=== PATIENT | male | born 1970 | race Caucasian/White ===

== ENCOUNTER 2016-09-21 18:05 | Inpatient (IN) | payer OTHER ==
[2016-09-21] MEDS ORDERED: SODIUM CHLORIDE 0.9% 1,000 ML IV STA (20:13)
--- NOTE | 2016-09-21 20:25 | ED ---
General Adult HPI <Greg Yanez - Last Filed: 09/21/16 22:27> - General Source: patient, RN notes reviewed Mode of arrival: ambulatory Limitations: no limitations <Dedra Kaye - Last Filed: 09/22/16 05:02> - General Chief complaint: Extremity Problem,Nontraumatic Stated complaint: leg infected Time Seen by Provider: 09/21/16 19:45 - History of Present Illness Initial comments: Patient is a 46-year-old male chief complaint of left leg and foot pain. Patient reports that he has had this pain for approximately 4 weeks. He was admitted to [facility] approximately month ago for an infection in his foot. Patient reports he is not a diabetic. Patient states that his pain is worse with ambulation. Patient denies any fever or chills. He states that he did have a scab initially over the area is concerned that is the infection started from there. Patient denies any peripheral paresthesias. He does state that he knows he has a fungal infection over his toes. (Dedra Kaye) - Related Data Allergies Allergy/AdvReac Type Severity Reaction Status Date / Time No Known Allergies Allergy Verified 09/21/16 18:37 Review of Systems ROS Other: All systems not noted in ROS Statement are negative. <Greg Yanez - Last Filed: 09/21/16 22:27> ROS Other: All systems not noted in ROS Statement are negative. <Dedra Kaye - Last Filed: 09/22/16 05:02> ROS Statement: Those systems with pertinent positive or pertinent negative responses have been documented in the HPI. Past Medical History Past Medical History: No Reported History History of Any Multi-Drug Resistant Organisms: None Reported Past Surgical History: No Surgical Hx Reported Past Psychological History: No Psychological Hx Reported Smoking Status: Current every day smoker Past Alcohol Use History: None Reported Past Drug Use History: None Reported <Dedra Kaye - Last Filed: 09/22/16 05:02> General Exam General appearance: alert, in no apparent distress Head exam: Present: atraumatic, normocephalic, normal inspection Eye exam: Present: normal appearance, PERRL, EOMI. Absent: scleral icterus, conjunctival injection, periorbital swelling ENT exam: Present: normal exam, mucous membranes moist Neck exam: Present: normal inspection. Absent: tenderness, meningismus, lymphadenopathy Respiratory exam: Present: normal lung sounds bilaterally. Absent: respiratory distress, wheezes, rales, rhonchi, stridor Cardiovascular Exam: Present: regular rate, normal rhythm, normal heart sounds. Absent: systolic murmur, diastolic murmur, rubs, gallop, clicks GI/Abdominal exam: Present: soft, normal bowel sounds. Absent: distended, tenderness, guarding, rebound, rigid Extremities exam: Present: normal inspection, full ROM, normal capillary refill. Absent: tenderness, pedal edema, joint swelling, calf tenderness Back exam: Present: normal inspection Neurological exam: Present: alert, oriented X3, CN II-XII intact Psychiatric exam: Present: normal affect, normal mood Skin exam: Present: warm, dry, intact, normal color. Absent: rash <Greg Yanez B - Last Filed: 09/21/16 22:27> Limitations: no limitations General appearance: alert, in no apparent distress Head exam: Present: atraumatic, normocephalic, normal inspection Eye exam: Present: normal appearance, PERRL, EOMI. Absent: scleral icterus, conjunctival injection, periorbital swelling ENT exam: Present: normal exam, mucous membranes moist Neck exam: Present: normal inspection. Absent: tenderness, meningismus, lymphadenopathy Respiratory exam: Present: normal lung sounds bilaterally. Absent: respiratory distress, wheezes, rales, rhonchi, stridor Cardiovascular Exam: Present: regular rate, normal rhythm, normal heart sounds. Absent: systolic murmur, diastolic murmur, rubs, gallop, clicks GI/Abdominal exam: Present: soft, normal bowel sounds. Absent: distended, tenderness, guarding, rebound, rigid Extremities exam: Present: normal inspection, full ROM, normal capillary refill. Absent: tenderness, pedal edema, joint swelling, calf tenderness Left Lower Leg exam: Present: full ROM, tenderness (Over the lower leg and ankle.), erythema (Erythema extending up the leg from the foot to the mid calf.). Absent : normal inspection Ankle exam: Present: tenderness, swelling (Patient has erythema and swelling over the lateral aspect of the ankle.). Absent: normal inspection, full ROM Foot/Toe exam: Present: full ROM, tenderness (Over her entire foot.), erythema ( Significant erythema over the foot. Patient has evidence of fungal infection extending over her toes 4 through 5.). Absent: normal inspection Neurovascular tendon exam: Present: no vascular compromise Gait: observed and normal Back exam: Present: normal inspection Neurological exam: Present: alert, oriented X3, CN II-XII intact Psychiatric exam: Present: normal affect, normal mood Skin exam: Present: warm, dry, intact, normal color, erythema. Absent: rash <Dedra Kaye - Last Filed: 09/22/16 05:02> - General Exam Comments Initial Comments: Pleasant 46-year-old male. No acute distress. (Dedra Kaye) Course <Greg Yanez - Last Filed: 09/21/16 22:27> <Dedra Kaye - Last Filed: 09/22/16 05:02> Vital Signs 09/21/16 09/21/16 18:35 23:26 Temperature 98.1 F Pulse Rate 78 66 Respiratory 20 16 Rate Blood Pressure 122/79 127/75 O2 Sat by Pulse 100 98 Oximetry - Reevaluation(s) Reevaluation #1: 09/21/16 22:27 Patient does per medical record have no improvement with home medication, antibiotics of cellulitis. (Greg Yanez) Medical Decision Making - Lab Data Result diagrams: 09/21/16 20:30 09/21/16 20:30 <Greg Yanez - Last Filed: 09/21/16 22:27> - Lab Data Result diagrams: 09/21/16 20:30 09/21/16 20:30 - Radiology Data Radiology results: report reviewed <Dedra Kaye - Last Filed: 09/22/16 05:02> - Medical Decision Making 46 noted ER for evaluation of leg cellulase, patient is fell outpatient treatment with cellulitis, will defer IV antibiotics. Wound care (Greg Yanez) Patient is a 46-year-old male with a erythematous left lower leg extending to the ankle and the top of the foot for approximately 3 weeks. Patient reports that it has gotten much worse over the past week. Patient states that he does not have a primary care provider does not follow up with a physician. He was admitted to [facility] roughly a month ago and was kept in the hospital for about a week for this infection. Patient states that he was getting better upon discharge however it seems to the turn. Patient states that he has no fever or chills. Patient's lab work was reviewed and a ultrasound was obtained. Ultrasound is negative for any blood clots. Lab work does not show evidence of leukocytosis. The leg is warm and somewhat swollen. Patient will be admitted with IV vancomycin and IV fluids. I do not believe that the patient would comply with outpatient treatment. Patient does have a follow-up odor and appears to be unkempt, highly possible the patient is homeless. (Dedra Kaye) - Lab Data Lab Results 09/21/16 09/21/16 Range/Units 20:30 20:30 WBC 7.6 (3.8-10.6) k/uL RBC 3.77 L (4.30-5.90) m/uL Hgb 13.0 (13.0-17.5) gm/dL Hct 38.3 L (39.0-53.0) % MCV 101.8 H (80.0-100.0) fL MCH 34.4 (25.0-35.0) pg MCHC 33.8 (31.0-37.0) g/dL RDW 14.1 (11.5-15.5) % Plt Count 219 (150-450) k/uL Neutrophils % 75 % Lymphocytes % 17 % Monocytes % 4 % Eosinophils % 1 % Basophils % 0 % Neutrophils # 5.7 (1.3-7.7) k/uL Lymphocytes # 1.3 (1.0-4.8) k/uL Monocytes # 0.3 (0-1.0) k/uL Eosinophils # 0.1 (0-0.7) k/uL Basophils # 0.0 (0-0.2) k/uL Macrocytosis Slight Sodium 139 (137-145) mmol/L Potassium 4.0 (3.5-5.1) mmol/L Chloride 105 (98-107) mmol/L Carbon Dioxide 24 (22-30) mmol/L Anion Gap 10 mmol/L BUN 17 (9-20) mg/dL Creatinine 1.00 (0.66-1.25) mg/dL Est GFR (MDRD) Af Amer >60 (>60 ml/min/1.73 sqM) Est GFR (MDRD) Non-Af >60 (>60 ml/min/1.73 sqM) Glucose 84 (74-99) mg/dL Calcium 9.2 (8.4-10.2) mg/dL Total Bilirubin 0.6 (0.2-1.3) mg/dL AST 26 (17-59) U/L ALT 17 L (21-72) U/L Alkaline Phosphatase 69 (38-126) U/L Total Protein 7.7 (6.3-8.2) g/dL Albumin 4.0 (3.5-5.0) g/dL - Radiology Data Ultrasound was reviewed and is negative for DVT. No acute abnormality of the left foot x-ray. (Dedra Kaye) Disposition <Greg Yanez - Last Filed: 09/21/16 22:27> Time of Disposition: 22:26 <Dedra Kaye - Last Filed: 09/22/16 05:02> Clinical Impression: Left leg cellulitis, Failure of outpatient treatment Disposition: ADMITTED IP TO THIS HOSP Condition: Stable
[2016-09-21 20:43] LABS: Basophils % (A) 0 %; CH 34.3; Eosinophils # (A) 0.1 k/uL (0-0.7); Eosinophils % (A) 1 %; HCT 38.3 % (39.0-53.0); HDW 2.68; Luc # (Auto) 0.22; Luc % (Auto) 3; Lymphocytes # (A) 1.3 k/uL (1.0-4.8); Lymphocytes % (A) 17 %; MCH 34.4 pg (25.0-35.0); MCHC 33.8 g/dL (31.0-37.0); MCV 101.8 fL (80.0-100.0); Macrocytosis Slight; Monocytes # (A) 0.3 k/uL (0-1.0); Monocytes % (A) 4 %; Neutrophils # (A) 5.7 k/uL (1.3-7.7); Neutrophils % (A) 75 %; RBC 3.77 m/uL (4.30-5.90); RDW 14.1 % (11.5-15.5); WBC 7.6 k/uL (3.8-10.6); WBC (Perox) 8.07
[2016-09-21 20:54] LABS: ALT 17 U/L (21-72); AST 26 U/L (17-59); Alkaline Phosphatase 69 U/L (38-126); Anion Gap 10 mmol/L; Blood Urea Nitrogen 17 mg/dL (9-20); Calcium 9.2 mg/dL (8.4-10.2); Carbon Dioxide 24 mmol/L (22-30); Chloride 105 mmol/L (98-107); Glucose 84 mg/dL (74-99); Non-African American GFR(MDRD) >60 (>60 ml/min/1.73 sqM); Sodium 139 mmol/L (137-145); Total Bilirubin 0.6 mg/dL (0.2-1.3); Total Protein 7.7 g/dL (6.3-8.2)
--- NOTE | 2016-09-21 21:07 | US ---
EXAMINATION TYPE: US venous doppler duplex LE LT DATE OF EXAM: 09/21/2016 8:55 PM COMPARISON: NONE CLINICAL HISTORY: Pain. Left lower leg pain, no hx of blood clots. Not on any blood thinners. No pineda rgeries. No injury. SIDE PERFORMED: Left VESSELS IMAGED: External Iliac Vein (EIV) Common Femoral Vein Deep Femoral Vein Greater Saphenous Vein * Femoral Vein Popliteal Vein Small Saphenous Vein * Proximal Calf Veins (* superficial vessels) TECHNOLOGIST IMPRESSION: Left Leg: Appears negative for DVT. Multiple lymph nodes seen in the groin region, largest= 3.2 x 1 .6 x 1.1 cm IMPRESSION: No evidence of deep venous thrombosis in the left leg.
--- NOTE | 2016-09-21 22:04 | XR ---
EXAMINATION TYPE: XR foot complete LT DATE OF EXAM: 09/21/2016 10:01 PM COMPARISON: NONE HISTORY: Redness and swelling TECHNIQUE: 3 views FINDINGS: There is mild hallux valgus. I see no fracture nor dislocation. There is a small Achilles c alcaneal spur. There are no erosions. IMPRESSION: No acute abnormality of the left foot.
[2016-09-21] MEDS ORDERED: IV VANCOMYCIN PER PHARMACY 1 EACH MISC MISCELLANE PRN (22:20)
[2016-09-21] MEDS ORDERED: VANCOMYCIN 1,250 MG in SODIUM CHLORIDE 0.9% 250 ML IVPB STA (22:24)
[2016-09-21] MEDS ORDERED: ACETAMINOPHEN TAB 325 MG TAB PO PRN (22:26)
[2016-09-21] MEDS ORDERED: Acetaminophen-Codeine 300-30mg TAB PO PRN (22:26)
[2016-09-21] MEDS ORDERED: NALOXONE 0.4 MG/ML 1 ML VIAL IV PRN (22:26)
[2016-09-21] MEDS ORDERED: KETOROLAC 30 MG/ML 1 ML VIAL IVP PRN (22:26)
[2016-09-22 00:19] VITALS: BMI 21.1
[2016-09-22] MEDS: SODIUM CHLORIDE 0.9% 1,000 ML IV SCH ×3 (00:51→17:50)
[2016-09-22] MEDS: ENOXAPARIN 40 MG/0.4 ML SYRINGE SQ SCH (09:43)
[2016-09-22] MEDS: VANCOMYCIN 1,250 MG in SODIUM CHLORIDE 0.9% 250 ML IVPB SCH ×2 (09:43→23:24)
[2016-09-22] MEDS: NICOTINE 14MG/24HR PATCH TRANSDERM SCH (17:48)
[2016-09-22] MEDS ORDERED: NEOMYCIN-BACITRACIN-POLY OINT 14 GM TUBE TOPICAL PRN (19:26)
--- NOTE | 2016-09-22 21:51 | HP ---
DATE OF ADMISSION: 09/21/2016 CHIEF COMPLAINT: Pain, redness, and swelling in the left foot. HISTORY OF PRESENT ILLNESS: This is a first admission for this 46-year-old white male. He is having some swelling and pain in the distal left foot where he has hammertoes. Finally came to the emergency room where he was admitted for cellulitis. He has had no fever or chills. REVIEW OF SYSTEMS: He has had no neurologic problems, chest pain, shortness of breath, palpitations, heart disease, abdominal pain, nausea, vomiting, diarrhea, melena, hematochezia, jaundice, hematuria, frequency, urgency, arthralgias, polys, diabetes, etc. Past medical history, family history and personal and social history can all be found in previous admitting and discharge summary summaries or are otherwise unremarkable. He is not any medication. He takes none. He has had no surgery and he smokes half pack of cigarettes a day. PHYSICAL EXAMINATION: Blood pressure 138/68 with a pulse of 75, respirations 20, and he is afebrile. GENERAL: He appeared to be well-developed, well-nourished, in no acute distress. SKIN: Skin color is normal. Skin is warm and dry. Lymph nodes are not enlarged. Head, ears, eyes, nose, mouth, and throat were normal. NECK: Neck veins not distended. Thyroid is not enlarged. Chest is clear. Cardiac exam is normal. The abdomen is soft, nontender. EXTREMITIES: Normal except for the left foot where he had hammer toes and cellulitis in the distal left foot and toes and pulses good. IMPRESSION: Cellulitis of the left distal foot. PLAN: 1. Bed rest. 2. IV fluids. 3. Intravenous antibiotics.
--- NOTE | 2016-09-22 21:57 | PN ---
DATE OF SERVICE: 09/22/2016 CHIEF COMPLAINT: Cellulitis of the left foot. HISTORY OF PRESENT ILLNESS: The gentleman is doing well and had no problems and the redness, pain and swelling are going down. PHYSICAL EXAMINATION: Foot is less erythematous and swollen. IMPRESSION: Cellulitis of the distal left foot and toes. PLAN: Continue with IV fluids and antibiotics for another day or two.
[2016-09-23 00:31] VITALS: RESP 16
[2016-09-23] MEDS: SODIUM CHLORIDE 0.9% 1,000 ML IV SCH (01:38)
[2016-09-23 07:42] VITALS: BP 118/88; PULSE 66; TEMP 97.4
[2016-09-23 07:47] LABS: Anion Gap 9 mmol/L; Blood Urea Nitrogen 13 mg/dL (9-20); Calcium 8.3 mg/dL (8.4-10.2); Carbon Dioxide 22 mmol/L (22-30); Chloride 109 mmol/L (98-107); Glucose 81 mg/dL (74-99); Non-African American GFR(MDRD) >60 (>60 ml/min/1.73 sqM); Potassium 4.2 mmol/L (3.5-5.1); Sodium 140 mmol/L (137-145)
[2016-09-23] MEDS: ENOXAPARIN 40 MG/0.4 ML SYRINGE SQ SCH (09:14)
[2016-09-23] MEDS: VANCOMYCIN 1,250 MG in SODIUM CHLORIDE 0.9% 250 ML IVPB SCH (09:14)
[2016-09-23] MEDS: NICOTINE 14MG/24HR PATCH TRANSDERM SCH (09:14)
--- NOTE | 2016-09-23 11:15 | P.DS ---
Providers Date of admission: 09/21/16 22:28 Expected date of discharge: 09/23/16 Attending physician: Romeo Amaya Primary care physician: Stated None Hospital Course: 46-year-old presented to the emergency room with a chief complaint of developing pain in the left foot. Patient stated he had the pain for the past month. He admits to going to [facility] a month ago and had injection in his foot. Patient states is not diabetic. Patient states the pain seems to get worse when he tries to ambulate. Patient stated he had a scab initially over the area was concerned there was an infection. Patient states he has a known history of fungal infection over his toes Dopplers to the lower extremities were negative for evidence of a DVT. Patient showed no evidence of cellulitis. Was felt to be appropriate to be discharged Impression discharge diagnosis Present on admission left foot pain redness swelling with evidence of cellulitis to the left distal foot History of fungal infection involving the toes Active tobacco abuse greater than a 10 year history of COPD not diagnosed The above dictated assessment and findings were discussed with dr amaya. Impression and the plan of care have been dictated as directed. Meme Currie nurse practitioner acting as a scribe for dr amaya Patient Condition at Discharge: Stable Plan - Discharge Summary New Discharge Prescriptions: Cephalexin [Keflex] 500 mg PO Q6H #40 capsule Discharge Medication List Acetaminophen Tab [Tylenol] 650 mg PO Q6HR PRN #0 tab 09/23/16 [Rx] Cephalexin [Keflex] 500 mg PO Q6H #40 capsule 09/23/16 [Rx] Ziqpkdav-Budvomxbfu-Nrfn Oint [Triple Antibiotic Ointment] 1 applic TOPICAL BID PRN #0 applic 09/23/16 [Rx] Nicotine 14Mg/24Hr Patch [Habitrol] 1 patch TRANSDERM DAILY patch 09/23/16 [Rx] Follow up Appointment(s)/Referral(s): None,Stated [Primary Care Provider] - 1-2 days Roemo Amaya MD [STAFF PHYSICIAN] - 09/25/16 Discharge Disposition: HOME SELF-CARE
--- NOTE | 2016-09-23 14:11 | PN ---
CHIEF COMPLAINT: Cellulitis of the left leg and foot. HISTORY OF PRESENT ILLNESS: This gentleman is doing well, his cellulitis is nearly improved. He is not febrile. PHYSICAL EXAMINATION: The redness and swelling are nearly completely gone from the left foot. He will go home today and this will be arranged by the nurse practitioner. Will see him in the office in follow-up. FINAL DIAGNOSES: Cellulitis of the left foot with hammer toes. PLAN: Probably home today.
[2016-09-24] MEDS ORDERED: VANCOMYCIN TROUGH DUE 1 EACH MISC MISCELLANE ONE (09:00)
== END 2016-09-23 13:55 | disposition home or self-care (01) | DRG 603 ==
LOC: EC 18:05 → 5ONC 22:28
PROVIDERS: ADMIT Family Medicine; ATTEND Family Medicine
DX: L03.116 Cellulitis of left lower limb (principal); B35.3 Tinea pedis; M20.42 Other hammer toe(s) (acquired), left foot; R46.0 Very low level of personal hygiene; F17.210 Nicotine dependence, cigarettes, uncomplicated; Z59.0 Homelessness; Z86.19 Personal history of other infectious and parasitic diseases
CPT/HCPCS: 36415; 80048; 80053; 85025; 87040; 96361; 96365; 99285

== ENCOUNTER 2017-03-02 01:45 | Observation (INO) | payer OTHER ==
[2017-03-02] MEDS ORDERED: SODIUM CHLORIDE 0.9% 1,000 ML IV STA (02:20)
--- NOTE | 2017-03-02 02:23 | ED ---
General Adult HPI - General Chief complaint: Extremity Injury, Lower Stated complaint: Leg pain/swelling Time Seen by Provider: 03/02/17 02:15 Source: patient, RN notes reviewed Mode of arrival: ambulatory Limitations: no limitations - History of Present Illness Initial comments: 46-year-old male presents emergency Department chief complaint of left lower extremity redness and swelling. Patient states he had this while going he was admitted to the hospital. Patient states it came back today he noticed the swelling and pain. It is worst walking. Patient states there is no falls traumas or injuries. Patient states that it just came out now or today so he was concerned. Patient states is not currently having any other symptoms with this. Patient denies any fever or chills.Patient denies any recent fever, chills, shortness of breath, chest pain, back pain, abdominal pain, nausea vomiting, numbness or tingling, dysuria or hematuria, constipation or diarrhea, headaches or visual changes, or any other current symptoms. - Related Data Previous Rx's Medication Instructions Recorded Acetaminophen Tab [Tylenol] 650 mg PO Q6HR PRN #0 tab 09/23/16 Cephalexin [Keflex] 500 mg PO Q6H #40 capsule 09/23/16 Erdxbutj-Iucnchlbhr-Fbww Oint 1 applic TOPICAL BID PRN #0 applic 09/23/16 [Triple Antibiotic Ointment] Nicotine 14Mg/24Hr Patch [Habitrol] 1 patch TRANSDERM DAILY patch 09/23/16 Allergies Allergy/AdvReac Type Severity Reaction Status Date / Time No Known Allergies Allergy Verified 03/02/17 02:00 Review of Systems ROS Statement: Those systems with pertinent positive or pertinent negative responses have been documented in the HPI. ROS Other: All systems not noted in ROS Statement are negative. Past Medical History Past Medical History: No Reported History History of Any Multi-Drug Resistant Organisms: None Reported Past Surgical History: No Surgical Hx Reported Past Psychological History: No Psychological Hx Reported Smoking Status: Current every day smoker Past Alcohol Use History: None Reported Past Drug Use History: None Reported General Exam - General Exam Comments Initial Comments: General: The patient is awake and alert, in no distress, and does not appear acutely ill. Neck: The neck is supple, there is no tenderness. Cardiovascular: There is a regular rate and rhythm. No murmur, rub or gallop is appreciated. Respiratory: Lungs are clear to auscultation, respirations are non-labored, breath sounds are equal. No wheezes, stridor, rales, or rhonchi. Musculoskeletal: Sensation intact with 2+ pulses of left lower externa. Full range of motion of left knee and left ankle. Patient does appear to have anterior tibial swelling with erythema noted. Tender to touch. No fluctuation noted. Neurological: CN II-XII intact, There are no obvious motor or sensory deficits. Coordination appears grossly intact. Speech is normal. Skin: Skin is warm and dry and no rashes or lesions are noted. Psychiatric: Normal mood and affect. Limitations: no limitations Course Vital Signs 03/02/17 03/02/17 01:57 03:01 Temperature 97.5 F L 99.1 F Pulse Rate 82 73 Respiratory 20 18 Rate Blood Pressure 116/81 115/57 O2 Sat by Pulse 96 94 L Oximetry Medical Decision Making - Medical Decision Making 46-year-old male presents for what appears to be a left lower extremity cellulitis. This time patient does appear Disheveled appearance. There is concern that he does not have good follow-up he does not have a doctor. At this time he has not been on patient last period is appear to have a cellulitis to the left stout. At this time we will admit the patient for IV antibiotics and due to him not having good follow-up and a poor prognosis if he goes home. Patient is in agreement with this plan. - Lab Data Result diagrams: 03/02/17 03:06 03/02/17 03:06 Lab Results 03/02/17 03/02/17 Range/Units 03:06 03:06 WBC 7.2 (3.8-10.6) k/uL RBC 3.84 L (4.30-5.90) m/uL Hgb 13.1 (13.0-17.5) gm/dL Hct 38.7 L (39.0-53.0) % MCV 100.8 H (80.0-100.0) fL MCH 34.2 (25.0-35.0) pg MCHC 33.9 (31.0-37.0) g/dL RDW 14.2 (11.5-15.5) % Plt Count 198 (150-450) k/uL Neutrophils % 65 % Lymphocytes % 25 % Monocytes % 5 % Eosinophils % 2 % Basophils % 0 % Neutrophils # 4.7 (1.3-7.7) k/uL Lymphocytes # 1.8 (1.0-4.8) k/uL Monocytes # 0.3 (0-1.0) k/uL Eosinophils # 0.2 (0-0.7) k/uL Basophils # 0.0 (0-0.2) k/uL Macrocytosis Slight Sodium 144 (137-145) mmol/L Potassium 3.9 (3.5-5.1) mmol/L Chloride 105 (98-107) mmol/L Carbon Dioxide 26 (22-30) mmol/L Anion Gap 13 mmol/L BUN 28 H (9-20) mg/dL Creatinine 1.00 (0.66-1.25) mg/dL Est GFR (MDRD) Af Amer >60 (>60 ml/min/1.73 sqM) Est GFR (MDRD) Non-Af >60 (>60 ml/min/1.73 sqM) Glucose 87 (74-99) mg/dL Calcium 9.4 (8.4-10.2) mg/dL Total Bilirubin 0.6 (0.2-1.3) mg/dL AST 22 (17-59) U/L ALT 29 (21-72) U/L Alkaline Phosphatase 61 (38-126) U/L Total Protein 7.1 (6.3-8.2) g/dL Albumin 4.1 (3.5-5.0) g/dL - Radiology Data Radiology results: report reviewed, image reviewed Disposition Clinical Impression: Left leg cellulitis Disposition: ADMITTED IP TO THIS [facility] Condition: Stable Referrals: None,Stated [Primary Care Provider] - 1-2 days Time of Disposition: : Decision Date: 03/02/17 Decision Time: :32
--- NOTE | 2017-03-02 02:46 | XR ---
EXAM: XR Left Tibia and Fibula, 2 Views CLINICAL HISTORY: Reason: Pain TECHNIQUE: Frontal and lateral views of the left tibia and fibula. COMPARISON: No relevant prior studies available. FINDINGS: Bones/joints: Unremarkable. No acute fracture. No dislocation. Soft tissues: Unremarkable. No radiopaque foreign body. IMPRESSION: Normal left tibia and fibula x-rays.
[2017-03-02 03:14] LABS: Basophils % (A) 0 %; CH 33.8; CHCM 33.8; Eosinophils # (A) 0.2 k/uL (0-0.7); Eosinophils % (A) 2 %; HCT 38.7 % (39.0-53.0); HDW 2.78; HGB 13.1 gm/dL (13.0-17.5); Luc # (Auto) 0.21; Luc % (Auto) 3; Lymphocytes # (A) 1.8 k/uL (1.0-4.8); Lymphocytes % (A) 25 %; MCH 34.2 pg (25.0-35.0); MCHC 33.9 g/dL (31.0-37.0); MCV 100.8 fL (80.0-100.0); Macrocytosis Slight; Mean Platelet Volume 7.6; Monocytes # (A) 0.3 k/uL (0-1.0); Monocytes % (A) 5 %; Neutrophils # (A) 4.7 k/uL (1.3-7.7); Neutrophils % (A) 65 %; RBC 3.84 m/uL (4.30-5.90); RDW 14.2 % (11.5-15.5); WBC 7.2 k/uL (3.8-10.6); WBC (Perox) 7.35
[2017-03-02 03:24] LABS: ALT 29 U/L (21-72); AST 22 U/L (17-59); Alkaline Phosphatase 61 U/L (38-126); Anion Gap 13 mmol/L; Blood Urea Nitrogen 28 mg/dL (9-20); Calcium 9.4 mg/dL (8.4-10.2); Carbon Dioxide 26 mmol/L (22-30); Chloride 105 mmol/L (98-107); Glucose 87 mg/dL (74-99); Non-African American GFR(MDRD) >60 (>60 ml/min/1.73 sqM); Potassium 3.9 mmol/L (3.5-5.1); Sodium 144 mmol/L (137-145); Total Bilirubin 0.6 mg/dL (0.2-1.3); Total Protein 7.1 g/dL (6.3-8.2)
[2017-03-02] MEDS ORDERED: NALOXONE 0.4 MG/ML 1 ML VIAL IV PRN (03:33)
[2017-03-02] MEDS ORDERED: ACETAMINOPHEN TAB 325 MG TAB PO PRN (03:33)
[2017-03-02] MEDS ORDERED: IBUPROFEN 400 MG TAB PO PRN (03:33)
[2017-03-02] MEDS ORDERED: IV VANCOMYCIN PER PHARMACY 1 EACH MISC MISCELLANE PRN (03:34)
[2017-03-02] MEDS: SODIUM CHLORIDE 0.9% 1,000 ML IV SCH ×3 (03:41→15:43)
[2017-03-02 04:25] VITALS: BMI 23.0
[2017-03-02] MEDS: VANCOMYCIN 1,500 MG in SODIUM CHLORIDE 0.9% 250 ML IVPB SCH ×2 (06:29→18:06)
--- NOTE | 2017-03-02 23:48 | P.HPIM ---
History of Present Illness H&P Date: 03/02/17 Chief Complaint: Left leg swelling and redness 46-year-old male presents emergency Department chief complaint of left lower extremity redness and swelling worsening for the past 2 days. Also complaining of pain. No history of DVT in the past. Patient states there is no falls traumas or injuries. Patient did have subjective fever or chills at home.. Patient denies any shortness of breath, chest pain, back pain, abdominal pain, nausea vomiting, numbness or tingling, dysuria or hematuria, constipation or diarrhea, headaches or visual changes, or any other current symptoms. Review of Systems CONSTITUTIONAL: No fever, no malaise, no fatigue. HEENT: No recent visual problems or hearing problems. Denied any sore throat. CARDIOVASCULAR: No chest pain, orthopnea, PND, no palpitations, no syncope. PULMONARY: , no hemoptysis. GASTROINTESTINAL: No diarrhea, no nausea, no vomiting, no abdominal pain. Normoactive bowel sounds. NEUROLOGICAL: No headaches, no weakness, no numbness. HEMATOLOGICAL: Denies any bleeding or petechiae. GENITOURINARY: Denies any burning micturition, frequency, or urgency. MUSCULOSKELETAL/RHEUMATOLOGICAL: Left leg swelling and redness. No joint swelling ENDOCRINE: Denies any polyuria or polydipsia. The rest of the 14-point review of systems is negative. Past Medical History Past Medical History: No Reported History Additional Past Medical History / Comment(s): Left leg cellulitis History of Any Multi-Drug Resistant Organisms: None Reported Past Surgical History: No Surgical Hx Reported Past Anesthesia/Blood Transfusion Reactions: No Reported Reaction Past Psychological History: No Psychological Hx Reported Smoking Status: Current every day smoker Past Alcohol Use History: None Reported Past Drug Use History: None Reported Medications and Allergies Home Medications Medication Instructions Recorded Confirmed Type No Known Home Medications [No 03/02/17 03/02/17 History Known Home Medications] Allergies Allergy/AdvReac Type Severity Reaction Status Date / Time No Known Allergies Allergy Verified 03/02/17 08:13 Physical Exam Vitals: Vital Signs Temp Pulse Pulse Resp BP BP Pulse Ox 03/02/17 12:00 65 18 03/02/17 08:00 97.7 F 65 18 102/63 95 03/02/17 04:30 18 03/02/17 04:15 98.4 F 70 18 110/79 95 03/02/17 03:45 98.0 F 67 18 108/77 96 03/02/17 03:01 99.1 F 73 18 115/57 94 L 03/02/17 01:57 97.5 F L 82 20 116/81 96 Intake and Output 03/02/17 03/02/17 03/02/17 06:59 14:59 22:59 Intake Total 1000 Balance 1000 Intake: Amount of Fluid Infused ( 1000 ml) Other: Voiding Method Toilet Toilet Weight 77.111 kg PHYSICAL EXAMINATION: Patient is lying in the bed comfortably, no acute distress, awake alert and oriented.. HEENT: Normocephalic. Neck is supple. Pupils reactive. Nostrils clear. Oral cavity is moist. Ears reveal no drainage. Neck reveals no JVD, carotid bruits, or thyromegaly. CHEST EXAMINATION: Trachea is central. Symmetrical expansion. Lung macias clear to auscultation and percussion. CARDIAC: Normal S1, S2 with no gallops. No murmurs ABDOMEN: Soft. Bowel sounds normal. No organomegaly. No abdominal bruits. Extremities reveal no edema. No clubbing or cyanosis Neurologically awake, alert, oriented x3 with well-coordinated movements. Skin: no rash or skin lesions Musculoskeletal: no joint swelling or deformity. Patient does have left lower extremity redness around stout area. No cough tenderness. No drainage. no fluid fluctuation Results CBC & Chem 7: 03/02/17 03:06 03/02/17 03:06 Labs: Abnormal Lab Results - Last 24 Hours (Table) 03/02/17 03/02/17 Range/Units 03:06 03:06 RBC 3.84 L (4.30-5.90) m/uL Hct 38.7 L (39.0-53.0) % MCV 100.8 H (80.0-100.0) fL BUN 28 H (9-20) mg/dL Thrombosis Risk Factor Assmnt - DVT/VTE Prophylaxis DVT/VTE Prophylaxis: Pharmacologic Prophylaxis ordered - Choose All That Apply Each Factor Represents 1 point: Age 41-60 years Thrombosis Risk Factor Assessment Total Risk Factor Score: 1 Thrombosis Risk Factor Assessment Level: Low Risk Assessment and Plan Plan: #1 left lower extremity cellulitis #2 prerenal azotemia. With elevated BUN #3 macrocytosis #3 DVT prophylaxis Plan: Patient will be continued on IV vancomycin and follow blood cultures. Continue the pain management. Further recommendations based on the clinical course.
[2017-03-03] MEDS: VANCOMYCIN 1,500 MG in SODIUM CHLORIDE 0.9% 250 ML IVPB SCH (06:14)
[2017-03-03 07:11] LABS: ALT 20 U/L (21-72); AST 17 U/L (17-59); Alkaline Phosphatase 56 U/L (38-126); Anion Gap 7 mmol/L; Blood Urea Nitrogen 15 mg/dL (9-20); Calcium 7.9 mg/dL (8.4-10.2); Carbon Dioxide 24 mmol/L (22-30); Chloride 109 mmol/L (98-107); Glucose 75 mg/dL (74-99); Non-African American GFR(MDRD) >60 (>60 ml/min/1.73 sqM); Potassium 3.9 mmol/L (3.5-5.1); Sodium 140 mmol/L (137-145); Total Bilirubin 0.5 mg/dL (0.2-1.3)
[2017-03-03 07:28] LABS: Basophils % (A) 1 %; CH 33.7; CHCM 32.9; Eosinophils # (A) 0.2 k/uL (0-0.7); Eosinophils % (A) 3 %; HCT 36.2 % (39.0-53.0); HGB 12.1 gm/dL (13.0-17.5); Luc # (Auto) 0.19; Luc % (Auto) 3; Lymphocytes # (A) 1.9 k/uL (1.0-4.8); Lymphocytes % (A) 34 %; MCH 34.5 pg (25.0-35.0); MCHC 33.5 g/dL (31.0-37.0); MCV 102.9 fL (80.0-100.0); Macrocytosis Slight; Mean Platelet Volume 7.4; Monocytes # (A) 0.2 k/uL (0-1.0); Monocytes % (A) 4 %; Neutrophils % (A) 54 %; RBC 3.52 m/uL (4.30-5.90); RDW 14.1 % (11.5-15.5); WBC 5.4 k/uL (3.8-10.6); WBC (Perox) 5.51
[2017-03-03] MEDS: SODIUM CHLORIDE 0.9% 1,000 ML IV SCH ×2 (08:08→09:42)
[2017-03-03] MEDS: HEPARIN SODIUM,PORCINE 5,000 UNIT/ML 1 ML VIAL SQ SCH ×2 (09:42)
[2017-03-03 12:37] VITALS: BP 111/82; PULSE 65; RESP 18; TEMP 97.6
--- NOTE | 2017-03-04 00:34 | P.DS ---
Providers Date of admission: 03/02/17 03:39 Attending physician: Bello Tyler Primary care physician: Stated None Hospital Course: Discharge diagnosis #1 left lower extremity cellulitis. Improved #2 prerenal azotemia. With elevated BUN #3 macrocytosis #3 DVT prophylaxis Hospital course: 46-year-old male presents emergency Department chief complaint of left lower extremity redness and swelling worsening for the past 2 days. Also complaining of pain. No history of DVT in the past. Patient states there is no falls traumas or injuries. Patient did have subjective fever or chills at home.. Patient denies any shortness of breath, chest pain, back pain, abdominal pain, nausea vomiting, numbness or tingling, dysuria or hematuria, constipation or diarrhea, headaches or visual changes, or any other current symptoms. Patient was continued on IV vancomycin and follow blood cultures. Blood cultures negative last 24 hours. Continued with IV fluids and Continue the pain management. Patient's left leg swelling and pain is much improved now. No fever no chills. Patient will be discharged home with oral antibiotics. Discharge physical examination done Patient Condition at Discharge: Stable Plan - Discharge Summary New Discharge Prescriptions: New Cephalexin [Keflex] 500 mg PO Q12HR #12 cap Discharge Medication List Cephalexin [Keflex] 500 mg PO Q12HR #12 cap 03/03/17 [Rx] Follow up Appointment(s)/Referral(s): None,Stated [Primary Care Provider] - 1-2 days Patient Instructions/Handouts: Cellulitis (GEN) Discharge Disposition: HOME SELF-CARE
[2017-03-04] MEDS ORDERED: VANCOMYCIN TROUGH DUE 1 EACH MISC MISCELLANE ONE (04:00)
== END 2017-03-03 15:00 | disposition home or self-care (01) ==
LOC: EC 01:45 → 3OBS 03:39
PROVIDERS: ADMIT Hospitalist; ATTEND Hospitalist
DX: L03.116 Cellulitis of left lower limb (principal); F17.200 Nicotine dependence, unspecified, uncomplicated; R79.89 Other specified abnormal findings of blood chemistry; D75.89 Other specified diseases of blood and blood-forming organs
CPT/HCPCS: 99284; 96361 ×2; 96365; 96366 ×2; 96372; 36415; 80053 ×2; 85025 ×2; 87040; 73590; G0378 ×2; J3370 ×2; J1644

== ENCOUNTER 2018-10-29 16:51 | Emergency (ER) | payer OTHER ==
[2018-10-29 16:55] VITALS: TEMP 98.7
--- NOTE | 2018-10-29 17:05 | ED ---
Psych HPI - General Chief Complaint: Psychiatric Symptoms Stated Complaint: SUICIDAL Time Seen by Provider: 10/29/18 16:58 Source: patient, RN notes reviewed, old records reviewed Mode of arrival: ambulatory - History of Present Illness Initial Comments: This is a 40-year-old male the ER for evaluation. Patient states he feels depressed feels suicidal. Denies recent drugs or alcohol. Does have similar complaints of the same. No recent increased life stress MD Complaint: suicidal ideation, feels depressed -: week(s) Associated Psychiatric Symptoms: depression, suicidal ideation History of same: Yes Quality: constant Improves With: none Worsens With: none Context: significant life stressor Associated Symptoms: denies other symptoms Treatments Prior to Arrival: placed on mental health hold If Self Harm: admits thoughts of self harm - Related Data Home Medications Medication Instructions Recorded Confirmed No Known Home Medications 10/29/18 10/29/18 Allergies Allergy/AdvReac Type Severity Reaction Status Date / Time No Known Allergies Allergy Verified 10/29/18 17:30 Review of Systems ROS Statement: Those systems with pertinent positive or pertinent negative responses have been documented in the HPI. ROS Other: All systems not noted in ROS Statement are negative. Past Medical History Past Medical History: No Reported History Additional Past Medical History / Comment(s): Left leg cellulitis History of Any Multi-Drug Resistant Organisms: None Reported Past Surgical History: No Surgical Hx Reported Past Anesthesia/Blood Transfusion Reactions: No Reported Reaction Past Psychological History: No Psychological Hx Reported Smoking Status: Current every day smoker Past Alcohol Use History: None Reported Past Drug Use History: None Reported General Exam Limitations: no limitations General appearance: alert, in no apparent distress Head exam: Present: atraumatic, normocephalic, normal inspection Eye exam: Present: normal appearance, PERRL, EOMI. Absent: scleral icterus, conjunctival injection, periorbital swelling ENT exam: Present: normal exam, mucous membranes moist Neck exam: Present: normal inspection. Absent: tenderness, meningismus, lymphadenopathy Respiratory exam: Present: normal lung sounds bilaterally. Absent: respiratory distress, wheezes, rales, rhonchi, stridor Cardiovascular Exam: Present: regular rate, normal rhythm, normal heart sounds. Absent: systolic murmur, diastolic murmur, rubs, gallop, clicks GI/Abdominal exam: Present: soft, normal bowel sounds. Absent: distended, tenderness, guarding, rebound, rigid Extremities exam: Present: normal inspection, full ROM, normal capillary refill. Absent: tenderness, pedal edema, joint swelling, calf tenderness Back exam: Present: normal inspection Neurological exam: Present: alert, oriented X3, CN II-XII intact Psychiatric exam: Present: normal affect, normal mood Skin exam: Present: warm, dry, intact, normal color. Absent: rash Course Vital Signs 10/29/18 16:52 Temperature 98.7 F Pulse Rate 81 Respiratory 18 Rate Blood Pressure 145/92 O2 Sat by Pulse 96 Oximetry - Reevaluation(s) Reevaluation #1: 10/29/18 18:11 Medical clear for psychiatric evaluation Medical Decision Making - Medical Decision Making 48 male the ER for depression, was seen and evaluated with psychiatry, deemed safe for discharge. Patient feels safe to be discharged home. Disposition Clinical Impression: Depression Disposition: HOME SELF-CARE Condition: Good Instructions (If sedation given, give patient instructions): Depression (ED) Is patient prescribed a controlled substance at d/c from ED?: No Referrals: None,Stated [Primary Care Provider] - 1-2 days
[2018-10-29 20:21] VITALS: BP 122/100; PULSE 71; RESP 16
== END 2018-10-29 20:19 | disposition home or self-care (01) ==
LOC: EC 16:51
DX: F32.9 Major depressive disorder, single episode, unspecified (principal); F17.200 Nicotine dependence, unspecified, uncomplicated
CPT/HCPCS: 99285

== ENCOUNTER 2018-11-05 21:01 | Emergency (ER) | payer OTHER ==
[2018-11-05 21:57] VITALS: RESP 18
[2018-11-05 22:01] LABS: Amphetamine Screen,Urine Not Detected (NotDetected); Barbiturate Screen,Urine Not Detected (NotDetected); Benzodiazepines Screen,Urine Not Detected (NotDetected); Cocaine Screen,Urine Not Detected (NotDetected); Methadone Screen, Urine Not Detected (NotDetected); Opiate Screen,Urine Not Detected (NotDetected); Oxycodone Screen, Urine Not Detected (NotDetected); Phencyclidine Screen,Urine Not Detected (NotDetected); Tricyclic Antidepressant,Urine Not Detected (NotDetected); Urn Cannabinoid Scrn Detected (NotDetected)
--- NOTE | 2018-11-05 22:52 | ED ---
Psych HPI - General Chief Complaint: Psychiatric Symptoms Stated Complaint: psych eval Time Seen by Provider: 11/05/18 21:10 Source: patient, RN notes reviewed Mode of arrival: ambulatory - History of Present Illness Initial Comments: This is a 48-year-old male who apparently is homeless he was kicked out of his sister's house and is here for evaluation for possible suicidal ideation. Upon evaluation patient denies any thoughts of hurting himself or anyone else. No drugs or alcohol reported. No other complaints at this time MD Complaint: other - Related Data Home Medications Medication Instructions Recorded Confirmed No Known Home Medications 10/29/18 11/05/18 Allergies Allergy/AdvReac Type Severity Reaction Status Date / Time No Known Allergies Allergy Verified 11/05/18 21:35 Review of Systems ROS Statement: Those systems with pertinent positive or pertinent negative responses have been documented in the HPI. ROS Other: All systems not noted in ROS Statement are negative. Past Medical History Past Medical History: No Reported History Additional Past Medical History / Comment(s): Left leg cellulitis History of Any Multi-Drug Resistant Organisms: None Reported Past Surgical History: No Surgical Hx Reported Past Anesthesia/Blood Transfusion Reactions: No Reported Reaction Past Psychological History: No Psychological Hx Reported Smoking Status: Current every day smoker Past Alcohol Use History: None Reported Past Drug Use History: None Reported General Exam - General Exam Comments Initial Comments: This is a well-developed well-nourished awake alert oriented 3 male Limitations: no limitations General appearance: alert, in no apparent distress Head exam: Present: atraumatic, normocephalic, normal inspection Eye exam: Present: normal appearance, PERRL, EOMI. Absent: scleral icterus, conjunctival injection, periorbital swelling ENT exam: Present: normal exam, mucous membranes moist Neck exam: Present: normal inspection. Absent: tenderness, meningismus, lymphadenopathy Respiratory exam: Present: normal lung sounds bilaterally. Absent: respiratory distress, wheezes, rales, rhonchi, stridor Cardiovascular Exam: Present: regular rate, normal rhythm, normal heart sounds. Absent: systolic murmur, diastolic murmur, rubs, gallop, clicks GI/Abdominal exam: Present: soft, normal bowel sounds. Absent: distended, tenderness, guarding, rebound, rigid Extremities exam: Present: normal inspection, full ROM, normal capillary refill. Absent: tenderness, pedal edema, joint swelling, calf tenderness Back exam: Present: normal inspection Neurological exam: Present: alert, oriented X3, CN II-XII intact Psychiatric exam: Present: normal mood, flat affect Skin exam: Present: warm, dry, intact, normal color. Absent: rash Course Vital Signs 11/05/18 21:56 Temperature 97.2 F L Pulse Rate 88 Respiratory 18 Rate Blood Pressure 115/84 O2 Sat by Pulse 94 L Oximetry Medical Decision Making - Medical Decision Making The patient was evaluated by psychiatric service found not to be wrist himself or anyone else he will be discharged - Lab Data Lab Results 11/05/18 Range/Units 21:15 Urine Opiates Screen Not Detected (NotDetected) Ur Oxycodone Screen Not Detected (NotDetected) Urine Methadone Screen Not Detected (NotDetected) Ur Propoxyphene Screen Not Detected (NotDetected) Ur Barbiturates Screen Not Detected (NotDetected) U Tricyclic Antidepress Not Detected (NotDetected) Ur Phencyclidine Scrn Not Detected (NotDetected) Ur Amphetamines Screen Not Detected (NotDetected) U Methamphetamines Scrn Not Detected (NotDetected) U Benzodiazepines Scrn Not Detected (NotDetected) Urine Cocaine Screen Not Detected (NotDetected) U Marijuana (THC) Screen Detected H (NotDetected) Disposition Clinical Impression: Adjustment reaction Disposition: HOME SELF-CARE Condition: Good Instructions (If sedation given, give patient instructions): Stress (ED), Mood Disorders (ED) Is patient prescribed a controlled substance at d/c from ED?: No Referrals: None,Stated [Primary Care Provider] - 1-2 days
[2018-11-06 00:15] VITALS: BP 148/80; PULSE 82; TEMP 97
== END 2018-11-06 00:15 | disposition home or self-care (01) ==
LOC: EC 21:01
DX: F43.20 Adjustment disorder, unspecified (principal); F17.200 Nicotine dependence, unspecified, uncomplicated; Z59.0 Homelessness
CPT/HCPCS: 80306; 99284

== ENCOUNTER 2020-02-27 14:33 | Inpatient (IN) | payer OTHER ==
[2020-02-27] MEDS ORDERED: SODIUM CHLORIDE 0.9% 1,000 ML IV STA (14:58)
--- NOTE | 2020-02-27 15:05 | ED ---
General Adult HPI - General Source: patient, RN notes reviewed Mode of arrival: ambulatory Limitations: no limitations <Irineo Watkins - Last Filed: 02/27/20 16:33> <Roni Valerio - Last Filed: 02/27/20 16:41> - General Chief complaint: Extremity Problem,Nontraumatic Stated complaint: Edema Feet/pain Time Seen by Provider: 02/27/20 14:51 - History of Present Illness Initial comments: 49-year-old male presents to the emergency room for a chief complaint of color changes to the lower extremities. Patient reports that for the past week his feet have been different colors and more red than normal. Patient reports that he is currently living in a homeless half-way. Patient presents with wet shoes and socks. Patient denies fevers or chills. Patient states it is minimally painful. Patient doesn't a history of cellulitis of the left lower extremity. Patient has no other complaints at this time including shortness of breath, chest pain, abdominal pain, nausea or vomiting, headache, or visual changes. (Irineo Watkins) - Related Data Home Medications Medication Instructions Recorded Confirmed No Known Home Medications 10/29/18 11/05/18 Allergies Allergy/AdvReac Type Severity Reaction Status Date / Time No Known Allergies Allergy Verified 02/27/20 14:48 Review of Systems ROS Other: All systems not noted in ROS Statement are negative. <Irineo Watkins - Last Filed: 02/27/20 16:33> ROS Other: All systems not noted in ROS Statement are negative. <Roni Valerio - Last Filed: 02/27/20 16:41> ROS Statement: Those systems with pertinent positive or pertinent negative responses have been documented in the HPI. Past Medical History Past Medical History: No Reported History Additional Past Medical History / Comment(s): Left leg cellulitis History of Any Multi-Drug Resistant Organisms: None Reported Past Surgical History: No Surgical Hx Reported Past Anesthesia/Blood Transfusion Reactions: No Reported Reaction Past Psychological History: No Psychological Hx Reported Smoking Status: Current every day smoker Past Alcohol Use History: None Reported Past Drug Use History: None Reported <Irineo Watkins - Last Filed: 02/27/20 16:33> General Exam Limitations: no limitations General appearance: alert, in no apparent distress Head exam: Present: atraumatic, normocephalic, normal inspection Eye exam: Present: normal appearance, PERRL, EOMI. Absent: scleral icterus, conjunctival injection, periorbital swelling ENT exam: Present: normal exam, mucous membranes moist Neck exam: Present: normal inspection, full ROM. Absent: tenderness, meningismus, lymphadenopathy Respiratory exam: Present: normal lung sounds bilaterally. Absent: respiratory distress, wheezes, rales, rhonchi, stridor Cardiovascular Exam: Present: regular rate, normal rhythm, normal heart sounds. Absent: systolic murmur, diastolic murmur, rubs, gallop, clicks Extremities exam: Present: full ROM, normal capillary refill, other (patient has erythemaand scaling noted of the bilateral feet with foul odor associated). Absent: tenderness, pedal edema, joint swelling, calf tenderness <Irineo Watkins - Last Filed: 02/27/20 16:33> Course Vital Signs 02/27/20 14:44 Temperature 99.1 F Pulse Rate 65 Respiratory 18 Rate Blood Pressure 129/78 O2 Sat by Pulse 98 Oximetry Medical Decision Making - Lab Data Result diagrams: 02/27/20 15:17 02/27/20 15:17 <Irineo Watkins - Last Filed: 02/27/20 16:33> - Lab Data Result diagrams: 02/27/20 15:17 02/27/20 15:17 <Roni Valerio - Last Filed: 02/27/20 16:41> - Medical Decision Making Vitals are stable. HPI and physical exam as documented. Pertinent for edema and erythema of the left foot consistent with cellulitis. Possible silence of the right foot as well. CBC does show a normal white blood cell count of 8.5. However patient does have a CRP of 72. X-rays of the feet do not show any evidence of osteomyelitis. Chest x-ray shows no acute process. Patient will be admitted for cellulitis coverage with IV antibiotics. (Irineo Watkins) Patient was reevaluated and reexamined by myself, Dr. Valerio. Patient resting comfortably in bed. Patient does have 99 temperature and CRP 72. Patient does have odor with bilateral left greater than right foot erythema consistent with cellulitis. There is also some skin breakdown and callus formation. Case was discussed with Dr. Wynne, who will admit covering for hospital call. (Roni Valerio) - Lab Data Lab Results 02/27/20 02/27/20 02/27/20 Range/Units 15:17 15:17 15:17 WBC 8.5 (3.8-10.6) k/uL RBC 4.16 L (4.30-5.90) m/uL Hgb 13.7 (13.0-17.5) gm/dL Hct 41.6 (39.0-53.0) % MCV 99.8 (80.0-100.0) fL MCH 33.0 (25.0-35.0) pg MCHC 33.0 (31.0-37.0) g/dL RDW 12.6 (11.5-15.5) % Plt Count 210 (150-450) k/uL Neutrophils % 75 % Lymphocytes % 15 % Monocytes % 5 % Eosinophils % 3 % Basophils % 1 % Neutrophils # 6.3 (1.3-7.7) k/uL Lymphocytes # 1.3 (1.0-4.8) k/uL Monocytes # 0.4 (0-1.0) k/uL Eosinophils # 0.2 (0-0.7) k/uL Basophils # 0.1 (0-0.2) k/uL Sodium 136 L (137-145) mmol/L Potassium 3.6 (3.5-5.1) mmol/L Chloride 104 (98-107) mmol/L Carbon Dioxide 24 (22-30) mmol/L Anion Gap 8 mmol/L BUN 23 H (9-20) mg/dL Creatinine 0.89 (0.66-1.25) mg/dL Est GFR (CKD-EPI)AfAm >90 (>60 ml/min/1.73 sqM) Est GFR (CKD-EPI)NonAf >90 (>60 ml/min/1.73 sqM) Glucose 79 (74-99) mg/dL Plasma Lactic Acid Jamal 1.1 (0.7-2.0) mmol/L Calcium 9.0 (8.4-10.2) mg/dL Total Bilirubin 0.6 (0.2-1.3) mg/dL AST 33 (17-59) U/L ALT 10 (4-49) U/L Alkaline Phosphatase 78 (38-126) U/L C-Reactive Protein 72.0 H (<10.0) mg/L Total Protein 7.1 (6.3-8.2) g/dL Albumin 3.9 (3.5-5.0) g/dL Disposition Is patient prescribed a controlled substance at d/c from ED?: No Time of Disposition: 16:35 <Irineo Watkins - Last Filed: 02/27/20 16:33> <Roni Valerio - Last Filed: 02/27/20 16:41> Clinical Impression: Left leg cellulitis, Elevated C-reactive protein (CRP) Disposition: ADMITTED IP TO THIS HOSP Condition: Fair Referrals: None,Stated [Primary Care Provider] - 1-2 days
[2020-02-27 15:51] LABS: Basophils # (A) 0.1 k/uL (0-0.2); Basophils % (A) 1 %; Eosinophils # (A) 0.2 k/uL (0-0.7); Eosinophils % (A) 3 %; HCT 41.6 % (39.0-53.0); HGB 13.7 gm/dL (13.0-17.5); Lymphocytes # (A) 1.3 k/uL (1.0-4.8); Lymphocytes % (A) 15 %; MCV 99.8 fL (80.0-100.0); Mean Platelet Volume 7.7; Monocytes # (A) 0.4 k/uL (0-1.0); Monocytes % (A) 5 %; Neutrophils # (A) 6.3 k/uL (1.3-7.7); Neutrophils % (A) 75 %; Platelet Count 210 k/uL (150-450); RBC 4.16 m/uL (4.30-5.90); RDW 12.6 % (11.5-15.5); WBC 8.5 k/uL (3.8-10.6)
--- NOTE | 2020-02-27 15:53 | XR ---
EXAMINATION TYPE: XR foot complete bilateral DATE OF EXAM: 02/27/2020 COMPARISON: NONE HISTORY: Cellulitis TECHNIQUE: 6 views FINDINGS: The metatarsals are intact. I see no fracture nor dislocation. There is mild bilateral bowens ux valgus. There are no erosions. There is no subluxation. There is small bilateral Achilles calcanea l spurring. IMPRESSION: Minor degenerative changes. No fracture. No evidence of inflammatory arthritis. No eviden ce of osteomyelitis. Mild soft tissue swelling of the left side forefoot.
--- NOTE | 2020-02-27 15:54 | XR ---
EXAMINATION TYPE: XR chest 1V portable DATE OF EXAM: 02/27/2020 COMPARISON: NONE HISTORY: Cellulitis TECHNIQUE: Single view FINDINGS: Heart is normal. Lungs are clear. Costophrenic angles are clear. There are no hilar masses. Bony thorax is intact. Diaphragm is normal. IMPRESSION: No active cardiopulmonary disease. Normal heart.
[2020-02-27 16:05] LABS: ALT 10 U/L (4-49); AST 33 U/L (17-59); African American GFR (CKD) >90 (>60 ml/min/1.73 sqM); Albumin 3.9 g/dL (3.5-5.0); Alkaline Phosphatase 78 U/L (38-126); Anion Gap 8 mmol/L; Blood Urea Nitrogen 23 mg/dL (9-20); Carbon Dioxide 24 mmol/L (22-30); Chloride 104 mmol/L (98-107); Glucose 79 mg/dL (74-99); Non-African American GFR(CKD) >90 (>60 ml/min/1.73 sqM); Potassium 3.6 mmol/L (3.5-5.1); Sodium 136 mmol/L (137-145); Total Bilirubin 0.6 mg/dL (0.2-1.3); Total Protein 7.1 g/dL (6.3-8.2)
[2020-02-27] MEDS ORDERED: NALOXONE 0.4 MG/ML 1 ML VIAL IV PRN ×2 (16:30→17:10)
[2020-02-27] MEDS ORDERED: AMPICILLIN-SULBACTAM 3 GM in SODIUM CHLORIDE 0.9% 100 ML IVPB STA (16:32)
[2020-02-27] MEDS ORDERED: VANCOMYCIN IV PER PHARMACY 1 EACH MISC MISCELLANE PRN (16:33)
[2020-02-27] MEDS ORDERED: VANCOMYCIN 1,500 MG in SODIUM CHLORIDE 0.9% 250 ML IVPB STA (16:38)
[2020-02-27] MEDS: SODIUM CHLORIDE 0.9% 1,000 ML IV SCH ×2 (17:04→23:55)
[2020-02-27] MEDS ORDERED: HYDROcodone/APAP 5-325MG 1 EACH TAB PO PRN (17:07)
[2020-02-27] MEDS ORDERED: ACETAMINOPHEN TAB 325 MG TAB PO PRN (17:10)
[2020-02-27] MEDS ORDERED: PERMETHRIN 5% CREAM 60 GM TUBE TOPICAL ONE (17:15)
--- NOTE | 2020-02-27 17:44 | P.HPIM ---
History of Present Illness H&P Date: 02/27/20 49 year old homeless man who lives in a custodial presented with pain in his left foot. He says his left foot has become increasingly swollen and is now painful even to light touch. He says he also noticed an increasing foul smell to his lower extremities. Pt appears to have poor hygiene of his lower extremities and they have multiple ulcers, excoriations, and bunched vesicles, which he says have also cropped up in his armpits. He reports that these are extremely itchy. He denies fevers, chills, nausea, vomiting, abd pain, chest pain, palps, dyspnea, numbness/weakness. Patient is afebrile, HDS with normal CBC, BMP, and LFTs. He does have an elevated CRP to 72. Review of Systems All Systems reviewed and pertinent positives and negatives noted in HPI, all o ther symptoms are negative Past Medical History Past Medical History: No Reported History Additional Past Medical History / Comment(s): Left leg cellulitis History of Any Multi-Drug Resistant Organisms: None Reported Past Surgical History: No Surgical Hx Reported Past Anesthesia/Blood Transfusion Reactions: No Reported Reaction Past Psychological History: No Psychological Hx Reported Smoking Status: Current every day smoker Past Alcohol Use History: None Reported Past Drug Use History: None Reported Medications and Allergies Home Medications Medication Instructions Recorded Confirmed Type No Known Home Medications 10/29/18 02/27/20 History Allergies Allergy/AdvReac Type Severity Reaction Status Date / Time No Known Allergies Allergy Verified 02/27/20 16:50 Physical Exam Osteopathic Statement: *. No significant issues noted on an osteopathic structural exam other than those noted in the History and Physical/Consult. Vitals: Vital Signs Temp Pulse Resp BP Pulse Ox 02/27/20 17:05 81 18 126/78 98 02/27/20 14:44 99.1 F 65 18 129/78 98 Intake and Output 02/27/20 02/27/20 02/27/20 06:59 14:59 22:59 Other: Weight 72.575 kg Gen: awake, alert HEENT: normocephalic, atraumatic, good hearing acuity, moist mucous membranes Resp: CTAB, good air exchange, no accessory muscle use, no wheezes, crackles, rhonchi CVS: good distal perfusion x 4, RRR, no murmurs, clicks, gallops GI: soft, NTTP, ND : no SPT, no CVAT, calloway catheter not present MSK: b/l early lymphedema, multiple excoriations and grouped vesicles primarily in the dorsum of the hands and feet, but also in both axilla. multiple ulcers. LLE has hyperesthesia and is more hot to touch. Neuro: non-focal, no sensory deficits, appropriate tone Psych: cooperative, euthymic mood Results CBC & Chem 7: 02/27/20 15:17 02/27/20 15:17 Labs: Abnormal Lab Results - Last 24 Hours (Table) 02/27/20 02/27/20 Range/Units 15:17 15:17 RBC 4.16 L (4.30-5.90) m/uL Sodium 136 L (137-145) mmol/L BUN 23 H (9-20) mg/dL C-Reactive Protein 72.0 H (<10.0) mg/L Assessment and Plan Assessment: 1. Left lower extremity bacterial cellulitis 2. Diffuse scabies infection 3. Onychomycosis next 49-year-old homeless man presented with increasing left-sided foot pain and swelling and was found to have poorly hygienic lower extremities with likely scabies infection, onychomycosis as well as superimposed bacterial cellulitis.B Plan: - BCx pending - permethrin shower for scabies - ID consult - unasyn 3g q6h - tylenol PRN for pain control - HIV 1/2 Ab, P24 Ag Full Code No DVT PPx indicated for now
[2020-02-27] MEDS: AMPICILLIN-SULBACTAM 3 GM in SODIUM CHLORIDE 0.9% 100 ML IVPB SCH (22:15)
[2020-02-28] MEDS: AMPICILLIN-SULBACTAM 3 GM in SODIUM CHLORIDE 0.9% 100 ML IVPB SCH ×4 (05:01→23:56)
[2020-02-28 05:40] LABS: Basophils % (A) 1 %; Eosinophils # (A) 0.6 k/uL (0-0.7); Eosinophils % (A) 10 %; HCT 38.6 % (39.0-53.0); HGB 12.9 gm/dL (13.0-17.5); Lymphocytes % (A) 15 %; MCH 33.6 pg (25.0-35.0); MCHC 33.5 g/dL (31.0-37.0); MCV 100.2 fL (80.0-100.0); Mean Platelet Volume 8.8; Monocytes # (A) 0.4 k/uL (0-1.0); Monocytes % (A) 6 %; Neutrophils # (A) 4.3 k/uL (1.3-7.7); Neutrophils % (A) 66 %; Platelet Count 211 k/uL (150-450); RBC 3.85 m/uL (4.30-5.90); RDW 12.7 % (11.5-15.5); WBC 6.5 k/uL (3.8-10.6)
[2020-02-28 05:48] LABS: African American GFR (CKD) >90 (>60 ml/min/1.73 sqM); Anion Gap 3 mmol/L; Blood Urea Nitrogen 14 mg/dL (9-20); Calcium 7.6 mg/dL (8.4-10.2); Carbon Dioxide 25 mmol/L (22-30); Chloride 107 mmol/L (98-107); Glucose 83 mg/dL (74-99); Magnesium 1.9 mg/dL (1.6-2.3); Non-African American GFR(CKD) >90 (>60 ml/min/1.73 sqM); Potassium 3.4 mmol/L (3.5-5.1); Sodium 135 mmol/L (137-145)
[2020-02-28] MEDS ORDERED: VANCOMYCIN 1,250 MG in SODIUM CHLORIDE 0.9% 250 ML IVPB SCH (06:00)
[2020-02-28] MEDS: SODIUM CHLORIDE 0.9% 1,000 ML IV SCH ×3 (08:11→21:45)
--- NOTE | 2020-02-28 10:53 | P.PN ---
Subjective Progress Note Date: 02/28/20 No new complaints. Reports improvement in the itchiness of extremities and armpits after permethrin shower. Improving erythema and swelling of LLE. Objective - Vital Signs Vital signs: Vital Signs Temp 98 F 02/28/20 03:00 Pulse 76 02/28/20 03:00 Resp 18 02/28/20 03:00 BP 90/60 02/28/20 03:00 Pulse Ox 95 02/28/20 03:00 Intake & Output 02/27/20 02/28/20 02/28/20 18:59 06:59 18:59 Intake Total 1760 Balance 1760 Weight 72.575 kg Intake: Intake, IV Titration 1390 Amount Ampicillin-Sulbactam 3 gm 1040 In Sodium Chloride 0.9% 100 ml @ 200 mls/hr IVPB ONCE STA Rx#:[id number] Ampicillin-Sulbactam 3 gm 100 In Sodium Chloride 0.9% 100 ml @ 200 mls/hr IVPB Q6H DEBI Rx#:[id number] Vancomycin 1,500 mg In 250 Sodium Chloride 0.9% 250 ml @ 125 mls/hr IVPB ONCE STA Rx#:[id number] Oral 370 Other: Voiding Method Toilet # Voids 2 - Exam Gen: awake, alert HEENT: normocephalic, atraumatic, good hearing acuity, moist mucous membranes Resp: CTAB, good air exchange, no accessory muscle use, no wheezes, crackles, rhonchi CVS: good distal perfusion x 4, RRR, no murmurs, clicks, gallops GI: soft, NTTP, ND : no SPT, no CVAT, calloway catheter not present MSK: b/l early lymphedema, multiple excoriations and grouped vesicles primarily in the dorsum of the hands and feet, but also in both axilla. multiple ulcers. LLE has hyperesthesia and is more hot to touch. Neuro: non-focal, no sensory deficits, appropriate tone Psych: cooperative, euthymic mood - Labs CBC & Chem 7: 02/28/20 05:28 02/28/20 05:28 Labs: Abnormal Lab Results - Last 24 Hours (Table) 02/27/20 02/27/20 02/28/20 Range/Units 15:17 15:17 05:28 RBC 4.16 L 3.85 L (4.30-5.90) m/uL Hgb 12.9 L (13.0-17.5) gm/dL Hct 38.6 L (39.0-53.0) % MCV 100.2 H (80.0-100.0) fL Sodium 136 L (137-145) mmol/L Potassium (3.5-5.1) mmol/L BUN 23 H (9-20) mg/dL Calcium (8.4-10.2) mg/dL C-Reactive Protein 72.0 H (<10.0) mg/L 02/28/20 Range/Units 05:28 RBC (4.30-5.90) m/uL Hgb (13.0-17.5) gm/dL Hct (39.0-53.0) % MCV (80.0-100.0) fL Sodium 135 L (137-145) mmol/L Potassium 3.4 L (3.5-5.1) mmol/L BUN (9-20) mg/dL Calcium 7.6 L (8.4-10.2) mg/dL C-Reactive Protein (<10.0) mg/L Assessment and Plan Assessment: 1. Left lower extremity bacterial cellulitis 2. Diffuse scabies infection 3. Onychomycosis next 49-year-old homeless man presented with increasing left-sided foot pain and swelling and was found to have poorly hygienic lower extremities with likely scabies infection, onychomycosis as well as superimposed bacterial cellulitis. Plan: - BCx pending - permethrin shower for scabies, will likely need repeat in 1 week - ID consult, pending - unasyn 3g q6h, continued today - tylenol PRN for pain control - HIV 1/2 Ab, P24 Ag = pending Full Code No DVT PPx indicated for now
[2020-02-28 11:44] LABS: HIV 2 AB Non-Reactive (Non-Reactive); HIV AB P24 Non-Reactive (Non-Reactive); HIV P24 AG Non-Reactive (Non-Reactive)
[2020-02-28] MEDS: VANCOMYCIN 1,250 MG in SODIUM CHLORIDE 0.9% 250 ML IVPB SCH ×2 (16:13→21:45)
--- NOTE | 2020-02-28 23:37 | P.CONS ---
History of Present Illness - Reason for Consult Consult date: 02/28/20 Bilateral lower extremity cellulitis Requesting physician: Ellis Wynne - Chief Complaint Bilateral feet swelling and redness x few days - History of Present Illness Patient is 49 year currently in a homeless fpc presented to the ER at [facility] yesterday for evaluation of change in the color of his feet that he noticed over the last few days patient presented to the ER with wet socks and shoes and noticed to have significant laceration of his feet especially the left foot patient did have minimal pelvic pain to the left foot at 1 in intensity is about 5 out of 10 and no radiation patient denies high- grade fever or chills and no fever was recorded in the hospital his white count was normal as well as, x-rays of the foot did not show any bony changes the patient was started on vancomycin and Unasyn and was admitted to the hospital infectious disease was consulted for further management of antibiotic therapy Review of Systems Positive point has been mentioned in the HPI rest of the systems are negative Past Medical History Past Medical History: No Reported History Additional Past Medical History / Comment(s): Left leg cellulitis History of Any Multi-Drug Resistant Organisms: None Reported Past Surgical History: No Surgical Hx Reported Past Anesthesia/Blood Transfusion Reactions: No Reported Reaction Past Psychological History: No Psychological Hx Reported Smoking Status: Current every day smoker Past Alcohol Use History: None Reported Past Drug Use History: None Reported Medications and Allergies Home Medications Medication Instructions Recorded Confirmed Type No Known Home Medications 10/29/18 02/27/20 History Allergies Allergy/AdvReac Type Severity Reaction Status Date / Time No Known Allergies Allergy Verified 02/27/20 16:50 Physical Exam Vitals: Vital Signs Temp Pulse Pulse Resp BP BP Pulse Ox 02/28/20 15:00 97.4 F L 66 19 102/59 97 02/28/20 09:00 98.1 F 73 18 105/62 96 02/28/20 03:00 98 F 76 18 90/60 95 02/27/20 21:00 97.6 F 73 18 109/60 95 02/27/20 18:32 98.8 F 79 14 112/70 98 02/27/20 17:05 81 18 126/78 98 Intake and Output 02/28/20 02/28/20 02/28/20 06:59 14:59 22:59 Intake Total 1390 960 Balance 1390 960 Intake: Intake, IV Titration 1390 600 Amount Ampicillin-Sulbactam 3 gm 1040 In Sodium Chloride 0.9% 100 ml @ 200 mls/hr IVPB ONCE STA Rx#:[id number] Ampicillin-Sulbactam 3 gm 100 In Sodium Chloride 0.9% 100 ml @ 200 mls/hr IVPB Q6H DEBI Rx#:[id number] Vancomycin 1,250 mg In 600 Sodium Chloride 0.9% 250 ml @ 125 mls/hr IVPB Q8H DEBI Rx#:[id number] Vancomycin 1,500 mg In 250 Sodium Chloride 0.9% 250 ml @ 125 mls/hr IVPB ONCE STA Rx#:[id number] Oral 360 Other: Voiding Method Toilet Toilet # Voids 2 2 GENERAL DESCRIPTION: Middle-aged male lying in bed, no distress. No tachypnea or accessory muscle of respiration use. HEENT: Shows Pallor , no scleral icterus. Oral mucous membrane is dry. No pharyngeal erythema or thrush NECK: Trachea central, no thyromegaly. LUNGS: Unlabored breathing. Clear to auscultation anteriorly. No wheeze or crackle. HEART: S1, S2, regular rate and rhythm. No loud murmur ABDOMEN: Soft, no tenderness , guarding or rigidity, no organomegaly EXTREMITIES: Left foot he did have superficial ulceration and maceration, erythema with some redness to the right foot is warm SKIN: No rash, no masses palpable. NEUROLOGICAL: The patient is awake, alert, oriented x3, mood and affect normal. Results CBC & Chem 7: 02/28/20 05:28 02/28/20 05:28 Labs: Abnormal Lab Results - Last 24 Hours (Table) 02/28/20 02/28/20 Range/Units 05:28 05:28 RBC 3.85 L (4.30-5.90) m/uL Hgb 12.9 L (13.0-17.5) gm/dL Hct 38.6 L (39.0-53.0) % MCV 100.2 H (80.0-100.0) fL Sodium 135 L (137-145) mmol/L Potassium 3.4 L (3.5-5.1) mmol/L Calcium 7.6 L (8.4-10.2) mg/dL Assessment and Plan Assessment: 1- patient with bilateral foot cellulitis left greater than right in this patient did have maceration of the left foot and some superficial laceration will need to cover for gram-positive skin merrill to be the likely pathogen clinically doubt MRSA (1) Left leg cellulitis Current Visit: Yes Status: Acute Code(s): L03.116 - CELLULITIS OF LEFT LOWER LIMB SNOMED Code(s): 026846293 Plan: 1- Unasyn 3 g every 6 hours to continue and discontinue the vancomycin 2-local wound care with Aquacel silver dressing and mild compression dressing We will follow on clinical condition and cultures to further adjust medication if needed Thank you for this consultation will follow this patient with you Time with Patient: Greater than 30
[2020-02-29] MEDS: AMPICILLIN-SULBACTAM 3 GM in SODIUM CHLORIDE 0.9% 100 ML IVPB SCH ×3 (04:09→16:18)
[2020-02-29] MEDS ORDERED: VANCOMYCIN TROUGH DUE 1 EACH MISC MISCELLANE ONE (05:00)
[2020-02-29 05:09] LABS: Basophils % (A) 1 %; Eosinophils # (A) 0.6 k/uL (0-0.7); Eosinophils % (A) 12 %; HCT 37.8 % (39.0-53.0); HGB 12.3 gm/dL (13.0-17.5); Lymphocytes # (A) 1.2 k/uL (1.0-4.8); Lymphocytes % (A) 21 %; MCH 32.8 pg (25.0-35.0); MCHC 32.5 g/dL (31.0-37.0); MCV 100.9 fL (80.0-100.0); Mean Platelet Volume 7.7; Monocytes # (A) 0.2 k/uL (0-1.0); Monocytes % (A) 4 %; Neutrophils # (A) 3.3 k/uL (1.3-7.7); Neutrophils % (A) 60 %; Platelet Count 198 k/uL (150-450); RBC 3.75 m/uL (4.30-5.90); RDW 12.7 % (11.5-15.5); WBC 5.5 k/uL (3.8-10.6)
[2020-02-29 05:18] LABS: African American GFR (CKD) >90 (>60 ml/min/1.73 sqM); Anion Gap 3 mmol/L; Blood Urea Nitrogen 10 mg/dL (9-20); Calcium 7.5 mg/dL (8.4-10.2); Carbon Dioxide 22 mmol/L (22-30); Chloride 110 mmol/L (98-107); Glucose 81 mg/dL (74-99); Magnesium 1.8 mg/dL (1.6-2.3); Non-African American GFR(CKD) >90 (>60 ml/min/1.73 sqM); Potassium 3.3 mmol/L (3.5-5.1); Sodium 135 mmol/L (137-145)
[2020-02-29] MEDS ORDERED: Potassium Replacement Protocol 1 EACH MISC MISCELLANE PRN (05:21)
[2020-02-29] MEDS: POTASSIUM CHLORIDE ER 20 MEQ TAB.ER PO SCH ×2 (05:25→06:22)
[2020-02-29] MEDS: SODIUM CHLORIDE 0.9% 1,000 ML IV SCH ×2 (06:23→10:20)
--- NOTE | 2020-02-29 11:42 | P.PN ---
Subjective Progress Note Date: 02/29/20 Pt reports improvement in itching and pain in LE. ID following along for recommendations. Wound care following as well. Objective - Vital Signs Vital signs: Vital Signs Temp 98 F 02/29/20 07:19 Pulse 65 02/29/20 07:19 Resp 12 02/29/20 07:19 BP 119/73 02/29/20 07:19 Pulse Ox 98 02/29/20 07:19 Intake & Output 02/28/20 02/29/20 02/29/20 18:59 06:59 18:59 Intake Total 1680 1565 Balance 1680 1565 Intake: Intake, IV Titration 600 1040 Amount Sodium Chloride 0.9% 1, 1040 000 ml @ 130 mls/hr IV . Q7H42M DEBI Rx#:[id number] Vancomycin 1,250 mg In 600 Sodium Chloride 0.9% 250 ml @ 125 mls/hr IVPB Q8H DEBI Rx#:[id number] Oral 1080 525 Other: Voiding Method Toilet Toilet Toilet # Voids 3 1 1 - Exam Gen: awake, alert HEENT: normocephalic, atraumatic, good hearing acuity, moist mucous membranes Resp: CTAB, good air exchange, no accessory muscle use, no wheezes, crackles, rhonchi CVS: good distal perfusion x 4, RRR, no murmurs, clicks, gallops GI: soft, NTTP, ND : no SPT, no CVAT, calloway catheter not present MSK: b/l early lymphedema, multiple excoriations and grouped vesicles primarily in the dorsum of the hands and feet, but also in both axilla. multiple ulcers. LLE has hyperesthesia and is more hot to touch. Neuro: non-focal, no sensory deficits, appropriate tone Psych: cooperative, euthymic mood - Labs CBC & Chem 7: 02/29/20 04:56 02/29/20 08:17 Labs: Abnormal Lab Results - Last 24 Hours (Table) 02/29/20 02/29/20 Range/Units 04:56 04:56 RBC 3.75 L (4.30-5.90) m/uL Hgb 12.3 L (13.0-17.5) gm/dL Hct 37.8 L (39.0-53.0) % MCV 100.9 H (80.0-100.0) fL Sodium 135 L (137-145) mmol/L Potassium 3.3 L (3.5-5.1) mmol/L Chloride 110 H (98-107) mmol/L Calcium 7.5 L (8.4-10.2) mg/dL Microbiology - Last 24 Hours (Table) 02/27/20 15:17 Blood Culture - Preliminary Blood No Growth after 24 hours Assessment and Plan Assessment: 1. Left lower extremity bacterial cellulitis 2. Diffuse scabies infection 3. Onychomycosis next 49-year-old homeless man presented with increasing left-sided foot pain and swelling and was found to have poorly hygienic lower extremities with likely scabies infection, onychomycosis as well as superimposed bacterial cellulitis. Plan: - BCx pending - permethrin shower for scabies, will likely need repeat in 1 week (03/07) - ID consult, appreciate recs - unasyn 3g q6h, continued today - tylenol PRN for pain control - HIV 1/2 Ab, P24 Ag = negative Full Code No DVT PPx indicated for now
--- NOTE | 2020-02-29 16:47 | PN ---
PROGRESS NOTE DATE OF SERVICE: 02/29/2020 REASON FOR FOLLOWUP: Left lower extremity cellulitis. INTERVAL HISTORY: The patient is currently afebrile. The patient is breathing comfortably. The patient denies having any chest pain or shortness of breath or cough. Left leg pain and swelling seem to have slightly decreased. No chest pain or cough. No vomiting and no diarrhea. PHYSICAL EXAMINATION: Blood pressure is 119/73 with a pulse of 55, temperature 98. He is 98% on room air. General description is a middle-aged male lying in bed in no distress. RESPIRATORY SYSTEM: Unlabored breathing. Clear to auscultation anteriorly. HEART: S1, S2. Regular rate and rhythm. ABDOMEN: Soft. No tenderness. Left leg swelling and redness slightly decreased. LABS: Hemoglobin 12.3, white count of 5.5. BUN of 10, creatinine 0.68. Blood culture negative. DIAGNOSTIC IMPRESSION AND PLAN: Patient with acute left lower extremity cellulitis. Patient to continue with Unasyn. Local care with Aquacel Silver dressing and Rashid wrap with a plan to finish therapy with oral Augmentin and local care as ordered and to monitor his clinical course closely. MMODL / IJN: [id number] /
[2020-03-01] MEDS: AMPICILLIN-SULBACTAM 3 GM in SODIUM CHLORIDE 0.9% 100 ML IVPB SCH ×3 (00:14→10:33)
[2020-03-01] MEDS: SODIUM CHLORIDE 0.9% 1,000 ML IV SCH ×3 (02:52→10:33)
[2020-03-01 06:10] LABS: African American GFR (CKD) >90 (>60 ml/min/1.73 sqM); Anion Gap 4 mmol/L; Blood Urea Nitrogen 10 mg/dL (9-20); Calcium 7.6 mg/dL (8.4-10.2); Carbon Dioxide 21 mmol/L (22-30); Chloride 111 mmol/L (98-107); Glucose 78 mg/dL (74-99); Magnesium 1.8 mg/dL (1.6-2.3); Non-African American GFR(CKD) >90 (>60 ml/min/1.73 sqM); Sodium 136 mmol/L (137-145)
[2020-03-01 06:13] LABS: Basophils % (A) 1 %; Eosinophils # (A) 0.6 k/uL (0-0.7); Eosinophils % (A) 10 %; HCT 38.4 % (39.0-53.0); HGB 12.3 gm/dL (13.0-17.5); Lymphocytes # (A) 1.2 k/uL (1.0-4.8); Lymphocytes % (A) 22 %; MCH 32.7 pg (25.0-35.0); MCV 102.3 fL (80.0-100.0); Macrocytosis Slight; Mean Platelet Volume 7.8; Monocytes # (A) 0.3 k/uL (0-1.0); Monocytes % (A) 5 %; Neutrophils # (A) 3.4 k/uL (1.3-7.7); Neutrophils % (A) 61 %; Platelet Count 219 k/uL (150-450); RBC 3.75 m/uL (4.30-5.90); RDW 12.7 % (11.5-15.5); WBC 5.6 k/uL (3.8-10.6)
[2020-03-01 08:07] VITALS: BP 113/68; PULSE 61; TEMP 97.6
[2020-03-01 08:12] VITALS: RESP 14
[2020-03-01] MEDS ORDERED: NYSTAT-TRIAMCIN 100,000-0.1 UNIT/GM-% CREAM 30 GM TUBE TOPICAL SCH (09:00)
[2020-03-01] MEDS ORDERED: TRIAMCINOLONE 0.1% CREAM 80 GM TUBE TOPICAL SCH (09:00)
[2020-03-01] MEDS ORDERED: NYSTATIN 100,000UNIT/GM CREAM 30 GM TUBE TOPICAL SCH (09:00)
--- NOTE | 2020-03-01 09:43 | P.CONS ---
History of Present Illness - Reason for Consult Consult date: 03/01/20 wound care - History of Present Illness Patient seen been pleasant gentleman being seen on for a nonhealing ulceration to the left foot. Patient is homeless however he was walking to the longterm from work in the rain. Once arriving at the longterm he slept in his wet shoes and socks. After few days patient noticed discomfort and drainage from his left foot and swelling and rash to his bilateral lower extremities. Patient was found to have cellulitis and was treated with IV antibiotics. Patient has been treated while in the hospital since absorptive silver. Due to his living circumstances wound care was asked to see patient to help with home recommendations. Review of Systems Review Of Systems: Constitutional: No fever, no chills, no night sweats. No weight change. No weakness, fatigue or lethargy. No daytime sleepiness. Integumentary:reports wounds, no lesions. No rash or pruritus. No unusual bruising. No change in hair or nails. Past Medical History Past Medical History: No Reported History Additional Past Medical History / Comment(s): Left leg cellulitis History of Any Multi-Drug Resistant Organisms: None Reported Past Surgical History: No Surgical Hx Reported Past Anesthesia/Blood Transfusion Reactions: No Reported Reaction Past Psychological History: No Psychological Hx Reported Smoking Status: Current every day smoker Past Alcohol Use History: None Reported Past Drug Use History: None Reported Medications and Allergies Home Medications Medication Instructions Recorded Confirmed Type No Known Home Medications 10/29/18 02/27/20 History Allergies Allergy/AdvReac Type Severity Reaction Status Date / Time No Known Allergies Allergy Verified 02/27/20 16:50 Physical Exam Vitals: Vital Signs Temp Pulse Resp BP Pulse Ox 03/01/20 07:53 97.6 F 61 14 113/68 100 03/01/20 03:34 98.2 F 58 L 16 100/62 97 03/01/20 03:00 58 L 02/29/20 20:36 98 F 67 16 125/93 98 02/29/20 15:00 98.2 F 66 14 114/75 100 Intake and Output 02/29/20 03/01/20 03/01/20 22:59 06:59 14:59 Intake Total 200 Balance 200 Intake: Other 200 Other: Voiding Method Toilet Toilet # Voids 1 2 2 Physical exam: General Appearance: Alert, cooperative, no distress, appears stated age. Skin: Bilateral lower extremities show erythema, left medial foot shows ulceration measuring approximately 1 x 1 x 0.1 Limited to skin breakdown with serous drainage noted large amount of granulation seen within wound bed minimal Slough periwound shows callus and erythema all other Skin color, texture, tugor normal, no rashes or lesions. Neurologic: Alert oriented x3 Results CBC & Chem 7: 03/01/20 05:29 03/01/20 05:29 Labs: Abnormal Lab Results - Last 24 Hours (Table) 03/01/20 03/01/20 Range/Units 05:29 05:29 RBC 3.75 L (4.30-5.90) m/uL Hgb 12.3 L (13.0-17.5) gm/dL Hct 38.4 L (39.0-53.0) % MCV 102.3 H (80.0-100.0) fL Sodium 136 L (137-145) mmol/L Chloride 111 H (98-107) mmol/L Carbon Dioxide 21 L (22-30) mmol/L Calcium 7.6 L (8.4-10.2) mg/dL Microbiology - Last 24 Hours (Table) 02/27/20 15:17 Blood Culture - Preliminary Blood No Growth after 48 hours Assessment and Plan (1) Non-healing ulcer of left foot, limited to breakdown of skin Current Visit: Yes Status: Acute Code(s): L97.521 - NON-PRS CHRONIC ULCER OTH PRT L FOOT LIMITED TO BRKDWN SKIN SNOMED Code(s): 006294103 Plan: Discussed with patient that he may use honey gel to the ulceration. And zinc barrier cream to bilateral lower extremities. Continues to wrap with an Rashid wrap. Discussed with patient the importance of removing went socks and shoes daily. Patient verbalized understanding. Thank you kindly for the consultation any questions contact the wound care center DNP note has been reviewed and discussed with Dr. Buico and the impression and plan of care has been directed as dictated.
--- NOTE | 2020-03-01 10:39 | P.DS ---
Providers Date of admission: 02/29/20 13:47 Attending physician: Ellis Wynne MD Consults: 02/27/20 17:08 Consult Physician Routine Consulting Provider: Anahi Martell Consult Reason/Comments: B/l extremity cellulitis, concern for fungal/bacterial infection Do you want consulting provider notified?: Yes Primary care physician: [facility] Course: 1. Left lower extremity bacterial cellulitis 2. Diffuse scabies infection 3. Onychomycosis next 49-year-old homeless man presented with increasing left-sided foot pain and swelling and was found to have poorly hygienic lower extremities with likely scabies infection, onychomycosis as well as superimposed bacterial cellulitis. Plan: - BCx without growth - permethrin shower for scabies, will need repeat in 1 week (03/07) - ID consult help was greatly appreciated. - unasyn 3g q6h, transitioned to augmentin for additional 7 days on discharge. - tylenol PRN for pain control - HIV 1/2 Ab, P24 Ag = negative Pt to follow up with PCP. Given wound care materials to help with daily aquacel and dressing changes for LE ulcerations. Patient Condition at Discharge: Good Plan - Discharge Summary Discharge Rx Participant: Yes New Discharge Prescriptions: New Amoxic-Pot Clav 875-125Mg [Augmentin 875-125] 1 tab PO BID 7 Days #14 tab Triamcinolone 0.1% Cream [Kenalog 0.1% Cream] 1 applic TOPICAL DAILY applic Nystatin 100,000Unit/gm Cream [Mycostatin Cream] 1 applic TOPICAL DAILY #30 applic Acetaminophen Tab [Tylenol] 650 mg PO Q6HR PRN tab PRN Reason: Mild Pain Or Fever > 100.5 Discharge Medication List Acetaminophen Tab [Tylenol] 650 mg PO Q6HR PRN tab 03/01/20 [Rx] Amoxic-Pot Clav 875-125Mg [Augmentin 875-125] 1 tab PO BID 7 Days #14 tab 03/01/20 [Rx] Nystatin 100,000Unit/gm Cream [Mycostatin Cream] 1 applic TOPICAL DAILY #30 applic 03/01/20 [Rx] Triamcinolone 0.1% Cream [Kenalog 0.1% Cream] 1 applic TOPICAL DAILY applic 03/01/20 [Rx] Follow up Appointment(s)/Referral(s): Mike Lucero [Primary Care Provider] - 03/08/20 2:15 pm (New patient appointment as well as hospital follow up. ) Patient Instructions/Handouts: Cellulitis (DC) Activity/Diet/Wound Care/Special Instructions: Contact CM at [facility] for indigent funds Dressing change aqucel ag kerlex and Cream apply to foot daily. Keep feet dry. Discharge Disposition: HOME SELF-CARE
--- NOTE | 2020-03-01 15:04 | PN ---
PROGRESS NOTE DATE OF SERVICE: 03/01/2020 REASON FOR FOLLOWUP: Left foot wound cellulitis. INTERVAL HISTORY: Patient is seen on this morning. The patient overall is feeling better. Breathing comfortably. Overall pain and discomfort to the left leg and foot had has decreased. No chest pain or cough. No abdominal pain. No diarrhea. On examination, blood pressure 130/60 with a pulse of 61, temperature 97.6. He is 100% on room air. General description: The patient is a middle-aged male lying in bed in no distress. Respiratory system: Unlabored breathing. Clear to auscultation anteriorly. Heart S1, S2. Regular rate and rhythm. The left foot wound is almost healed well. Swelling and redness has improved. No drainage. LABS: Hemoglobin is 12.8, white count 5.6. BUN of 10, creatinine 0.68. DIAGNOSTIC IMPRESSION AND PLAN: Patient with left foot wound and cellulitis in this patient who seemed to have shown overall clinical improvement. Local care to continue with dry Aquacel dressing along with Mycolog cream to the dry irritated skin. Finish therapy with oral Augmentin for about a week and close outpatient followup. MMODL / IJN: [id number] /
== END 2020-03-01 13:00 | disposition home or self-care (01) | DRG 603 ==
LOC: EC 14:33 → 1SOBS 16:40 → OBSVTOIN 02-29 13:47 → 1SOBS 02-29 20:04
PROVIDERS: ADMIT Internal Medicine; ATTEND Internal Medicine
DX: L03.116 Cellulitis of left lower limb (principal); L97.521 Non-pressure chronic ulcer of other part of left foot limited to breakdown of skin; B35.1 Tinea unguium; B86 Scabies; F17.210 Nicotine dependence, cigarettes, uncomplicated; Z59.0 Homelessness; L03.115 Cellulitis of right lower limb; Z86.19 Personal history of other infectious and parasitic diseases
CPT/HCPCS: 36415; 71045; 80048; 80053; 80202; 83605; 83735; 84132; 85025; 86140; 87040; 87390; 96360; 96361; 99284

== ENCOUNTER 2020-04-06 15:24 | Observation (INO) | payer OTHER ==
[2020-04-06] MEDS ORDERED: ACETAMINOPHEN TAB 500 MG TAB PO STA (15:57)
--- NOTE | 2020-04-06 16:13 | ED ---
General Adult HPI - General Chief complaint: Extremity Injury, Lower Stated complaint: bilat foot pain Time Seen by Provider: 04/06/20 15:44 Source: patient Mode of arrival: ambulatory Limitations: no limitations - History of Present Illness Initial comments: 50-year-old male presents to the emergency department with complaints of bilateral lower extremity redness and swelling, left worse than right. Patient reports using topical [id number] products to treat what he considers to be athlete's foot. 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 Also reports rash to bilateral lower and upper extremities; states he lives in a custodial. Patient denies any recent chills, cough, shortness of breath, chest pain, abdominal pain, nausea, vomiting, diarrhea, constipation, back pain, numbness, tingling, dizziness, weakness, hematuria, dysuria, urinary urgency, urinary frequency, headache, visual changes, or any other complaints. - Related Data Home Medications Medication Instructions Recorded Confirmed No Known Home Medications 04/06/20 04/06/20 Allergies Allergy/AdvReac Type Severity Reaction Status Date / Time No Known Allergies Allergy Verified 04/06/20 18:51 Review of Systems ROS Statement: Those systems with pertinent positive or pertinent negative responses have been documented in the HPI. ROS Other: All systems not noted in ROS Statement are negative. Past Medical History Past Medical History: No Reported History Additional Past Medical History / Comment(s): Left leg cellulitis History of Any Multi-Drug Resistant Organisms: None Reported Past Surgical History: No Surgical Hx Reported Past Anesthesia/Blood Transfusion Reactions: No Reported Reaction Past Psychological History: No Psychological Hx Reported Smoking Status: Current every day smoker Past Alcohol Use History: None Reported Past Drug Use History: None Reported General Exam Limitations: no limitations General appearance: alert, in no apparent distress, other (Well-developed, well- nourished male in no acute distress. Initial temp 102F, pulse 105, respirations 20, blood pressure 123/73, pulse ox 98% on room air.) Respiratory exam: Present: normal lung sounds bilaterally. Absent: respiratory distress, wheezes, rales, rhonchi, stridor Cardiovascular Exam: Present: regular rate, tachycardia, normal heart sounds. Absent: systolic murmur, diastolic murmur, rubs, gallop, clicks GI/Abdominal exam: Present: soft, normal bowel sounds. Absent: distended, tenderness, guarding, rebound, rigid Extremities exam: Present: pedal edema (Pedal and posttibial pulses +2) Left Lower Leg exam: Present: tenderness, swelling (Left leg swelling greater than right leg.), erythema Ankle exam: Present: tenderness, swelling, erythema Foot/Toe exam: Present: tenderness, swelling, erythema (Sloughing of skin on plantar surface of foot and toes) Right Ankle exam: Present: tenderness, swelling Foot/Toe exam: Present: tenderness, swelling, erythema (Sloughing skin on the plantar surface; erythema to the distal aspect of the dorsal surface; +2 pedal and posttibial pulses) Neurological exam: Present: alert, oriented X3, CN II-XII intact Psychiatric exam: Present: normal affect, normal mood Skin exam: Present: warm, dry, intact, rash (Discrete red rash noted to bilateral lower extremities and bilateral wrists, patches of underlying erythema noted. Appears to be scabies in origin.) Course Vital Signs 04/06/20 04/06/20 04/06/20 15:34 16:30 16:40 Temperature 102 F H Pulse Rate 105 H Respiratory 20 16 16 Rate Blood Pressure 123/73 103/67 106/69 O2 Sat by Pulse 98 96 98 Oximetry 04/06/20 04/06/20 04/06/20 16:50 17:00 17:10 Temperature Pulse Rate 87 Respiratory 16 16 16 Rate Blood Pressure 106/69 106/69 92/58 O2 Sat by Pulse 97 98 97 Oximetry 04/06/20 04/06/20 04/06/20 17:13 17:20 17:30 Temperature 99.0 F Pulse Rate Respiratory Rate Blood Pressure 103/69 103/69 O2 Sat by Pulse 92 L 94 L Oximetry 04/06/20 04/06/20 04/06/20 17:40 17:50 18:00 Temperature Pulse Rate Respiratory Rate Blood Pressure 119/109 119/109 119/109 O2 Sat by Pulse 97 97 Oximetry 04/06/20 04/06/20 04/06/20 18:10 18:20 18:30 Temperature Pulse Rate Respiratory Rate Blood Pressure 102/26 102/26 102/26 O2 Sat by Pulse Oximetry 04/06/20 04/06/20 04/06/20 18:40 18:50 19:00 Temperature Pulse Rate Respiratory Rate Blood Pressure 128/100 128/100 128/100 O2 Sat by Pulse Oximetry 04/06/20 04/06/20 04/06/20 19:10 19:20 19:30 Temperature Pulse Rate Respiratory Rate Blood Pressure 116/50 116/50 116/50 O2 Sat by Pulse Oximetry 04/06/20 04/06/20 19:40 20:15 Temperature 99 F Pulse Rate 86 Respiratory 18 Rate Blood Pressure 108/72 111/60 O2 Sat by Pulse 97 Oximetry Medical Decision Making - Medical Decision Making 50-year-old male patient presents to the emergency department today for evaluation of bilateral lower extremity edema and redness. Patient states the areas are painful. Patient states he has had cellulitis in the past. Physical examination did reveal erythema and swelling to the lower extremities worse on the left side. We did perform ultrasound rule out DVT on that side, it was negative. Labs reviewed and did reveal normal white blood cell count. Patient was febrile at 102F on arrival. He does have a rash consistent with scabies we will order Elimite cream. He'll be started on IV antibiotics and admitted to the hospital for further evaluation. He is agreeable this plan. - Lab Data Result diagrams: 04/06/20 16:42 04/06/20 16:42 Lab Results 04/06/20 04/06/20 04/06/20 Range/Units 16:17 16:18 16:42 WBC 8.1 (3.8-10.6) k/uL RBC 3.91 L (4.30-5.90) m/uL Hgb 12.5 L (13.0-17.5) gm/dL Hct 39.0 (39.0-53.0) % MCV 99.6 (80.0-100.0) fL MCH 32.1 (25.0-35.0) pg MCHC 32.2 (31.0-37.0) g/dL RDW 12.8 (11.5-15.5) % Plt Count 215 (150-450) k/uL Neutrophils % 83 % Lymphocytes % 10 % Monocytes % 5 % Eosinophils % 1 % Basophils % 0 % Neutrophils # 6.7 (1.3-7.7) k/uL Lymphocytes # 0.8 L (1.0-4.8) k/uL Monocytes # 0.4 (0-1.0) k/uL Eosinophils # 0.1 (0-0.7) k/uL Basophils # 0.0 (0-0.2) k/uL PT (9.0-12.0) sec INR (<1.2) APTT (22.0-30.0) sec Sodium (137-145) mmol/L Potassium (3.5-5.1) mmol/L Chloride (98-107) mmol/L Carbon Dioxide (22-30) mmol/L Anion Gap mmol/L BUN (9-20) mg/dL Creatinine (0.66-1.25) mg/dL Est GFR (CKD-EPI)AfAm (>60 ml/min/1.73 sqM) Est GFR (CKD-EPI)NonAf (>60 ml/min/1.73 sqM) Glucose (74-99) mg/dL Plasma Lactic Acid Jamal (0.7-2.0) mmol/L Calcium (8.4-10.2) mg/dL Total Bilirubin (0.2-1.3) mg/dL AST (17-59) U/L ALT (4-49) U/L Alkaline Phosphatase (38-126) U/L Total Protein (6.3-8.2) g/dL Albumin (3.5-5.0) g/dL Urine Color Yellow Urine Appearance Clear (Clear) Urine pH 5.5 (5.0-8.0) Ur Specific [place] 1.028 (1.001-1.035) Urine Protein Trace H (Negative) Urine Glucose (UA) Negative (Negative) Urine Ketones Trace H (Negative) Urine Blood Negative (Negative) Urine Nitrite Negative (Negative) Urine Bilirubin Negative (Negative) Urine Urobilinogen 3.0 (<2.0) mg/dL Ur Leukocyte Esterase Negative (Negative) Influenza Type A RNA Not Detected (Not Detectd) Influenza Type B (PCR) Not Detected (Not Detectd) 04/06/20 04/06/20 04/06/20 Range/Units 16:42 16:42 16:42 WBC (3.8-10.6) k/uL RBC (4.30-5.90) m/uL Hgb (13.0-17.5) gm/dL Hct (39.0-53.0) % MCV (80.0-100.0) fL MCH (25.0-35.0) pg MCHC (31.0-37.0) g/dL RDW (11.5-15.5) % Plt Count (150-450) k/uL Neutrophils % % Lymphocytes % % Monocytes % % Eosinophils % % Basophils % % Neutrophils # (1.3-7.7) k/uL Lymphocytes # (1.0-4.8) k/uL Monocytes # (0-1.0) k/uL Eosinophils # (0-0.7) k/uL Basophils # (0-0.2) k/uL PT 10.1 (9.0-12.0) sec INR 1.0 (<1.2) APTT 20.8 L (22.0-30.0) sec Sodium 136 L (137-145) mmol/L Potassium 3.9 (3.5-5.1) mmol/L Chloride 106 (98-107) mmol/L Carbon Dioxide 23 (22-30) mmol/L Anion Gap 7 mmol/L BUN 24 H (9-20) mg/dL Creatinine 1.20 (0.66-1.25) mg/dL Est GFR (CKD-EPI)AfAm 81 (>60 ml/min/1.73 sqM) Est GFR (CKD-EPI)NonAf 70 (>60 ml/min/1.73 sqM) Glucose 76 (74-99) mg/dL Plasma Lactic Acid Jamal 1.8 (0.7-2.0) mmol/L Calcium 8.8 (8.4-10.2) mg/dL Total Bilirubin 0.5 (0.2-1.3) mg/dL AST 25 (17-59) U/L ALT 9 (4-49) U/L Alkaline Phosphatase 74 (38-126) U/L Total Protein 6.9 (6.3-8.2) g/dL Albumin 3.9 (3.5-5.0) g/dL Urine Color Urine Appearance (Clear) Urine pH (5.0-8.0) Ur Specific [place] (1.001-1.035) Urine Protein (Negative) Urine Glucose (UA) (Negative) Urine Ketones (Negative) Urine Blood (Negative) Urine Nitrite (Negative) Urine Bilirubin (Negative) Urine Urobilinogen (<2.0) mg/dL Ur Leukocyte Esterase (Negative) Influenza Type A RNA (Not Detectd) Influenza Type B (PCR) (Not Detectd) - Radiology Data Radiology results: report reviewed Ultrasound venous Doppler duplex of the left lower extremity is obtained. Report was reviewed in its entirety. Impression by Dr. Elder Hobson shows negative for DVT. Disposition Clinical Impression: Bilateral lower leg cellulitis Disposition: ADMITTED IP TO THIS [facility] Condition: Serious Decision to Admit Reason: Admit from EC Decision Date: 04/06/20 Decision Time: 19:10
[2020-04-06] MEDS: SODIUM CHLORIDE 0.9% 1,000 ML IV SCH (16:25)
[2020-04-06] MEDS: SODIUM CHLORIDE 0.9% 500 ML 500 ML IV SCH (16:26)
[2020-04-06 16:42] LABS: Appearance,Urine Clear (Clear); Bilirubin,Urine Negative (Negative); Blood,Urine Negative (Negative); Color,Urine Yellow; Glucose,Urine (UA) Negative (Negative); Ketones,Urine Trace (Negative); Leukocyte Esterase,Urine Negative (Negative); Nitrite,Urine Negative (Negative); PH, Urine 5.5 (5.0-8.0); Protein,Urine Trace (Negative); Specific Gravity,Urine 1.028 (1.001-1.035)
[2020-04-06 16:54] LABS: Basophils % (A) 0 %; Eosinophils # (A) 0.1 k/uL (0-0.7); Eosinophils % (A) 1 %; HGB 12.5 gm/dL (13.0-17.5); Lymphocytes # (A) 0.8 k/uL (1.0-4.8); Lymphocytes % (A) 10 %; MCH 32.1 pg (25.0-35.0); MCHC 32.2 g/dL (31.0-37.0); MCV 99.6 fL (80.0-100.0); Mean Platelet Volume 7.7; Monocytes # (A) 0.4 k/uL (0-1.0); Monocytes % (A) 5 %; Neutrophils # (A) 6.7 k/uL (1.3-7.7); Neutrophils % (A) 83 %; Platelet Count 215 k/uL (150-450); RBC 3.91 m/uL (4.30-5.90); RDW 12.8 % (11.5-15.5); WBC 8.1 k/uL (3.8-10.6)
[2020-04-06 17:02] LABS: Albumin 3.9 g/dL (3.5-5.0); Calcium 8.8 mg/dL (8.4-10.2); Potassium 3.9 mmol/L (3.5-5.1); Total Bilirubin 0.5 mg/dL (0.2-1.3); Total Protein 6.9 g/dL (6.3-8.2)
[2020-04-06 17:12] LABS: Prothrombin Time 10.1 sec (9.0-12.0)
[2020-04-06 17:32] LABS: Partial Thromboplastin Time 20.8 sec (22.0-30.0)
--- NOTE | 2020-04-06 17:57 | US ---
EXAMINATION TYPE: US venous doppler duplex LE LT DATE OF EXAM: 04/06/2020 4:01 PM COMPARISON: US CLINICAL HISTORY: left lower extemity edema. Left foot redness and swelling SIDE PERFORMED: Left TECHNIQUE: The lower extremity deep venous system is examined utilizing real time linear array sonog ministerio with graded compression, doppler sonography and color-flow sonography. VESSELS IMAGED: External Iliac Vein (EIV) Common Femoral Vein Deep Femoral Vein Greater Saphenous Vein * Femoral Vein Popliteal Vein Small Saphenous Vein * Proximal Calf Veins (* superficial vessels) FINDINGS: Grayscale, color doppler, spectral doppler imaging performed of the deep veins of the lower extremities. There is normal flow, compressibility, vascular waveforms. No deep venous filling def ects. IMPRESSION: NEGATIVE FOR DVT, LEFT LOWER EXTREMITY.
[2020-04-06] MEDS ORDERED: NALOXONE 0.4 MG/ML 1 ML VIAL IV PRN (18:19)
[2020-04-06] MEDS: PERMETHRIN 5% CREAM 60 GM TUBE TOPICAL ONE ×2 (18:50→22:04)
--- NOTE | 2020-04-06 23:15 | P.HPIM ---
History of Present Illness H&P Date: 04/06/20 The patient is a 50-year-old homeless male with history of bilateral lower extremity cellulitis who presented to the ED with complaints of bilateral foot pain. The patient was admitted to the hospital for similar complaint on 02/26. He notes that after his discharge from the hospital, his feet have gradually gotten worse. 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 He reports the pain is constant, worse with ambulation. He denied lower extremity swelling. Denied shortness of breath, chest pain, palpitations, fever, or chills. Denied cough. Denied nausea, vomiting, abdominal pain. In the emergency room, a lower extremity duplex was negative for DVT. Laboratory evaluation from the emergency room was reviewed with creatinine 1.20, BUN 24, UA unremarkable, influenza negative, and lactic acid 1.8. Review of Systems Pertinent positives and negatives as discussed in HPI, a complete review of systems was performed and all other systems are negative. Past Medical History Past Medical History: No Reported History Additional Past Medical History / Comment(s): Left leg cellulitis History of Any Multi-Drug Resistant Organisms: None Reported Past Surgical History: No Surgical Hx Reported Past Anesthesia/Blood Transfusion Reactions: No Reported Reaction Past Psychological History: No Psychological Hx Reported Smoking Status: Current every day smoker Past Alcohol Use History: None Reported Past Drug Use History: None Reported Medications and Allergies Home Medications Medication Instructions Recorded Confirmed Type No Known Home Medications 04/06/20 04/06/20 History Allergies Allergy/AdvReac Type Severity Reaction Status Date / Time No Known Allergies Allergy Verified 04/06/20 18:51 Physical Exam Vitals: Vital Signs Temp Pulse Pulse Resp BP BP Pulse Ox 04/06/20 21:39 16 04/06/20 20:45 98.2 F 71 20 122/60 96 04/06/20 20:15 99 F 86 18 111/60 97 04/06/20 19:40 108/72 04/06/20 19:30 116/50 04/06/20 19:20 116/50 04/06/20 19:10 116/50 04/06/20 19:00 128/100 04/06/20 18:50 128/100 04/06/20 18:40 128/100 04/06/20 18:30 102/26 04/06/20 18:20 102/26 04/06/20 18:10 102/26 04/06/20 18:00 119/109 97 04/06/20 17:50 119/109 04/06/20 17:40 119/109 97 04/06/20 17:30 103/69 94 L 04/06/20 17:20 103/69 92 L 04/06/20 17:13 99.0 F 04/06/20 17:10 87 16 92/58 97 04/06/20 17:00 16 106/69 98 04/06/20 16:50 16 106/69 97 04/06/20 16:40 16 106/69 98 04/06/20 16:30 16 103/67 96 04/06/20 15:34 102 F H 105 H 20 123/73 98 Intake and Output 04/06/20 04/06/20 04/06/20 06:59 14:59 22:59 Other: # Voids 1 Weight 72.575 kg General: Disheveled male, non toxic, no distress, appears at stated age, normal weight Derm: Bilateral diffuse foot erythema and warmth extending to lower calf with scaling, warm, dry, no interdigital burrowing or track colby noted, discolored toe nails Head: atraumatic, normocephalic, symmetric Eyes: EOMI, no lid lag, anicteric sclera, pupils equal round reactive to light ENT: Nose and ears atraumatic, no thrush, no pharyngeal erythema Neck: No thyromegaly, no cervical lymphadenopathy, trachea midline, supple Mouth: no lip lesion, mucus membranes moist Cardiovascular: S1S2 reg, no murmur, positive posterior tibial pulse bilateral, no LE edema, capillary refill less than 2 seconds Lungs: CTA bilateral, no rhonchi, no rales , no accessory muscle use Abdominal: soft, nontender to palpation, no guarding, no appreciable organomegaly, normal bowel sounds Ext: no gross muscle atrophy, muscle strength 5 out of 5 in all 4 extremities grossly, no contractures Neuro: CN II-XI grossly intact, light touch intact all 4 extremities, finger to nose within normal limits Psych: Alert, oriented, appropriate affect Results CBC & Chem 7: 04/06/20 16:42 04/06/20 16:42 Labs: Abnormal Lab Results - Last 24 Hours (Table) 04/06/20 04/06/2004/06/20 Range/Units 16:17 16:42 16:42 RBC 3.91 L (4.30-5.90) m/uL Hgb 12.5 L (13.0-17.5) gm/dL Lymphocytes # 0.8 L (1.0-4.8) k/uL APTT 20.8 L (22.0-30.0) sec Sodium (137-145) mmol/L BUN (9-20) mg/dL Urine Protein Trace H (Negative) Urine Ketones Trace H (Negative) 04/06/20 Range/Units 16:42 RBC (4.30-5.90) m/uL Hgb (13.0-17.5) gm/dL Lymphocytes # (1.0-4.8) k/uL APTT (22.0-30.0) sec Sodium 136 L (137-145) mmol/L BUN 24 H (9-20) mg/dL Urine Protein (Negative) Urine Ketones (Negative) Thrombosis Risk Factor Assmnt - Choose All That Apply Any of the Below Risk Factors Present?: Yes Each Factor Represents 1 point: Age 41-60 years, Medical pt on bed rest, Swollen legs (current) Thrombosis Risk Factor Assessment Total Risk Factor Score: 3 Thrombosis Risk Factor Assessment Level: Moderate Risk Assessment and Plan Plan: Eris LE cellulitis, recurrent episode -C/w Cefazolin 1 g q8h for now -Obtain ID consult -F/u Blood cultures -IVFs -Advised on need for improved hygiene -rail maintenance worker consult Pre-renal azotemia -C/w IVFs DVT prophylaxis -Heparin subq The patient is admitted with an anticipated greater than 2 midnight stay for evaluation of cellulitis CODE STATUS:Full Code Discussed with: Patient Anticipated discharge date: 2-[address]: Home A total of 35 minutes was spent on the care of this complex patient more than 50% of the time was spent in counseling and care coordination.
[2020-04-06] MEDS: HEPARIN SODIUM,PORCINE 5,000 UNIT/ML 1 ML VIAL SQ SCH (23:43)
[2020-04-07] MEDS: HEPARIN SODIUM,PORCINE 5,000 UNIT/ML 1 ML VIAL SQ SCH ×2 (08:53→18:06)
[2020-04-07] MEDS ORDERED: NYSTAT-TRIAMCIN 100,000-0.1 UNIT/GM-% CREAM 30 GM TUBE TOPICAL SCH (13:30)
--- NOTE | 2020-04-07 15:29 | P.PN ---
Subjective Progress Note Date: 04/07/20 Patient reported that his legs are significantly better compared to yesterday. He still have some swelling worse on the left compared to the right. Still some erythema. There is a lot of dry skin Objective - Vital Signs Vital signs: Vital Signs Temp 98.0 F 04/07/20 15:00 Pulse 74 04/07/20 15:00 Resp 18 04/07/20 15:00 BP 118/76 04/07/20 15:00 Pulse Ox 97 04/07/20 15:00 Intake & Output 04/06/20 04/07/20 04/07/20 18:59 06:59 18:59 Intake Total 1040 1390 Balance 1040 1390 Weight 72.575 kg 72.575 kg Intake: Intake, IV Titration 1040 910 Amount Sodium Chloride 0.9% 1, 1040 910 000 ml @ 130 mls/hr IV . Q7H42M [facility] Rx#:[id number] Oral 480 Other: # Voids 1 2 - Exam General: The patient is awake and alert, in no distress Eye: there is normal conjunctiva bilaterally. Neck: The neck is supple, there is no JVD. Cardiovascular: Normal S1-S2, no S3-S4, no murmurs. Respiratory: Lungs clear to auscultation bilaterally Gastrointestinal: Abdomen is soft, nontender Musculoskeletal: There is +1 pedal edema. Neurological:. Speech is normal. Skin: Skin is warm and dry - Labs CBC & Chem 7: 04/06/20 16:42 04/06/20 16:42 Labs: Abnormal Lab Results - Last 24 Hours (Table) 04/06/20 04/06/20 04/06/20 Range/Units 16:17 16:42 16:42 RBC 3.91 L (4.30-5.90) m/uL Hgb 12.5 L (13.0-17.5) gm/dL Lymphocytes # 0.8 L (1.0-4.8) k/uL APTT 20.8 L (22.0-30.0) sec Sodium (137-145) mmol/L BUN (9-20) mg/dL Urine Protein Trace H (Negative) Urine Ketones Trace H (Negative) 04/06/20 Range/Units 16:42 RBC (4.30-5.90) m/uL Hgb (13.0-17.5) gm/dL Lymphocytes # (1.0-4.8) k/uL APTT (22.0-30.0) sec Sodium 136 L (137-145) mmol/L BUN 24 H (9-20) mg/dL Urine Protein (Negative) Urine Ketones (Negative) Assessment and Plan Assessment: Eris LE cellulitis, recurrent episode -C/w Cefazolin 2 g q8h for now - ID consult -F/u Blood cultures -IVFs -Advised on need for improved hygiene -pipe assembly worker consult Pre-renal azotemia -C/w IVFs DVT prophylaxis -Heparin subq
[2020-04-07] MEDS: NYSTATIN 100,000UNIT/GM CREAM 30 GM TUBE TOPICAL SCH ×2 (18:07→21:28)
[2020-04-07] MEDS: TRIAMCINOLONE 0.1% CREAM 80 GM TUBE TOPICAL SCH ×2 (18:07→21:28)
[2020-04-07] MEDS: SODIUM CHLORIDE 0.9% 1,000 ML IV SCH ×4 (21:11→21:28)
--- NOTE | 2020-04-07 23:08 | P.CONS ---
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 The patient did have lower extremity Dopplers were negative for DVT the patient has been started on cefazolin 2 g every 8 hours and infectious disease was consulted for further management of antibiotic therapy Review of Systems Positive point has been mentioned in the HPI rest of the systems are negative Past Medical History Past Medical History: No Reported History Additional Past Medical History / Comment(s): Left leg cellulitis History of Any Multi-Drug Resistant Organisms: None Reported Past Surgical History: No Surgical Hx Reported Past Anesthesia/Blood Transfusion Reactions: No Reported Reaction Past Psychological History: No Psychological Hx Reported Smoking Status: Current every day smoker Past Alcohol Use History: None Reported Past Drug Use History: None Reported Medications and Allergies Home Medications Medication Instructions Recorded Confirmed Type No Known Home Medications 04/06/20 04/06/20 History Allergies Allergy/AdvReac Type Severity Reaction Status Date / Time No Known Allergies Allergy Verified 04/06/20 18:51 Physical Exam Vitals: Vital Signs Temp Pulse Pulse Resp BP BP BP 04/07/20 08:05 82 18 04/07/20 07:00 97.9 F 82 18 101/65 04/07/20 01:12 97.9 F 87 18 96/64 04/07/20 00:00 16 04/06/20 21:39 16 04/06/20 20:45 98.2 F 71 20 122/60 04/06/20 20:15 99 F 86 18 111/60 04/06/20 19:40 108/72 04/06/20 19:30 116/50 04/06/20 19:20 116/50 04/06/20 19:10 116/50 04/06/20 19:00 128/100 04/06/20 18:50 128/100 04/06/20 18:40 128/100 04/06/20 18:30 102/26 04/06/20 18:20 102/26 04/06/20 18:10 102/26 04/06/20 18:00 119/109 04/06/20 17:50 119/109 04/06/20 17:40 119/109 04/06/20 17:30 103/69 04/06/20 17:20 103/69 04/06/20 17:13 99.0 F 04/06/20 17:10 87 16 92/58 04/06/20 17:00 16 106/69 04/06/20 16:50 16 106/69 04/06/20 16:40 16 106/69 04/06/20 16:30 16 103/67 04/06/20 15:34 102 F H 105 H 20 123/73 Pulse Ox 04/07/20 08:05 04/07/20 07:00 98 04/07/20 01:12 98 04/07/20 00:00 04/06/20 21:39 04/06/20 20:45 96 04/06/20 20:15 97 04/06/20 19:40 04/06/20 19:30 04/06/20 19:20 04/06/20 19:10 04/06/20 19:00 04/06/20 18:50 04/06/20 18:40 04/06/20 18:30 04/06/20 18:20 04/06/20 18:10 04/06/20 18:00 97 04/06/20 17:50 04/06/20 17:40 97 04/06/20 17:30 94 L 04/06/20 17:20 92 L 04/06/20 17:13 04/06/20 17:10 97 04/06/20 17:00 98 04/06/20 16:50 97 04/06/20 16:40 98 04/06/20 16:30 96 04/06/20 15:34 98 Intake and Output 04/06/20 04/07/20 04/07/20 22:59 06:59 14:59 Intake Total 1040 Balance 1040 Intake: Intake, IV Titration 1040 Amount Sodium Chloride 0.9% 1, 1040 000 ml @ 130 mls/hr IV . Q7H42M [facility] Rx#:[id number] Other: # Voids 1 1 Weight 72.575 kg GENERAL DESCRIPTION: Middle-aged male lying in bed, no distress. No tachypnea or accessory muscle of respiration use. HEENT: Shows Pallor , no scleral icterus. Oral mucous membrane is dry. No pharyngeal erythema or thrush NECK: Trachea central, no thyromegaly. LUNGS: Unlabored breathing. Clear to auscultation anteriorly. No wheeze or crackle. HEART: S1, S2, regular rate and rhythm. No loud murmur ABDOMEN: Soft, no tenderness , guarding or rigidity, no organomegaly EXTREMITIES: Bilateral athlete's foot with dry cracking skin on both feet and erythema mostly involving the left leg and foot no drainage SKIN: No rash, no masses palpable. NEUROLOGICAL: The patient is awake, alert, oriented x3, mood and affect normal. Results CBC & Chem 7: 04/06/20 16:42 04/06/20 16:42 Labs: Abnormal Lab Results - Last 24 Hours (Table) 04/06/20 04/06/20 04/06/20 Range/Units 16:17 16:42 16:42 RBC 3.91 L (4.30-5.90) m/uL Hgb 12.5 L (13.0-17.5) gm/dL Lymphocytes # 0.8 L (1.0-4.8) k/uL APTT 20.8 L (22.0-30.0) sec Sodium (137-145) mmol/L BUN (9-20) mg/dL Urine Protein Trace H (Negative) Urine Ketones Trace H (Negative) 04/06/20 Range/Units 16:42 RBC (4.30-5.90) m/uL Hgb (13.0-17.5) gm/dL Lymphocytes # (1.0-4.8) k/uL APTT (22.0-30.0) sec Sodium 136 L (137-145) mmol/L BUN 24 H (9-20) mg/dL Urine Protein (Negative) Urine Ketones (Negative) Assessment and Plan Assessment: 1- patient with left lower extremity cellulitis in this patient who did have extensive athlete's foot bilateral feet area will need to cover for the streptococcus to the likely pathogen for the cellulitis (1) Athletes foot Current Visit: Yes Status: Acute Code(s): B35.3 - TINEA PEDIS SNOMED Code(s): 4297362 (2) Failure of outpatient treatment Current Visit: No Status: Acute Code(s): Z78.9 - OTHER SPECIFIED HEALTH STATUS SNOMED Code(s): 401432953 (3) Left leg cellulitis Current Visit: No Status: Acute Code(s): L03.116 - CELLULITIS OF LEFT LOWER LIMB SNOMED Code(s): 631703224 Plan: 1- cefazolin 2 g every 8 hours 2- will apply Mycolog cream to the dry scaly skin of bilateral feet twice a day We will follow on clinical condition and cultures to further adjust medication if needed Thank you for this consultation will follow this patient with you Time with Patient: Greater than 30
[2020-04-08] MEDS: HEPARIN SODIUM,PORCINE 5,000 UNIT/ML 1 ML VIAL SQ SCH (01:11)
[2020-04-08 03:39] VITALS: PULSE 75
[2020-04-08 06:59] LABS: Basophils % (A) 0 %; Eosinophils # (A) 0.3 k/uL (0-0.7); Eosinophils % (A) 6 %; HCT 40.5 % (39.0-53.0); HGB 13.2 gm/dL (13.0-17.5); Lymphocytes # (A) 1.2 k/uL (1.0-4.8); Lymphocytes % (A) 23 %; MCHC 32.6 g/dL (31.0-37.0); Macrocytosis Slight; Mean Platelet Volume 7.3; Monocytes # (A) 0.3 k/uL (0-1.0); Monocytes % (A) 5 %; Neutrophils # (A) 3.3 k/uL (1.3-7.7); Neutrophils % (A) 64 %; Platelet Count 207 k/uL (150-450); RBC 4.01 m/uL (4.30-5.90); RDW 13.4 % (11.5-15.5); WBC 5.2 k/uL (3.8-10.6)
[2020-04-08 08:18] VITALS: BP 119/73; RESP 18; TEMP 98
[2020-04-08] MEDS: SODIUM CHLORIDE 0.9% 1,000 ML IV SCH (08:49)
[2020-04-08] MEDS: NYSTATIN 100,000UNIT/GM CREAM 30 GM TUBE TOPICAL SCH (08:56)
[2020-04-08] MEDS: TRIAMCINOLONE 0.1% CREAM 80 GM TUBE TOPICAL SCH (08:56)
[2020-04-08] MEDS ORDERED: HEPARIN SODIUM,PORCINE 5,000 UNIT/ML 1 ML VIAL SQ SCH (09:00)
[2020-04-08 09:48] LABS: African American GFR (CKD) 120.7 (60.0-200.0); Anion Gap 6.3 mmol/L (4.00-12.00); BUN/Creat Ratio 16.25 Ratio (12.00-20.00); Carbon Dioxide 22.7 mmol/L (21.6-31.8); Non-African American GFR(CKD) 104.2 (60.0-200.0); Potassium 4.1 mmol/L (3.5-5.5)
--- NOTE | 2020-04-08 10:45 | P.DS ---
Providers Date of admission: 04/06/20 18:45 Expected date of discharge: 04/08/20 Attending physician: Julee Daugherty MD Consults: 04/07/20 08:01 Consult Physician Routine Consulting Provider: Anahi Martell Consult Reason/Comments: cellulitis Do you want consulting provider notified?: Yes Primary care physician: Stated None Hospital Course: This is a 50-year-old homeless man Presented to the emergency room with worsening lower extremity redness and swelling. Patient was evaluated in the ER and admitted to the hospital for further management. Lower extremity Doppler w as negative for DVT. Patient was started on IV cefazolin. He was seen and evaluated by infectious disease. He was treated for lower extremity cellulitis and athlete's foot. He was counseled extensively regarding feet hygiene. His overall condition improved significantly throughout his hospital stay. Blood culture negative to date. Patient will finish antibiotic course with Keflex in addition to topical nystatin and Kenalog cream. For further details about this hospitalization please refer to the electronic chart. Patient Condition at Discharge: Stable Plan - Discharge Summary Discharge Rx Participant: Yes New Discharge Prescriptions: New Cephalexin [Keflex] 500 mg PO Q6HR 1 Days #4 cap Triamcinolone 0.1% Cream [Kenalog 0.1% Cream] 1 applic TOPICAL BID #30 applic Nystatin 100,000Unit/gm Cream [Mycostatin Cream] 1 applic TOPICAL BID #1 tube Discharge Medication List Cephalexin [Keflex] 500 mg PO Q6HR 1 Days #4 cap 04/08/20 [Rx] Nystatin 100,000Unit/gm Cream [Mycostatin Cream] 1 applic TOPICAL BID #1 tube 04/08/20 [Rx] Triamcinolone 0.1% Cream [Kenalog 0.1% Cream] 1 applic TOPICAL BID #30 applic 04/08/20 [Rx] Follow up Appointment(s)/Referral(s): None,Stated [Primary Care Provider] - 1-2 days Discharge Disposition: HOME SELF-CARE
--- NOTE | 2020-04-08 13:42 | PN ---
PROGRESS NOTE DATE OF SERVICE: 04/08/2020 REASON FOR FOLLOW UP: ( ) athlete's foot and cellulitis. INTERVAL HISTORY: Patient is currently afebrile. The patient is feeling better. Breathing comfortably. Overall pain and discomfort to the foot area has decreased. No chest pain or shortness of breath or cough. No abdominal pain or diarrhea. PHYSICAL EXAMINATION: Blood pressure 119/73 with a pulse of 75, temperature 98. He is 100% on room air. General description is a middle-aged male up in the bed in no distress. Respiratory system: Unlabored breathing, is clear to auscultation anteriorly. Heart S1, S2. Regular rate and rhythm. Abdomen soft, no tenderness. Bilateral foot area swelling and redness has decreased. No drainage was noticed. LABS: White count of 5.2, creatinine 0.8. DIAGNOSTIC IMPRESSION AND PLAN: Patient with bilateral athlete's foot extensive with evidence of cellulitis. Patient seemed to have shown clinical improvement on cefazolin and Mycolog. He will finish therapy with oral Keflex and Mycolog cream to continue. Plan of care was discussed with the admitting physician working on discharge. MMODL / IJN: [id number] /
== END 2020-04-08 12:10 | disposition home or self-care (01) ==
LOC: EC 15:24 → 4SSUR 18:45 → INTOOBSV 18:45 → 4SSUR 20:23 → UNDODISIN 04-08 12:10
PROVIDERS: ADMIT Family Medicine; ATTEND Family Medicine
DX: L03.116 Cellulitis of left lower limb (principal); L03.115 Cellulitis of right lower limb; B35.3 Tinea pedis; R21 Rash and other nonspecific skin eruption; R79.89 Other specified abnormal findings of blood chemistry; F17.200 Nicotine dependence, unspecified, uncomplicated; Z20.828 Contact with and (suspected) exposure to other viral communicable diseases; Z59.0 Homelessness; Z87.2 Personal history of diseases of the skin and subcutaneous tissue; Z78.9 Other specified health status; Z71.89 Other specified counseling
CPT/HCPCS: 96366 ×3; 96372 ×3; 96361; 96365; 99284; 36415; 80053; 80048; 83605; 85025 ×2; 85610; 85730; 81003; 87040; 87502; 93971; G0378 ×3; U0003; J1644 ×3; J0690 ×3

== ENCOUNTER 2020-04-19 08:47 | Emergency (ER) | payer OTHER ==
[2020-04-19 08:53] VITALS: BP 122/82; PULSE 93; RESP 18; TEMP 98
--- NOTE | 2020-04-19 09:08 | ED ---
General Adult HPI - General Chief complaint: Skin/Abscess/Foreign Body Stated complaint: problem w/ feet & hands Time Seen by Provider: 04/19/20 08:53 Source: patient, RN notes reviewed Mode of arrival: ambulatory Limitations: no limitations - History of Present Illness Initial comments: 50-year-old male presents emergency Department chief complaint of cracked hands and feet. This is been ongoing issue has been seen in the hospital several times been diagnosed with athlete's foot, eczema with secondary cellulitis by infectious disease. 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 No severe pain in his legs states his crack since hands are bothersome. He reports no fevers or chills. Patient has not follow-up with PCP or plasticator. - Related Data Previous Rx's Medication Instructions Recorded Cephalexin [Keflex] 500 mg PO Q6HR 1 Days #4 cap 04/08/20 Cephalexin [Keflex] 500 mg PO Q6HR #40 cap 04/19/20 Nystatin 100,000Unit/gm Cream 1 applic TOPICAL BID #1 tube 04/19/20 [Mycostatin Cream] Triamcinolone 0.1% Cream [Kenalog 1 applic TOPICAL BID #30 applic 04/19/20 0.1% Cream] predniSONE 50 mg PO DAILY #5 tab 04/19/20 Allergies Allergy/AdvReac Type Severity Reaction Status Date / Time No Known Allergies Allergy Verified 04/19/20 08:53 Review of Systems ROS Statement: Those systems with pertinent positive or pertinent negative responses have been documented in the HPI. ROS Other: All systems not noted in ROS Statement are negative. Past Medical History Past Medical History: No Reported History Additional Past Medical History / Comment(s): Left leg cellulitis History of Any Multi-Drug Resistant Organisms: None Reported Past Surgical History: No Surgical Hx Reported Past Anesthesia/Blood Transfusion Reactions: No Reported Reaction Past Psychological History: No Psychological Hx Reported Smoking Status: Current every day smoker Past Alcohol Use History: None Reported Past Drug Use History: None Reported General Exam Limitations: no limitations General appearance: alert, in no apparent distress Head exam: Present: atraumatic, normocephalic, normal inspection Respiratory exam: Present: normal lung sounds bilaterally. Absent: respiratory distress, wheezes, rales, rhonchi, stridor Cardiovascular Exam: Present: regular rate, normal rhythm, normal heart sounds. Absent: systolic murmur, diastolic murmur, rubs, gallop, clicks Extremities exam: Present: other (Bilateral hands, feet there is severe scaling skin, cracking noted there is some mild erythema to the left distal leg and foot region there is no open lesions or sores. There is severe tarring of the skin noted of the digits from smoking) Skin exam: Present: warm, dry, intact, normal color. Absent: rash Course Vital Signs 04/19/20 08:49 Temperature 98.0 F Pulse Rate 93 Respiratory 18 Rate Blood Pressure 122/82 O2 Sat by Pulse 98 Oximetry Medical Decision Making - Medical Decision Making 50-year-old male presented for rash. Patient has this ongoing issue with ath lete's foot and eczema Patient we given steroid cream, antifungal, oral steroids and antibiotics. Patient instructed needs to follow-up PCP and dermatology. Disposition Clinical Impression: Athletes foot, Eczema, Left leg cellulitis Disposition: HOME SELF-CARE Condition: Stable Instructions (If sedation given, give patient instructions): Cellulitis (ED) Additional Instructions: Please return to the Emergency Department if symptoms worsen or any other concerns. Prescriptions: Cephalexin [Keflex] 500 mg PO Q6HR #40 cap Triamcinolone 0.1% Cream [Kenalog 0.1% Cream] 1 applic TOPICAL BID #30 applic Nystatin 100,000Unit/gm Cream [Mycostatin Cream] 1 applic TOPICAL BID #1 tube predniSONE 50 mg PO DAILY #5 tab Is patient prescribed a controlled substance at d/c from ED?: No Referrals: None,Stated [Primary Care Provider] - 1-2 days Mike Lucero [STAFF PHYSICIAN] - 1-2 days Yulissa Prado MD [STAFF PHYSICIAN] - 1-2 days Time of Disposition: 09:08
== END 2020-04-19 09:15 | disposition home or self-care (01) ==
LOC: EC 08:47
DX: L30.9 Dermatitis, unspecified (principal); B35.3 Tinea pedis; F17.200 Nicotine dependence, unspecified, uncomplicated
CPT/HCPCS: 99283

== ENCOUNTER 2021-11-27 06:05 | Emergency (ER) | payer OTHER ==
[2021-11-27 06:08] VITALS: RESP 18
[2021-11-27] MEDS ORDERED: IPRATROPIUM-ALBUTEROL 3 ML NEB INHALATION STA (07:53)
[2021-11-27] MEDS ORDERED: dexAMETHasone 4 MG TAB PO STA (07:53)
--- NOTE | 2021-11-27 08:00 | ED ---
General Adult HPI - General Chief complaint: Shortness of Breath Stated complaint: OCTAVIO Time Seen by Provider: 11/27/21 07:41 Source: patient Mode of arrival: ambulatory Limitations: no limitations - History of Present Illness Initial comments: Dictation was produced using [employer] dictation software. please excuse any grammatical, word or spelling errors. Chief Complaint: 51-year-old male presents to the emergency department for dyspnea History of Present Illness: Is a 51-year-old male presents to the emergency department for dyspnea. Patient states his symptoms have been ongoing for the last 15 minutes. Patient does report cough that is nonproductive. He is a smoker. Denies any medical history. Denies any history of COPD, asthma or heart failure. Patient states that he has had no constitutional symptoms. The ROS documented in this emergency department record has been reviewed and confirmed by me. Those systems with pertinent positive or negative responses have been documented in the HPI. All other systems are other negative and/or noncontributory. PHYSICAL EXAM: General Impression: Alert and oriented x3, disheveled, malodorous HEENT: Normocephalic atraumatic, extra-ocular movements intact, pupils equal and reactive to light bilaterally, mucous membranes moist. Cardiovascular: Heart regular rate and rhythm Chest: Able to complete full sentences, no retractions, no tachypnea, mild wheezing with auscultation of the lungs Abdomen: abdomen soft, non-tender, non-distended, no organomegaly Musculoskeletal: Pulses present and equal in all extremities, no peripheral edema Motor: no focal deficits noted Neurological: CN II-XII grossly intact, no focal motor or sensory deficits noted Skin: Intact with no visualized rashes Psych: Normal affect and mood ED course: 51-year-old male presents emergency department for dyspnea and cough. Patient's symptoms likely viral in nature. Patient is well-appearing at the bedside. His physical examination shows very mild wheezing. Does not show any signs of respiratory distress. Vital signs upon arrival are within acceptable limits. Covid 19 test negative. Chest x-ray suggests emphysema. Patient related bedside at 9:20 AM I be in stable medical condition. Patient not showing any signs of respiratory distress whatsoever. Patient given a breathing treatment and oral dose of Decadron. Patient discharged and advised follow-up with primary care doctor. - Related Data Previous Rx's Medication Instructions Recorded Cephalexin [Keflex] 500 mg PO Q6HR 1 Days #4 cap 04/08/20 Cephalexin [Keflex] 500 mg PO Q6HR #40 cap 04/19/20 Nystatin 100,000Unit/gm Cream 1 applic TOPICAL BID #1 tube 04/19/20 [Mycostatin Cream] Triamcinolone 0.1% Cream [Kenalog 1 applic TOPICAL BID #30 applic 04/19/20 0.1% Cream] predniSONE 50 mg PO DAILY #5 tab 04/19/20 Allergies Allergy/AdvReac Type Severity Reaction Status Date / Time No Known Allergies Allergy Verified 11/27/21 06:08 Review of Systems ROS Statement: Those systems with pertinent positive or pertinent negative responses have been documented in the HPI. ROS Other: All systems not noted in ROS Statement are negative. Past Medical History Past Medical History: No Reported History Additional Past Medical History / Comment(s): Left leg cellulitis History of Any Multi-Drug Resistant Organisms: None Reported Past Surgical History: No Surgical Hx Reported Past Anesthesia/Blood Transfusion Reactions: No Reported Reaction Past Psychological History: No Psychological Hx Reported Smoking Status: Current every day smoker Past Alcohol Use History: None Reported Past Drug Use History: None Reported General Exam Limitations: no limitations Course Vital Signs 11/27/21 11/27/21 11/27/21 06:06 08:46 08:53 Temperature 97.5 F L Pulse Rate 76 80 80 Respiratory 18 18 18 Rate Blood Pressure 131/87 O2 Sat by Pulse 99 Oximetry 11/27/21 09:12 Temperature 98.7 F Pulse Rate 54 L Respiratory 18 Rate Blood Pressure 101/67 O2 Sat by Pulse 97 Oximetry Medical Decision Making - Lab Data Lab Results 11/27/21 Range/Units 07:37 Coronavirus (PCR) Not Detected (Not Detectd) Disposition Clinical Impression: COPD (chronic obstructive pulmonary disease) Disposition: HOME SELF-CARE Condition: Good Instructions (If sedation given, give patient instructions): Chronic Cough (ED) Is patient prescribed a controlled substance at d/c from ED?: No Referrals: Nell Field MD [REFERRING] - 1-2 days
--- NOTE | 2021-11-27 08:09 | XR ---
EXAMINATION TYPE: XR chest 2V DATE OF EXAM: 11/27/2021 COMPARISON: 02/27/2020 HISTORY: 51-year-old male cough and shortness of breath TECHNIQUE: PA and lateral views FINDINGS: Heart normal size. Pulmonary vasculature within normal limits. Mild hyperinflation. There appear to b e some either pericardial or myocardial calcifications along the inferior aspect of the heart. IMPRESSION: 1. Hyperinflation could reflect depth of inspiration or underlying emphysema. Clinically correlate. 2. There appeared to be either pericardial or myocardial calcifications along the inferior aspect of the heart. Correlate for any history of previous pericarditis or myocardial infarction.
[2021-11-27 09:13] VITALS: PULSE 54
[2021-11-27 10:04] VITALS: BP 103/75; TEMP 98.5
== END 2021-11-27 10:05 | disposition home or self-care (01) ==
LOC: EC 06:05
DX: J44.9 Chronic obstructive pulmonary disease, unspecified (principal); F17.200 Nicotine dependence, unspecified, uncomplicated; Z20.822 Contact with and (suspected) exposure to COVID-19
CPT/HCPCS: 94640; 93005; 87635; 71046; 99285; J8540

== ENCOUNTER 2021-11-28 03:44 | Emergency (ER) | payer OTHER ==
[2021-11-28] MEDS ORDERED: ALBUTEROL HFA INHALER INHALATION STA (05:48)
--- NOTE | 2021-11-28 06:29 | ED ---
SOB HPI - General Chief Complaint: Shortness of Breath Stated Complaint: Difficulty Breathing Time Seen by Provider: 11/28/21 05:20 Source: patient Mode of arrival: ambulatory Limitations: no limitations - History of Present Illness Initial Comments: 's patient is 51-year-old man who presents with complaint of cough and shortness of breath that has been present intermittently for the past 2-3 days. He was seen here yesterday patient had coded swab and chest x-ray that were both reported as negative. The patient was discharged she states that after work his shortness of breath recurred. No chest pain. Cough is nonproductive. No fever or chills. No change in urination or bowel movements. No leg pain or swelling MD Complaint: shortness of breath, cough Onset/Timin -: days(s) Consistency: intermittent Improves With: nothing Worsens With: nothing Associated Symptoms: denies other symptoms Treatments Prior to Arrival: none - Related Data Previous Rx's Medication Instructions Recorded Cephalexin [Keflex] 500 mg PO Q6HR 1 Days #4 cap 04/08/20 Cephalexin [Keflex] 500 mg PO Q6HR #40 cap 04/19/20 Nystatin 100,000Unit/gm Cream 1 applic TOPICAL BID #1 tube 04/19/20 [Mycostatin Cream] Triamcinolone 0.1% Cream [Kenalog 1 applic TOPICAL BID #30 applic 04/19/20 0.1% Cream] predniSONE 50 mg PO DAILY #5 tab 04/19/20 Albuterol Inhaler [Ventolin Hfa 2 puff INHALATION Q4HR PRN #8 gm 11/28/21 Inhaler] Allergies Allergy/AdvReac Type Severity Reaction Status Date / Time No Known Allergies Allergy Verified 11/28/21 03:52 Review of Systems ROS Statement: Those systems with pertinent positive or pertinent negative responses have been documented in the HPI. ROS Other: All systems not noted in ROS Statement are negative. Constitutional: Denies: fever, chills Respiratory: Reports: cough, dyspnea, wheezes. Denies: hemoptysis, stridor Cardiovascular: Denies: chest pain, palpitations, edema, syncope Gastrointestinal: Denies: abdominal pain, vomiting, diarrhea Genitourinary: Denies: dysuria Musculoskeletal: Denies: back pain Skin: Denies: rash Neurological: Denies: headache Past Medical History Past Medical History: No Reported History Additional Past Medical History / Comment(s): Left leg cellulitis History of Any Multi-Drug Resistant Organisms: None Reported Past Surgical History: No Surgical Hx Reported Past Anesthesia/Blood Transfusion Reactions: No Reported Reaction Past Psychological History: No Psychological Hx Reported Smoking Status: Current every day smoker Past Alcohol Use History: None Reported Past Drug Use History: None Reported General Exam Limitations: no limitations General appearance: alert, in no apparent distress Head exam: Present: atraumatic, normocephalic Eye exam: Present: normal appearance Neck exam: Present: normal inspection Respiratory exam: Present: wheezes. Absent: respiratory distress, rales, rhonchi, stridor, accessory muscle use Cardiovascular Exam: Present: regular rate, normal rhythm, normal heart sounds. Absent: systolic murmur, diastolic murmur, rubs, gallop GI/Abdominal exam: Present: soft. Absent: distended, tenderness, guarding, rebound, rigid, mass Extremities exam: Present: normal inspection, normal capillary refill. Absent: pedal edema, calf tenderness Back exam: Present: normal inspection. Absent: CVA tenderness (R), CVA tenderness (L) Neurological exam: Present: alert Skin exam: Present: warm, dry, intact, normal color. Absent: rash Course Vital Signs 11/28/21 11/28/21 03:46 04:37 Temperature 97.5 F L Pulse Rate 62 Respiratory 18 20 Rate Blood Pressure 122/87 O2 Sat by Pulse 98 Oximetry Disposition Clinical Impression: COPD (chronic obstructive pulmonary disease) Disposition: HOME SELF-CARE Condition: Good Instructions (If sedation given, give patient instructions): COPD (Chronic Obstructive Pulmonary Disease) (ED) Prescriptions: Albuterol Inhaler [Ventolin Hfa Inhaler] 2 puff INHALATION Q4HR PRN #8 gm PRN Reason: Wheezing Is patient prescribed a controlled substance at d/c from ED?: No Referrals: Nell Field MD [Primary Care Provider] - 1-2 days
[2021-11-28 07:27] VITALS: BP 106/54; PULSE 59; RESP 18; TEMP 97.6
== END 2021-11-28 07:27 | disposition home or self-care (01) ==
LOC: EC 03:44
DX: J44.9 Chronic obstructive pulmonary disease, unspecified (principal); F17.200 Nicotine dependence, unspecified, uncomplicated; Z20.822 Contact with and (suspected) exposure to COVID-19
CPT/HCPCS: 87502; 87635; 94640; 99285

== ENCOUNTER 2021-11-29 02:47 | Emergency (ER) | payer OTHER ==
[2021-11-29 03:03] VITALS: TEMP 97.8
--- NOTE | 2021-11-29 03:50 | XR ---
EXAMINATION TYPE: XR chest 2V DATE OF EXAM: 11/29/2021 COMPARISON: NONE HISTORY: Short of breath TECHNIQUE: 2 views FINDINGS: Heart is normal. Lungs are clear of infiltrate. No heart failure. There are no hilar masses . There is some curvilinear calcification at the base of the heart. IMPRESSION: No acute lung disease. No heart failure. Cardiac calcification that could relate to old i nfarct or unusual pericardial calcification. No change.
--- NOTE | 2021-11-29 05:43 | ED ---
Recheck HPI - General Chief Complaint: Shortness of Breath Stated Complaint: OCTAVIO Time Seen by Provider: 11/29/21 04:40 Source: patient, RN notes reviewed, old records reviewed Mode of arrival: ambulatory Limitations: no limitations - History of Present Illness Initial Comments: This is a 51-year-old male DF for evaluation. Patient presents today for ev aluation regards to cough congestion shortness of breath. Mildly anxious. No current chest pain no recent fevers. No travel history sick contacts. She states are mild asthma, COPD exacerbation. No recent illness -: days(s) Returns Today for: other (Worsening shortness of breath cough or congestion) Symptoms Since Prior Visit: no new symptoms Associated Symptoms: chest pain, shortness of breath Treatments Prior to Arrival: other medications - Related Data Previous Rx's Medication Instructions Recorded Albuterol Sulfate [Proair Hfa] 1 - 2 puff INHALATION Q6HR PRN 12/06/21 #8.5 gm predniSONE [Deltasone] 20 mg PO DAILY #10 tab 12/06/21 Allergies Allergy/AdvReac Type Severity Reaction Status Date / Time No Known Allergies Allergy Verified 12/06/21 08:33 Review of Systems ROS Statement: Those systems with pertinent positive or pertinent negative responses have been documented in the HPI. ROS Other: All systems not noted in ROS Statement are negative. Past Medical History Past Medical History: No Reported History Additional Past Medical History / Comment(s): Left leg cellulitis History of Any Multi-Drug Resistant Organisms: None Reported Past Surgical History: No Surgical Hx Reported Past Anesthesia/Blood Transfusion Reactions: No Reported Reaction Past Psychological History: No Psychological Hx Reported Smoking Status: Current every day smoker Past Alcohol Use History: None Reported Past Drug Use History: None Reported General Exam General appearance: alert, in no apparent distress, anxious Head exam: Present: atraumatic, normocephalic, normal inspection Eye exam: Present: normal appearance, PERRL, EOMI. Absent: scleral icterus, conjunctival injection, periorbital swelling ENT exam: Present: normal exam, mucous membranes moist Neck exam: Present: normal inspection. Absent: tenderness, meningismus, lymphadenopathy Respiratory exam: Present: wheezes. Absent: respiratory distress, rales, rhonchi, stridor Cardiovascular Exam: Present: regular rate, normal rhythm, normal heart sounds. Absent: systolic murmur, diastolic murmur, rubs, gallop, clicks GI/Abdominal exam: Present: soft, normal bowel sounds. Absent: distended, tenderness, guarding, rebound, rigid Extremities exam: Present: normal inspection, full ROM, normal capillary refill. Absent: tenderness, pedal edema, joint swelling, calf tenderness Back exam: Present: normal inspection Neurological exam: Present: alert, oriented X3, CN II-XII intact Psychiatric exam: Present: normal affect, normal mood Skin exam: Present: warm, dry, intact, normal color. Absent: rash Course Vital Signs 11/29/21 11/29/21 11/29/21 02:56 06:36 07:20 Temperature 97.8 F 97.8 F Pulse Rate 72 58 L 72 Respiratory 18 18 16 Rate Blood Pressure 118/85 109/71 97/73 O2 Sat by Pulse 98 93 L 96 Oximetry 11/29/21 11/29/21 07:21 07:29 Temperature Pulse Rate 68 68 Respiratory Rate Blood Pressure O2 Sat by Pulse Oximetry - Reevaluation(s) Reevaluation #1: 11/29/21 medical record is reviewed Patient symptoms improved here in the ER Patient informed results and questions answered Medical Decision Making - Medical Decision Making 21 male with acute on chronic bronchitis, COPD exacerbation over asthma. Patient feels significantly improved here in the ER can be discharged home - Radiology Data Radiology results: report reviewed (Chest x-rays negative for acute disease), image reviewed Disposition Clinical Impression: COPD (chronic obstructive pulmonary disease), Asthma with acute exacerbation Disposition: HOME SELF-CARE Condition: Good Instructions (If sedation given, give patient instructions): Asthma (ED), Acute Bronchitis (ED) Is patient prescribed a controlled substance at d/c from ED?: No Referrals: Nell Field MD [Primary Care Provider] - 1-2 days
[2021-11-29] MEDS ORDERED: IPRATROPIUM-ALBUTEROL 3 ML NEB INHALATION STA (06:24)
[2021-11-29] MEDS ORDERED: dexAMETHasone 2 MG TAB PO STA (06:24)
[2021-11-29 07:21] VITALS: BP 97/73; RESP 16
[2021-11-29 07:23] VITALS: PULSE 68
== END 2021-11-29 07:19 | disposition home or self-care (01) ==
LOC: EC 02:47
DX: J44.1 Chronic obstructive pulmonary disease with (acute) exacerbation (principal); F17.200 Nicotine dependence, unspecified, uncomplicated
CPT/HCPCS: 94640; 71046; 99284; J8540

== ENCOUNTER 2021-12-06 04:42 | Emergency (ER) | payer OTHER ==
[2021-12-06 06:41] VITALS: RESP 16; TEMP 97.1
[2021-12-06 07:11] LABS: Basophils % (A) 0 %; Eosinophils # (A) 0.1 k/uL (0-0.7); Eosinophils % (A) 2 %; HCT 43.7 % (39.0-53.0); Lymphocytes # (A) 1.7 k/uL (1.0-4.8); Lymphocytes % (A) 25 %; MCH 33.2 pg (25.0-35.0); MCHC 32.1 g/dL (31.0-37.0); MCV 103.3 fL (80.0-100.0); Macrocytosis Slight; Mean Platelet Volume 7.7; Monocytes # (A) 0.3 k/uL (0-1.0); Monocytes % (A) 5 %; Neutrophils # (A) 4.4 k/uL (1.3-7.7); Neutrophils % (A) 66 %; Platelet Count 196 k/uL (150-450); RBC 4.23 m/uL (4.30-5.90); RDW 13.2 % (11.5-15.5); WBC 6.7 k/uL (3.8-10.6)
[2021-12-06 07:17] LABS: ALT 17 U/L (4-49); AST 47 U/L (17-59); African American GFR (CKD) >90 (>60 ml/min/1.73 sqM); Albumin 4.3 g/dL (3.5-5.0); Alkaline Phosphatase 61 U/L (38-126); Anion Gap 7 mmol/L; Blood Urea Nitrogen 29 mg/dL (9-20); Calcium 8.6 mg/dL (8.4-10.2); Carbon Dioxide 27 mmol/L (22-30); Chloride 106 mmol/L (98-107); Glucose 90 mg/dL (74-99); Non-African American GFR(CKD) >90 (>60 ml/min/1.73 sqM); Potassium 4.3 mmol/L (3.5-5.1); Sodium 140 mmol/L (137-145); Total Bilirubin 0.7 mg/dL (0.2-1.3); Total Protein 7.3 g/dL (6.3-8.2)
[2021-12-06 07:21] LABS: Partial Thromboplastin Time 23.2 sec (22.0-30.0)
--- NOTE | 2021-12-06 08:34 | ED ---
SOB HPI - General Chief Complaint: Shortness of Breath Stated Complaint: OCTAVIO Time Seen by Provider: 12/06/21 07:00 Source: patient Mode of arrival: ambulatory Limitations: no limitations - History of Present Illness Initial Comments: 51-year-old male with past medical history of COPD presents to the emergency department with 1 week of shortness of breath. Patient has been seen here multiple times for similar complaints. He admits to a nonproductive cough. No chills, fevers or chest pain. He said he was prescribed an inhaler however never received the prescription. No abdominal pain. No changes in his bowel or bladder habits. No lower exam edema. No history of DVT or PE. No other alleviating, precipitating my fine factors - Related Data Previous Rx's Medication Instructions Recorded Albuterol Sulfate [Proair Hfa] 1 - 2 puff INHALATION Q6HR PRN 12/06/21 #8.5 gm predniSONE [Deltasone] 20 mg PO DAILY #10 tab 12/06/21 Allergies Allergy/AdvReac Type Severity Reaction Status Date / Time No Known Allergies Allergy Verified 12/06/21 08:33 Review of Systems ROS Statement: Those systems with pertinent positive or pertinent negative responses have been documented in the HPI. ROS Other: All systems not noted in ROS Statement are negative. Past Medical History Past Medical History: No Reported History Additional Past Medical History / Comment(s): Left leg cellulitis History of Any Multi-Drug Resistant Organisms: None Reported Past Surgical History: No Surgical Hx Reported Past Anesthesia/Blood Transfusion Reactions: No Reported Reaction Past Psychological History: No Psychological Hx Reported Smoking Status: Current every day smoker Past Alcohol Use History: None Reported Past Drug Use History: None Reported General Exam Limitations: no limitations General appearance: alert, in no apparent distress Head exam: Present: atraumatic, normocephalic, normal inspection Eye exam: Present: normal appearance, PERRL, EOMI. Absent: scleral icterus, conjunctival injection, periorbital swelling ENT exam: Present: normal exam, mucous membranes moist Neck exam: Present: normal inspection. Absent: tenderness, meningismus, lymphadenopathy Respiratory exam: Present: normal lung sounds bilaterally. Absent: respiratory distress, wheezes, rales, rhonchi, stridor Cardiovascular Exam: Present: regular rate, normal rhythm, normal heart sounds. Absent: systolic murmur, diastolic murmur, rubs, gallop, clicks GI/Abdominal exam: Present: soft, normal bowel sounds. Absent: distended, tenderness, guarding, rebound, rigid Extremities exam: Present: normal inspection, full ROM, normal capillary refill. Absent: tenderness, pedal edema, joint swelling, calf tenderness Back exam: Present: normal inspection Neurological exam: Present: alert, oriented X3, CN II-XII intact Psychiatric exam: Present: normal affect, normal mood Skin exam: Present: warm, dry, intact, normal color. Absent: rash Course Vital Signs 12/06/21 12/06/21 12/06/21 06:39 06:42 11:01 Temperature 97.1 F L Pulse Rate 60 70 Respiratory 16 16 16 Rate Blood Pressure 156/102 124/90 O2 Sat by Pulse 100 96 Oximetry Medical Decision Making - Medical Decision Making Upon arrival patient is placed into room 20. A thorough history and physical exam was performed. Laboratory studies are conducted and reviewed. D-dimer elevated at 0.[address] of the chest is performed. It does demonstrate pericardial calcifications. No pulmonary embolism. Scattered lung nodules. Results discussed the patient. I will prescribe him a prednisone course and an inhaler. He needs to follow up this primary care doctor. Return to the emergency room for any new or worsening symptoms. Patient was discharged home in stable condition - Lab Data Result diagrams: 12/06/21 07:02 12/06/21 07:02 Lab Results 12/06/21 12/06/21 12/06/21 Range/Units 07:02 07:02 07:02 WBC 6.7 (3.8-10.6) k/uL RBC 4.23 L (4.30-5.90) m/uL Hgb 14.0 (13.0-17.5) gm/dL Hct 43.7 (39.0-53.0) % MCV 103.3 H (80.0-100.0) fL MCH 33.2 (25.0-35.0) pg MCHC 32.1 (31.0-37.0) g/dL RDW 13.2 (11.5-15.5) % Plt Count 196 (150-450) k/uL MPV 7.7 Neutrophils % 66 % Lymphocytes % 25 % Monocytes % 5 % Eosinophils % 2 % Basophils % 0 % Neutrophils # 4.4 (1.3-7.7) k/uL Lymphocytes # 1.7 (1.0-4.8) k/uL Monocytes # 0.3 (0-1.0) k/uL Eosinophils # 0.1 (0-0.7) k/uL Basophils # 0.0 (0-0.2) k/uL Macrocytosis Slight PT 11.0 (9.0-12.0) sec INR 1.0 (<1.2) APTT 23.2 (22.0-30.0) sec D-Dimer 0.57 (<0.60) mg/L FEU Sodium 140 (137-145) mmol/L Potassium 4.3 (3.5-5.1) mmol/L Chloride 106 (98-107) mmol/L Carbon Dioxide 27 (22-30) mmol/L Anion Gap 7 mmol/L BUN 29 H (9-20) mg/dL Creatinine 0.96 (0.66-1.25) mg/dL Est GFR (CKD-EPI)AfAm >90 (>60 ml/min/1.73 sqM) Est GFR (CKD-EPI)NonAf >90 (>60 ml/min/1.73 sqM) Glucose 90 (74-99) mg/dL Calcium 8.6 (8.4-10.2) mg/dL Total Bilirubin 0.7 (0.2-1.3) mg/dL AST 47 (17-59) U/L ALT 17 (4-49) U/L Alkaline Phosphatase 61 (38-126) U/L Troponin I (0.000-0.034) ng/mL Total Protein 7.3 (6.3-8.2) g/dL Albumin 4.3 (3.5-5.0) g/dL 12/06/21 Range/Units 07:02 WBC (3.8-10.6) k/uL RBC (4.30-5.90) m/uL Hgb (13.0-17.5) gm/dL Hct (39.0-53.0) % MCV (80.0-100.0) fL MCH (25.0-35.0) pg MCHC (31.0-37.0) g/dL RDW (11.5-15.5) % Plt Count (150-450) k/uL MPV Neutrophils % % Lymphocytes % % Monocytes % % Eosinophils % % Basophils % % Neutrophils # (1.3-7.7) k/uL Lymphocytes # (1.0-4.8) k/uL Monocytes # (0-1.0) k/uL Eosinophils # (0-0.7) k/uL Basophils # (0-0.2) k/uL Macrocytosis PT (9.0-12.0) sec INR (<1.2) APTT (22.0-30.0) sec D-Dimer (<0.60) mg/L FEU Sodium (137-145) mmol/L Potassium (3.5-5.1) mmol/L Chloride (98-107) mmol/L Carbon Dioxide (22-30) mmol/L Anion Gap mmol/L BUN (9-20) mg/dL Creatinine (0.66-1.25) mg/dL Est GFR (CKD-EPI)AfAm (>60 ml/min/1.73 sqM) Est GFR (CKD-EPI)NonAf (>60 ml/min/1.73 sqM) Glucose (74-99) mg/dL Calcium (8.4-10.2) mg/dL Total Bilirubin (0.2-1.3) mg/dL AST (17-59) U/L ALT (4-49) U/L Alkaline Phosphatase (38-126) U/L Troponin I <0.012 (0.000-0.034) ng/mL Total Protein (6.3-8.2) g/dL Albumin (3.5-5.0) g/dL - EKG Data EKG Comments: EKG demonstrates sinus rhythm with a rate of 61. ID interval 145. QRS 101. QTC of 454. J-point elevation in all leads Disposition Clinical Impression: COPD exacerbation, Acute respiratory insufficiency, Lung nodules Disposition: HOME SELF-CARE Condition: Stable Instructions (If sedation given, give patient instructions): Chronic Bronchitis (ED) Additional Instructions: Please use the inhaler every 4 hours and take steroids as directed. Return for any new or worsening symptoms Prescriptions: predniSONE [Deltasone] 20 mg PO DAILY #10 tab Albuterol Sulfate [Proair Hfa] 1 - 2 puff INHALATION Q6HR PRN #8.5 gm PRN Reason: Shortness Of Breath Is patient prescribed a controlled substance at d/c from ED?: No Referrals: Nell Field MD [Primary Care Provider] - 1-2 days Time of Disposition: 10:38
--- NOTE | 2021-12-06 08:40 | XR ---
EXAMINATION TYPE: XR chest 2V DATE OF EXAM: 12/06/2021 COMPARISON: Chest x-ray 11/29/2021 HISTORY: Difficulty breathing TECHNIQUE: Frontal and lateral views of the chest are obtained. FINDINGS: There is no focal air space opacity, pleural effusion, or pneumothorax seen. The cardiac silhouette size is within normal limits. There are overlying leads. Pericardial calcification is flakito pected as on prior exam. The osseous structures are intact. IMPRESSION: No acute cardiopulmonary process.
--- NOTE | 2021-12-06 09:37 | CT ---
EXAMINATION TYPE: CT chest angio for PE DATE OF EXAM: 12/06/2021 COMPARISON: No previous CT scan is available for comparison HISTORY: SOB, elevated d dimer CT DLP: 307.6 mGy.cm. Automated Exposure Control for Dose Reduction was Utilized. TECHNIQUE AND CONTRAST: CTA scan of the thorax is performed with IV Contrast, patient injected with 100 mL of Isovue 370, pul [facility] angiogram protocol. MIP Images are created on an independent workstation and reviewed. FINDINGS: No definite filling defect within the pulmonary trunk, main pulmonary arteries, lobar, segmental and proximal subsegmental branches to suggest pulmonary embolism. Distal subsegmental branches are subopt imally assessed. The pulmonary trunk measures 2.8 cm. No gross cardiomegaly. Pericardial calcificatio n, please correlate clinically for constrictive pericarditis. No sizable pericardial effusion. Elongated 5 mm nodule in the left lower lobe with more superior 2 nodules measuring 3 mm and 4 mm res pectively. Mild diffuse bronchial thickening, nonspecific and could be related to chronic bronchitis. Right lower lobe posterior pulmonary atelectasis with groundglass opacity. Suspected irregular round atelectasis at the anterolateral aspect of the left lung base, attention on follow-up. Patent trachea and main bronchi. No pleural effusion. No pathologically enlarged lymph no hawk in the chest by this CT scan. No aggressive bone lesion. Unremarkable upper abdomen. IMPRESSION: No major or central pulmonary embolism. Pericardial calcification, please correlate clinically for constrictive pericarditis. Scattered lung nodules measuring up to 5 mm as described above with suspected left basal slightly irr egular round atelectasis. Precautionary follow-up CT scan in 3 months is advised.
[2021-12-06 14:42] VITALS: BP 124/90; PULSE 70
== END 2021-12-06 11:02 | disposition home or self-care (01) ==
LOC: EC 04:42
DX: J44.1 Chronic obstructive pulmonary disease with (acute) exacerbation (principal); R91.1 Solitary pulmonary nodule; F17.200 Nicotine dependence, unspecified, uncomplicated
CPT/HCPCS: 36415; 85379; 80053; 84484; 85025; 85610; 85730; 71046; 71275; 99285; Q9967

== ENCOUNTER 2022-03-13 13:59 | Emergency (ER) | payer OTHER ==
[2022-03-13 14:14] VITALS: BP 98/60; PULSE 69; RESP 20; TEMP 97.9
--- NOTE | 2022-03-13 14:46 | XR ---
EXAMINATION TYPE: XR knee complete LT DATE OF EXAM: 03/13/2022 COMPARISON: NONE HISTORY: Pain TECHNIQUE: Three views are submitted. FINDINGS: There is a bony fragment involving the intercondylar notch suspicious for fracture. Moderate suprapat ellar bursal fluid collection noted. Remaining osseous structures intact. IMPRESSION: 1. Suspect the avulsion fracture of the intercondylar notch. Recommend CT scan of the left knee to as sess the tibial plateau.
[2022-03-13] MEDS ORDERED: MORPHINE SULFATE 4 MG/ML SYRINGE IM STA (15:49)
[2022-03-13] MEDS ORDERED: DIPH,PERTUS(ACELL)TETVAC-LF 0.5 ML VIAL IM ONE (15:49)
--- NOTE | 2022-03-13 16:33 | CT ---
EXAMINATION TYPE: CT knee LT wo con DATE OF EXAM: 03/13/2022 COMPARISON: None HISTORY: Evaluate for tibial plateau fracture, left knee pain CT DLP: 103 mGycm Automated exposure control for dose reduction was used. Contrast: None Technique: Axial images 3 mm thick sections. Reconstructed images in the coronal and sagittal planes. FINDINGS: There is a moderate to large joint effusion. There is a tiny fracture through the medial tibial spine . This appears nondisplaced. There is a fracture through the head of the fibula which appears nondisp laced. Mild narrowing of the joint spaces are present. IMPRESSION: 1. NONDISPLACED FRACTURES OF THE MEDIAL TIBIAL SPINE AND FIBULAR HEAD. 2. NO DEPRESSED TIBIAL PLATEAU FRACTURE IDENTIFIED. 3. LARGE JOINT EFFUSION
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
== END 2022-03-13 18:11 | disposition home or self-care (01) ==
LOC: EC 13:59
DX: S82.202A Unspecified fracture of shaft of left tibia, initial encounter for closed fracture (principal); S82.402A Unspecified fracture of shaft of left fibula, initial encounter for closed fracture; Z23 Encounter for immunization; F17.200 Nicotine dependence, unspecified, uncomplicated; W19.XXXA Unspecified fall, initial encounter
CPT/HCPCS: 73562; 73700; 90715; 99284; 96374; 90471; L1830 ×2; J2270

== ENCOUNTER 2022-03-14 11:42 | Emergency (ER) | payer OTHER ==
[2022-03-14 11:58] VITALS: RESP 16
--- NOTE | 2022-03-14 15:02 | ED ---
Lower Extremity Injury HPI - General Chief Complaint: Extremity Injury, Lower Stated Complaint: leg pain Time Seen by Provider: 03/14/22 14:53 Source: patient, RN notes reviewed Mode of arrival: wheelchair Limitations: no limitations - History of Present Illness Initial Comments: 51-year-old male present emergency Department chief complaint left knee pain. Patient was seen here and was diagnosed a fracture of his knee. Patient was given crutches, knee immobilizer he states he removed it states that he cannot get around [employer] with this he states is here stating that he needs his knee fixed. Patient denies any new injury. Patient states is painful when he walks on it even though he was instructed not to ambulate. - Related Data Previous Rx's Medication Instructions Recorded HYDROcodone/APAP 5-325MG [[place] 1 tab PO Q6HR PRN 3 Days #12 tab 03/13/22 5-325] Allergies Allergy/AdvReac Type Severity Reaction Status Date / Time No Known Allergies Allergy Verified 03/14/22 11:56 Review of Systems ROS Statement: Those systems with pertinent positive or pertinent negative responses have been documented in the HPI. ROS Other: All systems not noted in ROS Statement are negative. Past Medical History Past Medical History: No Reported History Additional Past Medical History / Comment(s): Left leg cellulitis History of Any Multi-Drug Resistant Organisms: None Reported Past Surgical History: No Surgical Hx Reported Past Anesthesia/Blood Transfusion Reactions: No Reported Reaction Past Psychological History: No Psychological Hx Reported Smoking Status: Current every day smoker Past Alcohol Use History: None Reported Past Drug Use History: None Reported General Exam Limitations: no limitations General appearance: alert, in no apparent distress Head exam: Present: atraumatic, normocephalic, normal inspection Respiratory exam: Present: normal lung sounds bilaterally. Absent: respiratory distress, wheezes, rales, rhonchi, stridor Cardiovascular Exam: Present: regular rate, normal rhythm, normal heart sounds. Absent: systolic murmur, diastolic murmur, rubs, gallop, clicks Extremities exam: Present: other (Left knee there is mild swelling tenderness with palpation neurovascular intact equal pedal pulses.) Skin exam: Present: warm, dry, intact, normal color. Absent: rash Course Vital Signs 03/14/22 11:55 Temperature 98.0 F Pulse Rate 71 Respiratory 16 Rate Blood Pressure 114/75 O2 Sat by Pulse 97 Oximetry Medical Decision Making - Medical Decision Making I did review prior records which shows medial tibial spine fracture patient was placed in knee immobilizer and crutches yesterday he was instructed to follow up with orthopedics patient remove splint, was not using crutches and did not contact orthopedics. I did instruct him that he needs remain completely nonweightbearing to wear knee immobilizer and which this will be placed on him, uses crutches to follow-up. Disposition Clinical Impression: Fracture of left proximal fibula, Closed fracture of left tibial spine Disposition: HOME SELF-CARE Condition: Stable Instructions (If sedation given, give patient instructions): Leg Fracture (ED) Additional Instructions: Please use crutches to remain nonweightbearing as directed please leave knee immobilizer on and follow-up with orthopedics as directed.Please return to the Emergency Department if symptoms worsen or any other concerns. Is patient prescribed a controlled substance at d/c from ED?: No Referrals: Nell Field MD [Primary Care Provider] - 1-2 days Anselmo Donovan DO [Doctor of Osteopathic Medicine] - 1-2 days Time of Disposition: 15:02
[2022-03-14 15:17] VITALS: BP 111/85; PULSE 96; TEMP 98.2
== END 2022-03-14 15:18 | disposition home or self-care (01) ==
LOC: EC 11:42
DX: S82.832D Other fracture of upper and lower end of left fibula, subsequent encounter for closed fracture with routine healing (principal); S82.112D Displaced fracture of left tibial spine, subsequent encounter for closed fracture with routine healing; F17.200 Nicotine dependence, unspecified, uncomplicated; X58.XXXD Exposure to other specified factors, subsequent encounter
CPT/HCPCS: 99282

== ENCOUNTER 2022-06-14 00:18 | Emergency (ER) | payer OTHER ==
[2022-06-14] MEDS ORDERED: predniSONE 20 MG TAB PO STA (02:23)
[2022-06-14] MEDS ORDERED: IPRATROPIUM-ALBUTEROL 3 ML NEB INHALATION STA (02:23)
--- NOTE | 2022-06-14 02:50 | XR ---
EXAMINATION TYPE: XR chest 2V DATE OF EXAM: 06/14/2022 COMPARISON: 12/06/2021 HISTORY: Short of breath TECHNIQUE: 2 view FINDINGS: Heart size is normal. The lungs are clear of infiltrate. No heart failure. There are no hil ar masses. There is some calcification at the inferior cardiac border that could be from old infarct. IMPRESSION: No acute lung disease. No change compared to old exam. Calcification at the base of the h eart could be from old infarct. No heart failure.
--- NOTE | 2022-06-14 03:14 | ED ---
SOB HPI - General Chief Complaint: Shortness of Breath Stated Complaint: shortness of breath Time Seen by Provider: 06/14/22 02:13 Source: patient, RN notes reviewed Mode of arrival: ambulatory - History of Present Illness Initial Comments: This is a pleasant 52-year-old male who presents to emergency complaining of shortness of breath. Patient states that he previously had an inhaler but has not had one recently. Previous diagnosis of COPD. Patient continues to smoke cigarettes. No headache, no fever or chills, no changes in vision or hearing, no sore throat or difficulty with speech, no neck pain, no chest pain, no abdominal pain, no nausea or vomiting, no changes in urination or bowel movements, no numbness or tingling, no extremity pain, no skin rashes or lesions. Past medical, surgical, social, and family history reviewed. - Related Data Previous Rx's Medication Instructions Recorded HYDROcodone/APAP 5-325MG [[place] 1 tab PO Q6HR PRN 3 Days #12 tab 03/13/22 5-325] Albuterol Inhaler [Ventolin Hfa 2 puff INHALATION Q4HR PRN #1 each 06/14/22 Inhaler] Doxycycline [Vibramycin] 100 mg PO BID 1 Days #14 each 06/14/22 predniSONE [Deltasone] 20 mg PO DIRECTED #8 tab 06/14/22 Allergies Allergy/AdvReac Type Severity Reaction Status Date / Time No Known Allergies Allergy Verified 06/14/22 01:02 Review of Systems ROS Statement: Those systems with pertinent positive or pertinent negative responses have been documented in the HPI. ROS Other: All systems not noted in ROS Statement are negative. Past Medical History Past Medical History: No Reported History Additional Past Medical History / Comment(s): Left leg cellulitis History of Any Multi-Drug Resistant Organisms: None Reported Past Surgical History: No Surgical Hx Reported Past Anesthesia/Blood Transfusion Reactions: No Reported Reaction Past Psychological History: No Psychological Hx Reported Smoking Status: Current every day smoker Past Alcohol Use History: None Reported Past Drug Use History: None Reported General Exam - General Exam Comments Initial Comments: Vital signs stable, patient afebrile. Patient does not appear to be ill or toxic. General appearance: alert, in no apparent distress Head exam: Present: atraumatic, normocephalic, normal inspection Eye exam: Present: normal appearance, PERRL, EOMI. Absent: scleral icterus, conjunctival injection, periorbital swelling ENT exam: Present: normal exam, normal oropharynx, mucous membranes moist, TM's normal bilaterally, normal external ear exam. Absent: mucous membranes dry Neck exam: Present: normal inspection, full ROM. Absent: tenderness, meningismus, lymphadenopathy Respiratory exam: Present: wheezes (Patient has fine expiratory wheezes to forced expiration.). Absent: respiratory distress, rales, rhonchi, stridor, chest wall tenderness, accessory muscle use, decreased breath sounds, prolonged expiratory Cardiovascular Exam: Present: regular rate, normal rhythm, normal heart sounds. Absent: systolic murmur, diastolic murmur, rubs, gallop, clicks GI/Abdominal exam: Present: soft, normal bowel sounds. Absent: distended, tenderness, guarding, rebound, rigid Extremities exam: Present: normal inspection, full ROM, normal capillary refill. Absent: tenderness, pedal edema, joint swelling, calf tenderness Back exam: Present: normal inspection Neurological exam: Present: alert, oriented X3, CN II-XII intact Psychiatric exam: Present: normal affect, normal mood Skin exam: Present: warm, dry, intact, normal color. Absent: rash Course Vital Signs 06/14/22 00:58 Temperature 97.6 F Pulse Rate 82 Respiratory 20 Rate Blood Pressure 108/60 O2 Sat by Pulse 97 Oximetry Medical Decision Making - Medical Decision Making Patient presents with what appears to be a mild COPD exacerbation. Patient in no significant distress. No pain. Patient sleeping in the room comfortably when I enter the room. Does not appear to be consistent with cardiac disease. Patient has no edema. No evidence of fluid overload. Chest x-ray shows chronic calcification of her wall. Otherwise no acute changes as interpreted by me. I did review the radiology interpretation. Patient was told to return to the ER for any signs or symptoms worsen. Told to return immediately if any other problems arise. All questions answered. Treatment plan discussed. Patient in agreement Every effort has been made to ensure accuracy of this dictation. However, due to the limitations of electronic medical records and dictation devices, errors in charting still occur. The case was discussed in detail with ED attending physician. Presentation, findings, treatment plan discussed in detail. Day Care Aide Dr. Yanez - Lab Data Lab Results 06/14/22 06/14/22 Range/Units 01:05 01:05 Coronavirus (PCR) Not Detected (Not Detectd) Influenza Type A RNA Not Detected (Not Detectd) Influenza Type B (PCR) Not Detected (Not Detectd) - EKG Data EKG Comments: EKG done at 1:12 AM and interpreted by me. Reviewed by the ED attending physician. Reveals sinus rhythm with PACs. Atraumatic enlargement. Normal intervals. Normal axis. No evidence of acute ST or T-wave changes. When compared to the previous study from November 2021 there is no significant change. Artifact seen in lead V2. - Radiology Data Radiology results: report reviewed, image reviewed Two-view chest x-ray read by me shows cardiac calcification with no other acute findings. Reviewed radiology interpretation Disposition Clinical Impression: COPD exacerbation, Cigarette smoker Disposition: HOME SELF-CARE Condition: Good Instructions (If sedation given, give patient instructions): How to Stop Smoking (ED), COPD (Chronic Obstructive Pulmonary Disease) (ED) Additional Instructions: Follow-up with your regular physician as directed. Return to the ER immediately if any symptoms worsen, new symptoms arise, or any other problems develop. Prescriptions: predniSONE [Deltasone] 20 mg PO DIRECTED #8 tab Albuterol Inhaler [Ventolin Hfa Inhaler] 2 puff INHALATION Q4HR PRN #1 each PRN Reason: Wheezing Doxycycline [Vibramycin] 100 mg PO BID 1 Days #14 each Is patient prescribed a controlled substance at d/c from ED?: No Referrals: Nell Field MD [Primary Care Provider] - 1-2 days Time of Disposition: 03:10
[2022-06-14 04:05] VITALS: BP 110/59; PULSE 71; RESP 17; TEMP 98.5
== END 2022-06-14 04:18 | disposition home or self-care (01) ==
LOC: EC 00:18
DX: J44.1 Chronic obstructive pulmonary disease with (acute) exacerbation (principal); F17.210 Nicotine dependence, cigarettes, uncomplicated; Z79.899 Other long term (current) drug therapy; Z20.822 Contact with and (suspected) exposure to COVID-19
CPT/HCPCS: 94640; 87502; 87635; 71046; 99285; J7512

== ENCOUNTER 2022-07-19 15:22 | Inpatient (IN) | payer OTHER ==
[2022-07-19] MEDS ORDERED: HYDROcodone/APAP 5-325MG 1 EACH TAB PO STA (16:03)
[2022-07-19] MEDS ORDERED: DIPH,PERTUS(ACELL)TETVAC-LF 0.5 ML VIAL IM ONE (16:06)
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
[2022-07-19 17:27] LABS: Basophils % (A) 0 %; Eosinophils % (A) 0 %; HGB 12.5 gm/dL (13.0-17.5); Lymphocytes # (A) 0.8 k/uL (1.0-4.8); Lymphocytes % (A) 7 %; MCH 33.4 pg (25.0-35.0); MCHC 34.8 g/dL (31.0-37.0); Mean Platelet Volume 9.2; Monocytes # (A) 0.4 k/uL (0-1.0); Monocytes % (A) 4 %; Neutrophils # (A) 9.7 k/uL (1.3-7.7); Neutrophils % (A) 87 %; Platelet Count 257 k/uL (150-450); RBC 3.75 m/uL (4.30-5.90); RDW 12.8 % (11.5-15.5); WBC 11.1 k/uL (3.8-10.6)
[2022-07-19] MEDS: NICOTINE 21MG/24HR PATCH TRANSDERM SCH (17:36)
--- NOTE | 2022-07-19 17:47 | XR ---
EXAMINATION TYPE: XR foot complete bilateral DATE OF EXAM: 07/19/2022 COMPARISON: NONE HISTORY: Foot pain TECHNIQUE: 3 views each foot FINDINGS: there is mild left-sided hallux valgus. There is multiple mild hammertoe deformity. There is mild rig ht-sided plantar calcaneal spurring. There is left-sided Achilles calcaneal spurring. There is lucency of the tuft of the distal phalanx of the right great toe. IMPRESSION: There is some lucency at the tuft of the distal phalanx of the right big toe and consistent with oste omyelitis. Hammertoe deformity. No fracture seen.
[2022-07-19 17:54] LABS: Albumin 3.5 g/dL (3.5-5.0); Calcium 8.4 mg/dL (8.4-10.2); Potassium 4.5 mmol/L (3.5-5.1); Total Bilirubin 0.5 mg/dL (0.2-1.3); Total Protein 6.8 g/dL (6.3-8.2)
[2022-07-19 17:59] LABS: Prothrombin Time 10.7 sec (9.0-12.0)
[2022-07-19 18:02] LABS: Partial Thromboplastin Time 21.2 sec (22.0-30.0)
[2022-07-19] MEDS ORDERED: VANCOMYCIN IV PER PHARMACY 1 EACH MISC MISCELLANE PRN (19:29)
[2022-07-19] MEDS ORDERED: NALOXONE 0.4 MG/ML 1 ML VIAL IV PRN (19:30)
[2022-07-19] MEDS ORDERED: VANCOMYCIN 1,250 MG in SODIUM CHLORIDE 0.9% 250 ML IVPB STA (19:32)
[2022-07-19] MEDS: PIPERACILLIN-TAZOBACTAM 3.375 GM in SODIUM CHLORIDE 0.9% 100 ML IVPB SCH (20:11)
[2022-07-19] MEDS: SODIUM CHLORIDE 0.9% 1,000 ML IV SCH (20:17)
[2022-07-19] MEDS: HYDROcodone/APAP 5-325MG 1 EACH TAB PO PRN (22:04)
[2022-07-20] MEDS: HYDROcodone/APAP 5-325MG 1 EACH TAB PO PRN ×4 (04:00→22:01)
[2022-07-20] MEDS: PIPERACILLIN-TAZOBACTAM 3.375 GM in SODIUM CHLORIDE 0.9% 100 ML IVPB SCH ×2 (04:03→12:14)
[2022-07-20] MEDS: NICOTINE 21MG/24HR PATCH TRANSDERM SCH ×2 (09:11→09:16)
[2022-07-20] MEDS: VANCOMYCIN 1,250 MG in SODIUM CHLORIDE 0.9% 250 ML IVPB SCH ×2 (09:50→21:33)
[2022-07-20] MEDS: SODIUM CHLORIDE 0.9% 1,000 ML IV SCH (11:28)
[2022-07-20 12:08] LABS: Basophils % (A) 0 %; Eosinophils % (A) 1 %; HCT 31.6 % (39.0-53.0); Lymphocytes # (A) 0.7 k/uL (1.0-4.8); Lymphocytes % (A) 10 %; MCH 33.6 pg (25.0-35.0); MCHC 34.7 g/dL (31.0-37.0); Monocytes # (A) 0.5 k/uL (0-1.0); Monocytes % (A) 7 %; Neutrophils # (A) 5.7 k/uL (1.3-7.7); Neutrophils % (A) 81 %; Platelet Count 226 k/uL (150-450); RBC 3.26 m/uL (4.30-5.90); RDW 12.5 % (11.5-15.5); WBC 7.1 k/uL (3.8-10.6)
[2022-07-20 12:34] LABS: African American GFR (CKD) 89 (>60 ml/min/1.73 sqM); Anion Gap 3 mmol/L; Blood Urea Nitrogen 26 mg/dL (9-20); Calcium 7.3 mg/dL (8.4-10.2); Carbon Dioxide 24 mmol/L (22-30); Chloride 103 mmol/L (98-107); Glucose 95 mg/dL (74-99); Non-African American GFR(CKD) 77 (>60 ml/min/1.73 sqM); Sodium 130 mmol/L (137-145)
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
[2022-07-20] MEDS ORDERED: BACITRACIN OINT 1 EACH PACKET TOPICAL STA (16:30)
[2022-07-20] MEDS ORDERED: BACITRACIN ZINC 500 UNIT/GM OINT 28.4 GM TUBE TOPICAL ONE (16:43)
[2022-07-20] MEDS: HEPARIN SODIUM,PORCINE/PF 5,000 UNIT/0.5 ML SYRINGE SQ SCH ×2 (17:22→23:39)
[2022-07-20] MEDS: AMPICILLIN-SULBACTAM 3 GM in SODIUM CHLORIDE 0.9% 100 ML IVPB SCH ×2 (17:22→23:39)
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
[2022-07-20] MEDS ORDERED: ACETAMINOPHEN TAB 325 MG TAB PO STA (23:15)
[2022-07-21] MEDS: SODIUM CHLORIDE 0.9% 1,000 ML IV SCH ×2 (01:29→13:11)
[2022-07-21] MEDS: AMPICILLIN-SULBACTAM 3 GM in SODIUM CHLORIDE 0.9% 100 ML IVPB SCH ×2 (05:13→11:16)
[2022-07-21] MEDS: HEPARIN SODIUM,PORCINE/PF 5,000 UNIT/0.5 ML SYRINGE SQ SCH ×3 (07:56→23:53)
[2022-07-21] MEDS ORDERED: VANCOMYCIN TROUGH DUE 1 EACH MISC MISCELLANE ONE (08:00)
[2022-07-21] MEDS: VANCOMYCIN 1,250 MG in SODIUM CHLORIDE 0.9% 250 ML IVPB SCH (08:22)
[2022-07-21] MEDS: NICOTINE 21MG/24HR PATCH TRANSDERM SCH (08:23)
[2022-07-21 11:26] LABS: Basophils # (A) 0.03 X 10*3/uL (0.00-0.10); Basophils % (A) 0.4 %; Eosinophils # (A) 0.02 X 10*3/uL (0.04-0.35); Eosinophils % (A) 0.2 %; HCT 32.4 % (39.6-50.0); HGB 10.6 g/dL (13.0-17.0); Immature Grans, Automated 0.5 %; Lymphocytes # (A) 0.96 X 10*3/uL (0.90-5.00); Lymphocytes % (A) 11.3 %; MCH 32.1 pg (27.0-32.0); MCHC 32.7 g/dL (32.0-37.0); MCV 98.2 fL (80.0-97.0); Mean Platelet Volume 10.7 fL (9.5-12.2); Monocytes # (A) 0.59 X 10*3/uL (0.20-1.00); Monocytes % (A) 6.9 %; NRBC Per 100 WBC 0 /100 WBCS (0.0-0.0); Neutrophils # (A) 6.88 X 10*3/uL (1.80-7.70); Neutrophils % (A) 80.7 %; Platelet Count 217 X 10*3/uL (140-440); WBC 8.52 X 10*3/uL (4.50-10.00)
[2022-07-21 11:30] LABS: African American GFR (CKD) 106.2 (60.0-200.0); Albumin 2.7 g/dL (3.8-4.9); Albumin/Globulin Ratio 1.04 (1.60-3.17); Anion Gap 10.2 mmol/L (10.00-18.00); BUN/Creat Ratio 18.74 Ratio (12.00-20.00); Blood Urea Nitrogen 17.8 mg/dL (9.0-27.0); C Reactive Protein 19.2 mg/dL (0.00-0.80); Calcium 7.7 mg/dL (8.7-10.3); Carbon Dioxide 20.8 mmol/L (20.0-27.5); Globulin 2.6 g/dL (1.6-3.3); Non-African American GFR(CKD) 91.7 (60.0-200.0); Potassium 4.2 mmol/L (3.5-5.5); Total Bilirubin 0.3 mg/dL (0.30-1.20); Total Protein 5.3 g/dL (6.2-8.2)
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
[2022-07-21 13:44] LABS: Erythrocyte Sedimentation Rate 84 mm/Hr (0-20)
[2022-07-21] MEDS: HYDROcodone/APAP 5-325MG 1 EACH TAB PO PRN ×2 (13:49→20:07)
[2022-07-21] MEDS ORDERED: ACETAMINOPHEN TAB 325 MG TAB PO PRN (15:03)
[2022-07-22] MEDS: CLINDAMYCIN 900 MG in DEXTROSE 5% IN WATER 50 ML IVPB SCH ×6 (01:03→18:13)
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
[2022-07-22] MEDS: SODIUM CHLORIDE 0.9% 1,000 ML IV SCH ×2 (02:23→18:14)
[2022-07-22 06:50] LABS: Glucose,Whole Blood 92 mg/dL (70-110)
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
[2022-07-22] MEDS: NICOTINE 21MG/24HR PATCH TRANSDERM SCH (08:40)
[2022-07-22] MEDS: HEPARIN SODIUM,PORCINE/PF 5,000 UNIT/0.5 ML SYRINGE SQ SCH ×3 (08:41→23:29)
[2022-07-22] MEDS ORDERED: IV FLUID CONTINUATION 1,000 ML IV ONE ×3 (09:31→12:00)
[2022-07-22] MEDS ORDERED: MIDAZOLAM 2 MG/2 ML VIAL ONE (09:49)
[2022-07-22] MEDS ORDERED: ONDANSETRON 4 MG/2 ML VIAL ONE (09:49)
[2022-07-22] MEDS ORDERED: PHENYLEPHRINE-0.9% NACL SYG 1,000 MCG/10 ML SYRINGE ONE (09:49)
[2022-07-22] MEDS ORDERED: DEXAMETHASONE SOD PHOS (MDV) 100 MG/10 ML VIAL ONE (09:49)
[2022-07-22] MEDS ORDERED: LIDOCAINE 2% INJ 20 MG/ML (2 ML VIAL) ONE (09:49)
[2022-07-22] MEDS ORDERED: fentaNYL (PF) 50 MCG/ML 2 ML AMP ONE (09:49)
[2022-07-22] MEDS ORDERED: PROPOFOL 10 MG/ML 20 ML VIAL IV ONE (09:49)
[2022-07-22] MEDS ORDERED: LACTATED RINGERS 1,000 ML IV ONE ×2 (09:50→11:13)
[2022-07-22] MEDS ORDERED: ceFAZolin 2,000 MG in SODIUM CHLORIDE 0.9% 500 ML IRRIGATION ONE (10:36)
[2022-07-22 10:38] LABS: Basophils # (A) 0.02 X 10*3/uL (0.00-0.10); Basophils % (A) 0.2 %; Eosinophils # (A) 0.06 X 10*3/uL (0.04-0.35); Eosinophils % (A) 0.6 %; HCT 31.3 % (39.6-50.0); HGB 10.1 g/dL (13.0-17.0); Immature Grans, Automated 0.7 %; Lymphocytes # (A) 1.33 X 10*3/uL (0.90-5.00); MCH 32.1 pg (27.0-32.0); MCHC 32.3 g/dL (32.0-37.0); MCV 99.4 fL (80.0-97.0); Mean Platelet Volume 10.8 fL (9.5-12.2); Monocytes % (A) 5.3 %; NRBC Per 100 WBC 0 /100 WBCS (0.0-0.0); Neutrophils # (A) 7.49 X 10*3/uL (1.80-7.70); Neutrophils % (A) 79.2 %; Platelet Count 231 X 10*3/uL (140-440); RBC 3.15 X 10*6/uL (4.40-5.60); RDW 13.1 % (11.5-14.5); WBC 9.47 X 10*3/uL (4.50-10.00)
[2022-07-22 10:45] LABS: African American GFR (CKD) 99.8 (60.0-200.0); Anion Gap 14.6 mmol/L (10.00-18.00); BUN/Creat Ratio 16.8 Ratio (12.00-20.00); Blood Urea Nitrogen 16.8 mg/dL (9.0-27.0); Calcium 7.6 mg/dL (8.7-10.3); Carbon Dioxide 16.4 mmol/L (20.0-27.5); Non-African American GFR(CKD) 86.2 (60.0-200.0); Potassium 4.2 mmol/L (3.5-5.5)
[2022-07-22] MEDS: HYDROcodone/APAP 5-325MG 1 EACH TAB PO PRN ×2 (13:29→18:17)
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
[2022-07-22] MEDS ORDERED: ONDANSETRON 4 MG/2 ML VIAL IVP PRN (14:38)
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
[2022-07-22] MEDS: FAMOTIDINE 20 MG TAB PO SCH (20:13)
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
[2022-07-23] MEDS: CLINDAMYCIN 900 MG in DEXTROSE 5% IN WATER 50 ML IVPB SCH ×8 (00:10→23:52)
[2022-07-23] MEDS: HYDROcodone/APAP 5-325MG 1 EACH TAB PO PRN ×4 (02:30→18:10)
[2022-07-23] MEDS: HEPARIN SODIUM,PORCINE/PF 5,000 UNIT/0.5 ML SYRINGE SQ SCH ×3 (08:18→23:52)
[2022-07-23] MEDS: NICOTINE 21MG/24HR PATCH TRANSDERM SCH (08:18)
[2022-07-23] MEDS: SODIUM CHLORIDE 0.9% 1,000 ML IV SCH ×2 (08:19→18:10)
[2022-07-23] MEDS: FAMOTIDINE 20 MG TAB PO SCH ×2 (08:19→20:08)
[2022-07-23 08:56] LABS: Basophils # (A) 0.02 X 10*3/uL (0.00-0.10); Basophils % (A) 0.2 %; Eosinophils # (A) 0.03 X 10*3/uL (0.04-0.35); Eosinophils % (A) 0.3 %; HCT 27.6 % (39.6-50.0); HGB 8.8 g/dL (13.0-17.0); Immature Grans, Automated 0.7 %; Lymphocytes # (A) 1.49 X 10*3/uL (0.90-5.00); Lymphocytes % (A) 17.1 %; MCHC 31.9 g/dL (32.0-37.0); MCV 100.4 fL (80.0-97.0); Mean Platelet Volume 11.1 fL (9.5-12.2); Monocytes # (A) 0.43 X 10*3/uL (0.20-1.00); Monocytes % (A) 4.9 %; NRBC Per 100 WBC 0 /100 WBCS (0.0-0.0); Neutrophils # (A) 6.66 X 10*3/uL (1.80-7.70); Neutrophils % (A) 76.8 %; Platelet Count 202 X 10*3/uL (140-440); RBC 2.75 X 10*6/uL (4.40-5.60); RDW 13.2 % (11.5-14.5); WBC 8.69 X 10*3/uL (4.50-10.00)
[2022-07-23 09:28] LABS: African American GFR (CKD) 99.8 (60.0-200.0); Anion Gap 8.7 mmol/L (10.00-18.00); Calcium 7.5 mg/dL (8.7-10.3); Carbon Dioxide 22.3 mmol/L (20.0-27.5); Magnesium 1.8 mg/dL (1.5-2.4); Non-African American GFR(CKD) 86.2 (60.0-200.0)
[2022-07-23] MEDS ORDERED: Magnesium Replacement Protocol 1 EACH MISC MISCELLANE PRN (09:45)
[2022-07-23] MEDS: MAGNESIUM SULFATE-D5W PMX 1 GM in DEXTROSE/WATER 1 100ML.BAG IVPB SCH ×2 (11:05→12:52)
--- NOTE | 2022-07-23 13:39 | P.PN ---
Subjective Progress Note Date: 07/23/22 Principal diagnosis: Infected, ischemic toes Patient seen and examined at the follow-up. He is postop day #1 per bilateral transmetatarsal amputation. Right foot/toes were found to have abscess. Wound VAC was applied. Patient states that pain has been well managed. He has been afebrile. Pulmonary wound culture gram-negative bacilli, presumed staph aureus. He remains on IV antibiotics. Objective - Vital Signs Vital signs: Vital Signs Temp 97.6 F 07/23/22 07:14 Pulse 52 L 07/23/22 07:14 Resp 16 07/23/22 07:14 BP 113/64 07/23/22 07:14 Pulse Ox 98 07/23/22 07:14 FiO2 Intake & Output 07/22/22 07/23/22 07/23/22 18:59 06:59 18:59 Intake Total 1426 240 Output Total 40 Balance 1386 240 Intake: IV 1426 Oral 240 Output: Estimated Blood Loss 40 Other: Voiding Method Toilet Toilet Urinal Urinal # Voids 1 1 - Exam General appearance: The patient is alert, oriented, appears in no acute distress. HET: Head is normocephalic and atraumatic. Pupils are equal and reactive. Neck: Supple without lymphadenopathy. Trachea midline. Heart: Regular. Lungs: Equal expansion, normal respiratory effort. Abdomen: Soft, nontender, nondistended. Extremities: Right foot TMA with wound VAC in place with good suction. Left TMA with sutures, good capillary refill on dorsal aspect of foot, decreased to absent refill plantar aspect near surgical site with some ischemic appearing tissue. Neurological: No focal deficits. Strength and sensation are grossly intact. - Labs CBC & Chem 7: 07/23/22 06:02 07/23/22 06:02 Labs: Abnormal Lab Results - Last 24 Hours (Table) 07/22/22 07/22/22 07/23/22 Range/Units 06:14 06:14 06:02 RBC 3.15 L 2.75 L (4.40-5.60) X 10*6/uL Hgb 10.1 L 8.8 L (13.0-17.0) g/dL Hct 31.3 L 27.6 L (39.6-50.0) % MCV 99.4 H 100.4 H (80.0-97.0) fL MCH 32.1 H (27.0-32.0) pg MCHC 31.9 L (32.0-37.0) g/dL Immature Gran # 0.07 H 0.06 H (0.00-0.04) X 10*3/uL Eosinophils # 0.03 L (0.04-0.35) X 10*3/uL Sodium 132 L (135-145) mmol/L Carbon Dioxide 16.4 L (20.0-27.5) mmol/L Anion Gap (10.00-18.00) mmol/L BUN/Creatinine Ratio (12.00-20.00) Ratio Calcium 7.6 L (8.7-10.3) mg/dL 07/23/22 Range/Units 06:02 RBC (4.40-5.60) X 10*6/uL Hgb (13.0-17.0) g/dL Hct (39.6-50.0) % MCV (80.0-97.0) fL MCH (27.0-32.0) pg MCHC (32.0-37.0) g/dL Immature Gran # (0.00-0.04) X 10*3/uL Eosinophils # (0.04-0.35) X 10*3/uL Sodium 133 L (135-145) mmol/L Carbon Dioxide (20.0-27.5) mmol/L Anion Gap 8.70 L (10.00-18.00) mmol/L BUN/Creatinine Ratio 21.00 H (12.00-20.00) Ratio Calcium 7.5 L (8.7-10.3) mg/dL Microbiology - Last 24 Hours (Table) 07/22/22 06:21 Blood Culture - Preliminary Blood No Growth after 24 hours 07/22/22 11:38 Gram Stain - Preliminary Foot - Right Wound Culture - Preliminary 07/22/22 11:38 Anaerobic Culture - Preliminary Foot - Right 07/19/22 17:10 Blood Culture Gram Stain - Final Blood Blood Culture - Final Staphylococcus aureus 07/19/22 16:55 Blood Culture Gram Stain - Final Blood Blood Culture - Final Staphylococcus aureus 07/21/22 08:03 Blood Culture - Preliminary Blood No Growth after 24 hours Assessment and Plan Assessment: 1. Postop day #1 bilateral transmetatarsal amputation with wound VAC to right foot 2. Right foot wet gangrene and deep tissue abscess 3. Left foot gangrene 1 through fifth toe nonviable or reversible ischemia 3. Bilateral foot critical limb ischemia secondary to frostbite Plan: 1. Continue supportive care 2. Continue with IV antibiotics per recommendations from infectious disease 3. Continue wound VAC to right TMA 4. Dressing change done today, change as needed 5. Patient scheduled for right TMA closure, left foot heel debridement and possible revision of TMA on , 07/25/2022 The impression and plan of care has been dictated as directed. Dr. Barragan I performed a history and examination of this patient, discussed the same with the dictator. I agree with the dictator's note ,documented as a scribe. Any additional findings or plans will be noted.
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
[2022-07-23] MEDS: CEFEPIME 2 GM in SODIUM CHLORIDE 0.9% 100 ML IVPB SCH (23:52)
[2022-07-24] MEDS: SODIUM CHLORIDE 0.9% 1,000 ML IV SCH (05:59)
[2022-07-24] MEDS: HYDROcodone/APAP 5-325MG 1 EACH TAB PO PRN ×4 (05:59→22:01)
[2022-07-24] MEDS: CEFEPIME 2 GM in SODIUM CHLORIDE 0.9% 100 ML IVPB SCH ×2 (07:14→15:51)
[2022-07-24] MEDS: CLINDAMYCIN 900 MG in DEXTROSE 5% IN WATER 50 ML IVPB SCH ×4 (07:14→15:07)
[2022-07-24] MEDS: FAMOTIDINE 20 MG TAB PO SCH ×2 (07:59→20:29)
[2022-07-24] MEDS: HEPARIN SODIUM,PORCINE/PF 5,000 UNIT/0.5 ML SYRINGE SQ SCH ×2 (07:59→15:51)
[2022-07-24] MEDS: NICOTINE 21MG/24HR PATCH TRANSDERM SCH (07:59)
[2022-07-24 10:00] LABS: Basophils % (A) 0 %; Eosinophils % (A) 1 %; HCT 29.8 % (39.0-53.0); HGB 9.6 gm/dL (13.0-17.5); Lymphocytes # (A) 1.1 k/uL (1.0-4.8); Lymphocytes % (A) 20 %; MCH 32.4 pg (25.0-35.0); MCHC 32.1 g/dL (31.0-37.0); MCV 100.8 fL (80.0-100.0); Mean Platelet Volume 10.4; Monocytes # (A) 0.2 k/uL (0-1.0); Monocytes % (A) 4 %; Neutrophils # (A) 4.1 k/uL (1.3-7.7); Neutrophils % (A) 74 %; Platelet Count 238 k/uL (150-450); RBC 2.96 m/uL (4.30-5.90); RDW 13.1 % (11.5-15.5); WBC 5.5 k/uL (3.8-10.6)
[2022-07-24 10:04] LABS: African American GFR (CKD) >90 (>60 ml/min/1.73 sqM); Anion Gap 3 mmol/L; Blood Urea Nitrogen 22 mg/dL (9-20); Calcium 7.2 mg/dL (8.4-10.2); Carbon Dioxide 25 mmol/L (22-30); Chloride 104 mmol/L (98-107); Glucose 86 mg/dL (74-99); Non-African American GFR(CKD) 84 (>60 ml/min/1.73 sqM); Potassium 4.6 mmol/L (3.5-5.1); Sodium 132 mmol/L (137-145)
--- NOTE | 2022-07-24 11:01 | P.PN ---
Subjective Progress Note Date: 07/24/22 Principal diagnosis: Infected, ischemic toes Patient seen and examined at the follow-up. He is postop day #2 for bilateral transmetatarsal amputation. Patient is doing well at this time. States his pain is well managed. He has wound VAC to the right TMA with good suction. Essie elmore is currently on cefepime and clindamycin per recommendations from infectious disease. WBC 5.5 hemoglobin 9.6. Objective - Vital Signs Vital signs: Vital Signs Temp 98.4 F 07/24/22 07:06 Pulse 54 L 07/24/22 08:35 Resp 16 07/24/22 08:35 BP 94/60 07/24/22 07:06 Pulse Ox 93 L 07/24/22 07:06 FiO2 Intake & Output 07/23/22 07/24/22 07/24/22 18:59 06:59 18:59 Intake Total 240 Output Total 800 200 Balance -560 -200 Intake: Oral 240 Output: Urine 800 200 Other: Voiding Method Toilet Toilet Toilet Urinal Urinal Urinal # Voids 1 1 - Exam General appearance: The patient is alert, oriented, appears in no acute di stress. HET: Head is normocephalic and atraumatic. Pupils are equal and reactive. Neck: Supple. Extremities: Right foot TMA with wound VAC in place with good suction. Left foot with dressing clean dry and intact. Neurological: No focal deficits. Strength and sensation are grossly intact. - Labs CBC & Chem 7: 07/24/22 05:54 07/24/22 05:54 Labs: Abnormal Lab Results - Last 24 Hours (Table) 07/24/22 07/24/22 Range/Units 05:54 05:54 RBC 2.96 L (4.30-5.90) m/uL Hgb 9.6 L (13.0-17.5) gm/dL Hct 29.8 L (39.0-53.0) % MCV 100.8 H (80.0-100.0) fL Sodium 132 L (137-145) mmol/L BUN 22 H (9-20) mg/dL Calcium 7.2 L (8.4-10.2) mg/dL Microbiology - Last 24 Hours (Table) 07/21/22 08:03 Blood Culture - Preliminary Blood No Growth after 72 hours 07/22/22 06:21 Blood Culture - Preliminary Blood No Growth after 48 hours 07/22/22 11:38 Gram Stain - Preliminary Foot - Right Wound Culture - Preliminary Gram Neg Bacilli Presumptive Staph aureus Assessment and Plan Assessment: 1. Postop day #2 bilateral transmetatarsal amputation with wound VAC to right foot 2. Right foot wet gangrene and deep tissue abscess, wound culture positive for gram-negative bacilli 3. Left foot gangrene 1 through fifth toe nonviable or reversible ischemia 3. Bilateral foot critical limb ischemia secondary to frostbite Plan: 1. Continue supportive care 2. Continue with IV antibiotics per recommendations from infectious disease 3. Continue wound VAC to right TMA 4. Dressing change done today, change daily 5. Patient scheduled for right TMA closure, left foot heel debridement and possible revision of TMA on , 07/25/2022 6. Nothing by mouth after midnight The impression and plan of care has been dictated as directed. Dr. Kramer I performed a history and examination of this patient, discussed the same with the dictator. I agree with the dictator's note ,documented as a scribe. Any additional findings or plans will be noted.
[2022-07-24] MEDS ORDERED: LIDOCAINE 1% (10MG/ML) FOR IV START INTRADERMA PRN (11:29)
[2022-07-24] MEDS ORDERED: DEXAMETHASONE SOD PHOSPHATE 4 MG/ML 1 ML VIAL IV ONE (11:29)
[2022-07-24] MEDS: LACTATED RINGERS 1,000 ML IV SCH (12:22)
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
--- NOTE | 2022-07-24 13:18 | XR ---
EXAMINATION TYPE: XR chest 1V portable DATE OF EXAM: 07/24/2022 COMPARISON: NONE HISTORY: Shortness of breath TECHNIQUE: Single frontal view of the chest is obtained. FINDINGS: Heart is enlarged and there is pericardial calcification which can be associated with cons trictive pericarditis. Patchy perihilar infiltrates seen with coarsened interstitium. Underlying COPD noted and there are small bilateral effusions. No pneumothorax. Diffuse osteopenia. IMPRESSION: 1. Pericardial calcifications can be associated with constrictive pericarditis. Pleural-parenchymal c hanges are most typical of CHF superimposed on a background of COPD. Interstitial pneumonia or pneumo nitis also the differential diagnosis including atypical pneumonitis.
[2022-07-24] MEDS ORDERED: FUROSEMIDE 10 MG/ML 2 ML VIAL IV ONE (14:29)
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
[2022-07-25] MEDS: CLINDAMYCIN 900 MG in DEXTROSE 5% IN WATER 50 ML IVPB SCH ×2 (00:17)
[2022-07-25] MEDS: CEFEPIME 2 GM in SODIUM CHLORIDE 0.9% 100 ML IVPB SCH ×4 (00:17→21:32)
[2022-07-25] MEDS: HEPARIN SODIUM,PORCINE/PF 5,000 UNIT/0.5 ML SYRINGE SQ SCH ×4 (00:22→23:58)
[2022-07-25] MEDS ORDERED: HYDROmorphone 0.5 MG/0.5 ML SYRINGE IVP PRN (07:00)
[2022-07-25 07:35] LABS: African American GFR (CKD) >90 (>60 ml/min/1.73 sqM); Anion Gap 4 mmol/L; Blood Urea Nitrogen 19 mg/dL (9-20); Calcium 7.5 mg/dL (8.4-10.2); Carbon Dioxide 24 mmol/L (22-30); Chloride 104 mmol/L (98-107); Glucose 79 mg/dL (74-99); Non-African American GFR(CKD) >90 (>60 ml/min/1.73 sqM); Potassium 4.5 mmol/L (3.5-5.1); Sodium 132 mmol/L (137-145)
[2022-07-25] MEDS: NICOTINE 21MG/24HR PATCH TRANSDERM SCH (07:53)
[2022-07-25] MEDS: HYDROcodone/APAP 5-325MG 1 EACH TAB PO PRN ×2 (07:54→21:31)
[2022-07-25] MEDS: FAMOTIDINE 20 MG TAB PO SCH ×2 (07:54→21:31)
--- NOTE | 2022-07-25 10:21 | P.PN ---
Progress Note - Text Progress Note Date: 07/25/22 Patient was seen this morning, notified by medicine team yesterday afternoon that patient had a chest x-ray that reported pericardial calcification which can be associated with constrictive pericarditis. Pleural parenchymal changes most typical of CHF superimposed on background of COPD. Interstitial pneumonia or pneumonitis also the differential including atypical pneumonitis. Patient scheduled to undergo closure of right TMA and left heel debridement with possible revision of right TMA this afternoon. Echocardiogram has been ordered from primary medicine team. Will consult cardiology. Patient still nothing by mouth, tentatively scheduled this afternoon. He is without complaints of any shortness of breath or chest pain. Denies abdominal pain nausea or vomiting. He's been afebrile. He appears in no acute distress, equal lung expansion, heart regular. The impression and plan of care has been dictated as directed. Dr. Dietz I performed a history and examination of this patient, discussed the same with the dictator. I agree with the dictator's note ,documented as a scribe. Any additional findings or plans will be noted.
[2022-07-25 10:39] LABS: Basophils # (A) 0.03 X 10*3/uL (0.00-0.10); Basophils % (A) 0.4 %; Eosinophils # (A) 0.08 X 10*3/uL (0.04-0.35); HCT 31.8 % (39.6-50.0); HGB 10.2 g/dL (13.0-17.0); Immature Grans, Automated 1.2 %; Lymphocytes # (A) 1.96 X 10*3/uL (0.90-5.00); MCH 32.1 pg (27.0-32.0); MCHC 32.1 g/dL (32.0-37.0); Mean Platelet Volume 10.9 fL (9.5-12.2); Monocytes # (A) 0.42 X 10*3/uL (0.20-1.00); Monocytes % (A) 5.1 %; NRBC Per 100 WBC 0 /100 WBCS (0.0-0.0); Neutrophils # (A) 5.57 X 10*3/uL (1.80-7.70); Neutrophils % (A) 68.3 %; Platelet Count 250 X 10*3/uL (140-440); RBC 3.18 X 10*6/uL (4.40-5.60); RDW 12.9 % (11.5-14.5); WBC 8.16 X 10*3/uL (4.50-10.00)
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
[2022-07-25] MEDS ORDERED: CLINDAMYCIN 900 MG in DEXTROSE 5% IN WATER 50 ML IVPB SCH ×2 (12:00)
[2022-07-25] MEDS ORDERED: LACTATED RINGERS 1,000 ML IV ONE (14:11)
[2022-07-25] MEDS ORDERED: fentaNYL (PF) 50 MCG/ML 2 ML AMP ONE (14:22)
[2022-07-25] MEDS ORDERED: PHENYLEPHRINE-0.9% NACL SYG 1,000 MCG/10 ML SYRINGE ONE (14:22)
[2022-07-25] MEDS ORDERED: PROPOFOL 10 MG/ML 20 ML VIAL IV ONE (14:22)
[2022-07-25] MEDS ORDERED: MAGNESIUM SULFATE 4 MEQ/ML 10ML VIAL ONE (14:22)
[2022-07-25] MEDS ORDERED: ePHEDrine 50 MG/ML 1 ML VIAL ONE (14:22)
[2022-07-25] MEDS ORDERED: LIDOCAINE 2% INJ 20 MG/ML (2 ML VIAL) ONE (14:22)
[2022-07-25] MEDS ORDERED: SUCCINYLCHOLINE CHLORIDE 200 MG/10 ML VIAL IV ONE (14:22)
[2022-07-25] MEDS ORDERED: DEXAMETHASONE SOD PHOSPHATE 4 MG/ML 1 ML VIAL IVP ONE (14:28)
[2022-07-25] MEDS ORDERED: MAGNESIUM SULFATE-D5W PMX 1 GM in DEXTROSE/WATER 1 100ML.BAG IVPB ONE (14:44)
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
--- NOTE | 2022-07-25 15:30 | P.OP ---
Date of Procedure: 07/25/22 Preoperative Diagnosis: #1: Open transmetatarsal amputation wound right foot. #2: Callous formation at lower Achilles area bilaterally. #3: Status post transmetatarsal amputation left foot. Postoperative Diagnosis: Same. Procedure(s) Performed: #1: Irrigation and closure of right foot transmetatarsal amputation. #2: Debridement of callus bilateral heel areas. Implants: None. Anesthesia: [facility] Surgeon: Tejas Dietz Estimated Blood Loss (ml): 10 Urine output (ml): 0 Pathology: none sent Condition: stable Disposition: no change Indications for Procedure: Patient is a 52-year-old male who was admitted with gangrenous changes of all 10 digits of the feet. He had previously undergone transmetatarsal amputation of both feet 72 hours prior. The right transmetatarsal amputation needed to remain open due to infectious complication/concerns and was treated with a wound VAC. The left foot transmetatarsal amputation was closed primarily. The patient does have callous formation at the distal Achilles/heel area bilaterally. Patient is offered removal of wound VAC with anticipated closure of the right transmetatarsal amputation site and Brightman of the heels. The procedure, risk and benefits were discussed. Patient wishes to proceed. Description of Procedure: Patient was brought the upper and placed in the supine position and Mr. general endotracheal anesthesia delivered by the department anesthesiology. The wound VAC system was removed from the right foot. Both feet were sterilely prepped and draped in usual manner utilizing Betadine. The right foot transmetatarsal wound was evaluated. No evidence of undrained abscess etc. was identified. The wound was irrigated and was delayed primary closure was performed with 30 and 4-0 Vicryl suture placed in vertical mattress form. Enough space between sutures was left to allow for adequate drainage. The left foot transmetatarsal amputation closure remained intact. The posterior flap appeared adequately perfused with no clear indication for additional debridement at this time. Both heels were then debrided utilizing a curet of callus type tissue. No infectious issues were identified. Both feet were then dressed with Adaptic, fluffs and Kerlix. Patient tolerated procedure well and was taken to the recovery area in satisfactory and stable condition.
[2022-07-25] MEDS: LACTATED RINGERS 1,000 ML IV SCH (15:53)
[2022-07-25] MEDS: metroNIDAZOLE 500 MG TAB PO SCH ×2 (16:43→21:31)
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
[2022-07-26] MEDS: HYDROcodone/APAP 5-325MG 1 EACH TAB PO PRN ×4 (03:07→19:44)
[2022-07-26] MEDS: CEFEPIME 2 GM in SODIUM CHLORIDE 0.9% 100 ML IVPB SCH ×3 (06:17→21:51)
[2022-07-26] MEDS: HEPARIN SODIUM,PORCINE/PF 5,000 UNIT/0.5 ML SYRINGE SQ SCH ×2 (09:06→16:02)
[2022-07-26] MEDS: NICOTINE 21MG/24HR PATCH TRANSDERM SCH (09:07)
[2022-07-26] MEDS: FAMOTIDINE 20 MG TAB PO SCH ×2 (09:07→21:52)
[2022-07-26] MEDS: FOLIC ACID 1 MG TAB PO SCH (09:07)
[2022-07-26] MEDS: metroNIDAZOLE 500 MG TAB PO SCH ×3 (09:07→21:52)
[2022-07-26] MEDS ORDERED: LIDOCAINE 1% INJ 10MG/ML (5 ML VIAL-PF) SQ ONE (10:07)
--- NOTE | 2022-07-26 10:28 | P.PN ---
Subjective Progress Note Date: 07/26/22 Principal diagnosis: Infected, ischemic toes Patient seen and examined at the follow-up. He is status post bilateral transmetatarsal amputation. Yesterday he underwent closure of the right TMA and debridement of bilateral heel ulcers. Patient is doing well at this time. Stat es his pain is well managed with pain medication. He remains on IV antibiotics recommended from infectious disease. Wound culture had come back as Providencia rettgeri and Staphylococcus aureus. He is afebrile. Objective - Vital Signs Vital signs: Vital Signs Temp 98.6 F 07/26/22 07:49 Pulse 64 07/26/22 07:49 Resp 18 07/26/22 07:49 BP 101/65 07/26/22 07:49 Pulse Ox 94 L 07/26/22 07:49 FiO2 Intake & Output 07/25/22 07/26/22 07/26/22 18:59 06:59 18:59 Intake Total 750 1000 Output Total 1310 Balance -560 1000 Intake: IV 600 Intake, IV Titration 150 Amount Cefepime 2 gm In Sodium 100 Chloride 0.9% 100 ml @ 25 mls/hr IVPB Q8H DEBI Rx#: [id number] Clindamycin 900 mg In 50 Dextrose 5% in Water 50 ml @ 50 mls/hr IVPB Q8H DEBI Rx#:[id number] Oral 1000 Output: Urine 1300 Estimated Blood Loss 10 Other: # Voids 1 - Exam General appearance: The patient is alert, oriented, appears in no acute distress. HET: Head is normocephalic and atraumatic. Pupils are equal and reactive. Neck: Supple. Extremities: Right foot TMA with sutures well approximated, no drainage. Left he may well approximated with sutures. Bilateral superficial heel wounds, left heel with a scant amount of serosanguineous drainage. Left plantar aspect near TMA with nonviable tissue. Neurological: No focal deficits. Strength and sensation are grossly intact. - Labs CBC & Chem 7: 07/25/22 06:43 07/25/22 06:43 Labs: Abnormal Lab Results - Last 24 Hours (Table) 07/25/22 Range/Units 06:43 RBC 3.18 L (4.40-5.60) X 10*6/uL Hgb 10.2 L (13.0-17.0) g/dL Hct 31.8 L (39.6-50.0) % MCV 100.0 H (80.0-97.0) fL MCH 32.1 H (27.0-32.0) pg Immature Gran # 0.10 H (0.00-0.04) X 10*3/uL Microbiology - Last 24 Hours (Table) 07/22/22 06:21 Blood Culture - Preliminary Blood No Growth after 96 hours 07/21/22 08:03 Blood Culture - Preliminary Blood No Growth after 96 hours Assessment and Plan Assessment: 1. Post bilateral transmetatarsal amputation and heel debridement 2. Right foot wet gangrene and deep tissue abscess, wound culture positive for gram-negative bacilli 3. Left foot gangrene 1 through fifth toe nonviable or reversible ischemia 3. Bilateral foot critical limb ischemia secondary to frostbite Plan: 1. Continue supportive care 2. Continue with antibiotics per recommendations from infectious disease 3. Daily dressing change with Adaptic, Kerlix to TMA site. Therahoney to bilateral heels 4. Physical therapy on consult. Heel walk only. 5. Postop shoes to bedside wear while standing and walking 6. Patient is cleared from vascular surgery for discharge once otherwise medically cleared 7. Patient will need to follow-up with the outpatient wound care for local wound care 8. Follow-up with vascular surgery in 1-2 weeks The impression and plan of care has been dictated as directed. Dr. Kramer I performed a history and examination of this patient, discussed the same with the dictator. I agree with the dictator's note ,documented as a scribe. Any additional findings or plans will be noted.
--- NOTE | 2022-07-26 11:31 | IR ---
PICC LINE PLACEMENT: HISTORY: Infection requiring long-term antibiotic therapy PROCEDURE: Ultrasound and fluoroscopic guidance of PICC line placement. COMPLICATIONS: None ANESTHESIA: 1. 1% Lidocaine locally. FINDINGS/TECHNIQUE: The procedure was explained to the patient. The risks, complications, benefits and alternatives were discussed and any questions were answered. Informed consent was obtained. The patient was placed supine on the fluoroscopic table and prepped and draped in the usual sterile fash ion. Utilizing a 21 gauge needle and sonographic and fluoroscopic guidance, access in the left basi lic vein was achieved and there is placement of a 0.018 guidewire. The vein is patent. A 4-F sheath was placed over the guidewire. The guidewire and dilator were removed and a 4-F. PICC line was plac ed through the sheath with the tip at the level of the SVC. The sheath was removed, the catheter was flushed and sutured into position. The patient was stable throughout the procedure and remained sta ble upon discharge from the Department of Radiology. The vein puncture was patent under ultrasound. A rogers scale image was obtained to document patency of the vein punctured. All elements of the maximal barrier technique were utilized. FLUOROSCOPY TIME: 0.5 minutes and 1 images submitted IMPRESSION: Successful PICC line placement under ultrasound and fluoroscopic guidance.
[2022-07-26 11:42] VITALS: BMI 22.1
--- NOTE | 2022-07-26 12:15 | CA ---
Transthoracic Echo Report Name: Obed Parikh Age: 52 Gender: M : 1970 Exam Date: 07/25/2022 12:27 Exam Location: [place] [facility] Ht (in): 72 Wt (lb): 163 Ordering Physician: Aishwarya Cormier Attending/Referring Phys: [employer] Mechanic Sound Technician Roshni Ching RDCS Procedure CPT: Indications: chf Cardiac Hx: Technical Quality: Fair Contrast 1: Total Dose (mL): Contrast 2: Total Dose (mL): MEASUREMENTS (Male / Female) Normal Values 2D ECHO LV Diastolic Diameter PLAX 6.4 cm 4.2 - 5.9 / 3.9 - 5.3 cm LV Systolic Diameter PLAX 5.0 cm IVS Diastolic Thickness 1.1 cm 0.6 - 1.0 / 0.6 - 0.9 cm LVPW Diastolic Thickness 1.3 cm 0.6 - 1.0 / 0.6 - 0.9 cm LV Relative Wall Thickness 0.4 LA Volume 78.8 cm??? 18 - 58 / 22 - 52 cm??? M-MODE Aortic Root Diameter MM 4.0 cm LA Systolic Diameter MM 4.6 cm LA Ao Ratio MM 1.1 AV Cusp Separation MM 2.6 cm DOPPLER AV Peak Velocity 83.4 cm/s AV Peak Gradient 2.8 mmHg LVOT Peak Velocity 74.6 cm/s LVOT Peak Gradient 2.2 mmHg MV Area PHT 6.5 cm??? Mitral E Point Velocity 45.5 cm/s Mitral A Point Velocity 66.5 cm/s Mitral E to A Ratio 0.7 MV Deceleration Time 116.7 ms TR Peak Velocity 240.3 cm/s TR Peak Gradient 23.1 mmHg Right Ventricular Systolic Press 28.1 mmHg FINDINGS Left Ventricle Mildly increased septal wall thickness. Moderately increased left ventricular diastolic diameter. Moderately reduced global left ventricular systolic function. Left ventricular ejection fraction is estimated at 35-40 %. Right Ventricle Normal right ventricular size and function. Right ventricular systolic pressure within normal limits. Right Atrium Normal right atrial size. Left Atrium Moderately increased left atrial volume. Mildly increased left atrial area. Mitral Valve Structurally normal mitral valve. Mild mitral regurgitation. Aortic Valve No aortic valve stenosis or regurgitation. Tricuspid Valve Structurally normal tricuspid valve. Mild tricuspid regurgitation. Pulmonic Valve Trace pulmonic regurgitation. Pericardium No pericardial effusion. Aorta Normal size aortic root and proximal ascending aorta. CONCLUSIONS Left ventricle is mildly enlarged with the global decrease in contractility and estimated ejection fraction of 35-40% with mild mitral and tricuspid insufficiency. No significant pericardial effusion Previewed by: Dr. Tuyet Burkett MD (Electronically Signed) Final Date: 26 July 2022 10:32
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
[2022-07-26] MEDS: carvediloL 3.125 MG TAB PO SCH (17:38)
[2022-07-26] MEDS: LOSARTAN 25 MG TAB PO SCH (21:52)
[2022-07-27] MEDS: HEPARIN SODIUM,PORCINE/PF 5,000 UNIT/0.5 ML SYRINGE SQ SCH ×4 (00:08→23:05)
[2022-07-27] MEDS: HYDROcodone/APAP 5-325MG 1 EACH TAB PO PRN ×3 (00:47→14:01)
[2022-07-27] MEDS: CEFEPIME 2 GM in SODIUM CHLORIDE 0.9% 100 ML IVPB SCH ×3 (06:02→23:05)
[2022-07-27] MEDS: NICOTINE 21MG/24HR PATCH TRANSDERM SCH (08:09)
[2022-07-27] MEDS: FOLIC ACID 1 MG TAB PO SCH (08:09)
[2022-07-27] MEDS: metroNIDAZOLE 500 MG TAB PO SCH ×3 (08:09→23:05)
[2022-07-27] MEDS: carvediloL 3.125 MG TAB PO SCH ×2 (08:09→16:54)
[2022-07-27] MEDS: FAMOTIDINE 20 MG TAB PO SCH ×2 (08:09→23:05)
--- NOTE | 2022-07-27 09:33 | P.PN ---
Subjective Progress Note Date: 07/27/22 Patient is evaluated today status post bilateral transmetatarsal amputation. Indicates she is having some residual discomfort but otherwise is feeling well. Objective - Vital Signs Vital signs: Vital Signs Temp 98.2 F 07/27/22 07:22 Pulse 79 07/27/22 07:22 Resp 18 07/27/22 07:22 BP 119/79 07/27/22 07:22 Pulse Ox 94 L 07/27/22 07:22 FiO2 Intake & Output 07/26/22 07/27/22 07/27/22 18:59 06:59 18:59 Intake Total 200 Output Total 500 Balance 200 -500 Weight 74 kg Intake: Intake, IV Titration 200 Amount Cefepime 2 gm In Sodium 200 Chloride 0.9% 100 ml @ 25 mls/hr IVPB Q8H [facility] Rx#: [id number] Output: Urine 500 Other: Voiding Method Urinal # Voids 3 - Exam The right foot surgical wound is clean, dry and healing in an otherwise unremarkable manner. The posterior flap appears adequately perfused. The wound is washed and redressed. The left transmetatarsal amputation wound remains intact. There is some concern for the posterior flap viability near the line of incision however there is no drainage or signs or symptoms of unresolved infectious issue. This tissue will need more time to declare whether or not it is viable and it was explained to the patient that he may need additional debridement in the future. The wound is washed and redressed. - Labs CBC & Chem 7: 07/25/22 06:43 07/25/22 06:43 Labs: Microbiology - Last 24 Hours (Table) 07/22/22 06:21 Blood Culture - Preliminary Blood No Growth after 120 hours 07/21/22 08:03 Blood Culture - Preliminary Blood No Growth after 120 hours Assessment and Plan Assessment: Status post transmetatarsal amputation right and left lower extremity. Plan: #1: Continue supportive care. #2: Surgically stable for discharge Time with Patient: Less than 30
--- NOTE | 2022-07-27 11:48 | PN ---
PROGRESS NOTE SUBJECTIVE: Obed is a 52-year-old gentleman, who is admitted to the hospital with gangrene of the foot and underwent surgery for the same. Cardiology was consulted as part of preop cardiac evaluation, underwent an echocardiogram that showed cardiomyopathy with [id number] LV dysfunction with an ejection fraction of 35%. OBJECTIVE: GENERAL: He is comfortable at rest. VITAL SIGNS: Stable. O2 saturation is 94% on room air. CHEST: Reveals good air entry bilaterally. HEART: Reveals first and second heart sounds. No gallop. EXTREMITIES: Significant for status post transmetatarsal amputation with debridement. ASSESSMENT: 1. Critical limb ischemia. 2. Cardiomyopathy. PLAN: The patient will be treated with Coreg and losartan. MMODL / IJN: [id number] /
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
--- NOTE | 2022-07-27 19:31 | P.PN ---
Subjective Progress Note Date: 07/27/22 Principal diagnosis: Consultation david Orellana note He was seen today while ready to be discharged to [facility]. He was ill prepared to talk about his need for better self-care and to abandon his homeless life style. He was reminded of his medical complex needs and the importance of his stable housing. He was considered competent to decide for his treatment decision. Diagnosis: depressive disorder NOS MSE: during the brief encouner he was fully lucid but moderatley irritable with the dmedical rehab. he pulled out the line eaerlier. Affect constrctied but no perceptual disturabance was identified. No suicidal or homicidal ideaiton. Cognition; oriented fair insight and judgmetn into his condition Discharge from [facility]. consultation. [facility] [place]. and care would help him sta bilize his osteomylitis with IV antibiotics . His Trench foot was the direc tesult of his homelessness life style Objective - Vital Signs Vital signs: Vital Signs Temp 97.4 F L 07/27/22 12:59 Pulse 76 07/27/22 12:59 Resp 16 07/27/22 12:59 BP 120/76 07/27/22 12:59 Pulse Ox 95 07/27/22 12:59 FiO2 Intake & Output 07/27/22 07/27/22 07/28/22 06:59 18:59 06:59 Output Total 500 Balance -500 Output: Urine 500 Other: Voiding Method Urinal # Voids 1 - Labs CBC & Chem 7: 07/25/22 06:43 07/25/22 06:43 Labs: Microbiology - Last 24 Hours (Table) 07/22/22 11:38 Anaerobic Culture - Final Foot - Right Anaerobic Gram Positive Cocci 07/21/22 08:03 Blood Culture - Final Blood No Growth after 144 hours 07/22/22 06:21 Blood Culture - Preliminary Blood No Growth after 120 hours
[2022-07-27] MEDS: HYDROcodone/APAP 7.5-325MG 1 EACH TAB PO PRN (20:11)
[2022-07-27] MEDS: PREGABALIN 75 MG CAP PO SCH (23:05)
[2022-07-27] MEDS: LOSARTAN 25 MG TAB PO SCH (23:05)
[2022-07-28] MEDS: CEFEPIME 2 GM in SODIUM CHLORIDE 0.9% 100 ML IVPB SCH ×3 (06:22→21:04)
[2022-07-28] MEDS: metroNIDAZOLE 500 MG TAB PO SCH ×3 (08:27→21:04)
[2022-07-28] MEDS: FOLIC ACID 1 MG TAB PO SCH (08:27)
[2022-07-28] MEDS: PREGABALIN 75 MG CAP PO SCH (08:27)
[2022-07-28] MEDS: FAMOTIDINE 20 MG TAB PO SCH ×2 (08:27→21:04)
[2022-07-28] MEDS: carvediloL 3.125 MG TAB PO SCH ×2 (08:27→17:17)
[2022-07-28] MEDS: HEPARIN SODIUM,PORCINE/PF 5,000 UNIT/0.5 ML SYRINGE SQ SCH ×3 (08:28→23:39)
[2022-07-28] MEDS: NICOTINE 21MG/24HR PATCH TRANSDERM SCH (08:28)
[2022-07-28] MEDS: HYDROcodone/APAP 7.5-325MG 1 EACH TAB PO PRN ×3 (08:28→19:31)
[2022-07-28 09:12] LABS: Anion Gap 8.3 mmol/L (10.00-18.00); BUN/Creat Ratio 20.13 Ratio (12.00-20.00); Blood Urea Nitrogen 16.1 mg/dL (9.0-27.0); Calcium 8.6 mg/dL (8.7-10.3); Carbon Dioxide 25.7 mmol/L (20.0-27.5); Non-African American GFR(CKD) 102.7 (60.0-200.0); Potassium 4.6 mmol/L (3.5-5.5)
--- NOTE | 2022-07-28 10:01 | PN ---
PROGRESS NOTE SUBJECTIVE: A 52-year-old gentleman who was admitted to hospital with gangrene of the foot and underwent transmetatarsal amputation, and as part of his evaluation, he was found to have cardiomyopathy with LV systolic dysfunction. This morning he denies chest pain or difficulty in breathing. His predominant symptom is in the form of discomfort in his feet. OBJECTIVE: VITAL SIGNS: Afebrile, heart rate is 60 to 80 beats per minute, blood pressure is 108/61, respiratory rate is 18, O2 saturation is 95% on room air. CHEST: Reveals good air entry bilaterally. HEART: Reveals first and second heart sounds. No gallop. EXTREMITIES: Reveal bilateral transmetatarsal amputation. The patient is currently on Coreg and losartan, which we will continue. ASSESSMENT AND PLAN: 1. Cardiomyopathy. 2. Gangrene of the feet, status post transmetatarsal amputation. The patient will continue current medications and we can DC the telemetry at this time. MMJULITAL / IJN: [id number] /
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
[2022-07-28] MEDS: PREGABALIN 100 MG CAP PO SCH (21:04)
[2022-07-28] MEDS: LOSARTAN 25 MG TAB PO SCH (21:11)
[2022-07-29] MEDS: CEFEPIME 2 GM in SODIUM CHLORIDE 0.9% 100 ML IVPB SCH ×3 (05:40→20:59)
[2022-07-29] MEDS: HYDROcodone/APAP 7.5-325MG 1 EACH TAB PO PRN ×3 (05:57→18:47)
[2022-07-29] MEDS: HEPARIN SODIUM,PORCINE/PF 5,000 UNIT/0.5 ML SYRINGE SQ SCH ×3 (09:21→23:54)
[2022-07-29] MEDS: NICOTINE 21MG/24HR PATCH TRANSDERM SCH (09:22)
[2022-07-29] MEDS: FAMOTIDINE 20 MG TAB PO SCH ×2 (09:22→20:59)
[2022-07-29] MEDS: metroNIDAZOLE 500 MG TAB PO SCH ×3 (09:22→20:59)
[2022-07-29] MEDS: FOLIC ACID 1 MG TAB PO SCH (09:22)
[2022-07-29] MEDS: PREGABALIN 100 MG CAP PO SCH ×2 (09:22→20:59)
[2022-07-29] MEDS: carvediloL 3.125 MG TAB PO SCH ×2 (09:22→17:30)
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
[2022-07-29] MEDS ORDERED: LIDOCAINE 1% INJ 10MG/ML (5 ML VIAL-PF) SQ ONE (13:54)
--- NOTE | 2022-07-29 14:20 | IR ---
PICC LINE PLACEMENT: HISTORY: Infection requiring long-term antibiotic therapy PROCEDURE: Ultrasound and fluoroscopic guidance of PICC line placement. COMPLICATIONS: None ANESTHESIA: 1. 1% Lidocaine locally. FINDINGS/TECHNIQUE: The procedure was explained to the patient. The risks, complications, benefits and alternatives were discussed and any questions were answered. Informed consent was obtained. The patient was placed supine on the fluoroscopic table and prepped and draped in the usual sterile fash ion. Utilizing a 21 gauge needle and sonographic and fluoroscopic guidance, access in the left basi lic vein was achieved and there is placement of a 0.018 guidewire. The vein is patent. A 4-F sheath was placed over the guidewire. The guidewire and dilator were removed and a 4-F. PICC line was plac ed through the sheath with the tip at the level of the SVC. The sheath was removed, the catheter was flushed and sutured into position. The patient was stable throughout the procedure and remained sta ble upon discharge from the Department of Radiology. The vein puncture was patent under ultrasound. A rogers scale image was obtained to document patency of the vein punctured. All elements of the maximal barrier technique were utilized. FLUOROSCOPY TIME: 0.4 minutes and 1 image submitted IMPRESSION: Successful PICC line placement under ultrasound and fluoroscopic guidance.
[2022-07-29] MEDS: LOSARTAN 25 MG TAB PO SCH (20:59)
[2022-07-30] MEDS: CEFEPIME 2 GM in SODIUM CHLORIDE 0.9% 100 ML IVPB SCH (05:47)
[2022-07-30] MEDS: HYDROcodone/APAP 7.5-325MG 1 EACH TAB PO PRN ×2 (06:42→12:56)
[2022-07-30 07:53] VITALS: RESP 16
[2022-07-30] MEDS: NICOTINE 21MG/24HR PATCH TRANSDERM SCH (08:39)
[2022-07-30] MEDS: carvediloL 3.125 MG TAB PO SCH (08:39)
[2022-07-30] MEDS: HEPARIN SODIUM,PORCINE/PF 5,000 UNIT/0.5 ML SYRINGE SQ SCH (08:39)
[2022-07-30] MEDS: FOLIC ACID 1 MG TAB PO SCH (08:39)
[2022-07-30] MEDS: PREGABALIN 100 MG CAP PO SCH (08:39)
[2022-07-30] MEDS: metroNIDAZOLE 500 MG TAB PO SCH (08:39)
[2022-07-30] MEDS: FAMOTIDINE 20 MG TAB PO SCH (08:39)
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
[2022-07-30 11:52] VITALS: BP 102/66; PULSE 62; TEMP 97.5
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
== END 2022-07-30 13:43 | DRG 907 ==
LOC: EC 15:22 → 5NMEDONC 19:32
PROVIDERS: ADMIT Internal Medicine; ATTEND Internal Medicine
PROC: 3E0234Z Introduction of Serum, Toxoid and Vaccine into Muscle, Percutaneous Approach (ICD-10-PCS; 2022-07-19)
PROC: 0Y6M0ZB Detachment at Right Foot, Partial 2nd Ray, Open Approach (ICD-10-PCS; 2022-07-22)
PROC: 0Y6N0Z9 Detachment at Left Foot, Partial 1st Ray, Open Approach (ICD-10-PCS; 2022-07-22)
PROC: 0Y6N0ZB Detachment at Left Foot, Partial 2nd Ray, Open Approach (ICD-10-PCS; 2022-07-22)
PROC: 0Y6N0ZC Detachment at Left Foot, Partial 3rd Ray, Open Approach (ICD-10-PCS; 2022-07-22)
PROC: 0Y6M0ZF Detachment at Right Foot, Partial 5th Ray, Open Approach (ICD-10-PCS; 2022-07-22)
PROC: 0Y6N0ZD Detachment at Left Foot, Partial 4th Ray, Open Approach (ICD-10-PCS; 2022-07-22)
PROC: 0Y6M0ZD Detachment at Right Foot, Partial 4th Ray, Open Approach (ICD-10-PCS; 2022-07-22)
PROC: 0Y6M0ZC Detachment at Right Foot, Partial 3rd Ray, Open Approach (ICD-10-PCS; 2022-07-22)
PROC: 0Y6N0ZF Detachment at Left Foot, Partial 5th Ray, Open Approach (ICD-10-PCS; 2022-07-22)
PROC: 0Y6M0Z9 Detachment at Right Foot, Partial 1st Ray, Open Approach (ICD-10-PCS; principal; 2022-07-22 07:30)
PROC: 0YQ Anatomical Regions, Lower Extremities, Repair (ICD-10-PCS; 2022-07-25)
PROC: 0JDQ0ZZ Extraction of Right Foot Subcutaneous Tissue and Fascia, Open Approach (ICD-10-PCS; 2022-07-25)
PROC: 0HDNXZZ Extraction of Left Foot Skin, External Approach (ICD-10-PCS; 2022-07-25)
PROC: 0HDMXZZ Extraction of Right Foot Skin, External Approach (ICD-10-PCS; 2022-07-25)
PROC: 02HV33Z Insertion of Infusion Device into Superior Vena Cava, Percutaneous Approach (ICD-10-PCS; 2022-07-26)
PROC: 02HV33Z Insertion of Infusion Device into Superior Vena Cava, Percutaneous Approach (ICD-10-PCS; 2022-07-29)
DX: T34.832A Frostbite with tissue necrosis of left toe(s), initial encounter (principal); I50.23 Acute on chronic systolic (congestive) heart failure; E87.1 Hypo-osmolality and hyponatremia; I70.268 Atherosclerosis of native arteries of extremities with gangrene, other extremity; M86.171 Other acute osteomyelitis, right ankle and foot; M86.172 Other acute osteomyelitis, left ankle and foot; R78.81 Bacteremia; I42.9 Cardiomyopathy, unspecified; J84.9 Interstitial pulmonary disease, unspecified; L02.611 Cutaneous abscess of right foot; T69.021A Immersion foot, right foot, initial encounter; T69.022A Immersion foot, left foot, initial encounter; L97.429 Non-pressure chronic ulcer of left heel and midfoot with unspecified severity; L97.419 Non-pressure chronic ulcer of right heel and midfoot with unspecified severity; T31.0 Burns involving less than 10% of body surface; F32.A Depression, unspecified; J44.9 Chronic obstructive pulmonary disease, unspecified; I08.1 Rheumatic disorders of both mitral and tricuspid valves; B95.61 Methicillin susceptible Staphylococcus aureus infection as the cause of diseases classified elsewhere; T25.031A Burn of unspecified degree of right toe(s) (nail), initial encounter; F17.210 Nicotine dependence, cigarettes, uncomplicated; L08.89 Other specified local infections of the skin and subcutaneous tissue; T34.831A Frostbite with tissue necrosis of right toe(s), initial encounter; I49.1 Atrial premature depolarization; B96.89 Other specified bacterial agents as the cause of diseases classified elsewhere; E86.1 Hypovolemia; L84 Corns and callosities; M20.41 Other hammer toe(s) (acquired), right foot; X31.XXXA Exposure to excessive natural cold, initial encounter; Z59.02 Unsheltered homelessness; Z28.310 Unvaccinated for COVID-19; Z23 Encounter for immunization
CPT/HCPCS: 36415; 36573; 71045; 80048; 80053; 80202; 82607; 82746; 83605; 83735; 83880; 84443; 85025; 85610; 85652; 85730; 86140; 87040; 87070; 87075; 87077; 87186; 87205; 88307; 90471; 90715; 93005; 93306; 94760; 96365; 99284

== ENCOUNTER 2022-09-12 15:18 | Observation (INO) | payer OTHER ==
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
[2022-09-12 19:47] LABS: ALT 233 U/L (4-49); AST 411 U/L (17-59); Acetaminophen <10.0 ug/mL; African American GFR (CKD) >90 (>60 ml/min/1.73 sqM); Albumin 4.1 g/dL (3.5-5.0); Alkaline Phosphatase 485 U/L (38-126); Anion Gap 9 mmol/L; Basophils # (A) 0.1 k/uL (0-0.2); Basophils % (A) 2 %; Bilirubin, Delta 0.4 mg/dL (0.0-0.2); Bilirubin,Unconjugated 0.2 mg/dL (0.0-1.1); Blood Urea Nitrogen 27 mg/dL (9-20); Calcium 8.9 mg/dL (8.4-10.2); Carbon Dioxide 29 mmol/L (22-30); Chloride 98 mmol/L (98-107); Eosinophils # (A) 0.3 k/uL (0-0.7); Eosinophils % (A) 6 %; Glucose 93 mg/dL (74-99); HCT 37.3 % (39.0-53.0); Lipase 179 U/L (23-300); Lymphocytes # (A) 1.8 k/uL (1.0-4.8); Lymphocytes % (A) 38 %; MCH 32.4 pg (25.0-35.0); MCHC 34.4 g/dL (31.0-37.0); Mean Platelet Volume 8.5; Monocytes # (A) 0.3 k/uL (0-1.0); Monocytes % (A) 6 %; Neutrophils # (A) 2.2 k/uL (1.3-7.7); Neutrophils % (A) 46 %; Non-African American GFR(CKD) >90 (>60 ml/min/1.73 sqM); Platelet Count 159 k/uL (150-450); Potassium 3.8 mmol/L (3.5-5.1); RBC 3.96 m/uL (4.30-5.90); RDW 13.4 % (11.5-15.5); Sodium 136 mmol/L (137-145); Total Bilirubin 0.6 mg/dL (0.2-1.3); Total Protein 7.4 g/dL (6.3-8.2); WBC 4.8 k/uL (3.8-10.6)
[2022-09-12 20:07] LABS: HGB 12.8 gm/dL (13.0-17.5)
--- NOTE | 2022-09-12 20:16 | CT ---
EXAMINATION TYPE: CT abdomen pelvis w con CT DLP: 712.9 mGycm, Automated exposure control for dose reduction was used. DATE OF EXAM: 09/12/2022 7:49 PM COMPARISON: None CLINICAL INDICATION:Male, 52 years old with history of elevated liver enzymes; elevated liver enzymes TECHNIQUE: Axial CT of the abdomen and pelvis. Sagittal and coronal reformats were created on a [employer] workstation. Contrast used:100ml mL of Isovue 300 with IV Contrast, Oral contrast used: without Oral Contrast FINDINGS: LOWER CHEST: Calcifications of the pericardium. ABDOMEN LIVER: Unremarkable GALLBLADDER AND BILE DUCTS: The common duct measures up to 13 mm common hepatic duct measures up to 1 2 mm. The gallbladder is relatively distended. No cholelithiasis visualized. PANCREAS: Unremarkable. SPLEEN: Unremarkable. ADRENAL GLANDS: Unremarkable. KIDNEYS AND URETERS: No evidence of hydronephrosis or renal calculus. The ureters are unremarkable. PELVIS BLADDER: Unremarkable REPRODUCTIVE: Unremarkable. ABDOMEN & PELVIS STOMACH AND BOWEL: No evidence of bowel obstruction. Large stool burden throughout the colon. PERITONEUM/RETROPERITONEUM: No evidence of pneumoperitoneum or free fluid. VASCULATURE: No evidence of aortic aneurysm. MUSCULOSKELETAL: No acute osseous abnormalities. Mild disc degeneration changes are present throughou t the thoracolumbar spine. LYMPH NODES: No gross evidence for lymphadenopathy. SOFT TISSUE/ABDOMINAL WALL: Unremarkable IMPRESSION: Dilation of the extrahepatic and intrahepatic biliary system concerning for obstruction. Consider ERC P to rule out ampullary region. No radiopaque stone visualized.
[2022-09-12] MEDS ORDERED: NALOXONE 0.4 MG/ML 1 ML VIAL IV PRN (20:54)
[2022-09-12] MEDS ORDERED: HYDROmorphone 0.5 MG/0.5 ML SYRINGE IVP PRN (23:12)
[2022-09-12] MEDS ORDERED: ONDANSETRON 4 MG/2 ML VIAL IVP PRN (23:13)
[2022-09-12] MEDS: SODIUM CHLORIDE 0.9% 1,000 ML IV SCH (23:57)
[2022-09-12] MEDS: HYDROcodone/APAP 10-325MG 1 EACH TAB PO PRN (23:58)
[2022-09-13 09:45] LABS: Basophils # (A) 0.03 X 10*3/uL (0.00-0.10); Basophils % (A) 0.6 %; Eosinophils # (A) 0.42 X 10*3/uL (0.04-0.35); Eosinophils % (A) 8.7 %; HCT 34.6 % (39.6-50.0); HGB 11.5 g/dL (13.0-17.0); Immature Grans, Automated 0 %; Lymphocytes # (A) 2.01 X 10*3/uL (0.90-5.00); Lymphocytes % (A) 41.4 %; MCH 32.3 pg (27.0-32.0); MCHC 33.2 g/dL (32.0-37.0); MCV 97.2 fL (80.0-97.0); Mean Platelet Volume 11.4 fL (9.5-12.2); Monocytes # (A) 0.51 X 10*3/uL (0.20-1.00); Monocytes % (A) 10.5 %; NRBC Per 100 WBC 0 /100 WBCS (0.0-0.0); Neutrophils # (A) 1.88 X 10*3/uL (1.80-7.70); Neutrophils % (A) 38.8 %; Platelet Count 144 X 10*3/uL (140-440); RBC 3.56 X 10*6/uL (4.40-5.60); RDW 13.4 % (11.5-14.5); WBC 4.85 X 10*3/uL (4.50-10.00)
[2022-09-13 10:42] LABS: African American GFR (CKD) 113.4 (60.0-200.0); Albumin 3.7 g/dL (3.8-4.9); Albumin/Globulin Ratio 1.37 (1.60-3.17); Anion Gap 11.8 mmol/L (10.00-18.00); BUN/Creat Ratio 24.33 Ratio (12.00-20.00); Blood Urea Nitrogen 21.9 mg/dL (9.0-27.0); Carbon Dioxide 26.2 mmol/L (20.0-27.5); Globulin 2.7 g/dL (1.6-3.3); Non-African American GFR(CKD) 97.9 (60.0-200.0); Potassium 3.8 mmol/L (3.5-5.5); Total Bilirubin 0.3 mg/dL (0.30-1.20); Total Protein 6.4 g/dL (6.2-8.2)
[2022-09-13] MEDS: SODIUM CHLORIDE 0.9% 1,000 ML IV SCH (10:48)
[2022-09-13 10:53] LABS: Hepatitis A Antibody IgM Nonreactive (Nonreactive); Hepatitis B Core IgM Nonreactive (Nonreactive); Hepatitis B Surface Antigen Nonreactive (Nonreactive); Hepatitis C IgG Antibody Nonreactive (Nonreactive)
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
--- NOTE | 2022-09-13 13:47 | MR ---
EXAMINATION TYPE: MR MRCP DATE OF EXAM: 09/13/2022 COMPARISON: CT abdomen and pelvis from yesterday HISTORY: Abnormal CT, elevated liver enzymes. CBD dilatation. Standard multiplanar, multisequence MRI departmental protocol Multiplanar, multisequence images of the abdomen were acquired without contrast. Diffusion weighted i maging was performed. Thin and thick slice MRCP imaging performed on MRI scanner. FINDINGS: Exam is suboptimal as patient unable to hold breath. Liver/gallbladder/pancreas/biliary system: The liver is normal in size. No significant signal dropout seen on in and out of phase imaging. No concerning solid or cystic mass on noncontrast images. Gallb ladder is redemonstrated with distended margins without intraluminal gallstones. Pancreas is normal i n size without solid or cystic mass. MRCP images show pancreatic duct visualized to near level of the ampulla with abrupt cut off but no suspicious dilatation. The common bile duct similar to CT is dila zonia diffusely measuring approximate 10-12 mm near the blossom hepatis and similar measurements distally near the duodenal ampulla where there is abrupt cut off. No definitive filling defect. Findings appe ar similar to coronal image [address] There is mild central intrahepatic biliary dilatation re demonstrated. There is slightly prominent and tortuous cystic duct. Other: Lung bases are grossly clear. The spleen is within normal limits. There is 8 mm thin-walled cy st in the lower pole left kidney coronal image 30. There is no hydronephrosis seen bilaterally. No pineda spicious bowel dilatation. No intra-abdominal ascites. Osseous structures are intact. IMPRESSION: Mild central intrahepatic and moderate extrahepatic biliary dilatation is redemonstrated without pancreatic ductal dilatation. No definitive gallstones or CBD stone. Mass or neoplasm near le jason of the distal CBD needs to be considered. ERCP and/or endoscopic ultrasound follow-up advised to further evaluate and/or treat.
[2022-09-13] MEDS: HYDROcodone/APAP 10-325MG 1 EACH TAB PO PRN (16:17)
--- NOTE | 2022-09-13 18:50 | P.HPIM ---
History of Present Illness H&P Date: 09/13/22 Chief Complaint: Elevated liver enzymes 52-year-old male who was at [facility] for rehab following frostbite and infection to his feet. Apparently patient was having outpatient blood work done and was noted to have elevated AST and ALT and he was brought to the hospital for fu rther evaluation. Outpatient AST [id number] ALT 334. The patient states he has no history of liver disease, no history of alcoholism, he has no abdominal pain, no nausea or vomiting. Patient had a CT of the abdomen and pelvis that reported dilation of the extrahepatic and intrahepatic biliary system concerning for obstruction. Consider ERCP to rule out ampullary region. No radiographic stone visualized. The gallbladder is relatively distended, no cholelithiasis visualized. Pancreas unremarkable. Patient had been on extensive IV antibiotics with Flagyl and cefepime for infection, he believes he was also transitioned to oral antibiotics however unsure at this time of what oral antibiotic. No previous history of gallbladder disease. He has been afebrile. WBC 4.8 hemoglobin 12.8 hematocrit 37 platelet count 159,000 sodium 136 potassium 3.8 BUN 27 creatinine 0.9 total bilirubin 0.6 AST 411 ALT 233 alkaline phosphatase 485 lipase 179 Review of Systems REVIEW OF SYSTEMS: CONSTITUTIONAL: No fever, no malaise, no fatigue. HEENT: No recent visual problems or hearing problems. Denied any sore throat. CARDIOVASCULAR: No chest pain, orthopnea, PND, no palpitations, no syncope. PULMONARY: No shortness of breath, no cough, no hemoptysis. GASTROINTESTINAL: No diarrhea, no nausea, no vomiting, no abdominal pain. NEUROLOGICAL: No headaches, no weakness, no numbness. HEMATOLOGICAL: Denies any bleeding or petechiae. GENITOURINARY: Denies any burning micturition, frequency, or urgency. MUSCULOSKELETAL/RHEUMATOLOGICAL: Denies any joint pain, swelling, or any muscle pain. ENDOCRINE: Denies any polyuria or polydipsia. The rest of the 14-point review of systems is negative. 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 Past Anesthesia/Blood Transfusion Reactions: No Reported Reaction Past Psychological History: No Psychological Hx Reported Smoking Status: Current every day smoker Past Alcohol Use History: None Reported Past Drug Use History: Marijuana - Past Family History Father Additional Family Medical History / Comment(s): Overdose Medications and Allergies Home Medications Medication Instructions Recorded Confirmed Type Acetaminophen Tab [Tylenol] 650 mg PO Q6HR PRN tab 07/26/22 09/12/22 Rx Collagenase [Santyl Ointment] 1 applic TOPICAL HS 09/12/22 09/12/22 History Famotidine [Pepcid] 20 mg PO BID@0600,2100 09/12/22 09/12/22 History Folic Acid 1 mg PO DAILY@0900 09/12/22 09/12/22 History Furosemide [Lasix] 20 mg PO DAILY@0600 09/12/22 09/12/22 History HYDROcodone/APAP 10-325MG [[place] 1 tab PO Q6H PRN 09/12/22 09/12/22 History 10-325] Lactose-Reduced Food [Ensure Plus] 1 can PO BID@0900,1700 09/12/22 09/12/22 History Losartan [Cozaar] 12.5 mg PO HS@209909/12/22 09/12/22 History Nicotine 21Mg/24Hr Patch [Habitrol] 1 patch TRANSDERM DAILY@0600 09/12/22 09/12/22 History Pregabalin [Lyrica] 100 mg PO BID@0900,2100 09/12/22 09/12/22 History QUEtiapine [SEROquel] 25 mg PO HS@209909/12/22 09/12/22 History carvediloL [Coreg] 3.125 mg PO BID@0900,1700 09/12/22 09/12/22 History oxyCODONE ER [OxyCONTIN] 10 mg PO BID@0900,2100 09/12/22 09/12/22 History Allergies Allergy/AdvReac Type Severity Reaction Status Date / Time No Known Allergies Allergy Verified 09/12/22 21:14 Physical Exam Vitals: Vital Signs Temp Pulse Pulse Resp BP BP Pulse Ox 09/13/22 08:56 97.6 F 62 19 97/62 98 09/13/22 00:14 99.5 F 63 22 144/93 97 09/12/22 22:34 98.7 F 77 18 110/78 96 09/12/22 15:41 97.5 F L 91 20 121/62 98 Intake and Output 09/12/22 09/13/22 09/13/22 22:59 06:59 14:59 Other: # Voids 1 Weight 68.946 kg PHYSICAL EXAMINATION: GENERAL: The patient is alert and oriented x3, not in any acute distress. Well developed, well nourished. HEENT: Pupils are round and equally reacting to light. EOMI. No scleral icterus. No conjunctival pallor. Normocephalic, atraumatic. No pharyngeal erythema. No thyromegaly. CARDIOVASCULAR: S1 and S2 present. No murmurs, rubs, or gallops. PULMONARY: Chest is clear to auscultation, no wheezing or crackles. ABDOMEN: Soft, nontender, nondistended, normoactive bowel sounds. No palpable o rganomegaly. MUSCULOSKELETAL: No joint swelling or deformity. EXTREMITIES: No cyanosis, clubbing, or pedal edema. NEUROLOGICAL: Gross neurological examination did not reveal any focal deficits. SKIN: No rashes. Results CBC & Chem 7: 09/13/22 05:38 09/13/22 05:38 Labs: Abnormal Lab Results - Last 24 Hours (Table) 09/12/22 09/12/22 09/13/22 Range/Units 19:19 19:19 05:38 RBC 3.96 L 3.56 L (4.30-5.90) m/uL Hgb 12.8 L D 11.5 L (13.0-17.5) gm/dL Hct 37.3 L 34.6 L (39.0-53.0) % MCV 97.2 H (80.0-97.0) fL MCH 32.3 H (27.0-32.0) pg Eosinophils # 0.42 H (0.04-0.35) X 10*3/uL Sodium 136 L (137-145) mmol/L BUN 27 H (9-20) mg/dL BUN/Creatinine Ratio (12.00-20.00) Ratio Delta Bilirubin 0.4 H (0.0-0.2) mg/dL AST 411 H (17-59) U/L ALT 233 H (4-49) U/L Alkaline Phosphatase 485 H (38-126) U/L Albumin (3.8-4.9) g/dL Albumin/Globulin Ratio (1.60-3.17) g/dL 09/13/22 Range/Units 05:38 RBC (4.30-5.90) m/uL Hgb (13.0-17.5) gm/dL Hct (39.0-53.0) % MCV (80.0-97.0) fL MCH (27.0-32.0) pg Eosinophils # (0.04-0.35) X 10*3/uL Sodium (137-145) mmol/L BUN (9-20) mg/dL BUN/Creatinine Ratio 24.33 H (12.00-20.00) Ratio Delta Bilirubin (0.0-0.2) mg/dL AST 219 H (17-59) U/L ALT 187 H (4-49) U/L Alkaline Phosphatase 484 H (38-126) U/L Albumin 3.7 L (3.8-4.9) g/dL Albumin/Globulin Ratio 1.37 L (1.60-3.17) g/dL Assessment and Plan Assessment: 1. Acute hepatitis had blood work done showing elevated AST and ALT and was sent to the hospital. No previous history of liver disease, no history of alcoholism. Had a CT of the abdomen and pelvis that reported intra-and extrahepatic biliary ductal dilation concern for possible obstruction. MRCP ordered. Patient is asymptomatic, he has no elevated bilirubin so unclear etiology at this time. -- Acute hepatitis profile is completed and negative 2. Common bile duct dilatation MRCP completed with impression stating mild central intrahepatic and moderate extrahepatic biliary dilation is redemonstrated without pancreatic ductal dilati on. No definitive gallstones are CBD stone. Mass or neoplasm near the level of distal CBD needs to be considered. ERCP and/or endoscopic ultrasound follow-up advised. 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 4. Hypertension; Coreg 3.125 mg twice a day, losartan 12.5 mg by mouth daily at bedtime, Lasix 20 mg daily 5. Peripheral neuropathy; Lyrica 100 mg twice a day --- Call placed to [facility] at [phone]; await callback for patient acceptance
[2022-09-14] MEDS: HYDROcodone/APAP 10-325MG 1 EACH TAB PO PRN (06:53)
[2022-09-14] MEDS: SODIUM CHLORIDE 0.9% 1,000 ML IV SCH ×3 (07:16→12:27)
[2022-09-14 11:56] LABS: ALT 198 U/L (10-49); AST 249 U/L (14-35); Albumin 3.7 g/dL (3.8-4.9); Albumin/Globulin Ratio 1.32 (1.60-3.17); Alkaline Phosphatase 489 U/L (41-126); BUN/Creat Ratio 21.25 Ratio (12.00-20.00); Bilirubin, Conjugated <0.20 mg/dL (0.20-0.40); Calcium 8.9 mg/dL (8.7-10.3); Chloride 107 mmol/L (96-109); Globulin 2.8 g/dL (1.6-3.3); Glucose 77 mg/dL (70-110); Non-African American GFR(CKD) 102.7 (60.0-200.0); Potassium 4.3 mmol/L (3.5-5.5); Sodium 139 mmol/L (135-145); Total Protein 6.5 g/dL (6.2-8.2)
[2022-09-14 15:03] VITALS: RESP 18
--- NOTE | 2022-09-14 21:09 | P.PN ---
Subjective Progress Note Date: 09/14/22 52-year-old male who was at [facility] for rehab following frostbite and infection to his feet. Apparently patient was having outpatient blood work done and was noted to have elevated AST and ALT and he was brought to the hospital for further evaluation. Outpatient AST 741 ALT 334. The patient states he has no history of liver disease, no history of alcoholism, he has no abdominal pain, no nausea or vomiting. Patient had a CT of the abdomen and pelvis that reported dilation of the extrahepatic and intrahepatic biliary system concerning for obstruction. Consider ERCP to rule out ampullary region. No radiographic stone visualized. The gallbladder is relatively distended, no cholelithiasis visual ized. Pancreas unremarkable. Patient had been on extensive IV antibiotics with Flagyl and cefepime for infection, he believes he was also transitioned to oral antibiotics however unsure at this time of what oral antibiotic. No previous history of gallbladder disease. He has been afebrile. WBC 4.8 hemoglobin 12.8 hematocrit 37 platelet count 159,000 sodium 136 potassium 3.8 BUN 27 creatinine 0.9 total bilirubin 0.6 AST 411 ALT 233 alkaline phosphatase 485 lipase 179 Objective - Vital Signs Vital signs: Vital Signs Temp 98.6 F 09/14/22 07:25 Pulse 60 09/14/22 07:25 Resp 16 09/14/22 07:25 BP 113/74 09/14/22 07:25 Pulse Ox 99 09/14/22 07:25 FiO2 Intake & Output 09/13/22 09/14/22 09/14/22 18:59 06:59 18:59 Intake Total 240 Balance 240 Intake: Oral 240 Other: # Voids 3 - Exam GENERAL: The patient is alert and oriented x3, not in any acute distress. Well developed, well nourished. HEENT: Pupils are round and equally reacting to light. EOMI. No scleral icterus. No conjunctival pallor. Normocephalic, atraumatic. No pharyngeal erythema. No thyromegaly. CARDIOVASCULAR: S1 and S2 present. No murmurs, rubs, or gallops. PULMONARY: Chest is clear to auscultation, no wheezing or crackles. ABDOMEN: Soft, nontender, nondistended, normoactive bowel sounds. No palpable organomegaly. MUSCULOSKELETAL: No joint swelling or deformity. EXTREMITIES: No cyanosis, clubbing, or pedal edema. NEUROLOGICAL: Gross neurological examination did not reveal any focal deficits. SKIN: No rashes. - Labs CBC & Chem 7: 09/13/22 05:38 09/14/22 06:49 Assessment and Plan Assessment: 1. Acute hepatitis had blood work done showing elevated AST and ALT and was sent to the hospital. No previous history of liver disease, no history of alcoholism. Had a CT of the abdomen and pelvis that reported intra-and extrahepatic biliary ductal dilation concern for possible obstruction. MRCP ordered. Patient is asymptomatic, he has no elevated bilirubin so unclear etiology at this time. -- Acute hepatitis profile is completed and negative 2. Common bile duct dilatation MRCP completed with impression stating mild central intrahepatic and moderate extrahepatic biliary dilation is redemonstrated without pancreatic ductal dilation. No definitive gallstones are CBD stone. Mass or neoplasm near the level of distal CBD needs to be considered. ERCP and/or endoscopic ultrasound follow-up advised. 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 4. Hypertension; Coreg 3.125 mg twice a day, losartan 12.5 mg by mouth daily at bedtime, Lasix 20 mg daily 5. Peripheral neuropathy; Lyrica 100 mg twice a day --- Call placed to [facility] at [phone]; await callback for patient acceptance
[2022-09-14 21:26] VITALS: BP 99/66; PULSE 59; TEMP 98.3
== END 2022-09-15 03:06 | disposition short-term general hospital (02) ==
LOC: EC 15:18 → INTOOBSV 20:54 → 4SSUR 20:54 → UNDODISIN 09-15 03:06
PROVIDERS: ADMIT Hospitalist; ATTEND Hospitalist
DX: B17.9 Acute viral hepatitis, unspecified (principal); K83.8 Other specified diseases of biliary tract; I10 Essential (primary) hypertension; G62.9 Polyneuropathy, unspecified; F17.200 Nicotine dependence, unspecified, uncomplicated; F12.90 Cannabis use, unspecified, uncomplicated; I31.1 Chronic constrictive pericarditis; N28.1 Cyst of kidney, acquired; Z89.422 Acquired absence of other left toe(s); Z79.899 Other long term (current) drug therapy; Z89.421 Acquired absence of other right toe(s); Z20.822 Contact with and (suspected) exposure to COVID-19
CPT/HCPCS: 96361 ×2; 96374; 99285; 36415; 80053 ×2; 80048; 80076; 80074; 82140; 82248; 83690; 85025 ×2; 80143; 87635; 74177; 74181; G0378 ×4; J1170; Q9967

== ENCOUNTER 2022-09-28 03:32 | Emergency (ER) | payer OTHER ==
[2022-09-28 03:38] VITALS: TEMP 97.9
--- NOTE | 2022-09-28 03:58 | ED ---
General Adult HPI - General Chief complaint: Dizziness Stated complaint: Dizziness, Vomiting Time Seen by Provider: 09/28/22 03:40 Source: patient Mode of arrival: ambulatory Limitations: no limitations - History of Present Illness Initial comments: Dictation was produced using [employer] dictation software. please excuse any grammatical, word or spelling errors. Chief Complaint: 52-year-old homeless male presents to the ER for dizziness History of Present Illness: Is 52-year-old male presents emergency department for dizziness and vomiting. Patient states that he has also pain to his bilateral lower feet. He states that he feels like he is having nerve pain. Denies any trauma to the feet. Patient complains of dizziness. He reported to triage nurse that he did have some vomiting. Patient did not say to me that he had any vomiting. No abdominal pain. No fever or constitutional symptoms. The ROS documented in this emergency department record has been reviewed and confirmed by me. Those systems with pertinent positive or negative responses have been documented in the HPI. All other systems are other negative and/or noncontributory. PHYSICAL EXAM: General Impression: Alert and oriented x3, not in acute distress HEENT: Normocephalic atraumatic, extra-ocular movements intact, pupils equal and reactive to light bilaterally, mucous membranes moist. Cardiovascular: Heart regular rate and rhythm Chest: Able to complete full sentences, no retractions, no tachypnea Abdomen: abdomen soft, non-tender, non-distended, no organomegaly Musculoskeletal: Pulses present and equal in all extremities, no peripheral edema Motor: no focal deficits noted Neurological: CN II-XII grossly intact, no focal motor or sensory deficits noted Skin: Intact with no visualized rashes Psych: Normal affect and mood ED course: 52-year-old well-appearing homeless male presents to the emergency Department for reported complaints of dizziness, vomiting. Vital signs are stable upon arrival. Physical examination is benign. Nursing notes and chart review was performed EKG interpreted by me: Ventricular rate 91, sinus rhythm,. 137, QRS 109, QTC 421. No CT prolongation, no QTC prolongation, no ST or T-wave changes noted. Overall, this EKG is unremarkable Was pt. sent in by a medical professional or institution (, PA, LD TEACHER, urgent care, hospital, or intermediate...) When possible be specific @ -No Did you speak to anyone other than the patient for history (EMS, parent, family, police, friend...)? What history was obtained from this source @ -No Did you review nursing and triage notes (agree or disagree)? Why? @ -I reviewed and agree with nursing and triage notes Were old charts reviewed (outside hosp., previous admission, EMS record, old EKG, old radiological studies, urgent care reports/EKG's, intermediate records)? Report findings @ -No old charts were reviewed Differential Diagnosis (chest pain, altered mental status, abdominal pain women, abdominal pain men, vaginal bleeding, musculoskeletal, weakness, fever, dyspnea, syncope, headache, dizziness, GI bleed, back pain, seizure, CVA, palpatations, mental health)? @ - Appendicitis, cholecystitis, diverticulosis, ischemic bowel, pancreatitis, hepa titis, UTI, gastroenteritis, AAA, incarcerated hernia, bowel obstruction, constipation, inflammatory bowel, hepatitis, peptic ulcer disease, splenic infarction, perforated viscus, testicular torsion, this is not meant to be an all-inclusive list EKG interpreted by me (3pts min.). @ -see above X-rays interpreted by me (1pt min.). @ -None done CT interpreted by me (1pt min.). @ -None done U/S interpreted by me (1pt. min.). @ -None done What testing was considered but not performed or refused? (CT, X-rays, U/S, labs)? Why? @ -None What meds were considered but not given or refused? Why? @ -None Did you discuss the management of the patient with other professionals (professionals i.e. , PA, LD TEACHER, lab, RT, psych nurse, transition social worker, drawer hardware worker, teacher, control officer, oil field caser)? Give summary @ -No Was smoking cessation discussed for >3mins.? @ -No Was critical care preformed (if so, how long)? @ -No Were there social determinants of health that impacted care today? How? (Homelessness, low income, unemployed, alcoholism, drug addiction, transportation, low edu. Level, literacy, decrease access to med. care, detention, rehab)? @ -Homeless Was there de-escalation of care discussed even if they declined (Discuss DNR or withdrawal of care, Hospice)? DNR status @ -No What co-morbidities impacted this encounter? (DM, HTN, Smoking, COPD, CAD, Cancer, CVA, ARF, Chemo, Hep., AIDS, mental health diagnosis, sleep apnea, morbid obesity)? @ -None Was patient admitted / discharged? Hospital course, mention meds given and route, prescriptions, significant lab abnormalities, going to OR and other pertinent info. @ -52-year-old homeless male presents emergency department for reported dizziness and nausea. Patient placed in room 6. Patient's well-appearing at the bedside. He is requesting soda pop. Patient observed in emergency department for 2 hours. He did not have any episodes of nausea vomiting while in the emergency department. He is well-appearing. Laboratory evaluation obtained. All findings within acceptable limits. discharged in stable medical condition. Undiagnosed new problem with uncertain prognosis? @ -No Drug Therapy requiring intensive monitoring for toxicity (Heparin, Nitro, Insulin, Cardizem)? @ -No Were any procedures done? @ -No Diagnosis/symptom? Acute, or Chronic, or Acute on Chronic? Uncomplicated (without systemic symptoms) or Complicated (systemic symptoms)? @ -1. Acute uncomplicated nausea Side effects of treatment? @ -No Exacerbation, Progression, or Severe Exacerbation? @ -No Poses a threat to life or bodily function? How? (Chest pain, [place], [place], pneumonia, PE, COPD, DKA, ARF, appy, cholecystitis, CVA, Diverticulitis, Homicidal, Suicidal, threat to staff... and all critical care pts) @ -No - Related Data Home Medications Medication Instructions Recorded Confirmed Collagenase [Santyl Ointment] 1 applic TOPICAL HS 09/12/22 09/12/22 Famotidine [Pepcid] 20 mg PO BID@0600,2100 09/12/22 09/12/22 Folic Acid 1 mg PO DAILY@0900 09/12/22 09/12/22 Furosemide [Lasix] 20 mg PO DAILY@0600 09/12/22 09/12/22 HYDROcodone/APAP 10-325MG [[place] 1 tab PO Q6H PRN 09/12/22 09/12/22 10-325] Lactose-Reduced Food [Ensure Plus] 1 can PO BID@0900,1700 09/12/22 09/12/22 Losartan [Cozaar] 12.5 mg PO HS@2100 09/12/22 09/12/22 Nicotine 21Mg/24Hr Patch [Habitrol] 1 patch TRANSDERM DAILY@0600 09/12/22 09/12/22 Pregabalin [Lyrica] 100 mg PO BID@0900,209909/12/22 09/12/22 QUEtiapine [SEROquel] 25 mg PO HS@209909/12/22 09/12/22 carvediloL [Coreg] 3.125 mg PO BID@0900,1700 09/12/22 09/12/22 oxyCODONE ER [OxyCONTIN] 10 mg PO BID@0900,2100 09/12/22 09/12/22 Previous Rx's Medication Instructions Recorded Acetaminophen Tab [Tylenol] 650 mg PO Q6HR PRN tab 07/26/22 Allergies Allergy/AdvReac Type Severity Reaction Status Date / Time No Known Allergies Allergy Verified 09/12/22 21:14 Review of Systems ROS Statement: Those systems with pertinent positive or pertinent negative responses have been documented in the HPI. ROS Other: All systems not noted in ROS Statement are negative. 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 Past Anesthesia/Blood Transfusion Reactions: No Reported Reaction Past Psychological History: No Psychological Hx Reported Smoking Status: Current every day smoker Past Alcohol Use History: None Reported Past Drug Use History: Marijuana - Past Family History Father Additional Family Medical History / Comment(s): Overdose General Exam Limitations: no limitations Course Vital Signs 09/28/22 03:34 Temperature 97.9 F Pulse Rate 56 L Respiratory 18 Rate Blood Pressure 132/83 O2 Sat by Pulse 98 Oximetry Medical Decision Making - Lab Data Result diagrams: 09/28/22 03:53 09/28/22 03:53 Lab Results 09/28/22 09/28/22 Range/Units 03:53 03:53 WBC 8.0 (3.8-10.6) k/uL RBC 3.69 L (4.30-5.90) m/uL Hgb 12.5 L (13.0-17.5) gm/dL Hct 36.3 L (39.0-53.0) % MCV 98.5 (80.0-100.0) fL MCH 34.0 (25.0-35.0) pg MCHC 34.5 (31.0-37.0) g/dL RDW 14.5 (11.5-15.5) % Plt Count 239 (150-450) k/uL MPV 8.2 Neutrophils % 62 % Lymphocytes % 27 % Monocytes % 5 % Eosinophils % 4 % Basophils % 0 % Neutrophils # 5.0 (1.3-7.7) k/uL Lymphocytes # 2.2 (1.0-4.8) k/uL Monocytes # 0.4 (0-1.0) k/uL Eosinophils # 0.3 (0-0.7) k/uL Basophils # 0.0 (0-0.2) k/uL Sodium 137 (137-145) mmol/L Potassium 4.5 (3.5-5.1) mmol/L Chloride 108 H (98-107) mmol/L Carbon Dioxide 19 L (22-30) mmol/L Anion Gap 10 mmol/L BUN 22 H (9-20) mg/dL Creatinine 0.75 (0.66-1.25) mg/dL Est GFR (CKD-EPI)AfAm >90 (>60 ml/min/1.73 sqM) Est GFR (CKD-EPI)NonAf >90 (>60 ml/min/1.73 sqM) Glucose 102 H (74-99) mg/dL Calcium 8.8 (8.4-10.2) mg/dL Total Bilirubin 0.5 (0.2-1.3) mg/dL AST 33 (17-59) U/L ALT 26 (4-49) U/L Alkaline Phosphatase 154 H (38-126) U/L Total Protein 7.1 (6.3-8.2) g/dL Albumin 4.0 (3.5-5.0) g/dL Disposition Clinical Impression: Nausea Disposition: HOME SELF-CARE Condition: Good Instructions (If sedation given, give patient instructions): Acute Nausea and Vomiting (ED) Is patient prescribed a controlled substance at d/c from ED?: No Referrals: Nell Field MD [Primary Care Provider] - 1-2 days Time of Disposition: 05:36
[2022-09-28 04:11] LABS: Basophils % (A) 0 %; Eosinophils # (A) 0.3 k/uL (0-0.7); Eosinophils % (A) 4 %; HCT 36.3 % (39.0-53.0); HGB 12.5 gm/dL (13.0-17.5); Lymphocytes # (A) 2.2 k/uL (1.0-4.8); Lymphocytes % (A) 27 %; MCHC 34.5 g/dL (31.0-37.0); MCV 98.5 fL (80.0-100.0); Mean Platelet Volume 8.2; Monocytes # (A) 0.4 k/uL (0-1.0); Monocytes % (A) 5 %; Neutrophils % (A) 62 %; Platelet Count 239 k/uL (150-450); RBC 3.69 m/uL (4.30-5.90); RDW 14.5 % (11.5-15.5)
[2022-09-28 04:39] LABS: ALT 26 U/L (4-49); AST 33 U/L (17-59); African American GFR (CKD) >90 (>60 ml/min/1.73 sqM); Alkaline Phosphatase 154 U/L (38-126); Anion Gap 10 mmol/L; Blood Urea Nitrogen 22 mg/dL (9-20); Calcium 8.8 mg/dL (8.4-10.2); Carbon Dioxide 19 mmol/L (22-30); Chloride 108 mmol/L (98-107); Glucose 102 mg/dL (74-99); Non-African American GFR(CKD) >90 (>60 ml/min/1.73 sqM); Potassium 4.5 mmol/L (3.5-5.1); Sodium 137 mmol/L (137-145); Total Bilirubin 0.5 mg/dL (0.2-1.3); Total Protein 7.1 g/dL (6.3-8.2)
[2022-09-28 06:54] VITALS: BP 111/68; PULSE 61; RESP 15
== END 2022-09-28 06:54 | disposition home or self-care (01) ==
LOC: EC 03:32
DX: R11.0 Nausea (principal); I10 Essential (primary) hypertension; I21.9 Acute myocardial infarction, unspecified; I25.10 Atherosclerotic heart disease of native coronary artery without angina pectoris; J44.9 Chronic obstructive pulmonary disease, unspecified; E11.10 Type 2 diabetes mellitus with ketoacidosis without coma; F17.200 Nicotine dependence, unspecified, uncomplicated; F12.90 Cannabis use, unspecified, uncomplicated; Z79.899 Other long term (current) drug therapy
CPT/HCPCS: 36415; 80053; 85025; 93005; 99284

== ENCOUNTER 2022-09-28 22:24 | Emergency (ER) | payer OTHER ==
[2022-09-28 22:49] VITALS: PULSE 76; TEMP 98.3
--- NOTE | 2022-09-28 23:06 | ED ---
General Adult HPI - General Chief complaint: Shortness of Breath Stated complaint: harley Time Seen by Provider: 09/28/22 22:25 Source: patient Mode of arrival: ambulatory Limitations: no limitations - History of Present Illness Initial comments: Dictation was produced using [employer] dictation software. please excuse any grammatical, word or spelling errors. Chief Complaint: 52-year-old homeless male presents to the ER for shortness of breath History of Present Illness: 52-year-old homeless male who presents emergency department for shortness of breath. Patient seen here earlier this morning for different complaint. Patient is homeless. States that he needs a breathing treatment for wheezing. Denies any fever. No pain complaints. The ROS documented in this emergency department record has been reviewed and confirmed by me. Those systems with pertinent positive or negative responses have been documented in the HPI. All other systems are other negative and/or noncontributory. PHYSICAL EXAM: General Impression: Alert and oriented x3, not in acute distress HEENT: Normocephalic atraumatic, extra-ocular movements intact, pupils equal and reactive to light bilaterally, mucous membranes moist. Cardiovascular: Heart regular rate and rhythm Chest: Able to complete full sentences, no retractions, no tachypnea Abdomen: abdomen soft, non-tender, non-distended, no organomegaly Musculoskeletal: Pulses present and equal in all extremities, no peripheral edema Motor: no focal deficits noted Neurological: CN II-XII grossly intact, no focal motor or sensory deficits noted Skin: Intact with no visualized rashes Psych: Normal affect and mood ED course: 2-year-old well-appearing homeless male presents to the ER with chief complaint of "I need a breathing treatment." Vital signs are stable. Patient appears to be in no acute distress. He is not dyspneic. His physical examination is benign. Suspect patient is here because it is cold outside. Patient does not meet criteria for breathing treatment. Nursing notes and chart review was performed Was pt. sent in by a medical professional or institution (KOBI Wynn, CHURN TENDER, urgent care, hospital, or jail...) When possible be specific @ -No Did you speak to anyone other than the patient for history (EMS, parent, family, police, friend...)? What history was obtained from this source @ -No Did you review nursing and triage notes (agree or disagree)? Why? @ -I reviewed and agree with nursing and triage notes Were old charts reviewed (outside hosp., previous admission, EMS record, old EKG, old radiological studies, urgent care reports/EKG's, jail records)? Report findings @ -No old charts were reviewed Differential Diagnosis (chest pain, altered mental status, abdominal pain women, abdominal pain men, vaginal bleeding, musculoskeletal, weakness, fever, dyspnea, syncope, headache, dizziness, GI bleed, back pain, seizure, CVA, palpatations, mental health)? @ -Differential Dyspnea: Coronary syndrome, arrhythmia, tamponade, asthma, COPD, pulmonary embolism, pneumonia, pneumothorax, pulmonary effusion, anaphylaxis, diabetic ketoacidosis, flailed chest, pulmonary contusion, diaphragmatic rupture, anemia, neuromuscular, this is not meant to be an all-inclusive list. EKG interpreted by me (3pts min.). @ -None done X-rays interpreted by me (1pt min.). @ -None done CT interpreted by me (1pt min.). @ -None done U/S interpreted by me (1pt. min.). @ -None done What testing was considered but not performed or refused? (CT, X-rays, U/S, labs)? Why? @ -None What meds were considered but not given or refused? Why? @ -None Did you discuss the management of the patient with other professionals (professionals i.e. , PA, CHURN TENDER, lab, RT, psych nurse, elementary school social worker, seat joiner chainstitch, teacher, guest relations officer, porter sample case)? Give summary @ -No Was smoking cessation discussed for >3mins.? @ -No Was critical care preformed (if so, how long)? @ -No Were there social determinants of health that impacted care today? How? (Homelessness, low income, unemployed, alcoholism, drug addiction, transportation, low edu. Level, literacy, decrease access to med. care, retirement, rehab)? @ -Homeless Was there de-escalation of care discussed even if they declined (Discuss DNR or withdrawal of care, Hospice)? DNR status @ -No What co-morbidities impacted this encounter? (DM, HTN, Smoking, COPD, CAD, Cancer, CVA, ARF, Chemo, Hep., AIDS, mental health diagnosis, sleep apnea, morbid obesity)? @ -None Was patient admitted / discharged? Hospital course, mention meds given and route, prescriptions, significant lab abnormalities, going to OR and other pertinent info. @ -See above Undiagnosed new problem with uncertain prognosis? @ -No Drug Therapy requiring intensive monitoring for toxicity (Heparin, Nitro, Insulin, Cardizem)? @ -No Were any procedures done? @ -No Diagnosis/symptom? Acute, or Chronic, or Acute on Chronic? Uncomplicated (without systemic symptoms) or Complicated (systemic symptoms)? @ -1. Acute uncomplicated dyspnea, no high-risk features, 2. Homelessness Side effects of treatment? @ -No Exacerbation, Progression, or Severe Exacerbation? @ -No Poses a threat to life or bodily function? How? (Chest pain, USA, [place], pneumonia, PE, COPD, DKA, ARF, appy, cholecystitis, CVA, Diverticulitis, Homicidal, Suicidal, threat to staff... and all critical care pts) @ -No - Related Data Home Medications Medication Instructions Recorded Confirmed Collagenase [Santyl Ointment] 1 applic TOPICAL HS 09/12/22 09/12/22 Famotidine [Pepcid] 20 mg PO BID@0600,209909/12/22 09/12/22 Folic Acid 1 mg PO DAILY@0900 09/12/22 09/12/22 Furosemide [Lasix] 20 mg PO DAILY@0609/12/22 09/12/22 HYDROcodone/APAP 10-325MG [[place] 1 tab PO Q6H PRN 09/12/22 09/12/22 10-325] Lactose-Reduced Food [Ensure Plus] 1 can PO BID@0900,1700 09/12/22 09/12/22 Losartan [Cozaar] 12.5 mg PO HS@209909/12/22 09/12/22 Nicotine 21Mg/24Hr Patch [Habitrol] 1 patch TRANSDERM DAILY@0600 09/12/22 09/12/22 Pregabalin [Lyrica] 100 mg PO BID@0900,209909/12/22 09/12/22 QUEtiapine [SEROquel] 25 mg PO HS@209909/12/22 09/12/22 carvediloL [Coreg] 3.125 mg PO BID@0900,1700 09/12/22 09/12/22 oxyCODONE ER [OxyCONTIN] 10 mg PO BID@0900,2100 09/12/22 09/12/22 Previous Rx's Medication Instructions Recorded Acetaminophen Tab [Tylenol] 650 mg PO Q6HR PRN tab 07/26/22 Allergies Allergy/AdvReac Type Severity Reaction Status Date / Time No Known Allergies Allergy Verified 09/28/22 22:45 Review of Systems ROS Statement: Those systems with pertinent positive or pertinent negative responses have been documented in the HPI. ROS Other: All systems not noted in ROS Statement are negative. 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 Past Anesthesia/Blood Transfusion Reactions: No Reported Reaction Past Psychological History: No Psychological Hx Reported Smoking Status: Current every day smoker Past Alcohol Use History: None Reported Past Drug Use History: Marijuana - Past Family History Father Additional Family Medical History / Comment(s): Overdose General Exam Limitations: no limitations Course Vital Signs 09/28/22 22:45 Temperature 98.3 F Pulse Rate 76 Respiratory 18 Rate Blood Pressure 123/77 O2 Sat by Pulse 97 Oximetry Disposition Clinical Impression: Homeless Disposition: HOME SELF-CARE Condition: Good Instructions (If sedation given, give patient instructions): Dyspnea (ED) Is patient prescribed a controlled substance at d/c from ED?: No Referrals: Nlel Field MD [Primary Care Provider] - 1-2 days Time of Disposition: 00:17
[2022-09-29 06:51] VITALS: BP 92/68; RESP 16
== END 2022-09-29 06:24 | disposition home or self-care (01) ==
LOC: EC 22:24
DX: F17.200 Nicotine dependence, unspecified, uncomplicated (principal); Z59.00 Homelessness unspecified; F12.90 Cannabis use, unspecified, uncomplicated
CPT/HCPCS: 99284

== ENCOUNTER 2022-09-29 11:19 | Inpatient (IN) | payer OTHER ==
[2022-09-29] MEDS ORDERED: SODIUM CHLORIDE 0.9% 1,000 ML IV STA (11:23)
[2022-09-29] MEDS ORDERED: ADENOSINE 3 MG/ML 2 ML VIAL IVP STA ×2 (11:26→11:32)
[2022-09-29 11:43] LABS: Basophils % (A) 0 %; Eosinophils # (A) 0.1 k/uL (0-0.7); Eosinophils % (A) 1 %; HCT 40.3 % (39.0-53.0); HGB 13.2 gm/dL (13.0-17.5); Lymphocytes % (A) 20 %; MCH 32.9 pg (25.0-35.0); MCHC 32.7 g/dL (31.0-37.0); MCV 100.5 fL (80.0-100.0); Macrocytosis Slight; Mean Platelet Volume 7.8; Monocytes # (A) 0.4 k/uL (0-1.0); Monocytes % (A) 4 %; Neutrophils # (A) 7.1 k/uL (1.3-7.7); Neutrophils % (A) 73 %; Platelet Count 267 k/uL (150-450); RBC 4.01 m/uL (4.30-5.90); RDW 14.4 % (11.5-15.5); WBC 9.8 k/uL (3.8-10.6)
[2022-09-29 11:55] LABS: Albumin 4.3 g/dL (3.5-5.0); Calcium 8.9 mg/dL (8.4-10.2); Magnesium 1.8 mg/dL (1.6-2.3); Potassium 4.4 mmol/L (3.5-5.1); Total Bilirubin 0.8 mg/dL (0.2-1.3); Total Protein 7.6 g/dL (6.3-8.2)
[2022-09-29 12:05] LABS: INR 1.1 (<1.2); Partial Thromboplastin Time 22.9 sec (22.0-30.0); Prothrombin Time 11.2 sec (9.0-12.0)
--- NOTE | 2022-09-29 12:33 | XR ---
EXAMINATION TYPE: XR chest 2V DATE OF EXAM: 09/29/2022 COMPARISON: 07/24/2022 HISTORY: 52-year-old male dysrhythmia TECHNIQUE: AP and lateral views FINDINGS: Heart borderline enlarged. Pericardial calcifications redemonstrated. Aorta and pulmonary vasculature within normal limits. Some strandy atelectasis in the lower lungs. No consolidation or pleural effus ion. IMPRESSION: Borderline heart size. Some inferior pericardial calcifications which may reflect sequela of prior pe ricarditis. Strandy atelectasis lower lungs. Otherwise, no acute process seen.
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
--- NOTE | 2022-09-29 13:55 | CT ---
EXAMINATION TYPE: CT chest angio for PE DATE OF EXAM: 09/29/2022 COMPARISON: 12/06/2021 HISTORY: 52 year-old male shortness of breath, elevated d-dimer, OCTAVIO. Pt not able to raise arms. TECHNIQUE: Contiguous axial scanning of the chest performed with IV Contrast, patient injected with 1 00 mL of Isovue 370. Coronal/sagittal MIP reconstructions performed. CT DLP: 376.7 mGycm Automated exposure control for dose reduction was used. FINDINGS: Heart borderline enlarged. Redemonstrated some pericardial calcifications along the inferior half of the heart. No flattening of the interventricular septum. Minimal extension of contrast into the IVC. Ectatic aorta 3.9 cm. In short vessel branching anatomy. Ectatic upper descending thoracic aorta at 3 .4 cm. No progressive lymphadenopathy by CT size criteria. Mildly enlarged caliber to the main right and left pulmonary arteries measuring up to 2.8 cm. Satisfa ctory opacification of the pulmonary arterial system. There is some limitation due to breathing motio n. However, numerous subsegmental branch pulmonary emboli are noted within the left greater than righ t basilar lower lobes. [id number] diffuse bronchial wall thickening. Mild dependent atelectasis. No consolidation or p leural effusion. Suspect some minimal pleural-parenchymal scarring at the lateral left base, at the s ite of previous nodular density. Probably dependent atelectasis. No enlarging pulmonary nodules are s een. Visualized upper abdomen show some scattered pneumobilia. Correlate for interval sphincterotomy or bi liary procedure. Bones: Mild degenerative disc disease lower lumbar spine with a prominent anterior endplate spondylos is. IMPRESSION: 1. LIMITED BY BREATHING MOTION. HOWEVER, THE EXAM IS POSITIVE FOR NUMEROUS SUBSEGMENTAL AND MORE DIST AL BRANCH PULMONARY EMBOLI IN THE LEFT GREATER THAN RIGHT BASILAR LOWER LOBES. 2. Borderline cardiomegaly. Prominent scattered pericardial calcifications suggesting sequela of prio r pericarditis. There is pulmonary arterial hypertension. 3. Pneumobilia is a new finding in the interval. Correlate for interval biliary procedure or sphincte rotomy. 4. Musf-av-lojvgpjr diffuse bronchial wall thickening suggesting bronchitis or chronic asthma. Clinical findings called to Dr. Ring in the ER at 1:45 PM.
[2022-09-29] MEDS ORDERED: HEPARIN SOD,PORK IN 0.45% NACL 25,000 UNIT in 0.45% NACL 1 250ML.BAG IV SCH (14:00)
[2022-09-29] MEDS ORDERED: HEPARIN SODIUM 1,000 UN/ML (10ML VL) IV ONE (14:03)
[2022-09-29] MEDS: HEPARIN SOD,PORK IN 0.45% NACL 25,000 UNIT in 0.45% NACL 1 250ML.BAG IV SCH (14:17)
--- NOTE | 2022-09-29 18:23 | P.GSCN ---
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 Patient was seen in the ER and evaluated. He underwent CT PE protocol and was found to have bilateral subsegmental pulmonary embolisms. Per the ER he was tachycardic in the 200's prior to arrival. He denies any fevers, chills, chest pain, dizziness, lightheadedness, nausea, vomiting or diarrhea. Review of Systems All systems: negative (what is mentioned in the PMH or HPI) Past Medical History Past Medical History: No Reported History Additional Past Medical History / Comment(s): Left leg cellulitis History of Any Multi-Drug Resistant Organisms: None Reported Past Surgical History: No Surgical Hx Reported Additional Past Surgical History / Comment(s): amputation of toes on both feet. Past Anesthesia/Blood Transfusion Reactions: No Reported Reaction Past Psychological History: No Psychological Hx Reported Smoking Status: Current every day smoker Past Alcohol Use History: None Reported Past Drug Use History: Marijuana - Past Family History Father Additional Family Medical History / Comment(s): Overdose Medications and Allergies Home Medications Medication Instructions Recorded Confirmed Type HYDROcodone/APAP 10-325MG [[place] 1 tab PO DAILY PRN 09/12/22 09/29/22 History 10-325] oxyCODONE ER [OxyCONTIN] 10 mg PO DAILY PRN 09/12/22 09/29/22 History Allergies Allergy/AdvReac Type Severity Reaction Status Date / Time No Known Allergies Allergy Verified 09/28/22 22:45 Surgical - Exam Vital Signs Pulse Resp BP Pulse Ox 200 H 20 79/57 94 L 09/29/22 11:22 09/29/22 11:22 09/29/22 11:22 09/29/22 11:22 - General well developed, no distress, cachectic - Eyes PERRL - ENT normal pinna, normal nares - Neck no masses, no bruits - Respiratory normal expansion, normal respiratory effort - Cardiovascular Rhythm: regular - Abdomen Abdomen: soft, non tender - Neurologic normal sensation - Psychiatric oriented to time, oriented to person, oriented to place, speech is normal palpable DP pulses bilaterally Bilateral transmetatarsal amputations Results - Labs 09/29/22 11:32 09/29/22 11:32 Abnormal Lab Results - Last 24 Hours (Table) 09/29/22 09/29/22 09/29/22 Range/Units 11:32 11:32 11:32 RBC 4.01 L (4.30-5.90) m/uL MCV 100.5 H (80.0-100.0) fL D-Dimer 2.74 H (<0.60) mg/L FEU Carbon Dioxide 19 L (22-30) mmol/L BUN 26 H (9-20) mg/dL Glucose 160 H (74-99) mg/dL Alkaline Phosphatase 181 H (38-126) U/L Troponin I (0.000-0.034) ng/mL 09/29/22 09/29/22 Range/Units 11: 15:03 RBC (4.30-5.90) m/uL MCV (80.0-100.0) fL D-Dimer (<0.60) mg/L FEU Carbon Dioxide (22-30) mmol/L BUN (9-20) mg/dL Glucose (74-99) mg/dL Alkaline Phosphatase (38-126) U/L Troponin I 0.039 H* 0.240 H* (0.000-0.034) ng/mL Diabetes panel 09/29/22 Range/Units 11:32 Sodium 138 (137-145) mmol/L Potassium 4.4 (3.5-5.1) mmol/L Chloride 105 (98-107) mmol/L Carbon Dioxide 19 L (22-30) mmol/L BUN 26 H (9-20) mg/dL Creatinine 1.19 (0.66-1.25) mg/dL Glucose 160 H (74-99) mg/dL Calcium 8.9 (8.4-10.2) mg/dL AST 47 (17-59) U/L ALT 28 (4-49) U/L Alkaline Phosphatase 181 H (38-126) U/L Total Protein 7.6 (6.3-8.2) g/dL Albumin 4.3 (3.5-5.0) g/dL Thyroid panel 09/29/22 Range/Units 11:32 TSH 3.110 (0.465-4.680) mIU/L Calcium panel 09/29/22 Range/Units 11:32 Calcium 8.9 (8.4-10.2) mg/dL Albumin 4.3 (3.5-5.0) g/dL Pituitary panel 09/29/22 Range/Units 11:32 Sodium 138 (137-145) mmol/L Potassium 4.4 (3.5-5.1) mmol/L Chloride 105 (98-107) mmol/L Carbon Dioxide 19 L (22-30) mmol/L BUN 26 H (9-20) mg/dL Creatinine 1.19 (0.66-1.25) mg/dL Glucose 160 H (74-99) mg/dL Calcium 8.9 (8.4-10.2) mg/dL TSH 3.110 (0.465-4.680) mIU/L Adrenal panel 09/29/22 Range/Units 11:32 Sodium 138 (137-145) mmol/L Potassium 4.4 (3.5-5.1) mmol/L Chloride 105 (98-107) mmol/L Carbon Dioxide 19 L (22-30) mmol/L BUN 26 H (9-20) mg/dL Creatinine 1.19 (0.66-1.25) mg/dL Glucose 160 H (74-99) mg/dL Calcium 8.9 (8.4-10.2) mg/dL Total Bilirubin 0.8 (0.2-1.3) mg/dL AST 47 (17-59) U/L ALT 28 (4-49) U/L Alkaline Phosphatase 181 H (38-126) U/L Total Protein 7.6 (6.3-8.2) g/dL Albumin 4.3 (3.5-5.0) g/dL - Imaging CT scan - chest: image reviewed Assessment and Plan Assessment: Bilateral pulmonary embolism SVT History of bilateral transmetatarsal amputations Homeless Plan: Discussed with ER- Dr. Ring- agree with admission. Reviewed the CT PE independently- distal thrombus noted- mild. Agree with heparin drip and ECHO in am. Doubt any surgical intervention will be required. Thank you for the consultation.
--- NOTE | 2022-09-29 19:15 | US ---
EXAMINATION TYPE: US venous doppler duplex LE BI DATE OF EXAM: 09/29/2022 7:08 PM COMPARISON: 04/06/2020 leg ultrasound CLINICAL HISTORY: Bilateral foot pain. SIDE PERFORMED: Bilateral TECHNIQUE: The lower extremity deep venous system is examined utilizing real time linear array sonog ministerio with graded compression, doppler sonography and color-flow sonography. VESSELS IMAGED: Common Femoral Vein Deep Femoral Vein Greater Saphenous Vein * Femoral Vein Popliteal Vein Small Saphenous Vein * Proximal Calf Veins (* superficial vessels) Right Leg: Positive for DVT in the posterior tibial vein proximal to mid calf. Left Leg: Negative for DVT IMPRESSION: No evidence of deep vein thrombosis in the left leg. There is evidence of right side acute deep vein thrombosis in the posterior tibial vein in the calf.
[2022-09-30] MEDS ORDERED: ACETAMINOPHEN TAB 500 MG TAB PO PRN (00:21)
--- NOTE | 2022-09-30 00:21 | P.HPIM ---
History of Present Illness H&P Date: 09/29/22 Chief Complaint: Difficulty in breathing Patient is a 52-year-old male with a known history of right metatarsal amputation on 07/29/2022 due to frostbite, recent admission with hepatitis and found to have mass or neoplasm near the level of the distal CBD as per MRCP and was transferred to tertiary care facility on 09/14/2022, currently homeless was brought to the hospital by EMS due to complaints of difficulty in breathing. EMS was called due to difficulty in breathing. Patient noted to be tachycardic with heart rate greater than 200 when EMS arrived to the scene.. Otherwise patient denies any complaints of chest pain or palpitations. Patient was brought to the hospital immediately. Patient is somewhat poor historian. Denies any complaints of dizziness or lightheadedness. No complaints of abdominal pain. No nausea vomiting or diarrhea. Denies any leg swelling or pain. Laboratory data showed WBC 9.8 hemoglobin 13.2 and platelets 267 D-dimer level is 2.74 Sodium 138 potassium 4.4 chloride 105 bicarb is 19 BUN 26 and creatinine 1.19 and blood sugar is 160 Alk phos 181 Troponin 0.039, 0.240 and 0.272 TSH level is 3.11 Chest x-ray showed borderline heart size. Some inferior pericardial calcification and Paraflex sequelae of prior pericarditis. Strandy atelectasis lower lungs. Otherwise no acute process seen. EKG showed sinus rhythm with occasional supraventricular premature complexes. CTA chest showed limited to breathing motion. However the exam is positive for numerous subsegmental and more distal branch pulmonary emboli in the left greater than right basilar lower lobes. Borderline cardiomegaly. Prominent discard pericardial calcification suggesting sequela of prior pericarditis. There is pulmonary arterial hypertension. Pneumobilia is a new finding in the interval. Correlate for interval biliary procedure sphincterectomy. Mild to moderate diffuse bronchial wall thickening suggesting bronchitis or chronic asthma. Review of Systems Complete review of systems could not be obtained from the patient except as per HPI ROS unobtainable: due to mental status Past Medical History Past Medical History: No Reported History Additional Past Medical History / Comment(s): Left leg cellulitis History of Any Multi-Drug Resistant Organisms: None Reported Past Surgical History: No Surgical Hx Reported Additional Past Surgical History / Comment(s): amputation of toes on both feet. Past Anesthesia/Blood Transfusion Reactions: No Reported Reaction Past Psychological History: No Psychological Hx Reported Smoking Status: Current every day smoker Past Alcohol Use History: None Reported Past Drug Use History: Marijuana - Past Family History Father Additional Family Medical History / Comment(s): Overdose Medications and Allergies Home Medications Medication Instructions Recorded Confirmed Type HYDROcodone/APAP 10-325MG [[place] 1 tab PO DAILY PRN 09/12/22 09/29/22 History 10-325] oxyCODONE ER [OxyCONTIN] 10 mg PO DAILY PRN 09/12/22 09/29/22 History Allergies Allergy/AdvReac Type Severity Reaction Status Date / Time No Known Allergies Allergy Verified 09/28/22 22:45 Physical Exam Vitals: Vital Signs Temp Pulse Resp BP Pulse Ox 09/29/22 14:10 98.7 F 75 18 103/80 100 09/29/22 13:42 79 18 101/67 100 09/29/22 12:06 96.1 F L 09/29/22 11:33 85 18 90/61 100 09/29/22 11:22 200 H 20 79/57 94 L Intake and Output 09/28/22 09/29/22 09/29/22 22:59 06:59 14:59 Other: Weight 99.79 kg PHYSICAL EXAMINATION: Patient is lying in the bed comfortably, no acute distress, awake alert and oriented. Lethargic and drowsy.. HEENT: Normocephalic. Neck is supple. Pupils reactive. Nostrils clear. Oral cavity is moist. Neck reveals no JVD, carotid bruits, or thyromegaly. CHEST EXAMINATION: Trachea is central. Symmetrical expansion. Lung macias clear to auscultation and percussion. CARDIAC: Normal S1, S2 with no gallops. No murmurs ABDOMEN: Soft. Bowel sounds present. Nontender. No organomegaly. No abdominal bruits. Extremities: reveal no edema. Bilateral transmetatarsal amputation. Wound is dressed on the right metatarsal amputation site. No clubbing or cyanosis Neurologically awake, alert, oriented x2-3 with well-coordinated movements. No gross focal deficits noted Skin: No rash or skin lesions. Psychiatric: Coperative. Could not be assessed completely l, Musculoskeletal: No joint swelling or deformity. Normal range of motion. Results CBC & Chem 7: 09/29/22 11:32 09/29/22 11:32 Labs: Abnormal Lab Results - Last 24 Hours (Table) 09/29/22 09/29/22 09/29/22 Range/Units 11:32 11:32 11:32 RBC 4.01 L (4.30-5.90) m/uL MCV 100.5 H (80.0-100.0) fL D-Dimer 2.74 H (<0.60) mg/L FEU Carbon Dioxide 19 L (22-30) mmol/L BUN 26 H (9-20) mg/dL Glucose 160 H (74-99) mg/dL Alkaline Phosphatase 181 H (38-126) U/L Troponin I (0.000-0.034) ng/mL 09/29/22 Range/Units 11:32 RBC (4.30-5.90) m/uL MCV (80.0-100.0) fL D-Dimer (<0.60) mg/L FEU Carbon Dioxide (22-30) mmol/L BUN (9-20) mg/dL Glucose (74-99) mg/dL Alkaline Phosphatase (38-126) U/L Troponin I 0.039 H* (0.000-0.034) ng/mL Thrombosis Risk Factor Assmnt - DVT/VTE Prophylaxis DVT/VTE Prophylaxis: Pharmacologic Prophylaxis ordered Assessment and Plan Assessment: Acute bilateral numerous subsegmental pulmonary emboli left greater than right. History of right transmetatarsal amputation due to frostbite on 07/29/2022 Elevated troponin level. Alert right ventricular strain. Recent admission with hepatitis and found to have mass near the level of the distal CBD. Transferred to patient care facility and status post ERCP. Detailed report not available. Chronic pain Currently homeless Pulmonary hypertension as per CTA chest Prior history of pericarditis as per CTA chest GI prophylaxis with Pepcid 20 twice daily Plan: Patient was started on heparin drip and continue telemetry monitoring. Lower extremity duplex scan was ordered. 2D echocardiogram to rule out right ventricular strain. Vascular surgery was consulted. Cardiology consulted and follow-up closely. Time with Patient: Greater than 30
[2022-09-30 02:09] LABS: Amphetamine Screen,Urine Not Detected (NotDetected); Barbiturate Screen,Urine Not Detected (NotDetected); Benzodiazepines Screen,Urine Not Detected (NotDetected); Cocaine Screen,Urine Not Detected (NotDetected); Methadone Screen, Urine Not Detected (NotDetected); Opiate Screen,Urine Not Detected (NotDetected); Oxycodone Screen, Urine Not Detected (NotDetected); Phencyclidine Screen,Urine Not Detected (NotDetected); Tricyclic Antidepressant,Urine Not Detected (NotDetected); Urn Cannabinoid Scrn Detected (NotDetected)
[2022-09-30] MEDS: HEPARIN SOD,PORK IN 0.45% NACL 25,000 UNIT in 0.45% NACL 1 250ML.BAG IV SCH ×2 (05:07→19:58)
[2022-09-30 06:47] LABS: Basophils % (A) 1 %; Eosinophils # (A) 0.2 k/uL (0-0.7); Eosinophils % (A) 5 %; HCT 32.5 % (39.0-53.0); HGB 11.1 gm/dL (13.0-17.5); Lymphocytes # (A) 1.8 k/uL (1.0-4.8); Lymphocytes % (A) 44 %; MCH 33.9 pg (25.0-35.0); MCHC 34.2 g/dL (31.0-37.0); MCV 99.1 fL (80.0-100.0); Macrocytosis Slight; Mean Platelet Volume 8.1; Monocytes # (A) 0.2 k/uL (0-1.0); Monocytes % (A) 5 %; Neutrophils # (A) 1.9 k/uL (1.3-7.7); Neutrophils % (A) 44 %; Platelet Count 166 k/uL (150-450); RBC 3.28 m/uL (4.30-5.90); RDW 14.5 % (11.5-15.5); WBC 4.2 k/uL (3.8-10.6)
[2022-09-30 08:25] LABS: African American GFR (CKD) >90 (>60 ml/min/1.73 sqM); Anion Gap 8 mmol/L; Blood Urea Nitrogen 18 mg/dL (9-20); Calcium 7.9 mg/dL (8.4-10.2); Carbon Dioxide 19 mmol/L (22-30); Chloride 110 mmol/L (98-107); Glucose 83 mg/dL (74-99); Non-African American GFR(CKD) >90 (>60 ml/min/1.73 sqM); Potassium 3.6 mmol/L (3.5-5.1); Sodium 137 mmol/L (137-145)
[2022-09-30] MEDS: FAMOTIDINE 20 MG TAB PO SCH ×2 (08:35→19:57)
[2022-09-30] MEDS ORDERED: ASPIRIN 325 MG TAB PO SCH (09:00)
--- NOTE | 2022-09-30 11:35 | P.CRDCN ---
History of Present Illness Consult date: 09/30/22 History of present illness: HISTORY OF PRESENT ILLNESS: This is a 52-year-old male with a past medical history significant for right metatarsal amputation due to frostbite, hepatitis, and mass near CBD in which he was transferred to tertiary care center on 09/14/2022. 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 We have been asked to see the patient in consultation for PE and SVT. Patient examined at the bedside. Patient presented to the ER with a chief complaint of SOB. Patient was found to have bilateral PE and was started on IV heparin. He was also found to have RLE DVT. Patient denies chest pain or pressure. He reports improvement in his shortness of breath. Patient was also found to be in SVT in the ER and received two doses of adenosine with conversion to sinus mechanism. * EKG reveals sinus mechanism. Repeat EKG reveals SVT with heart rate 198. * Chest CTA: Exam is positive for numerous subsegmental and more distal branch pulmonary emboli in the left greater than right basilar lower lobes. * Lower extremity Doppler: Positive for DVT in right leg * Laboratory data: WBC 4.2. Hemoglobin 11.1. Platelet count 166. Sodium 138. Potassium 4.4. BUN 26. Creatinine 1.19. Troponin 0.039. 0.240. 0.272. * Current home cardiac medications include none * Most recent echocardiogram obtained in July 2022 revealing ejection fracti on 35-40%, mild MR, mild TR REVIEW OF SYSTEMS: At the time of my exam: CONSTITUTIONAL: Denies fever or chills. HEENT: Denies blurred vision, vision changes, or eye pain. Denies hemoptysis CARDIOVASCULAR: Denies chest pain. Denies orthopnea. Denies PND. Denies palpi tations RESPIRATORY: Denies shortness of breath. GASTROINTESTINAL: Denies abdominal pain. Denies nausea or vomiting. HEMATOLOGIC: Denies bleeding disorders. GENITOURINARY: Denies any blood in urine. SKIN: Denies pruitis. Denies rash. PHYSICAL EXAM: VITAL SIGNS: Reviewed. GENERAL: Well-developed in no acute distress. HEENT: Head is normocephalic. Pupils are equal, round. Sclerae anicteric. Mucous membranes of the mouth are moist. Neck supple. No JVD or thyromegaly LUNGS: Respirations even and unlabored. Lungs essentially clear to auscultation bilaterally. HEART: Regular rate and rhythm. S1 and S2 heard. ABDOMEN: Soft. Nondistended. Nontender. EXTREMITIES: Normal range of motion. No clubbing or cyanosis. Peripheral pulses intact. No lower extremity edema NEUROLOGIC: Awake and alert. Oriented x 3. ASSESSMENT: Bilateral PE Right lower extremity DVT Cardiomyopathy, EF 35-40%, etiology unclear SVT, converted to SR with adenosine x 2 doses Elevated troponins History of right metatarsal amputation secondary to frostbite and gangrene Occasional marijuana use Occasional smoking PLAN: Obtain 2D echo to assess cardiac structure and function Continue IV heparin. Will transition to oral anticoagulation tomorrow. Consult social work as patient is homeless Consult pulmonary for evaluation Further recommendations pending patient course Nurse practitioner note has been reviewed by physician. Signing provider agrees with the documented findings, assessment, and plan of care. 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 Past Anesthesia/Blood Transfusion Reactions: No Reported Reaction Past Psychological History: No Psychological Hx Reported Smoking Status: Current every day smoker Past Alcohol Use History: None Reported Past Drug Use History: Marijuana - Past Family History Father Additional Family Medical History / Comment(s): Overdose Medications and Allergies Home Medications Medication Instructions Recorded Confirmed Type HYDROcodone/APAP 10-325MG [[place] 1 tab PO DAILY PRN 09/12/22 09/29/22 History 10-325] oxyCODONE ER [OxyCONTIN] 10 mg PO DAILY PRN 09/12/22 09/29/22 History Allergies Allergy/AdvReac Type Severity Reaction Status Date / Time No Known Allergies Allergy Verified 09/28/22 22:45 Physical Exam Vitals: Vital Signs Temp Pulse Pulse Resp BP BP Pulse Ox 09/30/22 03:45 97.8 F 65 17 103/54 98 09/30/22 02:00 16 09/30/22 00:00 97.9 F 98 18 108/68 99 09/29/22 20:00 70 16 110/71 09/29/22 18:27 73 18 112/79 97 09/29/22 17:05 77 18 100/79 97 09/29/22 16:00 78 18 115/95 96 09/29/22 15:00 82 18 126/64 98 09/29/22 14:10 98.7 F 75 18 103/80 100 09/29/22 13:42 79 18 101/67 100 09/29/22 12:06 96.1 F L 09/29/22 11:33 85 18 90/61 100 09/29/22 11:22 200 H 20 79/57 94 L Intake and Output 09/29/22 09/30/22 09/30/22 22:59 06:59 14:59 Intake Total 250 36.523 Output Total 400 Balance -150 36.523 Intake: Intake, IV Titration 250 36.523 Amount Heparin Sod,Pork in 0.45% 250 36.523 NaCl 25,000 unit In 0.45 % NaCl 1 250ml.bag @ 18 UNITS/KG/HR 17.962 mls/hr IV .[id number] [facility] Rx#: [id number] Output: Urine 400 Other: Voiding Method Urinal Urinal Weight 99.79 kg Results 09/30/22 06:16 09/30/22 06:16 Cardiac Enzymes 09/29/22 09/29/22 09/29/22 Range/Units 11:32 11:32 15:03 AST 47 (17-59) U/L Troponin I 0.039 H* 0.240 H* (0.000-0.034) ng/mL 09/29/22 Range/Units 19:22 AST (17-59) U/L Troponin I 0.272 H* (0.000-0.034) ng/mL Coagulation 09/29/22 09/29/22 09/30/22 Range/Units 11:32 19:30 06:16 PT 11.2 (9.0-12.0) sec APTT 22.9 64.1 H 82.7 H (22.0-30.0) sec CBC 09/29/22 09/30/22 Range/Units 11:32 06:16 WBC 9.8 4.2 (3.8-10.6) k/uL RBC 4.01 L 3.28 L (4.30-5.90) m/uL Hgb 13.2 11.1 L (13.0-17.5) gm/dL Hct 40.3 32.5 L (39.0-53.0) % Plt Count 267 166 (150-450) k/uL Comprehensive Metabolic Panel 09/29/22 Range/Units 11:32 Sodium 138 (137-145) mmol/L Potassium 4.4 (3.5-5.1) mmol/L Chloride 105 (98-107) mmol/L Carbon Dioxide 19 L (22-30) mmol/L BUN 26 H (9-20) mg/dL Creatinine 1.19 (0.66-1.25) mg/dL Glucose 160 H (74-99) mg/dL Calcium 8.9 (8.4-10.2) mg/dL AST 47 (17-59) U/L ALT 28 (4-49) U/L Alkaline Phosphatase 181 H (38-126) U/L Total Protein 7.6 (6.3-8.2) g/dL Albumin 4.3 (3.5-5.0) g/dL Current Medications Generic Name Dose Route Start Last Admin Trade Name Freq PRN Reason Stop Dose Admin Acetaminophen 500 mg 09/30/22 00:21 Acetaminophen Tab 500 Mg Tab PO Q6HR PRN Fever and/ or Pain Aspirin 325 mg 09/30/22 09:00 Aspirin 325 Mg Tab PO DAILY DEBI Famotidine 20 mg 09/30/22 09:00 Famotidine 20 Mg Tab PO BID [facility] Heparin Sodium/Sodium Chloride 250 mls @ 17.962 mls/hr 09/29/22 14:15 09/30/22 07:09 25,000 unit/ Sodium Chloride IV 16 units/kg/hr .[id number] [facility] 15.966 mls/hr Titration Protocol 18 UNITS/KG/HR Intake and Output 09/29/22 09/30/22 09/30/22 22:59 06:59 14:59 Intake Total 250 36.523 Output Total 400 Balance -150 36.523 Intake: Intake, IV Titration 250 36.523 Amount Heparin Sod,Pork in 0.45% 250 36.523 NaCl 25,000 unit In 0.45 % NaCl 1 250ml.bag @ 18 UNITS/KG/HR 17.962 mls/hr IV .[id number] [facility] Rx#: [id number] Output: Urine 400 Other: Voiding Method Urinal Urinal Weight 99.79 kg 09/30/22 06:16 09/29/22 11:32
--- NOTE | 2022-09-30 11:39 | P.PN ---
Subjective Progress Note Date: 09/30/22 Principal diagnosis: Pulmonary embolism Patient was seen and examined today as a follow-up for pulmonary embolism. He has a history of bilateral total gangrene with previous TMA. Yesterday he underwent venous duplex home and was positive for DVT in the posterior tibial vein proximal to midcalf. He remains on IV heparin drip. He states he underwent his echocardiogram however it is pending results. Denies any significant shortness of breath or chest pain at this time. Objective - Vital Signs Vital signs: Vital Signs Temp 97.6 F 09/30/22 08:30 Pulse 52 L 09/30/22 09:15 Resp 18 09/30/22 09:15 BP 107/68 09/30/22 08:30 Pulse Ox 97 09/30/22 08:30 FiO2 Intake & Output 09/29/22 09/30/22 09/30/22 18:59 06:59 18:59 Intake Total 250 36.523 Output Total 400 300 Balance -150 -263.477 Weight 99.79 kg Intake: Intake, IV Titration 250 36.523 Amount Heparin Sod,Pork in 0.45% 250 36.523 NaCl 25,000 unit In 0.45 % NaCl 1 250ml.bag @ 18 UNITS/KG/HR 17.962 mls/hr IV .[id number] [facility] Rx#: [id number] Output: Urine 400 300 Other: Voiding Method Urinal Urinal - Exam General appearance: The patient is alert, oriented, appears in no acute distress. HET: Head is normocephalic and atraumatic. Pupils are equal and reactive. Neck: Supple. Heart: Regular. Lungs: Equal expansion, normal respiratory effort. Abdomen: Soft, nontender, nondistended. Extremities: Bilateral transmetatarsal amputations, palpable DP pulses bilaterally. Neurological: No focal deficits. Strength and sensation are grossly intact. - Labs CBC & Chem 7: 09/30/22 06:16 09/30/22 06:16 Labs: Abnormal Lab Results - Last 24 Hours (Table) 09/29/22 09/29/22 09/29/22 Range/Units 11:32 11:32 11:32 RBC 4.01 L (4.30-5.90) m/uL Hgb (13.0-17.5) gm/dL Hct (39.0-53.0) % MCV 100.5 H (80.0-100.0) fL APTT (22.0-30.0) sec D-Dimer 2.74 H (<0.60) mg/L FEU Chloride (98-107) mmol/L Carbon Dioxide 19 L (22-30) mmol/L BUN 26 H (9-20) mg/dL Glucose 160 H (74-99) mg/dL Calcium (8.4-10.2) mg/dL Alkaline Phosphatase 181 H (38-126) U/L Troponin I (0.000-0.034) ng/mL U Marijuana (THC) Screen (NotDetected) 09/29/22 09/29/22 09/29/22 Range/Units 11:32 15:03 19:22 RBC (4.30-5.90) m/uL Hgb (13.0-17.5) gm/dL Hct (39.0-53.0) % MCV (80.0-100.0) fL APTT (22.0-30.0) sec D-Dimer (<0.60) mg/L FEU Chloride (98-107) mmol/L Carbon Dioxide (22-30) mmol/L BUN (9-20) mg/dL Glucose (74-99) mg/dL Calcium (8.4-10.2) mg/dL Alkaline Phosphatase (38-126) U/L Troponin I 0.039 H* 0.240 H* 0.272 H* (0.000-0.034) ng/mL U Marijuana (THC) Screen (NotDetected) 09/29/22 09/30/22 09/30/22 Range/Units 19:30 00:58 06:16 RBC (4.30-5.90) m/uL Hgb (13.0-17.5) gm/dL Hct (39.0-53.0) % MCV (80.0-100.0) fL APTT 64.1 H (22.0-30.0) sec D-Dimer (<0.60) mg/L FEU Chloride 110 H (98-107) mmol/L Carbon Dioxide 19 L (22-30) mmol/L BUN (9-20) mg/dL Glucose (74-99) mg/dL Calcium 7.9 L (8.4-10.2) mg/dL Alkaline Phosphatase (38-126) U/L Troponin I (0.000-0.034) ng/mL U Marijuana (THC) Screen Detected H (NotDetected) 09/30/22 09/30/22 Range/Units 06:16 06:16 RBC 3.28 L (4.30-5.90) m/uL Hgb 11.1 L (13.0-17.5) gm/dL Hct 32.5 L (39.0-53.0) % MCV (80.0-100.0) fL APTT 82.7 H (22.0-30.0) sec D-Dimer (<0.60) mg/L FEU Chloride (98-107) mmol/L Carbon Dioxide (22-30) mmol/L BUN (9-20) mg/dL Glucose (74-99) mg/dL Calcium (8.4-10.2) mg/dL Alkaline Phosphatase (38-126) U/L Troponin I (0.000-0.034) ng/mL U Marijuana (THC) Screen (NotDetected) Assessment and Plan Assessment: 1. Bilateral pulmonary embolism 2. SVT 3. History of bilateral transmetatarsal amputations 4. Homeless Plan: 1. Continue heparin drip for now 2. Await echocardiogram results 3. Continue medical management 4. Further recommendations forthcoming based on clinical course, however unlikely any vascular surgical intervention will be required. Thank you for this consultation. The impression and plan of care has been dictated as directed. I performed a history and examination of this patient, discussed the same with the dictator. I agree with the dictator's note ,documented as a scribe. Any additional findings or plans will be noted.
--- NOTE | 2022-09-30 11:49 | PN ---
PROGRESS NOTE DATE OF SERVICE: 09/30/2022 SUBJECTIVE: This is a 52-year-old gentleman admitted with shortness of breath and acute bilateral pulmonary embolism. The patient also had a history of recent surgery. No chest pain. No palpitations. No fever. The patient was apparently homeless previously. OBJECTIVE: VITAL SIGNS: Pulse is 52, blood pressure 106/60, respirations 18. CHEST: A few scattered rhonchi. ABDOMEN: Soft. NERVOUS SYSTEM: Diffusely weak. LABORATORY DATA: Reviewed. ASSESSMENT: 1. Acute bilateral pneumonia, subsegmental pulmonary emboli, left more than the right. 2. History of recent right transmetatarsal amputation. 3. Elevated troponin level with possible right ventricular strain. 4. Recent admission with hepatitis with mass near the level of distal CBD, status post endoscopic retrograde cholangiopancreatography. 5. Chronic pain. 6. Homelessness. 7. Pulmonary hypertension. 8. Multiple medical issues. RECOMMENDATIONS: Recommended to continue current medications and continue symptomatic treatment. Otherwise, we will follow the patient closely with Pulmonology, Cardiology as well as Vascular Surgery. Repeat labs. Resume the home medications. Guarded prognosis. Further recommendations to follow. See orders for details. The patient is on IV heparin and anticoagulation. MMODL / IJN: [id number] /
[2022-09-30] MEDS: predniSONE 20 MG TAB PO SCH (14:59)
--- NOTE | 2022-09-30 15:15 | P.CNPUL ---
History of Present Illness Consult date: 09/30/22 Requesting physician: Cherie Wen Reason for consult: dyspnea, COPD, hypoxemia, pulmonary embolism, DVT, abnormal CXR/CT Chief complaint: Shortness of breath. History of present illness: Pulmonary consult dated 09/30/2022. This is a 52-year-old male seen in the emergency department, on September 29. He came into the emergency room complaining of shortness of breath. It apparently been going on for a couple days or so prior to admission. The patient is apparently homeless. The patient was also found to have a rapid heartbeat of about 200 bpm. The patient denied any chest pain or chest discomfort. He denied any fever, chills, cough, or phlegm production. He was evaluated in the emergency department, and found to have pulmonary embolism, and DVT. He also was admitted with a diagnosis of COPD exacerbation from chronic tobacco use. We are asked to see him by cardiology. He has a history of chronic tobacco use, marijuana use, amputation of toes on both feet, and left leg cellulitis. The patient's chest x-ray showed mild cardiomegaly, some atelectasis in the lower lung zones, but nothing acute. Venous Doppler showed DVT in the right posterior tibial vein. CT angiogram showed numerous subsegmental and more distal branches pulmonary emboli, in the bilateral lower lung zones, left greater than right. White count was 4.2, hemoglobin 11.1, hematocrit 32.5, with a normal platelet count. PTT was 62.2. He's currently on IV heparin. Sodium 137, potassium 3.6, chlorides 110, CO2 19, BUN 18, and creatinine 0.70. His drug screen was positive for marijuana. His troponin level was 0.272. Review of Systems REVIEW OF SYSTEMS: CONSTITUTIONAL: [Negative.] NEUROLOGIC: [ Negative.] HEENT: [ Negative.] CARDIAC: Rapid heartbeat. PULMONARY: Shortness of breath. GI: [Negative.] : [Negative.] RHEUMATOLOGIC: [ Negative.] IMMUNOLOGIC: [ Negative.] ENDOCRINE: [Negative. ] DERMATOLOGIC: [Negative.] Past Medical History Past Medical History: No Reported History Additional Past Medical History / Comment(s): Left leg cellulitis History of Any Multi-Drug Resistant Organisms: None Reported Past Surgical History: No Surgical Hx Reported Additional Past Surgical History / Comment(s): amputation of toes on both feet. Past Anesthesia/Blood Transfusion Reactions: No Reported Reaction Past Psychological History: No Psychological Hx Reported Smoking Status: Current every day smoker Past Alcohol Use History: None Reported Past Drug Use History: Marijuana - Past Family History Father Additional Family Medical History / Comment(s): Overdose Medications and Allergies Home Medications Medication Instructions Recorded Confirmed Type HYDROcodone/APAP 10-325MG [[place] 1 tab PO DAILY PRN 09/12/22 09/29/22 History 10-325] oxyCODONE ER [OxyCONTIN] 10 mg PO DAILY PRN 09/12/22 09/29/22 History Allergies Allergy/AdvReac Type Severity Reaction Status Date / Time No Known Allergies Allergy Verified 09/28/22 22:45 Physical Exam Osteopathic Statement: *. No significant issues noted on an osteopathic structural exam other than those noted in the History and Physical/Consult. Vitals: Vital Signs Temp Pulse Pulse Resp BP BP BP 09/30/22 15:01 67 18 09/30/22 11:45 67 18 100/69 09/30/22 09:15 52 L 18 09/30/22 08:30 97.6 F 52 L 18 107/68 09/30/22 03:45 97.8 F 65 17 103/54 09/30/22 02:00 16 09/30/22 00:00 97.9 F 98 18 108/68 09/29/22 20:00 70 16 110/71 09/29/22 18:27 73 18 112/79 09/29/22 17:05 77 18 100/79 09/29/22 16:00 78 18 115/95 Pulse Ox 09/30/22 15:01 09/30/22 11:45 98 09/30/22 09:15 09/30/22 08:30 97 09/30/22 03:45 98 09/30/22 02:00 09/30/22 00:00 99 09/29/22 20:00 09/29/22 18:27 97 09/29/22 17:05 97 09/29/22 16:00 96 Intake and Output 09/30/22 09/30/22 09/30/22 06:59 14:59 22:59 Intake Total 250 36.523 Output Total 400 800 Balance -150 -763.477 Intake: Intake, IV Titration 250 36.523 Amount Heparin Sod,Pork in 0.45% 250 36.523 NaCl 25,000 unit In 0.45 % NaCl 1 250ml.bag @ 18 UNITS/KG/HR 17.962 mls/hr IV .[id number] [facility] Rx#: [id number] Output: Urine 400 800 Other: Voiding Method Urinal Urinal Urinal No acute distress, oriented 3. Currently on room air, with saturations of 98%. HEENT examination is grossly unremarkable. Neck supple. Full range of motion. No adenopathy thyromegaly or neck vein distention. Cardiovascular examination reveals regular rhythm rate. S1-S2 normal. No S3 or S4. No discernible murmur noted. Heart rate 67 bpm. Lungs reveal scattered bilateral rhonchi, minimal expiratory wheezes. Breath sounds equal. No crackles. Abdomen soft bowel sounds are heard. No masses or tenderness. Extremities are intact. No cyanosis clubbing or edema. Skin is without rash or lesion. Neurologic examination is brief but nonfocal. Results - Laboratory Findings CBC and BMP: 09/30/22 06:16 09/30/22 06:16 PT/INR, D-dimer PT 11.2 sec (9.0-12.0) 09/29/22 11:32 INR 1.1 (<1.2) 09/29/22 11:32 D-Dimer 2.74 mg/L FEU (<0.60) H 09/29/22 11:32 Abnormal lab findings: Abnormal Labs 09/29/22 09/29/22 09/29/22 11:32 11:32 11:32 RBC 4.01 L Hgb Hct MCV 100.5 H APTT D-Dimer 2.74 H Chloride Carbon Dioxide 19 L BUN 26 H Glucose 160 H Calcium Alkaline Phosphatase 181 H Troponin I U Marijuana (THC) Screen 09/29/22 09/29/22 09/29/22 11:32 15:03 19:22 RBC Hgb Hct MCV APTT D-Dimer Chloride Carbon Dioxide BUN Glucose Calcium Alkaline Phosphatase Troponin I 0.039 H* 0.240 H* 0.272 H* U Marijuana (THC) Screen 09/29/22 09/30/22 09/30/22 19:30 00:58 06:16 RBC Hgb Hct MCV APTT 64.1 H D-Dimer Chloride 110 H Carbon Dioxide 19 L BUN Glucose Calcium 7.9 L Alkaline Phosphatase Troponin I U Marijuana (THC) Screen Detected H 09/30/22 09/30/22 09/30/22 06:16 06:16 12:22 RBC 3.28 L Hgb 11.1 L Hct 32.5 L MCV APTT 82.7 H 62.2 H D-Dimer Chloride Carbon Dioxide BUN Glucose Calcium Alkaline Phosphatase Troponin I U Marijuana (THC) Screen - Diagnostic Findings Chest x-ray: image reviewed CT scan - chest: image reviewed U/S of Legs: image reviewed Assessment and Plan Assessment: Acute shortness of breath, with tachycardia, multifactorial, in part related to bilateral lower lobe pulmonary emboli, as well as COPD exacerbation. History of right lower extremity DVT. History of COPD from chronic tobacco use. History of left lower extremity cellulitis. Status post amputation of the toes, both feet. History of chronic marijuana use. Plan: Plan dated 09/30/2022. The patient can be started on a oral medication for his DVT and pulmonary embolism. In addition, we added Symbicort, and prednisone to his regimen. We also added some albuterol. He is counseled about the importance of smoking cessation. His prognosis is guarded. He apparently is homeless, and I'm not sure if he has insurance to be able to afford a blood thinner. We will continue to follow as necessary. Time with Patient: Greater than 30
[2022-09-30 15:41] LABS: Chol/HDL Ratio 3.79 Ratio; LDL Cholesterol,Calculated 96.3 mg/dL (0.0-131.0); VLDL Calculation 14.88 mg/dL (5.00-40.00)
[2022-09-30] MEDS ORDERED: ALBUTEROL HFA INHALER INHALATION SCH (16:00)
[2022-09-30] MEDS: ALBUTEROL NEBULIZED 2.5 MG/3 ML INHALATION SCH ×2 (16:19→21:10)
--- NOTE | 2022-09-30 18:04 | CA ---
Transthoracic Echo Report Name: Obed Parikh Age: 52 Gender: M : 1970 Exam Date: 09/30/2022 14:00 Exam Location: [place] [facility] Ht (in): 73 Wt (lb): 150 Ordering Physician: Greg Ring MD Attending/Referring Phys: Account Information Clerk William Mcdaniels Procedure CPT: Indications: Pulmonary embolisms Cardiac Hx: CHF Technical Quality: Fair Contrast 1: Total Dose (mL): Contrast 2: Total Dose (mL): MEASUREMENTS (Male / Female) Normal Values 2D ECHO LV Diastolic Diameter PLAX 6.6 cm 4.2 - 5.9 / 3.9 - 5.3 cm LV Systolic Diameter PLAX 5.9 cm IVS Diastolic Thickness 1.3 cm 0.6 - 1.0 / 0.6 - 0.9 cm LVPW Diastolic Thickness 1.1 cm 0.6 - 1.0 / 0.6 - 0.9 cm LV Relative Wall Thickness 0.4 RV Internal Dim ED PLAX 2.8 cm LVOT Diameter 2.4 cm LA Systolic Diameter LX 4.8 cm 3.0 - 4.0 / 2.7 - 3.8 cm LV Diastolic Volume MOD BP 118.6 cm??? 67 - 155 / 56 - 104 cm??? LV Systolic Volume MOD BP 77.8 cm??? 22 - 58 / 19 - 49 cm??? LV Ejection Fraction MOD BP 34.4 % >= 55 % LV Diastolic Volume MOD 4C 118.4 cm??? LV Systolic Volume MOD 4C 71.8 cm??? LV Ejection Fraction MOD 4C 39.4 % LV Diastolic Length 4C 7.5 cm LV Systolic Length 4C 7.1 cm LV Diastolic Volume MOD 2C 116.8 cm??? LV Systolic Volume MOD 2C 82.5 cm??? LV Ejection Fraction MOD 2C 29.4 % LV Diastolic Length 2C 7.3 cm LV Systolic Length 2C 6.9 cm Ascending Aorta Diameter 2.2 cm M-MODE Aortic Root Diameter MM 3.4 cm LA Systolic Diameter MM 4.4 cm LA Ao Ratio MM 1.3 MV E Point Septal Separation 2.1 cm AV Cusp Separation MM 1.9 cm DOPPLER AV Peak Velocity 120.7 cm/s AV Peak Gradient 5.8 mmHg LVOT Peak Velocity 100.6 cm/s LVOT Peak Gradient 4.0 mmHg AV Area Cont Eq pk 3.9 cm??? MR Peak Velocity 403.8 cm/s MR Peak Gradient 65.2 mmHg Mitral E Point Velocity 38.0 cm/s Mitral A Point Velocity 36.0 cm/s Mitral E to A Ratio 1.1 MV Deceleration Time 126.1 ms MV E' Velocity 5.2 cm/s Mitral E to MV E' Ratio 7.3 Pulmonary Vein S/D Ratio 1.6 Pulmonary Vein A to Mitral A Rat 0.8 TR Peak Velocity 171.0 cm/s TR Peak Gradient 11.7 mmHg Right Ventricular Systolic Press 16.7 mmHg PV Peak Velocity 64.5 cm/s PV Peak Gradient 1.7 mmHg FINDINGS Left Ventricle Left ventricular ejection fraction is estimated at 30-35 %. Mild left ventricular dilatation. Borderline left ventricular hypertrophy. Grade 1 diastolic dysfunction. Global hypokinesis Right Ventricle Normal right ventricular size and function. Right Atrium Mild right atrial dilatation. Left Atrium Moderate left atrial dilatation. Mitral Valve Mitral valve thickened. [id number] mitral regurgitation. Aortic Valve Trileaflet aortic valve. No aortic valve stenosis or regurgitation. Tricuspid Valve Mild tricuspid regurgitation.structurally normal tricuspid valve. Pulmonic Valve Structurally normal pulmonic valve. Pericardium Normal pericardium. No pericardial effusion. Aorta Normal size aortic root and proximal ascending aorta. CONCLUSIONS 1. Severe global hypokinesis of the left ventricle with dilated left ventricle 2. Mild to moderate mitral was mild tricuspid regurgitation and no pulmonary hypertension. Previewed by: Dr. Kiersten Loaiza MD (Electronically Signed) Final Date: 30 September 2022 18:03
[2022-09-30] MEDS: SYMBICORT 160-4.5 MCG INHALER INHALATION SCH (21:09)
[2022-10-01] MEDS: HEPARIN SOD,PORK IN 0.45% NACL 25,000 UNIT in 0.45% NACL 1 250ML.BAG IV SCH
[2022-10-01] MEDS: FAMOTIDINE 20 MG TAB PO SCH ×2 (08:38→20:11)
[2022-10-01] MEDS: predniSONE 20 MG TAB PO SCH (08:39)
[2022-10-01] MEDS: RIVAROXABAN 15 MG TAB PO SCH ×2 (08:39→17:20)
--- NOTE | 2022-10-01 08:43 | P.PN ---
Subjective Progress Note Date: 10/01/22 Principal diagnosis: Pulmonary embolism Patient was seen and examined today as a follow-up for pulmonary embolism. He has a history of bilateral total gangrene with previous TMA. She currently still on heparin drip. Echocardiogram shows no evidence of right heart strain. Patient is without any acute distress. He denies any shortness of breath or chest pain. No abdominal pain, nausea or vomiting. Oxygen saturation 100% on room air. Objective - Vital Signs Vital signs: Vital Signs Temp 97.9 F 10/01/22 00:00 Pulse 65 10/01/22 04:00 Resp 17 10/01/22 04:00 BP 111/83 10/01/22 04:00 Pulse Ox 100 10/01/22 04:00 FiO2 Intake & Output 09/30/22 10/01/22 10/01/22 18:59 06:59 18:59 Intake Total 36.523 213.477 Output Total 1100 300 Balance -1063.477 213.477 -300 Intake: Intake, IV Titration 36.523 213.477 Amount Heparin Sod,Pork in 0.45% 36.523 213.477 NaCl 25,000 unit In 0.45 % NaCl 1 250ml.bag @ 18 UNITS/KG/HR 17.962 mls/hr IV .[id number] [facility] Rx#: [id number] Output: Urine 1100 300 Other: Voiding Method Urinal Urinal - Exam General appearance: The patient is alert, oriented, appears in no acute distress. HET: Head is normocephalic and atraumatic. Pupils are equal and reactive. Neck: Supple. Heart: Regular. Lungs: Equal expansion, normal respiratory effort. Abdomen: Soft, nontender, nondistended. Extremities: Bilateral transmetatarsal amputations, palpable DP pulses bilaterally. Neurological: No focal deficits. Strength and sensation are grossly intact. - Labs CBC & Chem 7: 09/30/22 06:16 09/30/22 06:16 Labs: Abnormal Lab Results - Last 24 Hours (Table) 09/30/22 09/30/22 Range/Units 06:16 12:22 APTT 62.2 H (22.0-30.0) sec HDL Cholesterol 39.80 L (40.00-60.00) mg/dL Assessment and Plan Assessment: 1. Bilateral pulmonary embolism 2. SVT 3. History of bilateral transmetatarsal amputations 4. Homeless Plan: 1. Transition to Xarelto and discontinue heparin drip. Prescription sent 2. Continue incentive spirometer 3. Echocardiogram reviewed, no evidence of right heart strain. No indication for any vascular surgical intervention 4. Patient is cleared for discharge from vascular surgery. Follow up in 2 weeks. Close follow-up with PCP. Thank you for this consultation, we will sign off at this time. The impression and plan of care has been dictated as directed. I performed a history and examination of this patient, discussed the same with the dictator. I agree with the dictator's note ,documented as a scribe. Any additional findings or plans will be noted.
[2022-10-01] MEDS: ALBUTEROL NEBULIZED 2.5 MG/3 ML INHALATION SCH ×4 (09:16→21:17)
[2022-10-01] MEDS: SYMBICORT 160-4.5 MCG INHALER INHALATION SCH ×2 (09:16→21:17)
[2022-10-01 10:41] LABS: Basophils % (A) 0 %; Eosinophils % (A) 1 %; HCT 33.4 % (39.0-53.0); HGB 11.1 gm/dL (13.0-17.5); Lymphocytes # (A) 1.5 k/uL (1.0-4.8); Lymphocytes % (A) 38 %; MCH 34.1 pg (25.0-35.0); MCHC 33.3 g/dL (31.0-37.0); MCV 102.2 fL (80.0-100.0); Macrocytosis Slight; Mean Platelet Volume 8.2; Monocytes # (A) 0.2 k/uL (0-1.0); Monocytes % (A) 5 %; Neutrophils # (A) 2.2 k/uL (1.3-7.7); Neutrophils % (A) 54 %; Platelet Count 190 k/uL (150-450); RBC 3.27 m/uL (4.30-5.90); RDW 14.4 % (11.5-15.5)
[2022-10-01 11:04] LABS: ALT 22 U/L (4-49); AST 28 U/L (17-59); African American GFR (CKD) >90 (>60 ml/min/1.73 sqM); Albumin 3.4 g/dL (3.5-5.0); Alkaline Phosphatase 126 U/L (38-126); Anion Gap 9 mmol/L; Blood Urea Nitrogen 16 mg/dL (9-20); Calcium 8.1 mg/dL (8.4-10.2); Carbon Dioxide 19 mmol/L (22-30); Chloride 109 mmol/L (98-107); Glucose 84 mg/dL (74-99); Non-African American GFR(CKD) >90 (>60 ml/min/1.73 sqM); Potassium 3.6 mmol/L (3.5-5.1); Sodium 137 mmol/L (137-145); Total Bilirubin 0.4 mg/dL (0.2-1.3); Total Protein 6.2 g/dL (6.3-8.2)
--- NOTE | 2022-10-01 12:33 | P.CONS ---
History of Present Illness - Reason for Consult Consult date: 10/01/22 PE/DVT Requesting physician: Jacqueline Teresa - Chief Complaint SOB - History of Present Illness Patient is a 52-year-old male who presented to the ER for shortness of breath. We were consulted for PE and DVT. Patient reports shortness of breath as been ongoing for the last couple days prior to admission. Upon admission the patient was also found to have a rapid heartbeat of about 200 bpm. Today pt reports improvement in breathing. He denies any chest pain or chest di scomfort. Denies fever, chills, and cough. Denies unintentional weight loss. Denies abdominal pain, melena, blood in stool, and n/v/d. CTA chest revealed numerous sub-segmental and distal branch pulmonary emboli in the left greater than the right basilar lower lobes. Doppler studies also showed positive DVT in the right lower extremity in the posterior tibial vein. Patient was initially started on heparin but is now on xarelto. Of note patient was seen earlier this month for elevated LFTs. CT abd/pelvis showed dilatation of extrahepatic and intrahepatic biliary system concerning for obstruction. MRCP revealed mild central intrahepatic and moderate extra hepatic biliary dilatation. Mass or neoplasm near level of the distal CBD needs to be considered. Patient was transferred to [facility] at that time for biliary stent. Patient is unsure if mass was identified during procedure or a biopsy was obtained. He states he was never told anything regarding a biopsy or cancer diagnosis. Review of Systems 10 point ROS is negative except as stated in HPI Past Medical History Past Medical History: No Reported History Additional Past Medical History / Comment(s): Left leg cellulitis History of Any Multi-Drug Resistant Organisms: None Reported Past Surgical History: No Surgical Hx Reported Additional Past Surgical History / Comment(s): amputation of toes on both feet. Past Anesthesia/Blood Transfusion Reactions: No Reported Reaction Past Psychological History: No Psychological Hx Reported Smoking Status: Current every day smoker Past Alcohol Use History: None Reported Past Drug Use History: Marijuana - Past Family History Father Additional Family Medical History / Comment(s): Overdose Medications and Allergies Home Medications Medication Instructions Recorded Confirmed Type HYDROcodone/APAP 10-325MG [[place] 1 tab PO DAILY PRN 09/12/22 09/29/22 History 10-325] oxyCODONE ER [OxyCONTIN] 10 mg PO DAILY PRN 09/12/22 09/29/22 History Rivaroxaban [Xarelto Starter Pack] 0 mg PO DIRECTED 30 Days #1 10/01/22 Rx packet Allergies Allergy/AdvReac Type Severity Reaction Status Date / Time No Known Allergies Allergy Verified 09/28/22 22:45 Physical Exam Vitals: Vital Signs Temp Pulse Pulse Resp BP BP Pulse Ox 10/01/22 11:35 97.9 F 85 20 122/73 91 L 10/01/22 09:25 72 10/01/22 09:16 72 10/01/22 08:00 97.9 F 61 20 108/73 99 10/01/22 04:00 65 17 111/83 100 10/01/22 01:48 16 10/01/22 00:00 97.9 F 72 17 108/72 98 09/30/22 20:00 97.9 F 72 16 110/71 98 09/30/22 16:32 68 09/30/22 16:19 70 98 09/30/22 16:00 68 18 98/64 98 09/30/22 15:01 67 18 Intake and Output 09/30/22 10/01/22 10/01/22 22:59 06:59 14:59 Intake Total 213.477 Output Total 300 300 Balance -86.523 -300 Intake: Intake, IV Titration 213.477 Amount Heparin Sod,Pork in 0.45% 213.477 NaCl 25,000 unit In 0.45 % NaCl 1 250ml.bag @ 18 UNITS/KG/HR 17.962 mls/hr IV .[id number] [facility] Rx#: [id number] Output: Urine 300 300 Other: Voiding Method Urinal Urinal - Constitutional General appearance: average body habitus, no acute distress - EENT Eyes: anicteric sclerae, EOMI ENT: hearing grossly normal - Neck Neck: no lymphadenopathy - Respiratory Respiratory: bilateral: CTA - Cardiovascular Rhythm: regular Heart sounds: normal: S1, S2 Abnormal Heart Sounds: no systolic murmur, no diastolic murmur, no rub, no S3 Gallop, no S4 Gallop, no click, no other leg Peripheral Edema: bilateral: None - Gastrointestinal General gastrointestinal: soft, no tenderness - Integumentary Integumentary: normal - Neurologic grossly intact - Musculoskeletal amputations of bilateral toes Musculoskeletal: strength equal bilaterally - Psychiatric Psychiatric: A&O x's 3, appropriate affect, intact judgment & insight Results CBC & Chem 7: 10/01/22 10:06 10/01/22 10:06 Labs: Abnormal Lab Results - Last 24 Hours (Table) 09/30/22 09/30/22 10/01/22 Range/Units 06:16 12:22 10:06 RBC 3.27 L (4.30-5.90) m/uL Hgb 11.1 L (13.0-17.5) gm/dL Hct 33.4 L (39.0-53.0) % MCV 102.2 H (80.0-100.0) fL APTT 62.2 H (22.0-30.0) sec Chloride (98-107) mmol/L Carbon Dioxide (22-30) mmol/L Calcium (8.4-10.2) mg/dL Total Protein (6.3-8.2) g/dL Albumin (3.5-5.0) g/dL HDL Cholesterol 39.80 L (40.00-60.00) mg/dL 10/01/22 10/01/22 Range/Units 10:06 10:06 RBC (4.30-5.90) m/uL Hgb (13.0-17.5) gm/dL Hct (39.0-53.0) % MCV (80.0-100.0) fL APTT 32.8 H (22.0-30.0) sec Chloride 109 H (98-107) mmol/L Carbon Dioxide 19 L (22-30) mmol/L Calcium 8.1 L (8.4-10.2) mg/dL Total Protein 6.2 L (6.3-8.2) g/dL Albumin 3.4 L (3.5-5.0) g/dL HDL Cholesterol (40.00-60.00) mg/dL CT scan - abdomen: report reviewed CT scan - chest: report reviewed CT scan - pelvis: report reviewed Venous US: report reviewed Assessment and Plan (1) DVT (deep venous thrombosis) Current Visit: Yes Status: Acute Priority: High Code(s): I82.409 - ACUTE EMBOLISM AND THOMBOS UNSP DEEP VN UNSP LOWER EXTREMITY SNOMED Code(s): 538763817 (2) Pulmonary embolism Current Visit: Yes Status: Acute Priority: High Code(s): I26.99 - OTHER PULMONARY EMBOLISM WITHOUT ACUTE COR PULMONALE SNOMED Code(s): 57631190 (3) Common bile duct mass Current Visit: Yes Status: Acute Priority: High Code(s): K83.8 - OTHER SPECIFIED DISEASES OF BILIARY TRACT SNOMED Code(s): 881414705 Plan: PE/DVT: -CTA chest revealed numerous sub-segmental and distal branch pulmonary emboli in the left greater than the right basilar lower lobes. Doppler studies also showed positive DVT in the right lower extremity in the posterior tibial vein. Patient was initially started on heparin but is now on xarelto. -Reports improvement in breathing today -Vascular surgery, cardiology and pulmonology following CBD mass?/ biliary obstruction -Patient was seen earlier this month for elevated LFTs. CT abd/pelvis showed dilatation of extrahepatic and intrahepatic biliary system concerning for obstruction. MRCP revealed mild central intrahepatic and moderate extra hepatic biliary dilatation. Mass or neoplasm near level of the distal CBD needs to be considered. Patient was transferred to [facility] at that time for biliary stent placement. Patient is unsure if mass was identified during procedure or if a biopsy was obtained. He states he was never told anything regarding a biopsy or cancer diagnosis. -Will obtain records from HF, and purse further workup as warranted by records from [facility] -Pt updated on POC and is agreeable with shakir Wynn attests: I have performed H and P and developed impression and plan of care for patient, discussed with dictator. I reviewed dictated note, documented as a scribe
--- NOTE | 2022-10-01 12:59 | P.PN ---
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 Patient does not follow with a core setter. We have been asked to see the patient in consultation for PE and SVT. Patient examined at the bedside. Patient presented to the ER with a chief complaint of SOB. Patient was found to have bilateral PE and was started on IV heparin. He was also found to have RLE DVT. Patient denies chest pain or pressure. He reports improvement in his shortness of breath. Patient was also found to be in SVT in the ER and received two doses of adenosine with conversion to sinus mechanism. * EKG reveals sinus mechanism. Repeat EKG reveals SVT with heart rate 198. * Chest CTA: Exam is positive for numerous subsegmental and more distal branch pulmonary emboli in the left greater than right basilar lower lobes. * Lower extremity Doppler: Positive for DVT in right leg * Laboratory data: WBC 4.2. Hemoglobin 11.1. Platelet count 166. Sodium 138. Potassium 4.4. BUN 26. Creatinine 1.19. Troponin 0.039. 0.240. 0.272. * Current home cardiac medications include none * Most recent echocardiogram obtained in July 2022 revealing ejection fraction 35-40%, mild MR, mild TR 10/01/2022 Patient examined this morning at the bedside. Patient denies chest pain or pressure. He denies shortness of breath. Patient has been transitioned to Xarelto. Echocardiogram completed reveals ejection fraction 30-35%, severe global hypokinesis of left ventricle, [id number] mitral regurgitation and mild tricuspid regurgitation PHYSICAL EXAM: VITAL SIGNS: Reviewed. GENERAL: Well-developed in no acute distress. HEENT: Head is normocephalic. Pupils are equal, round. Sclerae anicteric. Mucous membranes of the mouth are moist. Neck supple. No JVD or thyromegaly LUNGS: Respirations even and unlabored. Lungs essentially clear to auscultation bilaterally. HEART: Regular rate and rhythm. S1 and S2 heard. ABDOMEN: Soft. Nondistended. Nontender. EXTREMITIES: Normal range of motion. No clubbing or cyanosis. Peripheral pulses intact. No lower extremity edema NEUROLOGIC: Awake and alert. Oriented x 3. 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 Please reconsult if needed. Nurse practitioner note has been reviewed by physician. Signing provider agrees with the documented findings, assessment, and plan of care. Objective - Vital Signs Vital signs: Vital Signs Temp 97.9 F 10/01/22 11:35 Pulse 85 10/01/22 11:35 Resp 20 10/01/22 11:35 BP 122/73 10/01/22 11:35 Pulse Ox 91 L 10/01/22 11:35 FiO2 Intake & Output 09/30/22 10/01/22 10/01/22 18:59 06:59 18:59 Intake Total 36.523 213.477 Output Total 1100 300 Balance -1063.477 213.477 -300 Intake: Intake, IV Titration 36.523 213.477 Amount Heparin Sod,Pork in 0.45% 36.523 213.477 NaCl 25,000 unit In 0.45 % NaCl 1 250ml.bag @ 18 UNITS/KG/HR 17.962 mls/hr IV .[id number] [facility] Rx#: [id number] Output: Urine 1100 300 Other: Voiding Method Urinal Urinal - Labs CBC & Chem 7: 10/01/22 10:06 10/01/22 10:06 Labs: Abnormal Lab Results - Last 24 Hours (Table) 09/30/22 09/30/22 10/01/22 Range/Units 06:16 12:22 10:06 RBC 3.27 L (4.30-5.90) m/uL Hgb 11.1 L (13.0-17.5) gm/dL Hct 33.4 L (39.0-53.0) % MCV 102.2 H (80.0-100.0) fL APTT 62.2 H (22.0-30.0) sec Chloride (98-107) mmol/L Carbon Dioxide (22-30) mmol/L Calcium (8.4-10.2) mg/dL Total Protein (6.3-8.2) g/dL Albumin (3.5-5.0) g/dL HDL Cholesterol 39.80 L (40.00-60.00) mg/dL 10/01/22 10/01/22 Range/Units 10:06 10:06 RBC (4.30-5.90) m/uL Hgb (13.0-17.5) gm/dL Hct (39.0-53.0) % MCV (80.0-100.0) fL APTT 32.8 H (22.0-30.0) sec Chloride 109 H (98-107) mmol/L Carbon Dioxide 19 L (22-30) mmol/L Calcium 8.1 L (8.4-10.2) mg/dL Total Protein 6.2 L (6.3-8.2) g/dL Albumin 3.4 L (3.5-5.0) g/dL HDL Cholesterol (40.00-60.00) mg/dL
--- NOTE | 2022-10-01 13:35 | PN ---
PROGRESS NOTE DATE OF SERVICE: 10/01/2022 SUBJECTIVE: This is a 52-year-old gentleman admitted with acute bilateral pulmonary embolism, also had history of recent surgery. The patient apparently had multiple social issues and being homelessness also. Multiple consultants are following the patient. No chest pain. No palpitations. OBJECTIVE: VITAL SIGNS: Pulse 85, blood pressure 120/70, respirations 20. CHEST: A few scattered rhonchi. ABDOMEN: Soft. NERVOUS SYSTEM: Nonfocal. LABORATORY DATA: Reviewed. ASSESSMENT: 1. Acute bilateral pneumonia, subsegmental pulmonary emboli, left more than the right. 2. History of recent right transmetatarsal amputation. 3. Elevated troponin with possible right ventricular strain. 4. Recent admission with hepatitis with a mass near the level of distal CBD, status post endoscopic retrograde cholangiopancreatography. 5. Chronic pain. 6. Homelessness. 7. Pulmonary hypertension. 8. Multiple medical issues. RECOMMENDATIONS: Recommend to continue current management and symptomatic treatment. Follow closely with multiple consultants. Social Work and Case Management to evaluate the home situations to ensure compliance as much as possible. Otherwise, overall prognosis extremely guarded. Further recommendations to follow. MMODL / IJN: [id number] /
--- NOTE | 2022-10-01 14:32 | P.PN ---
Subjective Progress Note Date: 10/01/22 Principal diagnosis: Shortness of breath/chest pain. Pulmonary consult dated 09/30/2022. This is a 52-year-old male seen in the emergency department, on September 29. He came into the emergency room complaining of shortness of breath. It apparently been going on for a couple days or so prior to admission. The patient is apparently homeless. The patient was also found to have a rapid heartbeat of about 200 bpm. The patient denied any chest pain or chest discomfort. He silver ed any fever, chills, cough, or phlegm production. He was evaluated in the emergency department, and found to have pulmonary embolism, and DVT. He also was admitted with a diagnosis of COPD exacerbation from chronic tobacco use. We are asked to see him by cardiology. He has a history of chronic tobacco use, marijuana use, amputation of toes on both feet, and left leg cellulitis. The patient's chest x-ray showed mild cardiomegaly, some atelectasis in the lower lung zones, but nothing acute. Venous Doppler showed DVT in the right posterior tibial vein. CT angiogram showed numerous subsegmental and more distal branches pulmonary emboli, in the bilateral lower lung zones, left greater than right. White count was 4.2, hemoglobin 11.1, hematocrit 32.5, with a normal platelet count. PTT was 62.2. He's currently on IV heparin. Sodium 137, potassium 3.6, chlorides 110, CO2 19, BUN 18, and creatinine 0.70. His drug screen was positive for marijuana. His troponin level was 0.272. Progress note dated 10/04/2022. 52-year-old homeless male, who was seen in the emergency department, on October 09. He came into the emergency room, complaining of shortness of breath. It was apparently occurring about 2 or 3 days prior to admission. He was also noted, to have a rapid heartbeat, approaching 200 bpm. Currently, the patient's resting comfortably. He is currently on room air. He's not receiving any IV fluids. CT angiogram revealed numerous subsegmental and more distal branches pulmonary emboli, in the bilateral lower lung zones. This was worse on the left side rather than the right. Venous Doppler showed a DVT in the right posterior tibial vein. White count 4, hemoglobin 11.1, hematocrit 33.4, and platelet count 290,000. PTT is 32.8. Sodium 137, potassium 3.6, chlorides 109, CO2 19, BUN 16, and creatinine 0.7. Urine screen was only positive for THC. Objective - Vital Signs Vital signs: Vital Signs Temp 97.9 F 10/01/22 11:35 Pulse 85 10/01/22 11:35 Resp 20 10/01/22 11:35 BP 122/73 10/01/22 11:35 Pulse Ox 91 L 10/01/22 11:35 FiO2 Intake & Output 09/30/22 10/01/22 10/01/22 18:59 06:59 18:59 Intake Total 36.523 213.477 237 Output Total 1100 300 Balance -1063.477 213.477 -63 Intake: Intake, IV Titration 36.523 213.477 Amount Heparin Sod,Pork in 0.45% 36.523 213.477 NaCl 25,000 unit In 0.45 % NaCl 1 250ml.bag @ 18 UNITS/KG/HR 17.962 mls/hr IV [id number] Rx#: [id number] Oral 237 Output: Urine 1100 300 Other: Voiding Method Urinal Urinal - Exam No acute distress, oriented 3. Currently on room air, with saturations of 94 %. HEENT examination is grossly unremarkable. Neck supple. Full range of motion. No adenopathy thyromegaly or neck vein distention. Cardiovascular examination reveals regular rhythm rate. S1-S2 normal. No S3 or S4. No discernible murmur noted. Heart rate 85 bpm. Lungs reveal scattered bilateral rhonchi, minimal expiratory wheezes. Breath sounds equal. No crackles. Abdomen soft bowel sounds are heard. No masses or tenderness. Extremities are intact. No cyanosis clubbing or edema. Skin is without rash or lesion. Neurologic examination is brief but nonfocal. - Labs CBC & Chem 7: 10/01/22 10:06 10/01/22 10:06 Labs: Abnormal Lab Results - Last 24 Hours (Table) 09/30/22 10/01/22 10/01/22 Range/Units 06:16 10:06 10:06 RBC 3.27 L (4.30-5.90) m/uL Hgb 11.1 L (13.0-17.5) gm/dL Hct 33.4 L (39.0-53.0) % MCV 102.2 H (80.0-100.0) fL APTT (22.0-30.0) sec Chloride 109 H (98-107) mmol/L Carbon Dioxide 19 L (22-30) mmol/L Calcium 8.1 L (8.4-10.2) mg/dL Total Protein 6.2 L (6.3-8.2) g/dL Albumin 3.4 L (3.5-5.0) g/dL HDL Cholesterol 39.80 L (40.00-60.00) mg/dL 10/01/22 Range/Units 10:06 RBC (4.30-5.90) m/uL Hgb (13.0-17.5) gm/dL Hct (39.0-53.0) % MCV (80.0-100.0) fL APTT 32.8 H (22.0-30.0) sec Chloride (98-107) mmol/L Carbon Dioxide (22-30) mmol/L Calcium (8.4-10.2) mg/dL Total Protein (6.3-8.2) g/dL Albumin (3.5-5.0) g/dL HDL Cholesterol (40.00-60.00) mg/dL Assessment and Plan Assessment: Acute shortness of breath, with tachycardia, multifactorial, in part related to bilateral lower lobe pulmonary emboli, as well as COPD exacerbation. History of right lower extremity DVT. History of COPD from chronic tobacco use. History of left lower extremity cellulitis. Status post amputation of the toes, both feet. History of chronic marijuana use. Plan: Plan dated 09/30/2022. The patient can be started on a oral medication for his DVT and pulmonary embolism. In addition, we added Symbicort, and prednisone to his regimen. We also added some albuterol. He is counseled about the importance of smoking cessation. His prognosis is guarded. He apparently is homeless, and I'm not sure if he has insurance to be able to afford a blood thinner. We will continue to follow as necessary. Plan dated 10/01/2022. Currently, the patient is on Xarelto, prednisone, Pepcid, Symbicort, ibuprofen, and Tylenol. The patient appears to be relatively stable. The patient's currently not on any supplemental oxygen. We did rehab/pre vocational counselor him about the importance of smoking cessation. We will continue to follow make recommendations along the way. Prognosis is guarded. Time with Patient: Less than 30
[2022-10-01 20:36] VITALS: RESP 18
[2022-10-02] MEDS: RIVAROXABAN 15 MG TAB PO SCH (06:27)
[2022-10-02] MEDS: ALBUTEROL NEBULIZED 2.5 MG/3 ML INHALATION SCH ×2 (09:19→12:20)
[2022-10-02] MEDS: SYMBICORT 160-4.5 MCG INHALER INHALATION SCH (09:20)
[2022-10-02] MEDS: predniSONE 20 MG TAB PO SCH (09:25)
[2022-10-02] MEDS: FAMOTIDINE 20 MG TAB PO SCH (09:25)
[2022-10-02 09:56] LABS: Basophils % (A) 0 %; Eosinophils % (A) 1 %; HCT 34.3 % (39.0-53.0); HGB 11.2 gm/dL (13.0-17.5); Lymphocytes # (A) 1.5 k/uL (1.0-4.8); Lymphocytes % (A) 38 %; MCH 33.1 pg (25.0-35.0); MCHC 32.6 g/dL (31.0-37.0); MCV 101.5 fL (80.0-100.0); Macrocytosis Slight; Mean Platelet Volume 8.3; Monocytes # (A) 0.2 k/uL (0-1.0); Monocytes % (A) 5 %; Neutrophils # (A) 2.2 k/uL (1.3-7.7); Neutrophils % (A) 56 %; Platelet Count 227 k/uL (150-450); RBC 3.38 m/uL (4.30-5.90); RDW 14.6 % (11.5-15.5); WBC 3.9 k/uL (3.8-10.6)
[2022-10-02 10:19] LABS: African American GFR (CKD) >90 (>60 ml/min/1.73 sqM); Anion Gap 7 mmol/L; Blood Urea Nitrogen 15 mg/dL (9-20); Calcium 8.3 mg/dL (8.4-10.2); Carbon Dioxide 26 mmol/L (22-30); Chloride 107 mmol/L (98-107); Glucose 82 mg/dL (74-99); Non-African American GFR(CKD) >90 (>60 ml/min/1.73 sqM); Potassium 3.7 mmol/L (3.5-5.1); Sodium 140 mmol/L (137-145)
[2022-10-02 12:49] VITALS: BP 100/66; PULSE 66; TEMP 97.3
--- NOTE | 2022-10-02 23:30 | PN ---
PROGRESS NOTE DATE OF SERVICE: 10/02/2022 Pulmonary/Critical Care Progress Note HISTORY OF PRESENT ILLNESS: This is a 52-year-old homeless male who was seen in consultation on September 30. He came in to the emergency room with shortness of breath and tachycardia. His workup included a chest x-ray, and a CT angiogram which showed numerous subsegmental and more distal branch pulmonary emboli, primarily in the lower lung zones. In addition, the patient was found to have a DVT in the right posterior tibial vein. He was initially started on IV heparin, and then converted to Xarelto. Currently, the patient is doing well. He is not on any IV fluids. He is not requiring any supplemental oxygen. The patient will be discharged home on a factor Xa inhibitor. LABORATORY DATA: Today includes a white count of 3.9, hemoglobin 11.2, hematocrit 34.3, and a normal platelet count. Sodium, potassium chloride, CO2, anion gap, BUN and creatinine were all normal. PHYSICAL EXAMINATION: VITAL SIGNS: Current vital signs include temperature 97.3, heart rate 66, respiratory rate 18, blood pressure 100/66 with mean of 77 and room air saturation of 99%. GENERAL: He appears in no respiratory distress. HEENT: Grossly unremarkable. NECK: Supple, full range of motion. No adenopathy or thyromegaly. Neck veins are flat. CARDIOVASCULAR: Reveals regular rhythm rate. S1, S2 normal. Heart rate in mid 70s. LUNGS: Relatively clear. A few scattered rhonchi. No wheezes or crackles. Breath sounds equal. ABDOMEN: Soft, bowel sounds are heard. EXTREMITIES: Intact. No cyanosis, clubbing, or edema. SKIN: Without rash. NEUROLOGIC: Brief but nonfocal. ASSESSMENT: 1. Acute shortness of breath, with tachycardia, multifactorial, in part related to bilateral lower lobe pulmonary emboli, as well as [id number] chronic obstructive pulmonary disease exacerbation. 2. History of right lower extremity deep venous thrombosis. 3. Chronic obstructive pulmonary disease secondary to chronic tobacco use. 4. History of left lower extremity cellulitis. 5. Status post amputation of the toes, both feet. 6. History of chronic marijuana use. PLAN: The patient is on room air. He is not receiving any IV fluids. He was given Xarelto as his blood thinner. The patient could be considered for possible discharge. We will leave that up to the primary service. No additional recommendations are made. Prognosis is guarded given his homeless situation. MMODL / IJN: [id number] /
--- NOTE | 2022-10-03 06:03 | P.DS ---
Providers Date of admission: 09/29/22 14:23 Expected date of discharge: 10/02/22 Attending physician: Cherie Wen Consults: 09/30/22 10:27 Consult Physician Routine Consulting Provider: Wale Kohli Consult Reason/Comments: SOB, PE Do you want consulting provider notified?: Yes 09/30/22 12:54 Consult Physician Routine Consulting Provider: Jason Wynn Consult Reason/Comments: pe, dvt Do you want consulting provider notified?: Yes Primary care physician: Emir Camejo Hospital Course: Final diagnosis Acute bilateral pneumonia, subsegmental pulmonary emboli, left more than right History of recent right transmetatarsal amputation Elevated troponin with possible right ventricular strain, ruled out right heart strain Recent admission with heparin with a mass near the level distal CBD, status post endoscopic retrograde cholangiopancreatography Chronic pain Homelessness Pulmonary hypertension Discharge disposition Patient is being discharged in a stable condition with guarded prognosis to home. Patient will follow-up with Dr. Field in the outpatient setting upon discharge. Patient is to continue with Xarelto and have outpatient follow-up with vascular as well as other consultations as scheduled. Total time taken is greater than 35 minutes. Hospital course This is a 52-year-old male who was recently admitted with shortness of breath found to have bilateral PE with no evidence of heart strain and was initiated on IV heparin. Patient has been transitioned oral Xarelto with vascular surgery following closely. Multiple medical consultations following as well including hematology/oncology and will follow-up in the outpatient setting. Patient has been cleared by consultations for discharge today. Please refer to consultation notes for further HPI. Currently no reports of chest pain, shortness of breath, or palpitations. Patient is afebrile. No reports of nausea or vomiting and patient is tolerating diet. Patient will be discharged today. Guarded prognosis with high risk for readmissions due to noncompliance and poor social support Physical exam: Gen: This is a 52-year-old male who is awake, alert and oriented 3, well-develo ped, well-nourished HEENT: Head is atraumatic, normocephalic. Pupils equal, round. Sclerae is anicteric. NECK: Supple. No JVD. No lymphadenopathy. No thyromegaly. LUNGS: Diminished breath sounds bilaterally with no wheezes or rhonchi. No intercostal retractions. HEART: S1, S2 are muffled ABDOMEN: Soft. Bowel sounds are present. No masses. No tenderness. EXTREMITIES: No pedal edema. No calf tenderness. NEUROLOGICAL: Patient is awake, alert and oriented x3. Cranial nerves 2 through 12 are grossly intact. Please refer to medication reconciliation sheet for a list of medications. The impression and plan of care has been dictated by Jacqueline Teresa, Nurse Practitioner as directed. Dr. Jayson MD I have performed a history and examination and MDM of this patient, discussed t he same with the dictator, and agree with the dictator's assessment and plan as written ,documented as a scribe. Based on total visit time, I have performed more than 50% of the visit. Patient Condition at Discharge: Fair Plan - Discharge Summary Discharge Rx Participant: Yes New Discharge Prescriptions: New predniSONE 10 mg PO DIRECTED #30 tab Albuterol Inhaler [Ventolin Hfa Inhaler] 2 puff INHALATION Q6H PRN 30 Days #1 each PRN Reason: Shortness Of Breath Rivaroxaban [Xarelto Starter Pack] 0 mg PO DIRECTED 30 Days #1 packet Budesonide-Formot 160-4.5 Mcg [Symbicort 160-4.5 Mcg Inhaler] 2 puff INHALATION RT-BID 30 Days #1 each Continue oxyCODONE ER [OxyCONTIN] 10 mg PO DAILY PRN PRN Reason: Pain HYDROcodone/APAP 10-325MG [Whitman 10-325] 1 tab PO DAILY PRN PRN Reason: Pain Discharge Medication List HYDROcodone/APAP 10-325MG [Whitman 10-325] 1 tab PO DAILY PRN 09/12/22 [History] oxyCODONE ER [OxyCONTIN] 10 mg PO DAILY PRN 09/12/22 [History] Rivaroxaban [Xarelto Starter Pack] 0 mg PO DIRECTED 30 Days #1 packet 10/01/22 [Rx] Albuterol Inhaler [Ventolin Hfa Inhaler] 2 puff INHALATION Q6H PRN 30 Days #1 each 10/02/22 [Rx] Budesonide-Formot 160-4.5 Mcg [Symbicort 160-4.5 Mcg Inhaler] 2 puff INHALATION RT-BID 30 Days #1 each 10/02/22 [Rx] predniSONE 10 mg PO DIRECTED #30 tab 03/22/23 [Rx] Follow up Appointment(s)/Referral(s): Jason Wynn MD [STAFF PHYSICIAN] - 1 Week (Patient to make own zohaib. ) Nell Field MD [Primary Care Provider] - 1-2 days (Patient to make own zohaib.) Tejas Dietz DO [Doctor of Osteopathic Medicine] - 2 Weeks (Patient to make own zohaib. ) Patient Instructions/Handouts: Supraventricular Tachycardia (DC), Pulmonary Embolism (DC) Activity/Diet/Wound Care/Special Instructions: Activity Limited until follow-up Follow-up primary care provider on discharge follow-up pulmonary outpatient Follow-up hematology outpatient Continue taking medications as prescribed Discharge/Stand Alone Forms: Community Resources, Personal Nanoscience Technician Discharge Disposition: HOME SELF-CARE
== END 2022-10-02 13:10 | disposition home or self-care (01) | DRG 134 ==
LOC: EC 11:19 → 3SCARD 14:23
PROVIDERS: ADMIT Internal Medicine; ATTEND Internal Medicine
DX: I26.93 Single subsegmental thrombotic pulmonary embolism without acute cor pulmonale (principal); J18.9 Pneumonia, unspecified organism; R77.8 Other specified abnormalities of plasma proteins; Z59.00 Homelessness unspecified; G89.29 Other chronic pain; F17.210 Nicotine dependence, cigarettes, uncomplicated; I27.21 Secondary pulmonary arterial hypertension; I42.9 Cardiomyopathy, unspecified; I47.1 Supraventricular tachycardia; I49.1 Atrial premature depolarization; J44.1 Chronic obstructive pulmonary disease with (acute) exacerbation; J98.11 Atelectasis; R09.02 Hypoxemia; Z86.718 Personal history of other venous thrombosis and embolism; K83.5 Biliary cyst; Z28.310 Unvaccinated for COVID-19; Z28.21 Immunization not carried out because of patient refusal; Z89.422 Acquired absence of other left toe(s); Z89.421 Acquired absence of other right toe(s)
CPT/HCPCS: 36415; 71046; 71275; 80048; 80053; 80061; 80306; 83735; 84443; 84484; 85025; 85379; 85610; 85730; 93005; 93306; 93970; 94640; 94760; 96361; 96365; 96366; 96375; 99291

== ENCOUNTER 2022-10-07 18:01 | Inpatient (IN) | payer OTHER ==
[2022-10-07] MEDS ORDERED: SODIUM CHLORIDE 0.9% 1,000 ML IV STA (18:29)
--- NOTE | 2022-10-07 18:34 | ED ---
General Adult HPI - General Chief complaint: Fall Stated complaint: fall Time Seen by Provider: 10/07/22 18:13 Source: patient Mode of arrival: ambulatory Limitations: no limitations - History of Present Illness Initial comments: Patient is a 52-year-old male presenting for evaluation post syncope. Patient states "I've been falling a lot more recently". Upon further questioning this falling seems to be syncopal episodes. Patient admits that he does lose consciousness. He admits that prior to passing out he does have shortness of breath. Patient was seen here recently for pulmonary embolism and SVT he was discharged on 10/02. He is currently on Xarelto. He denies any current chest pain or difficulty breathing. No nausea or vomiting. No headache, neck pain, back pain. No dizziness. No vision or hearing changes. Patient is currently homeless. - Related Data Home Medications Medication Instructions Recorded Confirmed HYDROcodone/APAP 10-325MG [[place] 1 tab PO DAILY PRN 09/12/22 10/07/22 10-325] oxyCODONE ER [OxyCONTIN] 10 mg PO DAILY PRN 09/12/22 10/07/22 Albuterol Inhaler [Ventolin Hfa 2 puff INHALATION RT-Q6H PRN 10/07/22 10/07/22 Inhaler] Rivaroxaban [Xarelto Starter Pack] See Taper PO DIRECTED 10/07/22 10/07/22 predniSONE See Taper PO DIRECTED 10/07/22 10/07/22 Previous Rx's Medication Instructions Recorded Budesonide-Formot 160-4.5 Mcg 2 puff INHALATION RT-BID 30 Days 10/02/22 [Symbicort 160-4.5 Mcg Inhaler] #1 each Allergies Allergy/AdvReac Type Severity Reaction Status Date / Time No Known Allergies Allergy Verified 10/07/22 19:30 Review of Systems ROS Statement: Those systems with pertinent positive or pertinent negative responses have been documented in the HPI. ROS Other: All systems not noted in ROS Statement are negative. 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 Past Anesthesia/Blood Transfusion Reactions: No Reported Reaction Past Psychological History: No Psychological Hx Reported Smoking Status: Current every day smoker Past Alcohol Use History: None Reported Past Drug Use History: Marijuana - Past Family History Father Additional Family Medical History / Comment(s): Overdose General Exam Limitations: no limitations General appearance: alert, in no apparent distress Head exam: Present: atraumatic, normocephalic, normal inspection Eye exam: Present: normal appearance, PERRL, EOMI. Absent: scleral icterus, conjunctival injection, periorbital swelling Pupils: Present: normal accommodation Neck exam: Present: normal inspection, full ROM. Absent: tenderness Respiratory exam: Present: normal lung sounds bilaterally. Absent: respiratory distress, wheezes, rales, rhonchi, stridor Cardiovascular Exam: Present: regular rate, normal rhythm, normal heart sounds. Absent: systolic murmur, diastolic murmur, rubs, gallop, clicks Neurological exam: Present: alert, oriented X3, CN II-XII intact Expanded Patient oriented to: Present: person, place, time Speech: Present: fluid speech Cranial nerves: EOM's Intact: Normal Motor strength exam: RUE: 5, LUE: 5, RLE: 5, LLE: 5 Eye Response: (4) open spontaneously Motor Response: (6) obeys commands Verbal Response: (5) oriented Sarahi Total: 15 Psychiatric exam: Present: normal affect, normal mood Skin exam: Present: warm, dry, intact, normal color. Absent: rash Course Vital Signs 10/07/22 18:06 Temperature 97.6 F Pulse Rate 81 Respiratory 18 Rate Blood Pressure 129/81 O2 Sat by Pulse 99 Oximetry EKG Findings - EKG Comments: EKG Findings:: Sinus rhythm with occasional ventricular premature complexes with occasional supraventricular premature complexes. Ventricular rate 81. SD inter odessa 142. QRS 117. QT 427. QTC 464. Normal axis. Medical Decision Making - Medical Decision Making Was pt. sent in by a medical professional or institution (, PA, MANUFACTURING WORKER, urgent care, hospital, or senior care...) When possible be specific @ -No Did you speak to anyone other than the patient for history (EMS, parent, family, police, friend...)? What history was obtained from this source @ -No Did you review nursing and triage notes (agree or disagree)? Why? @ -I reviewed and disagree with the triage note. Patient states that he did n ot fall but rather slowly passed out. He admits to losing consciousness. He is currently on Xarelto Were old charts reviewed (outside hosp., previous admission, EMS record, old EKG , old radiological studies, urgent care reports/EKG's, senior care records)? Report findings @ -Previous admission and previous CTA are reviewed Differential Diagnosis (chest pain, altered mental status, abdominal pain women, abdominal pain men, vaginal bleeding, weakness, fever, dyspnea, syncope, headache, dizziness, GI bleed, back pain, seizure, CVA, palpatations, mental health, musculoskeletal)? @ -[facility] Differential Syncope: Valvular disease, hypertrophic cardiomyopathy, pulmonary embolism, tamponade, tachycardia, bradycardia, FL, hypovolemia, hemorrhage, dissection, anemia, intracranial hemorrhage, seizure, hypoglycemia, carbon monoxide poisoning this is not meant to be an all-inclusive list. EKG interpreted by me (3pts min.). @ -As above X-rays interpreted by me (1pt min.). @ -X-ray shows no acute process CT interpreted by me (1pt min.). @ -CT of the brain and cervical spine shows no acute intracranial abnormality or fracture of the cervical spine CTA show tiny emboli in the right lower lobe pulmonary artery and the basal segment branches these appear new compared to recent exam. No evidence of embol i in the left lower lobe pulmonary artery branches. U/S interpreted by me (1pt. min.). @ -None done What testing was considered but not performed or refused? (CT, X-rays, U/S, labs)? Why? @ -None What meds were considered but not given or refused? Why? @ -None Did you discuss the management of the patient with other professionals (professionals i.e. , PA, MANUFACTURING WORKER, lab, RT, psych nurse, manager social services, landscaping supervisor, teacher, service officer, case picker)? Give summary @ -discussed with admitting JESSICA Jacqueline Teresa Was smoking cessation discussed for >3mins.? @ -No Was critical care preformed (if so, how long)? @ -No Were there social determinants of health that impacted care today? How? (Homelessness, low income, unemployed, alcoholism, drug addiction, t ransportation, low edu. Level, literacy, decrease access to med. care, [place] [facility], rehab)? @ -Homelessness Was there de-escalation of care discussed even if they declined (Discuss DNR or withdrawal of care, Hospice)? DNR status @ -No What co-morbidities impacted this encounter? (DM, HTN, Smoking, COPD, CAD, Cancer, CVA, ARF, Chemo, Hep., AIDS, mental health diagnosis, sleep apnea, morbid obesity)? @ -Pulmonary embolism Was patient admitted / discharged? Hospital course, mention meds given and route, prescriptions, significant lab abnormalities, going to OR and other pertinent info. @ -Patient is a 52-year-old male currently homeless presenting with chief complaint of syncope and shortness of breath. He was recently discharged from this facility on 10/02 for pulmonary embolism, is currently supposed to be taking Xarelto, he states he is compliant with this medication. I work shows no leukocytosis or anemia. Troponin is 0.020, improved from previous. D-dimer is 2.01. CT shows new pulmonary emboli. CT of the brain and cervical spine shows no acute process and chest x-ray is negative. Patient is started on heparin and will be admitted. I spoke with admitting JESSICA Jacqueline Teresa from [facility] who accepted admission. Patient is agreeable with this plan. I discussed this case with my attending Dr. Fishman. Undiagnosed new problem with uncertain prognosis? @ -No Drug Therapy requiring intensive monitoring for toxicity (Heparin, Nitro, Insulin, Cardizem)? @ -No Were any procedures done? @ -No Diagnosis/symptom? @ -Pulmonary embolism Acute, or Chronic, or Acute on Chronic? @ -acute on chronic Uncomplicated (without systemic symptoms) or Complicated (systemic symptoms)? @ -Complicated Side effects of treatment? @ -No Exacerbation, Progression, or Severe Exacerbation? @ -No Poses a threat to life or bodily function? How? (Chest pain, [place], FL, pneumonia, PE, COPD, DKA, ARF, appy, cholecystitis, CVA, Diverticulitis, Homicidal, S uicidal, threat to staff... and all critical care pts) @ -yes - Lab Data Result diagrams: 10/07/22 19:32 10/07/22 19:32 Lab Results 10/07/22 10/07/22 10/07/22 Range/Units 19:32 19:32 19:32 WBC 6.8 (3.8-10.6) k/uL RBC 4.18 L (4.30-5.90) m/uL Hgb 14.0 (13.0-17.5) gm/dL Hct 41.4 (39.0-53.0) % MCV 98.9 (80.0-100.0) fL MCH 33.5 (25.0-35.0) pg MCHC 33.9 (31.0-37.0) g/dL RDW 14.5 (11.5-15.5) % Plt Count 233 (150-450) k/uL MPV 8.5 Neutrophils % 69 % Lymphocytes % 22 % Monocytes % 6 % Eosinophils % 2 % Basophils % 0 % Neutrophils # 4.7 (1.3-7.7) k/uL Lymphocytes # 1.5 (1.0-4.8) k/uL Monocytes # 0.4 (0-1.0) k/uL Eosinophils # 0.1 (0-0.7) k/uL Basophils # 0.0 (0-0.2) k/uL PT (9.0-12.0) sec INR (<1.2) APTT (22.0-30.0) sec D-Dimer (<0.60) mg/L FEU Sodium 136 L (137-145) mmol/L Potassium 4.3 (3.5-5.1) mmol/L Chloride 106 (98-107) mmol/L Carbon Dioxide 20 L (22-30) mmol/L Anion Gap 10 mmol/L BUN 22 H (9-20) mg/dL Creatinine 0.72 (0.66-1.25) mg/dL Est GFR (CKD-EPI)AfAm >90 (>60 ml/min/1.73 sqM) Est GFR (CKD-EPI)NonAf >90 (>60 ml/min/1.73 sqM) Glucose 75 (74-99) mg/dL Calcium 8.6 (8.4-10.2) mg/dL Magnesium 1.8 (1.6-2.3) mg/dL Total Bilirubin 1.0 (0.2-1.3) mg/dL AST 36 (17-59) U/L ALT 17 (4-49) U/L Alkaline Phosphatase 122 (38-126) U/L Troponin I 0.020 (0.000-0.034) ng/mL Total Protein 7.2 (6.3-8.2) g/dL Albumin 4.1 (3.5-5.0) g/dL Urine Color Urine Appearance (Clear) Urine pH (5.0-8.0) Ur Specific [place] (1.001-1.035) Urine Protein (Negative) Urine Glucose (UA) (Negative) Urine Ketones (Negative) Urine Blood (Negative) Urine Nitrite (Negative) Urine Bilirubin (Negative) Urine Urobilinogen (<2.0) mg/dL Ur Leukocyte Esterase (Negative) Urine RBC (0-5) /hpf Urine WBC (0-5) /hpf Ur Squamous Epith Cells (0-4) /hpf Hyaline Casts (0-2) /lpf Urine Mucus (None) /hpf 10/07/22 10/07/22 Range/Units 21:23 22:01 WBC (3.8-10.6) k/uL RBC (4.30-5.90) m/uL Hgb (13.0-17.5) gm/dL Hct (39.0-53.0) % MCV (80.0-100.0) fL MCH (25.0-35.0) pg MCHC (31.0-37.0) g/dL RDW (11.5-15.5) % Plt Count (150-450) k/uL MPV Neutrophils % % Lymphocytes % % Monocytes % % Eosinophils % % Basophils % % Neutrophils # (1.3-7.7) k/uL Lymphocytes # (1.0-4.8) k/uL Monocytes # (0-1.0) k/uL Eosinophils # (0-0.7) k/uL Basophils # (0-0.2) k/uL PT 11.1 (9.0-12.0) sec INR 1.1 (<1.2) APTT 21.5 L (22.0-30.0) sec D-Dimer 2.01 H (<0.60) mg/L FEU Sodium (137-145) mmol/L Potassium (3.5-5.1) mmol/L Chloride (98-107) mmol/L Carbon Dioxide (22-30) mmol/L Anion Gap mmol/L BUN (9-20) mg/dL Creatinine (0.66-1.25) mg/dL Est GFR (CKD-EPI)AfAm (>60 ml/min/1.73 sqM) Est GFR (CKD-EPI)NonAf (>60 ml/min/1.73 sqM) Glucose (74-99) mg/dL Calcium (8.4-10.2) mg/dL Magnesium (1.6-2.3) mg/dL Total Bilirubin (0.2-1.3) mg/dL AST (17-59) U/L ALT (4-49) U/L Alkaline Phosphatase (38-126) U/L Troponin I (0.000-0.034) ng/mL Total Protein (6.3-8.2) g/dL Albumin (3.5-5.0) g/dL Urine Color Yellow Urine Appearance Clear (Clear) Urine pH 5.5 (5.0-8.0) Ur Specific [place] 1.028 (1.001-1.035) Urine Protein 1+ H (Negative) Urine Glucose (UA) Negative (Negative) Urine Ketones 2+ H (Negative) Urine Blood Negative (Negative) Urine Nitrite Negative (Negative) Urine Bilirubin 1+ H (Negative) Urine Urobilinogen 3.0 (<2.0) mg/dL Ur Leukocyte Esterase Negative (Negative) Urine RBC 1 (0-5) /hpf Urine WBC 2 (0-5) /hpf Ur Squamous Epith Cells <1 (0-4) /hpf Hyaline Casts 15 H (0-2) /lpf Urine Mucus Many H (None) /hpf Disposition Clinical Impression: Pulmonary embolism, Syncope Disposition: ADMITTED IP TO THIS HOSP Condition: Fair Time of Disposition: 23:50
[2022-10-07 19:44] LABS: Basophils % (A) 0 %; Eosinophils # (A) 0.1 k/uL (0-0.7); Eosinophils % (A) 2 %; HCT 41.4 % (39.0-53.0); Lymphocytes # (A) 1.5 k/uL (1.0-4.8); Lymphocytes % (A) 22 %; MCH 33.5 pg (25.0-35.0); MCHC 33.9 g/dL (31.0-37.0); MCV 98.9 fL (80.0-100.0); Mean Platelet Volume 8.5; Monocytes # (A) 0.4 k/uL (0-1.0); Monocytes % (A) 6 %; Neutrophils # (A) 4.7 k/uL (1.3-7.7); Neutrophils % (A) 69 %; Platelet Count 233 k/uL (150-450); RBC 4.18 m/uL (4.30-5.90); RDW 14.5 % (11.5-15.5); WBC 6.8 k/uL (3.8-10.6)
[2022-10-07 19:57] LABS: ALT 17 U/L (4-49); AST 36 U/L (17-59); African American GFR (CKD) >90 (>60 ml/min/1.73 sqM); Albumin 4.1 g/dL (3.5-5.0); Alkaline Phosphatase 122 U/L (38-126); Anion Gap 10 mmol/L; Blood Urea Nitrogen 22 mg/dL (9-20); Calcium 8.6 mg/dL (8.4-10.2); Carbon Dioxide 20 mmol/L (22-30); Chloride 106 mmol/L (98-107); Glucose 75 mg/dL (74-99); Magnesium 1.8 mg/dL (1.6-2.3); Non-African American GFR(CKD) >90 (>60 ml/min/1.73 sqM); Sodium 136 mmol/L (137-145); Total Protein 7.2 g/dL (6.3-8.2)
[2022-10-07 20:05] LABS: Potassium 4.3 mmol/L (3.5-5.1)
--- NOTE | 2022-10-07 20:41 | CT ---
EXAMINATION TYPE: CT brain cspine wo con DATE OF EXAM: 10/07/2022 COMPARISON: None HISTORY: Fall with LOC CT DLP: 1394.1 mGycm Automated exposure control for dose reduction was used. Images obtained of the brain and cervical spine with no contrast. Ventricles and sulci appear normal. There is no mass effect or midline shift. No sign of intracranial hemorrhage. No evidence of cerebral edema. Calvarium is intact. There is normal aeration of the para nasal sinuses. Temporal bones are intact. There is debris in the external auditory canals. The cervical vertebra have normal alignment. Disc spaces are normal. Posterior elements are intact. N o compression fracture. There is minimal spurring anteriorly at C5-6 and C6-7. IMPRESSION: Minor degenerative spurring in the lower cervical spine. No fracture. Negative CT scan of the brain. There is noted some extensive debris in the external auditory canals b ilaterally.
--- NOTE | 2022-10-07 21:42 | XR ---
EXAMINATION TYPE: XR chest 2V DATE OF EXAM: 10/07/2022 COMPARISON: 09/29/2022 HISTORY: Short of breath TECHNIQUE: 2 views FINDINGS: Heart and mediastinum are normal. Lungs are clear. Diaphragm is normal. Bony thorax is inta ct. There is likely a hiatal hernia. IMPRESSION: No active cardiopulmonary disease. No adverse change.
[2022-10-07 22:14] LABS: Appearance,Urine Clear (Clear); Bilirubin,Urine 1+ (Negative); Blood,Urine Negative (Negative); Color,Urine Yellow; Glucose,Urine (UA) Negative (Negative); Hyaline Casts,Urine 15 /lpf (0-2); Ketones,Urine 2+ (Negative); Leukocyte Esterase,Urine Negative (Negative); Mucus,Urine Many /hpf; Nitrite,Urine Negative (Negative); PH, Urine 5.5 (5.0-8.0); Protein,Urine 1+ (Negative); RBC,Urine 1 /hpf (0-5); Specific Gravity,Urine 1.028 (1.001-1.035); Squamous Epithelial Cell,Urine <1 /hpf (0-4); WBC,Urine 2 /hpf (0-5)
[2022-10-07 22:31] LABS: INR 1.1 (<1.2); Prothrombin Time 11.1 sec (9.0-12.0)
[2022-10-07 22:42] LABS: Partial Thromboplastin Time 21.5 sec (22.0-30.0)
--- NOTE | 2022-10-07 23:29 | CT ---
EXAMINATION TYPE: CT chest angio for PE DATE OF EXAM: 10/07/2022 COMPARISON: None HISTORY: elevated d-dimer. hx of PE CT DLP: 385.7 mGycm Automated exposure control for dose reduction was used. CONTRAST: Performed with IV Contrast, patient injected with 90 mL of Isovue 370. Images obtained from the thoracic inlet to the diaphragm with the IV contrast. There are Three-D post processed images. There is normal mediastinum. No adenopathy. There are no hilar masses. Heart size is normal. No peric ardial effusion. There is some pericardial calcification. There are some filling defects in the right lower lobe pulmonary artery and its smaller branches. No evidence of a pulmonary mass. No pleural effusion. The bony thorax is intact. Sternum is intact. T horacic spine is intact. There is some air in the biliary tree which is also present on the old exam. IMPRESSION: There are some tiny emboli in the right lower lobe pulmonary artery in the basal segment branches. Th ariadne appear new compared to recent exam. I do not see evidence of emboli in the left lower lobe pulmon [place] artery branches. 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 No suspicious pulmonary mass. .
[2022-10-07] MEDS ORDERED: HEPARIN SOD,PORK IN 0.45% NACL 25,000 UNIT in 0.45% NACL 1 250ML.BAG IV SCH (23:45)
[2022-10-07] MEDS ORDERED: ACETAMINOPHEN TAB 325 MG TAB PO PRN (23:47)
[2022-10-07] MEDS ORDERED: NALOXONE 0.4 MG/ML 1 ML VIAL IV PRN (23:47)
[2022-10-07] MEDS ORDERED: HEPARIN SODIUM 1,000 UN/ML (10ML VL) IV ONE (23:48)
[2022-10-07] MEDS ORDERED: HEPARIN SODIUM 1,000 UN/ML (10ML VL) IV PRN (23:48)
[2022-10-08 02:39] VITALS: RESP 16
[2022-10-08] MEDS ORDERED: ALBUTEROL NEBULIZED 2.5 MG/3 ML INHALATION PRN (07:01)
[2022-10-08 08:00] LABS: Basophils % (A) 1 %; Eosinophils # (A) 0.2 k/uL (0-0.7); Eosinophils % (A) 4 %; HCT 36.9 % (39.0-53.0); HGB 13.2 gm/dL (13.0-17.5); Lymphocytes # (A) 1.5 k/uL (1.0-4.8); Lymphocytes % (A) 24 %; MCH 35.6 pg (25.0-35.0); MCHC 35.7 g/dL (31.0-37.0); MCV 99.8 fL (80.0-100.0); Macrocytosis Slight; Mean Platelet Volume 8.2; Monocytes # (A) 0.3 k/uL (0-1.0); Monocytes % (A) 5 %; Neutrophils # (A) 3.9 k/uL (1.3-7.7); Neutrophils % (A) 64 %; Platelet Count 226 k/uL (150-450); RDW 15.1 % (11.5-15.5); WBC 6.2 k/uL (3.8-10.6)
[2022-10-08] MEDS: SYMBICORT 160-4.5 MCG INHALER INHALATION SCH ×2 (08:23→21:21)
[2022-10-08] MEDS ORDERED: RIVAROXABAN 20 MG TAB PO SCH (13:23)
--- NOTE | 2022-10-08 15:52 | P.HPIM ---
History of Present Illness H&P Date: 10/08/22 This is a 52-year-old male who presented to the emergency department with reports of increased falling and having syncopal episodes. Patient was recently admitted and hospitalized found to have pulmonary embolism extensive cardiac history and found to have an EF of 30-35% with severe global hypokinesia and extreme noncompliance as patient is homeless. Patient was discharged home on Xarelto per vascular surgery and had been cleared by cardiology. Patient has yet to follow-up with primary care provider or consultations outpatient. Patient reports he did start taking the Xarelto that was given to him on last admission and has been taking it as prescribed. Patient originally told staff tank schultz stumbled and fell although later reported that he has been randomly passing out. Patient was admitted for questionable failed outpatient therapy as the CTA that was repeated showed tiny pulmonary emboli that were new compared to recent exam as well as a fall. Patient did have chest x-ray showing no active cardiopulmonary disease. D-dimer was elevated hence repeat CTA was ordered of the chest showing some tiny emboli in the right lower lobe pulmonary artery in the basal segment branches this appears new compared to recent exam no evidence of emboli in the left lower lobe pulmonary artery branches along with pericardial calcification is consistent with old pericarditis with no suspicious mass. EKG showed sinus rhythm. Patient was placed on IV heparin and admitted for syncope with pulmonary embolisms. Labs revealed a WBC of 6.8, hemoglobin is 14.0, sodium 136, potassium 4.3, BUN 22, creatinine 0.72, magnesium 1.8, troponin 0.020, urinalysis is negative. D-dimer was 2.01. Review Of Systems: Constitutional: No fever, no chills, no night sweats. No weight change. Reports generalized weakness, fatigue or lethargy. No daytime sleepiness. EENT: No headache. No blurred vision or double vision, no loss of vision. No loss of Hearing, no ringing in the ears, no dizziness. No nasal drainage or congestion. No epistaxis. No sore throat. Lungs: No shortness of breath, cough, no sputum production. No wheezing. Cardiovascular: No chest pain, no lower extremity edema. No palpitations. No paroxysmal nocturnal dyspnea. No orthopnea. No lightheadedness or dizziness. Reports multiple syncopal episodes. Abdominal: No abdominal pain. No nausea, vomiting. No diarrhea. No constipation. No bloody or tarry stools.. No loss of appetite. Genitourinary: No dysuria, increased frequency, urgency. No urinary retention. Musculoskeletal: No myalgias. No muscle weakness, no gait dysfunction, reports frequent falls. No back pain. No neck pain. Integumentary: No wounds, no lesions. No rash or pruritus. No unusual bruising. No change in hair or nails. Neurologic: No aphasia. No facial droop. No change in mentation. No head injury. No headache. No paralysis. No paresthesia. Psychiatric: No depression. No anxiety. No mood swings. Endocrine: No abnormal blood sugars. No weight change. No excessive sweating or thirst. No cold intolerance. PHYSICAL EXAMINATION: GENERAL: The patient is alert and oriented x3, thin built, appears older than stated age, unkempt, soiled HEENT: Pupils are round and equally reacting to light. EOMI. no scleral icterus. No conjunctival pallor. Normocephalic, atraumatic. No pharyngeal erythema. No thyromegaly. CARDIOVASCULAR: S1 and S2 muffled PULMONARY: diminished breath sounds bilaterally with no wheezing or rhonchi no zonia. ABDOMEN: soft. Nontender on exam. non-distended, normoactive bowel sounds. No palpable organomegaly. MUSCULOSKELETAL: No joint swelling or deformity. EXTREMITIES: No cyanosis, clubbing, or pedal edema. NEUROLOGICAL: Gross neurological examination did not reveal any focal deficits. Diffuse weakness SKIN: No rashes. 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 Patient was started on IV heparin in the ER and admitted for tiny emboli noted on repeat CTA that was new compared to recent last week. Patient did undergo 2-D echo on last admission on 09/30/2022 showing an EF of 30-35% with grade 1 diastolic dysfunction with severe global hypokinesis with mild to moderate mitral regurgitation. Patient reports he had been taking his Xarelto as prescribed and unsure if he truly was as patient is homeless and is extremely noncompliant with medications and follow-up. Recommend case management to provide homeless fpc services once again as she did last time and patient failed to call or go there Encouraged medication compliance and follow-up with primary care provider along with vascular surgery and cardiology outpatient as discussed previously Will resume Xarelto and likely discharge the patient this afternoon The impression and plan of care has been dictated by Jacqueline Teresa, nurse practitioner as directed. Dr. Jose Cruz MD I have performed a history and examination and MDM of this patient, discussed the same with the dictator, and agree with the dictator's assessment and plan as written ,documented as a scribe. Based on total visit time, I have performed more than 50% of the visit. Any additional findings or plans will be noted. 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 Past Anesthesia/Blood Transfusion Reactions: No Reported Reaction Past Psychological History: No Psychological Hx Reported Smoking Status: Current every day smoker Past Alcohol Use History: None Reported Past Drug Use History: Marijuana - Past Family History Father Additional Family Medical History / Comment(s): Overdose Medications and Allergies Home Medications Medication Instructions Recorded Confirmed Type HYDROcodone/APAP 10-325MG [[place] 1 tab PO DAILY PRN 09/12/22 10/07/22 History 10-325] oxyCODONE ER [OxyCONTIN] 10 mg PO DAILY PRN 09/12/22 10/07/22 History Budesonide-Formot 160-4.5 Mcg 2 puff INHALATION RT-BID 30 Days 10/02/22 10/07/22 Rx [Symbicort 160-4.5 Mcg Inhaler] #1 each Albuterol Inhaler [Ventolin Hfa 2 puff INHALATION RT-Q6H PRN 10/07/22 10/07/22 History Inhaler] Rivaroxaban [Xarelto Starter Pack] See Taper PO DIRECTED 10/07/22 10/07/22 History predniSONE See Taper PO DIRECTED 10/07/22 10/07/22 History Allergies Allergy/AdvReac Type Severity Reaction Status Date / Time No Known Allergies Allergy Verified 10/07/22 19:30 Physical Exam Vitals: Vital Signs Temp Pulse Pulse Resp BP BP Pulse Ox 10/08/22 08:00 98.5 F 60 16 100/66 97 10/08/22 04:00 97.7 F 70 16 112/60 95 10/08/22 02:00 98.4 F 80 16 112/82 98 10/07/22 18:06 97.6 F 81 18 129/81 99 Intake and Output 10/07/22 10/08/22 10/08/22 22:59 06:59 14:59 Intake Total 92.057 Output Total 200 Balance -200 92.057 Intake: Intake, IV Titration 92.057 Amount Heparin Sod,Pork in 0.45% 92.057 NaCl 25,000 unit In 0.45 % NaCl 1 250ml.bag @ 18 UNITS/KG/HR 12.247 mls/hr IV .[id number] [facility] Rx#: [id number] Output: Urine 200 Other: Weight 68.039 kg 69.5 kg Results CBC & Chem 7: 10/08/22 06:43 10/07/22 19:32 Labs: Abnormal Lab Results - Last 24 Hours (Table) 10/07/22 10/07/22 10/07/22 Range/Units 19:32 19:32 21:23 RBC 4.18 L (4.30-5.90) m/uL Hct (39.0-53.0) % MCH (25.0-35.0) pg APTT (22.0-30.0) sec D-Dimer (<0.60) mg/L FEU Sodium 136 L (137-145) mmol/L Carbon Dioxide 20 L (22-30) mmol/L BUN 22 H (9-20) mg/dL Urine Protein 1+ H (Negative) Urine Ketones 2+ H (Negative) Urine Bilirubin 1+ H (Negative) Hyaline Casts 15 H (0-2) /lpf Urine Mucus Many H (None) /hpf 10/07/22 10/08/22 10/08/22 Range/Units 22:01 06:43 06:43 RBC 3.70 L (4.30-5.90) m/uL Hct 36.9 L (39.0-53.0) % MCH 35.6 H (25.0-35.0) pg APTT 21.5 L 35.8 H (22.0-30.0) sec D-Dimer 2.01 H (<0.60) mg/L FEU Sodium (137-145) mmol/L Carbon Dioxide (22-30) mmol/L BUN (9-20) mg/dL Urine Protein (Negative) Urine Ketones (Negative) Urine Bilirubin (Negative) Hyaline Casts (0-2) /lpf Urine Mucus (None) /hpf Thrombosis Risk Factor Assmnt - Choose All That Apply Any of the Below Risk Factors Present?: Yes Each Factor Represents 1 point: Age 41-60 years Each Risk Factor Represents 3 Points: History of DVT/PE Other congenital or acquired thrombophilia - If yes, enter type in comment: No Thrombosis Risk Factor Assessment Total Risk Factor Score: 4 Thrombosis Risk Factor Assessment Level: Moderate Risk Assessment and Plan Time with Patient: Greater than 30
[2022-10-09 03:40] VITALS: TEMP 97.4
[2022-10-09 08:55] VITALS: BP 109/68; PULSE 47
[2022-10-09] MEDS: SYMBICORT 160-4.5 MCG INHALER INHALATION SCH (09:26)
--- NOTE | 2022-10-11 06:48 | P.DS ---
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 Patient will follow-up with Dr. Field in the outpatient setting upon discharge. Patient is to continue with oral Xarelto and continue to follow-up with vascular surgery and cardiology as previously scheduled. Total time taken is greater than 35 minutes. Hospital course This is a 52-year-old male who was recently admitted with falls and recent hospitalization with right lower extremity DVT as well as PEs and started on Xarelto. Patient is homeless and extremely noncompliant at high risk for rehospitalizations as patient has had multiple hospitalizations and extremely poor compliance with follow-up. Currently no reports of chest pain, shortness of breath, or palpitations. Patient is afebrile. No reports of nausea or vomiting and patient is tolerating diet. Patient will be discharged today and again extremely high risk for readmissions due to his noncompliance and poor social support. Physical exam: Gen: This is a 52-year-old male who is awake, alert and oriented 3, thin built, elderly appearing HEENT: Head is atraumatic, normocephalic. Pupils equal, round. Sclerae is anicteric. NECK: Supple. No JVD. No lymphadenopathy. No thyromegaly. LUNGS: Clear to auscultation. No wheezes or rhonchi. No intercostal retractions. HEART: Regular rate and rhythm. No murmur. ABDOMEN: Soft. Bowel sounds are present. No masses. No tenderness. EXTREMITIES: No pedal edema. No calf tenderness. NEUROLOGICAL: Patient is awake, alert and oriented x3. Cranial nerves 2 through 12 are grossly intact. Please refer to medication reconciliation sheet for a list of medications. The impression and plan of care has been dictated by Jacqueline Teresa, Nurse Practitioner as directed. Dr. Jose Cruz MD I have performed a history and examination and MDM of this patient, discussed the same with the dictator, and agree with the dictator's assessment and plan as written ,documented as a scribe. Based on total visit time, I have performed more than 50% of the visit. Patient Condition at Discharge: Fair Plan - Discharge Summary Discharge Rx Participant: Yes New Discharge Prescriptions: Continue oxyCODONE ER [OxyCONTIN] 10 mg PO DAILY PRN PRN Reason: Pain predniSONE See Taper PO DIRECTED HYDROcodone/APAP 10-325MG [[place] 10-325] 1 tab PO DAILY PRN PRN Reason: Pain Budesonide-Formot 160-4.5 Mcg [Symbicort 160-4.5 Mcg Inhaler] 2 puff INHALATION RT-BID 30 Days #1 each Albuterol Inhaler [Ventolin Hfa Inhaler] 2 puff INHALATION RT-Q6H PRN PRN Reason: Shortness Of Breath Rivaroxaban [Xarelto Starter Pack] See Taper PO DIRECTED No Action Rivaroxaban [Xarelto Starter Pack] 0 mg PO DIRECTED 30 Days #1 packet Discharge Medication List HYDROcodone/APAP 10-325MG [[place] 10-325] 1 tab PO DAILY PRN 09/12/22 [History] oxyCODONE ER [OxyCONTIN] 10 mg PO DAILY PRN 09/12/22 [History] Budesonide-Formot 160-4.5 Mcg [Symbicort 160-4.5 Mcg Inhaler] 2 puff INHALATION RT-BID 30 Days #1 each 10/02/22 [Rx] Albuterol Inhaler [Ventolin Hfa Inhaler] 2 puff INHALATION RT-Q6H PRN 10/07/22 [History] Rivaroxaban [Xarelto Starter Pack] See Taper PO DIRECTED 10/07/22 [History] predniSONE See Taper PO DIRECTED 10/07/22 [History] Rivaroxaban [Xarelto Starter Pack] 0 mg PO DIRECTED 30 Days #1 packet 10/10/22 [Rx] Follow up Appointment(s)/Referral(s): Nell Field MD [Primary Care Provider] - 1-2 days Patient Instructions/Handouts: Pulmonary Embolism (DC) Activity/Diet/Wound Care/Special Instructions: Activity Limited until follow-up Follow-up with primary care provider this week Follow-up with cardiology as instructed on previous Follow-up with vascular surgery outpatient as instructed on previous admission Continue taking medications as prescribed Discharge/Stand Alone Forms: [facility], [facility] Discharge Disposition: HOME SELF-CARE
== END 2022-10-09 10:40 | disposition home or self-care (01) | DRG 134 ==
LOC: EC 18:01 → 3SCARD 10-08 00:16
PROVIDERS: ADMIT Hospitalist; ATTEND Hospitalist
DX: I26.94 Multiple subsegmental thrombotic pulmonary emboli without acute cor pulmonale (principal); R55 Syncope and collapse; I42.9 Cardiomyopathy, unspecified; G89.29 Other chronic pain; I27.20 Pulmonary hypertension, unspecified; F17.200 Nicotine dependence, unspecified, uncomplicated; I34.0 Nonrheumatic mitral (valve) insufficiency; W19.XXXA Unspecified fall, initial encounter; Z60.8 Other problems related to social environment; R29.6 Repeated falls; Z28.310 Unvaccinated for COVID-19; Z89.422 Acquired absence of other left toe(s); Z89.421 Acquired absence of other right toe(s); Z59.00 Homelessness unspecified; Z91.14 Patient's other noncompliance with medication regimen; Z91.199 Patient's noncompliance with other medical treatment and regimen due to unspecified reason; Z79.51 Long term (current) use of inhaled steroids; Z79.01 Long term (current) use of anticoagulants; Z86.79 Personal history of other diseases of the circulatory system; Z86.718 Personal history of other venous thrombosis and embolism
CPT/HCPCS: 36415; 70450; 71046; 71275; 72125; 80053; 81001; 83735; 84484; 85025; 85379; 85610; 85730; 93005; 94640; 96361; 96365; 96366; 99285

== ENCOUNTER 2022-10-09 13:31 | Emergency (ER) | payer OTHER ==
[2022-10-09 13:46] VITALS: RESP 20
--- NOTE | 2022-10-09 15:38 | ED ---
Fall HPI - General Chief Complaint: Fall Stated Complaint: SOB Time Seen by Provider: 10/09/22 15:20 Source: patient Mode of arrival: ambulatory - History of Present Illness Initial Comments: This patient is a 52-year-old man who states that he is homeless who fell today when he stumbled over sidewalk. Patient states that he landed on the lateral aspect right leg. He is having pain he indicates to approximately the mid thigh area right lateral aspect. The patient states there was no loss of consciousness. He did not injure his head, neck, chest, abdomen or back. I queried him because the triage notes but he states that this is where the pain as I believe the triage note referred a right side pain indicates the right side of the leg. The triage notes also make note of shortness of breath, patient states that he is been feeling this way recently and was found to have pulmonary embolism. He was discharged with prescription for Xarelto. No new shortness of breath. No hemoptysis or chest pain. 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 Fall Witnessed: no Place Fall Occurred: street Loss of Consciousness: none Prolonged Down Time?: no Symptoms Prior to Fall: none Location - Extremities: Right: Thigh Severity: moderate Context: tripped/slipped Associated Symptoms: denies - Related Data Home Medications Medication Instructions Recorded Confirmed Albuterol Sulfate [Ventolin HFA] 2 puff INHALATION Q6H PRN 10/11/22 10/11/22 Budesonide/Formoterol Fumarate 2 puff INHALATION BID 10/11/22 10/11/22 [Symbicort 160-4.5 Mcg Inhaler] Losartan [Cozaar] 25 mg PO DAILY 10/11/22 10/11/22 Rivaroxaban [Xarelto Starter Pack] 10 mg PO DAILY 10/11/22 10/11/22 Allergies Allergy/AdvReac Type Severity Reaction Status Date / Time No Known Allergies Allergy Verified 10/11/22 07:05 Review of Systems ROS Statement: Those systems with pertinent positive or pertinent negative responses have been documented in the HPI. ROS Other: All systems not noted in ROS Statement are negative. Constitutional: Denies: fever, chills, weakness Respiratory: Reports: as per HPI, dyspnea. Denies: cough Cardiovascular: Denies: chest pain, palpitations, edema, syncope Gastrointestinal: Denies: abdominal pain, vomiting, diarrhea Genitourinary: Denies: dysuria, hematuria Musculoskeletal: Reports: as per HPI. 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 Past Anesthesia/Blood Transfusion Reactions: No Reported Reaction Past Psychological History: No Psychological Hx Reported Smoking Status: Current every day smoker Past Alcohol Use History: None Reported Past Drug Use History: Marijuana - Past Family History Father Additional Family Medical History / Comment(s): Overdose General Exam Limitations: no limitations General appearance: alert Head exam: Present: atraumatic Eye exam: Present: normal appearance. Absent: scleral icterus, conjunctival injection Neck exam: Present: normal inspection, full ROM Respiratory exam: Present: normal lung sounds bilaterally. Absent: respiratory distress, wheezes, rales, rhonchi, stridor Cardiovascular Exam: Present: regular rate, normal rhythm, normal heart sounds. Absent: systolic murmur, diastolic murmur, rubs, gallop GI/Abdominal exam: Present: soft. Absent: distended, tenderness, guarding, rebound, rigid, mass Extremities exam: Present: normal inspection, tenderness, normal capillary refill. Absent: pedal edema, joint swelling, calf tenderness Back exam: Present: normal inspection. Absent: CVA tenderness (R), CVA tenderness (L) Neurological exam: Present: alert Skin exam: Present: warm, dry, intact, normal color. Absent: rash Course Vital Signs 10/09/22 10/09/22 13:40 17:41 Temperature 98.0 F 100.2 F H Pulse Rate 50 L 71 Respiratory 20 Rate Blood Pressure 117/79 106/69 O2 Sat by Pulse 97 Oximetry Medical Decision Making - Medical Decision Making This patient is 52-year-old man here to be seen about pain to the lateral aspect of his leg after ground level fall. The patient did have femur x-rays interpreted by myself as showing acute fracture or bony injury. The patient informed of return parameters and appropriate further care and follow-up Was pt. sent in by a medical professional or institution (KOBI Wynn, REVENUE AUDIT CLERK, urgent care, hospital, or halfway...) When possible be specific @ -[No] Did you speak to anyone other than the patient for history (EMS, parent, family, police, friend...)? What history was obtained from this source @ -[No] Did you review nursing and triage notes (agree or disagree)? Why? @ -[I reviewed and agree with nursing and triage notes] Were old charts reviewed (outside hosp., previous admission, EMS record, old EKG, old radiological studies, urgent care reports/EKG's, halfway records)? Report findings @ -[yes, old charts were reviewed] Differential Diagnosis (chest pain, altered mental status, abdominal pain women, abdominal pain men, vaginal bleeding, weakness, fever, dyspnea, syncope, headache, dizziness, GI bleed, back pain, seizure, CVA, palpatations, mental health, musculoskeletal)? @ -[Differential Musculoskeletal Differential diagnosis for pain following the ground level fall includes contusion, muscle strain, sprain, dislocation of the hip, fracture of the femur EKG interpreted by me (3pts min.). @ -[ X-rays interpreted by me (1pt min.). @ -[As above CT interpreted by me (1pt min.). @ -[None done] U/S interpreted by me (1pt. min.). @ -[None done] What testing was considered but not performed or refused? (CT, X-rays, U/S, labs)? Why? @ -[None] What meds were considered but not given or refused? Why? @ -[None] Did you discuss the management of the patient with other professionals (professionals i.e. KOBI Wynn, REVENUE AUDIT CLERK, lab, RT, psych nurse, social work assistant, home energy rater, teacher, electronic intelligence officer, case mgr)? Give summary @ -[No] Was smoking cessation discussed for >3mins.? @ -[No] Was critical care preformed (if so, how long)? @ -[No] Were there social determinants of health that impacted care today? How? (Homel essness, low income, unemployed, alcoholism, drug addiction, transportation, low edu. Level, literacy, decrease access to med. care, penitentiary, rehab)? @ -[No] Was there de-escalation of care discussed even if they declined (Discuss DNR or withdrawal of care, Hospice)? DNR status @ -[No] What co-morbidities impacted this encounter? (DM, HTN, Smoking, COPD, CAD, Cancer, CVA, ARF, Chemo, Hep., AIDS, mental health diagnosis, sleep apnea, morbid obesity)? @ -[None] Was patient admitted / discharged? Hospital course, mention meds given and route, prescriptions, significant lab abnormalities, going to OR and other pertinent info. @ -[Discharged Undiagnosed new problem with uncertain prognosis? @ -[No] Drug Therapy requiring intensive monitoring for toxicity (Heparin, Nitro, Insulin, Cardizem)? @ -[No] Were any procedures done? @ -[No] Diagnosis/symptom? @ -[Acute thigh contusion, uncomplicated Acute, or Chronic, or Acute on Chronic? @ -[default] Uncomplicated (without systemic symptoms) or Complicated (systemic symptoms)? @ -[default] Side effects of treatment? @ -[No] Exacerbation, Progression, or Severe Exacerbation? @ -[No] Poses a threat to life or bodily function? How? (Chest pain, [place], [place], pneumonia, PE, COPD, DKA, ARF, appy, cholecystitis, CVA, Diverticulitis, Homicidal, Suicidal, threat to staff... and all critical care pts) @ -[No] - EKG Data -: EKG Interpreted by Me EKG shows normal: sinus rhythm (With occasional premature ectopic complexes), axis (Normal), intervals (Normal), QRS complexes (Intraventricular conduction delay) Rate: normal (Rate 94 bpm) Interpretation: nonspecific ST-T wave changes Disposition Clinical Impression: Fall Disposition: HOME SELF-CARE Condition: Good Instructions (If sedation given, give patient instructions): Contusion in Adults (ED), Fall Prevention (ED) Is patient prescribed a controlled substance at d/c from ED?: No Referrals: Nell Field MD [Primary Care Provider] - 1-2 days Forms: [facility]
--- NOTE | 2022-10-09 16:26 | XR ---
EXAMINATION TYPE: XR femur RT DATE OF EXAM: 10/09/2022 4:05 PM INDICATION: Patient age:Male; 52 years old; Reason for study: fall injury; COMPARISON: None TECHNIQUE: The right femur was examined in frontal and lateral projections. FINDINGS: No evidence of acute osseous pathology, joint dislocation, or soft tissue swelling. Mild d egeneration changes of the acetabulum. IMPRESSION: No acute osseous pathology.
[2022-10-09 17:43] VITALS: BP 106/69; TEMP 100.2
[2022-10-09 17:58] VITALS: PULSE 71
== END 2022-10-09 18:33 | disposition home or self-care (01) ==
LOC: EC 13:31
DX: S70.11XA Contusion of right thigh, initial encounter (principal); F17.200 Nicotine dependence, unspecified, uncomplicated; Z86.711 Personal history of pulmonary embolism; Z79.01 Long term (current) use of anticoagulants; Z59.00 Homelessness unspecified; W01.0XXA Fall on same level from slipping, tripping and stumbling without subsequent striking against object, initial encounter; Y92.410 Unspecified street and highway as the place of occurrence of the external cause
CPT/HCPCS: 99284

== ENCOUNTER 2022-10-10 00:07 | Emergency (ER) | payer OTHER ==
[2022-10-10 01:16] VITALS: RESP 17
[2022-10-10] MEDS ORDERED: RIVAROXABAN 15 MG TAB PO STA (01:18)
[2022-10-10 01:19] VITALS: BP 118/84; PULSE 73; TEMP 97.9
[2022-10-10] MEDS ORDERED: ALBUTEROL HFA INHALER INHALATION STA (01:21)
--- NOTE | 2022-10-10 01:35 | ED ---
General Adult HPI - General Chief complaint: Shortness of Breath Stated complaint: OCTAVIO Time Seen by Provider: 10/10/22 01:02 Source: patient, RN notes reviewed, old records reviewed Mode of arrival: ambulatory - History of Present Illness Initial comments: 52-year-old male presents for evaluation of cough and shortness of breath. Patient currently being treated for pulmonary embolism as well as asthma. He's had CT evidence of acute PE within the past week. He is currently homeless and states he does not have this medication. He is not short of breath the time my evaluation. No fever. Mild nonproductive cough. No chest pain - Related Data Home Medications Medication Instructions Recorded Confirmed HYDROcodone/APAP 10-325MG [[place] 1 tab PO DAILY PRN 09/12/22 10/09/22 10-325] oxyCODONE ER [OxyCONTIN] 10 mg PO DAILY PRN 09/12/22 10/09/22 Albuterol Inhaler [Ventolin Hfa 2 puff INHALATION RT-Q6H PRN 10/07/22 10/09/22 Inhaler] Rivaroxaban [Xarelto Starter Pack] See Taper PO DIRECTED 10/07/22 10/09/22 predniSONE See Taper PO DIRECTED 10/07/22 10/09/22 Previous Rx's Medication Instructions Recorded Budesonide-Formot 160-4.5 Mcg 2 puff INHALATION RT-BID 30 Days 10/02/22 [Symbicort 160-4.5 Mcg Inhaler] #1 each Rivaroxaban [Xarelto Starter Pack] 0 mg PO DIRECTED 30 Days #1 10/10/22 packet Allergies Allergy/AdvReac Type Severity Reaction Status Date / Time No Known Allergies Allergy Verified 10/10/22 00:21 Review of Systems ROS Statement: Those systems with pertinent positive or pertinent negative responses have been documented in the HPI. ROS Other: All systems not noted in ROS Statement are negative. 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 Past Anesthesia/Blood Transfusion Reactions: No Reported Reaction Past Psychological History: No Psychological Hx Reported Smoking Status: Current every day smoker Past Alcohol Use History: None Reported Past Drug Use History: Marijuana - Past Family History Father Additional Family Medical History / Comment(s): Overdose General Exam General appearance: alert, in no apparent distress Head exam: Present: atraumatic, normocephalic Eye exam: Present: normal appearance, PERRL ENT exam: Present: normal exam Neck exam: Present: normal inspection. Absent: tenderness, meningismus Respiratory exam: Present: normal lung sounds bilaterally. Absent: respiratory distress, wheezes, rales Cardiovascular Exam: Present: regular rate, normal rhythm GI/Abdominal exam: Present: soft. Absent: distended, tenderness Neurological exam: Present: alert, oriented X3, CN II-XII intact. Absent: motor sensory deficit Psychiatric exam: Present: normal affect, normal mood Skin exam: Present: warm, dry, intact, normal color. Absent: cyanosis, diaphoretic Course Vital Signs 10/10/22 10/10/22 10/10/22 00:15 01:15 01:18 Temperature 97.5 F L 97.9 F Pulse Rate 69 73 Respiratory 22 17 17 Rate Blood Pressure 110/71 118/84 O2 Sat by Pulse 100 100 Oximetry - Reevaluation(s) Reevaluation #1: 10/10/22 02:18 Patient provided a list of homeless shelters and Xarelto is refilled. Medical Decision Making - Medical Decision Making Was pt. sent in by a medical professional or institution (KOBI Wynn, CLAMP OPERATOR, urgent care, hospital, or retirement...) When possible be specific @ -[No] Did you speak to anyone other than the patient for history (EMS, parent, family, police, friend...)? What history was obtained from this source @ -[No] Did you review nursing and triage notes (agree or disagree)? Why? @ -[I reviewed and agree with nursing and triage notes] Were old charts reviewed (outside hosp., previous admission, EMS record, old EKG, old radiological studies, urgent care reports/EKG's, retirement records)? Report findings @ -Reviewed previous CT imaging and discharge planning Differential Diagnosis (chest pain, altered mental status, abdominal pain women, abdominal pain men, vaginal bleeding, weakness, fever, dyspnea, syncope, headache, dizziness, GI bleed, back pain, seizure, CVA, palpatations, mental health, musculoskeletal)? @ -Differential Dyspnea: Coronary syndrome, arrhythmia, tamponade, asthma, COPD, pulmonary embolism, pneumonia, pneumothorax, pulmonary effusion, anaphylaxis, diabetic ketoacidosis, flailed chest, pulmonary contusion, diaphragmatic rupture, anemia, neuromuscular, this is not meant to be an all-inclusive list. EKG interpreted by me (3pts min.). @ -[As above] X-rays interpreted by me (1pt min.). @ -[None done] CT interpreted by me (1pt min.). @ -[None done] U/S interpreted by me (1pt. min.). @ -[None done] What testing was considered but not performed or refused? (CT, X-rays, U/S, labs)? Why? @ -[None] What meds were considered but not given or refused? Why? @ -[None] Did you discuss the management of the patient with other professionals (professionals i.e. , PA, CLAMP OPERATOR, lab, RT, psych nurse, sr. social media & mobile manager, rn advice, teacher, financial aid officer, rehabilitation case coordinator)? Give summary @ -[No] Was smoking cessation discussed for >3mins.? @ -[No] Was critical care preformed (if so, how long)? @ -[No] Were there social determinants of health that impacted care today? How? (Homelessness, low income, unemployed, alcoholism, drug addiction, transportation, low edu. Level, literacy, decrease access to med. care, half-way, rehab)? @ -[Patient currently homeless] Was there de-escalation of care discussed even if they declined (Discuss DNR or withdrawal of care, Hospice)? DNR status @ -[No] What co-morbidities impacted this encounter? (DM, HTN, Smoking, COPD, CAD, Cancer, CVA, ARF, Chemo, Hep., AIDS, mental health diagnosis, sleep apnea, morbid obesity)? @ -[None] Was patient admitted / discharged? Hospital course, mention meds given and route, prescriptions, significant lab abnormalities, going to OR and other pertinent info. @ -[52-year-old male who is currently homeless, recent admission with pulmonary embolism or patient has been off of his Xarelto he does not currently have it. He is in the emergency department with hopes of getting some rest. He does complain of dyspnea, however vital signs are stable, he has a normal respiratory rate, normal oxygenation on room air, lungs are clear to auscultation. I gave a dose of Xarelto in the emergency department, and refilled his starter pack. I also provided the patient with inhaler.] Undiagnosed new problem with uncertain prognosis? @ -[No] Drug Therapy requiring intensive monitoring for toxicity (Heparin, Nitro, Insulin, Cardizem)? @ -[No] Were any procedures done? @ -[No] Diagnosis/symptom? @ -[Pulm embolism] Acute, or Chronic, or Acute on Chronic? @ -[acute] Uncomplicated (without systemic symptoms) or Complicated (systemic symptoms)? @ -[Complicated by the patient's homelessness] Side effects of treatment? @ -[No] Exacerbation, Progression, or Severe Exacerbation? @ -[No] Poses a threat to life or bodily function? How? (Chest pain, USA, [place], pneumonia, PE, COPD, DKA, ARF, appy, cholecystitis, CVA, Diverticulitis, Homicidal, Suicidal, threat to staff... and all critical care pts) @ -[Yes, risk of progressive emboli and thrombus risk of obstructive shock and hypoxia] Disposition Clinical Impression: Pulmonary embolism Disposition: HOME SELF-CARE Condition: Fair Instructions (If sedation given, give patient instructions): Pulmonary Embolism (ED) Prescriptions: Rivaroxaban [Xarelto Starter Pack] 0 mg PO DIRECTED 30 Days #1 packet Is patient prescribed a controlled substance at d/c from ED?: No Referrals: Nell Field MD [Primary Care Provider] - 1-2 days John Paul Barragan DO [STAFF PHYSICIAN] - 1-2 days Time of Disposition: 02:19
== END 2022-10-10 02:52 | disposition home or self-care (01) ==
LOC: EC 00:07
DX: I26.99 Other pulmonary embolism without acute cor pulmonale (principal); F17.200 Nicotine dependence, unspecified, uncomplicated; F12.90 Cannabis use, unspecified, uncomplicated; Z89.421 Acquired absence of other right toe(s); Z89.422 Acquired absence of other left toe(s); Z59.00 Homelessness unspecified
CPT/HCPCS: 94640; 99285

== ENCOUNTER 2022-10-10 20:57 | Inpatient (IN) | payer OTHER ==
[2022-10-10] MEDS ORDERED: KETOROLAC 15 MG/ML 1 ML VIAL IM STA (21:20)
[2022-10-10] MEDS ORDERED: RIVAROXABAN 15 MG TAB PO STA (21:25)
--- NOTE | 2022-10-10 21:45 | ED ---
General Adult HPI - General Chief complaint: Skin/Abscess/Foreign Body Stated complaint: Wound Bleeding on foot Time Seen by Provider: 10/10/22 21:15 Source: patient Mode of arrival: wheelchair - History of Present Illness Initial comments: Patient is a 52-year-old male who presents to the emergency department for right foot pain. Patient has history of bilateral transmetatarsal amputation of both feet. Patient is homeless he does not follow with the wound clinic. Patient s tates his right foot wound opened up today and he is having increased pain. He is not sure if he sustained any injury to his foot could've caused the bleeding. He denies any pain in his legs. Denies fever, chills, nausea, vomiting. Of note, patient is currently being treated for pulmonary embolism and asthma. Patient was given Xarelto in the emergency department around 2 AM this morning. He states he has not picked up the medication from the pharmacy. Admits to dry cough. He does not feel short of breath he does not have chest pain. - Related Data Home Medications Medication Instructions Recorded Confirmed HYDROcodone/APAP 10-325MG [[place] 1 tab PO DAILY PRN 09/12/22 10/09/22 10-325] oxyCODONE ER [OxyCONTIN] 10 mg PO DAILY PRN 09/12/22 10/09/22 Albuterol Inhaler [Ventolin Hfa 2 puff INHALATION RT-Q6H PRN 10/07/22 10/09/22 Inhaler] Rivaroxaban [Xarelto Starter Pack] See Taper PO DIRECTED 10/07/22 10/09/22 predniSONE See Taper PO DIRECTED 10/07/22 10/09/22 Previous Rx's Medication Instructions Recorded Budesonide-Formot 160-4.5 Mcg 2 puff INHALATION RT-BID 30 Days 10/02/22 [Symbicort 160-4.5 Mcg Inhaler] #1 each Rivaroxaban [Xarelto Starter Pack] 0 mg PO DIRECTED 30 Days #1 10/10/22 packet Allergies Allergy/AdvReac Type Severity Reaction Status Date / Time No Known Allergies Allergy Verified 10/10/22 21:08 Review of Systems ROS Statement: Those systems with pertinent positive or pertinent negative responses have been documented in the HPI. ROS Other: All systems not noted in ROS Statement are negative. 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 Past Anesthesia/Blood Transfusion Reactions: No Reported Reaction Past Psychological History: No Psychological Hx Reported Smoking Status: Current every day smoker Past Alcohol Use History: None Reported Past Drug Use History: Marijuana - Past Family History Father Additional Family Medical History / Comment(s): Overdose General Exam General appearance: alert, in no apparent distress Head exam: Present: atraumatic, normocephalic, normal inspection Eye exam: Present: normal appearance, PERRL, EOMI. Absent: scleral icterus, conjunctival injection, periorbital swelling Neck exam: Present: normal inspection. Absent: tenderness, meningismus, lymphadenopathy Respiratory exam: Present: normal lung sounds bilaterally. Absent: respiratory distress, wheezes, rales, rhonchi, stridor Cardiovascular Exam: Present: regular rate, normal rhythm, normal heart sounds. Absent: systolic murmur, diastolic murmur, rubs, gallop, clicks Extremities exam: Present: other (right foot and ankle moderately edematous with increased warmtht/tenderness. ulceration to plantar aspect of foot over distal first and second metatarsals. DP 2+. Sensation intact) Neurological exam: Present: alert, oriented X3, CN II-XII intact Psychiatric exam: Present: normal affect, normal mood Skin exam: Present: warm, dry, intact, normal color. Absent: rash Course Vital Signs 10/10/22 10/10/22 21:04 21:36 Temperature 99.7 F H 102.2 F H Pulse Rate 101 H 109 H Respiratory 18 16 Rate Blood Pressure 130/85 126/77 O2 Sat by Pulse 97 95 Oximetry Medical Decision Making - Medical Decision Making Was pt. sent in by a medical professional or institution (, PA, TOW FEEDER, urgent care, hospital, or penitentiary...) When possible be specific @ -[No] Did you speak to anyone other than the patient for history (EMS, parent, family, police, friend...)? What history was obtained from this source @ -[No] Did you review nursing and triage notes (agree or disagree)? Why? @ -[I reviewed and agree with nursing and triage notes] Were old charts reviewed (outside hosp., previous admission, EMS record, old EKG, old radiological studies, urgent care reports/EKG's, penitentiary records)? Report findings @ -Yes, patient recently diagnosed with pulmonary embolism. Differential Diagnosis (chest pain, altered mental status, abdominal pain women, abdominal pain men, vaginal bleeding, weakness, fever, dyspnea, syncope, headache, dizziness, GI bleed, back pain, seizure, CVA, palpatations, mental health)? @ -Cellulitis, wound infection, abscess, gangrene, sepsis EKG interpreted by me (3pts min.). @ -[As above] X-rays interpreted by me (1pt min.). @ -Yes, right foot x-ray shows soft tissue swelling form bodies. There is soft tissue erythematous stump and also the medial aspect of the hindfoot the level of the talus consistent with gangrene CT interpreted by me (1pt min.). @ -[None done] U/S interpreted by me (1pt. min.). @ -[None done] What testing was considered but not performed or refused? (CT, X-rays, U/S, labs)? Why? @ -[None] What meds were considered but not given or refused? Why? @ -[None] Did you discuss the management of the patient with other professionals (professionals i.e. , PA, TOW FEEDER, lab, RT, psych nurse, rn social work, chain machine operator, teacher, court security officer, case briefer)? Give summary @ -[No] Was smoking cessation discussed for >3mins.? @ -[No] Was critical care preformed (if so, how long)? @ -[No] Were there social determinants of health that impacted care today? How? (Homelessness, low income, unemployed, alcoholism, drug addiction, transportation, low edu. Level, literacy, decrease access to med. care, fdc, rehab)? @ -Homelessness Was there de-escalation of care discussed even if they declined (Discuss DNR or withdrawal of care, Hospice)? DNR status @ -[No] What co-morbidities impacted this encounter? (DM, HTN, Smoking, COPD, CAD, Cancer, CVA, ARF, Chemo, Hep., AIDS, mental health diagnosis, sleep apnea, morbid obesity)? @ -PE Was patient admitted / discharged? Hospital course, mention meds given and route, prescriptions, significant lab abnormalities, going to OR and other pertinent info. @ -Patient presenting with acute on chronic right foot pain. There is concern for wound infection of the right foot which was confirmed on x-ray consistent with gangrene. Patient is febrile and tachycardic. He was recently diagnosed with PE he does not have SOB or chest pain. Blood cultures obtained IV fluids initiated. Sepsis diagnosis at 22:10 secondary to right foot gangrene. Wound culture reviewed patient given Unasyn. Laboratory studies obtained. There is no leukocytosis. There is lactic acidosis at 2.8 likely related to infection. Patient will be admitted for right foot gangrene with sepsis. Case discussed with Juan Ling who accepts admission. Infectious disease on consult. Patient admitted in stable condiiton Undiagnosed new problem with uncertain prognosis? @ -[No] Drug Therapy requiring intensive monitoring for toxicity (Heparin, Nitro, Insulin, Cardizem)? @ -[No] Were any procedures done? @ -[No] Diagnosis/symptom? @ -right foot gangrene, sepsis Acute, or Chronic, or Acute on Chronic? @ -acute Uncomplicated (without systemic symptoms) or Complicated (systemic symptoms)? @ -complicated Side effects of treatment? @ -[No] Exacerbation, Progression, or Severe Exacerbation? @ -[No] Poses a threat to life or bodily function? How? (Chest pain, [place], [place], pneumonia, PE, COPD, DKA, ARF, appy, cholecystitis, CVA, Diverticulitis, Homicidal, Suicidal, threat to staff... and all critical care pts) @ -yes Dr. Craven is my attending - Lab Data Result diagrams: 10/10/22 22:29 10/10/22 22:29 Lab Results 10/10/22 10/10/22 10/10/22 Range/Units 22:29 22:29 22:29 WBC 6.9 (3.8-10.6) k/uL RBC 3.33 L (4.30-5.90) m/uL Hgb 11.3 L (13.0-17.5) gm/dL Hct 32.9 L (39.0-53.0) % MCV 98.8 (80.0-100.0) fL MCH 34.0 (25.0-35.0) pg MCHC 34.5 (31.0-37.0) g/dL RDW 14.5 (11.5-15.5) % Plt Count 136 L (150-450) k/uL MPV 10.3 Neutrophils % 74 % Lymphocytes % 16 % Monocytes % 8 % Eosinophils % 1 % Basophils % 0 % Neutrophils # 5.1 (1.3-7.7) k/uL Lymphocytes # 1.1 (1.0-4.8) k/uL Monocytes # 0.6 (0-1.0) k/uL Eosinophils # 0.1 (0-0.7) k/uL Basophils # 0.0 (0-0.2) k/uL Sodium 133 L (137-145) mmol/L Potassium (3.5-5.1) mmol/L Chloride 103 (98-107) mmol/L Carbon Dioxide 22 (22-30) mmol/L Anion Gap 8 mmol/L BUN 24 H (9-20) mg/dL Creatinine 0.91 (0.66-1.25) mg/dL Est GFR (CKD-EPI)AfAm >90 (>60 ml/min/1.73 sqM) Est GFR (CKD-EPI)NonAf >90 (>60 ml/min/1.73 sqM) Glucose 104 H (74-99) mg/dL Plasma Lactic Acid Jamal 2.8 H* (0.7-2.0) mmol/L Calcium 8.3 L (8.4-10.2) mg/dL Total Bilirubin 2.1 H (0.2-1.3) mg/dL AST 88 H (17-59) U/L ALT 24 (4-49) U/L Alkaline Phosphatase 79 (38-126) U/L Total Protein 7.3 (6.3-8.2) g/dL Albumin 4.1 (3.5-5.0) g/dL Disposition Clinical Impression: Sepsis, Gangrene of right foot Disposition: ADMITTED IP TO THIS HOSP Condition: Stable Referrals: Nell Field MD [Primary Care Provider] - 1-2 days
[2022-10-10] MEDS ORDERED: SODIUM CHLORIDE 0.9% 2,000 ML IV STA (21:48)
[2022-10-10] MEDS ORDERED: AMPICILLIN-SULBACTAM 3 GM in SODIUM CHLORIDE 0.9% 100 ML IVPB STA (21:50)
--- NOTE | 2022-10-10 22:14 | XR ---
EXAMINATION TYPE: XR foot limited RT DATE OF EXAM: 10/10/2022 COMPARISON: 07/19/2022 HISTORY: Infection TECHNIQUE: 2 views FINDINGS: There is amputation of the forefoot at the level of the proximal ends of the metatarsals. T here is soft tissue swelling around the distal foot. There is soft tissue air bubbles. No focal bone destruction. There are small densities over the anterior foot in the subcutaneous tissues consistent with foreign bodies. IMPRESSION: Soft tissue swelling and foreign bodies. Soft tissue air seen at the stump and also at th e medial aspect of the hindfoot at the level of the talus. This is consistent with gangrene.
[2022-10-10 23:03] LABS: Basophils % (A) 0 %; Eosinophils # (A) 0.1 k/uL (0-0.7); Eosinophils % (A) 1 %; HCT 32.9 % (39.0-53.0); HGB 11.3 gm/dL (13.0-17.5); Lymphocytes # (A) 1.1 k/uL (1.0-4.8); Lymphocytes % (A) 16 %; MCHC 34.5 g/dL (31.0-37.0); MCV 98.8 fL (80.0-100.0); Mean Platelet Volume 10.3; Monocytes # (A) 0.6 k/uL (0-1.0); Monocytes % (A) 8 %; Neutrophils # (A) 5.1 k/uL (1.3-7.7); Neutrophils % (A) 74 %; Platelet Count 136 k/uL (150-450); RBC 3.33 m/uL (4.30-5.90); RDW 14.5 % (11.5-15.5); WBC 6.9 k/uL (3.8-10.6)
[2022-10-10 23:13] LABS: ALT 24 U/L (4-49); AST 88 U/L (17-59); African American GFR (CKD) >90 (>60 ml/min/1.73 sqM); Albumin 4.1 g/dL (3.5-5.0); Alkaline Phosphatase 79 U/L (38-126); Blood Urea Nitrogen 24 mg/dL (9-20); Calcium 8.3 mg/dL (8.4-10.2); Carbon Dioxide 22 mmol/L (22-30); Glucose 104 mg/dL (74-99); Non-African American GFR(CKD) >90 (>60 ml/min/1.73 sqM); Sodium 133 mmol/L (137-145); Total Bilirubin 2.1 mg/dL (0.2-1.3); Total Protein 7.3 g/dL (6.3-8.2)
[2022-10-10 23:31] LABS: Anion Gap 8 mmol/L; Chloride 103 mmol/L (98-107)
[2022-10-11] MEDS: SODIUM CHLORIDE 0.9% 1,000 ML IV SCH ×3 (00:43→12:04)
[2022-10-11] MEDS ORDERED: VANCOMYCIN IV PER PHARMACY 1 EACH MISC MISCELLANE PRN (01:04)
[2022-10-11] MEDS ORDERED: VANCOMYCIN 1,500 MG in SODIUM CHLORIDE 0.9% 500 ML 500 ML IVPB ONE (02:00)
[2022-10-11] MEDS: AMPICILLIN-SULBACTAM 3 GM in SODIUM CHLORIDE 0.9% 100 ML IVPB SCH ×3 (12:04→23:48)
[2022-10-11] MEDS ORDERED: VANCOMYCIN 1,250 MG in SODIUM CHLORIDE 0.9% 250 ML IVPB SCH (15:00)
[2022-10-11] MEDS ORDERED: HEPARIN SODIUM 1,000 UN/ML (10ML VL) IV ONE (15:08)
[2022-10-11] MEDS: HEPARIN SOD,PORK IN 0.45% NACL 25,000 UNIT in 0.45% NACL 1 250ML.BAG IV SCH (15:41)
[2022-10-11 16:03] LABS: Basophils % (A) 0 %; Eosinophils # (A) 0.1 k/uL (0-0.7); Eosinophils % (A) 3 %; HCT 32.3 % (39.0-53.0); HGB 10.9 gm/dL (13.0-17.5); Lymphocytes # (A) 1.3 k/uL (1.0-4.8); Lymphocytes % (A) 27 %; MCH 33.8 pg (25.0-35.0); MCHC 33.8 g/dL (31.0-37.0); MCV 100.2 fL (80.0-100.0); Macrocytosis Slight; Mean Platelet Volume 8.2; Monocytes # (A) 0.3 k/uL (0-1.0); Monocytes % (A) 7 %; Neutrophils # (A) 2.8 k/uL (1.3-7.7); Neutrophils % (A) 60 %; Platelet Count 133 k/uL (150-450); RBC 3.23 m/uL (4.30-5.90); RDW 14.4 % (11.5-15.5); WBC 4.7 k/uL (3.8-10.6)
[2022-10-11 16:14] LABS: African American GFR (CKD) >90 (>60 ml/min/1.73 sqM); Anion Gap 6 mmol/L; Blood Urea Nitrogen 14 mg/dL (9-20); Calcium 7.9 mg/dL (8.4-10.2); Carbon Dioxide 23 mmol/L (22-30); Chloride 107 mmol/L (98-107); Glucose 87 mg/dL (74-99); Non-African American GFR(CKD) >90 (>60 ml/min/1.73 sqM); Potassium 4.2 mmol/L (3.5-5.1); Sodium 136 mmol/L (137-145)
[2022-10-11 16:17] LABS: Partial Thromboplastin Time 23.3 sec (22.0-30.0); Prothrombin Time 10.5 sec (9.0-12.0)
[2022-10-11 16:34] LABS: C Reactive Protein 6.2 mg/dL (<1.0)
--- NOTE | 2022-10-11 19:16 | CT ---
EXAMINATION TYPE: CT foot RT w con DATE OF EXAM: 10/11/2022 COMPARISON: None HISTORY: gangreen CT DLP: 296.3 mGycm Automated exposure control for dose reduction was used. CONTRAST: Performed with IV Contrast, patient injected with 100 cc mL of Isovue 370. Images obtained from the distal tibia to the bottom of the foot with IV contrast. There is amputation of the forefoot at the level of the bases of the metatarsals. There is soft tissu e swelling of the forefoot. There is arterial flow in the dorsalis pedis artery and the posterior tib ial artery. There is some air in the subcutaneous tissues on the lateral aspect of the hindfoot adjac ent to the draining veins. There is mild subcutaneous edema around the hindfoot. There is plantar and Achilles calcaneal spurring. Ankle mortise is anatomic. IMPRESSION: There is some soft tissue air on the lateral aspect of the hindfoot that could relate to gangrene. Th ere is mild subcutaneous edema around the mid and hindfoot. Amputation deformities. No focal bone hawk truction.
--- NOTE | 2022-10-11 21:03 | P.CONS ---
History of Present Illness - Reason for Consult Consult date: 10/11/22 Right foot gangrene with sepsis Requesting physician: Katie Rocha - Chief Complaint Right foot pain and swelling x days - History of Present Illness Patient is a 52-year-old male with a past medical history significant for PE patient did have a history of gangrenous toes and is s/p bilateral transmetatarsal amputation of the feet that was completed back in July 2022 patient subsequently has recovered from and has healing of his wound patient now presenting to the [facility] ER last night for evaluation of right foot pain patient mentions symptom has been going on for the last few days and the patient denies having any history of any trauma he did mention the wound on the plantar aspect of the right foot opened up the day of presentation to hospital and did have some drainage patient be complaining of pain to the right foot to be sharp 7-8 out of 10 and no radiation with associated swelling and redness but denies foul-smelling drainage patient did have some chills but denies high-grade fever on presentation to the hospital patient did have a fever of 102 F did have a normal white count kidney function has been normal lactic acid was elevated patient did have x-ray of the foot soft tissue swelling and foreign bodies soft tissue is seen at the stump and also at the medial aspect of the hindfoot patient was admitted to hospital he was started on vancomycin infectious disease was consulted for further management of antibiotic therapy Review of Systems Positive point has been mentioned in the HPI rest of the systems are negative Past Medical History Past Medical History: Pulmonary Embolus (PE) Additional Past Medical History / Comment(s): Left leg cellulitis History of Any Multi-Drug Resistant Organisms: None Reported Past Surgical History: No Surgical Hx Reported Additional Past Surgical History / Comment(s): amputation of toes on both feet. Past Anesthesia/Blood Transfusion Reactions: No Reported Reaction Past Psychological History: No Psychological Hx Reported Smoking Status: Current every day smoker Past Alcohol Use History: None Reported Past Drug Use History: Marijuana - Past Family History Father Additional Family Medical History / Comment(s): Overdose Medications and Allergies Home Medications Medication Instructions Recorded Confirmed Type Albuterol Sulfate [Ventolin HFA] 2 puff INHALATION Q6H PRN 10/11/22 10/11/22 History Budesonide/Formoterol Fumarate 2 puff INHALATION BID 10/11/22 10/11/22 History [Symbicort 160-4.5 Mcg Inhaler] Losartan [Cozaar] 25 mg PO DAILY 10/11/22 10/11/22 History Rivaroxaban [Xarelto Starter Pack] 10 mg PO DAILY 10/11/22 10/11/22 History Allergies Allergy/AdvReac Type Severity Reaction Status Date / Time No Known Allergies Allergy Verified 10/11/22 07:05 Physical Exam Vitals: Vital Signs Temp Pulse Resp BP Pulse Ox 10/11/22 08:35 75 18 95/73 96 10/11/22 03:42 80 18 98/67 10/11/22 02:13 98.4 F 78 18 116/68 10/11/22 00:32 100.6 F H 78 16 107/52 95 10/10/22 21:36 102.2 F H 109 H 16 126/77 95 10/10/22 21:04 99.7 F H 101 H 18 130/85 97 Intake and Output 10/10/22 10/11/22 10/11/22 22:59 06:59 14:59 Other: Weight 68.492 kg GENERAL DESCRIPTION: Middle-aged male lying in bed, no distress. No tachypnea or accessory muscle of respiration use. HEENT: Shows Pallor , no scleral icterus. Oral mucous membrane is dry. No pharyngeal erythema or thrush NECK: Trachea central, no thyromegaly. LUNGS: Unlabored breathing. Clear to auscultation anteriorly. No wheeze or crac kle. HEART: S1, S2, regular rate and rhythm. No loud murmur ABDOMEN: Soft, no tenderness , guarding or rigidity, no organomegaly EXTREMITIES: Right foot plantar area with a necrotic wound with surrounding redness and minimal drainage SKIN: No rash, no masses palpable. NEUROLOGICAL: The patient is awake, alert, oriented x3, mood and affect normal. Results CBC & Chem 7: 10/14/22 06:13 10/14/22 06:13 Labs: Abnormal Lab Results - Last 24 Hours (Table) 10/10/22 10/10/22 10/10/22 Range/Units 22:29 22:29 22:29 RBC 3.33 L (4.30-5.90) m/uL Hgb 11.3 L (13.0-17.5) gm/dL Hct 32.9 L (39.0-53.0) % Plt Count 136 L (150-450) k/uL Sodium 133 L (137-145) mmol/L BUN 24 H (9-20) mg/dL Glucose 104 H (74-99) mg/dL Plasma Lactic Acid Jamal 2.8 H* (0.7-2.0) mmol/L Calcium 8.3 L (8.4-10.2) mg/dL Total Bilirubin 2.1 H (0.2-1.3) mg/dL AST 88 H (17-59) U/L Assessment and Plan (1) Gangrene of right foot Status: Acute Code(s): I96 - GANGRENE, NOT ELSEWHERE CLASSIFIED SNOMED Code(s): 70008668852730136 Plan: 1patient presented to hospital with sepsis in this patient who did have a fever elevated lactic acid source is right foot gangrene with evidence of soft tissue air in this patient who did have a history of bilateral transmetatarsal amputation because of gangrenous toe we will need to cover for the polymicrobial merrill usually associated with this type of infection. 2urgent consult to the vascular surgery has been requested as the patient is known to this service and the patient will likely need surgery drainage and deep culture. 3continue with the vancomycin we will add Unasyn to cover for the gram-negative and anaerobes We will follow on clinical condition and cultures to further adjust medication if needed Thank you for this consultation we will follow the patient along with you Time with Patient: Greater than 30
[2022-10-11] MEDS: SYMBICORT 160-4.5 MCG INHALER INHALATION SCH (21:07)
[2022-10-11] MEDS: HEPARIN SODIUM 1,000 UN/ML (10ML VL) IV PRN (23:53)
[2022-10-12] MEDS: VANCOMYCIN 1,250 MG in SODIUM CHLORIDE 0.9% 250 ML IVPB SCH ×3 (00:52→15:39)
[2022-10-12] MEDS: SODIUM CHLORIDE 0.9% 1,000 ML IV SCH ×4 (00:55→22:49)
[2022-10-12] MEDS: AMPICILLIN-SULBACTAM 3 GM in SODIUM CHLORIDE 0.9% 100 ML IVPB SCH ×4 (05:43→23:11)
[2022-10-12] MEDS: HEPARIN SODIUM 1,000 UN/ML (10ML VL) IV PRN ×3 (07:13→23:08)
[2022-10-12] MEDS: SYMBICORT 160-4.5 MCG INHALER INHALATION SCH ×2 (07:52→19:33)
[2022-10-12 09:02] LABS: Basophils # (A) 0.03 X 10*3/uL (0.00-0.10); Basophils % (A) 0.6 %; Eosinophils # (A) 0.22 X 10*3/uL (0.04-0.35); Eosinophils % (A) 4.7 %; HCT 33.7 % (39.6-50.0); HGB 10.8 g/dL (13.0-17.0); Immature Grans, Automated 0.2 %; Lymphocytes # (A) 1.38 X 10*3/uL (0.90-5.00); Lymphocytes % (A) 29.6 %; MCH 32.9 pg (27.0-32.0); MCV 102.7 fL (80.0-97.0); Monocytes # (A) 0.37 X 10*3/uL (0.20-1.00); Monocytes % (A) 7.9 %; NRBC Per 100 WBC 0 /100 WBCS (0.0-0.0); Neutrophils # (A) 2.65 X 10*3/uL (1.80-7.70); Platelet Count 141 X 10*3/uL (140-440); RBC 3.28 X 10*6/uL (4.40-5.60); RDW 14.6 % (11.5-14.5); WBC 4.66 X 10*3/uL (4.50-10.00)
[2022-10-12 09:12] LABS: INR 0.92 (0.90-1.11); Prothrombin Time 10.4 sec (9.9-11.9)
[2022-10-12 09:32] LABS: African American GFR (CKD) 118.2 (60.0-200.0); Anion Gap 11.7 mmol/L (10.00-18.00); BUN/Creat Ratio 11.66 Ratio (12.00-20.00); Blood Urea Nitrogen 9.5 mg/dL (9.0-27.0); Calcium 8.6 mg/dL (8.7-10.3); Carbon Dioxide 19.7 mmol/L (20.0-27.5); Potassium 4.3 mmol/L (3.5-5.5)
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
[2022-10-12] MEDS ORDERED: VANCOMYCIN TROUGH DUE 1 EACH MISC MISCELLANE ONE (15:00)
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
[2022-10-12] MEDS: HEPARIN SOD,PORK IN 0.45% NACL 25,000 UNIT in 0.45% NACL 1 250ML.BAG IV SCH (15:39)
--- NOTE | 2022-10-12 17:03 | P.PN ---
Subjective Progress Note Date: 10/12/22 Principal diagnosis: Right foot gangrene Patient is a 52-year-old male with a past medical history significant for PE patient did have a history of gangrenous toes and is s/p bilateral transmetatarsal amputation of the feet that was completed back in July 2022 patient subsequently has recovered from and has healing of his wound patient now presenting to the [facility] for evaluation of right foot pain, as the patient did have a necrotic wound on the plantar aspect of the right foot, patient did have a foot CT per vascular surgeon we did show soft tissue air could relate to gangrene and mild subcutaneous edema. on today's evaluation that is 10/12/2022, the patient denies having any fever or any chills, the patient pain to the right foot has slightly decreased in intensity no chest pain shortness of breath or cough no nausea no vomiting no abdominal pain or diarrhea Objective - Vital Signs Vital signs: Vital Signs Temp 97.9 F 10/12/22 07:09 Pulse 60 10/12/22 07:09 Resp 16 10/12/22 08:00 BP 104/52 10/12/22 07:09 Pulse Ox 95 10/12/22 07:09 FiO2 Intake & Output 10/11/22 10/12/22 10/12/22 18:59 06:59 18:59 Intake Total 560 67.259 75.514 Output Total 500 1250 600 Balance 60 -1182.741 -524.486 Weight 68.492 kg Intake: Intake, IV Titration 350 67.259 75.514 Amount Ampicillin-Sulbactam 3 gm 100 In Sodium Chloride 0.9% 100 ml @ 200 mls/hr IVPB Q6HR [facility] Rx#:[id number] Heparin Sod,Pork in 0.45% 67.259 75.514 NaCl 25,000 unit In 0.45 % NaCl 1 250ml.bag @ 12 UNITS/KG/HR 8.219 mls/hr IV .Q24H [facility] Rx#: [id number] Vancomycin 1,250 mg In 250 Sodium Chloride 0.9% 250 ml @ 125 mls/hr IVPB Q12H [facility] Rx#:[id number] Oral 210 Output: Urine 500 1250 600 Other: Voiding Method Urinal Toilet # Voids 2 2 - Exam GENERAL DESCRIPTION: Middle-age male lying in bed in no distress RESPIRATORY SYSTEM: Unlabored breathing , decreased breath sounds at bases HEART: S1 S2 regular rate and rhythm , ABDOMEN: Soft , no tenderness EXTREMITIES: Right foot plantar aspect did have a necrotic wound and no drainage - Labs CBC & Chem 7: 10/12/22 05:12 10/12/22 05:12 Labs: Abnormal Lab Results - Last 24 Hours (Table) 10/11/22 10/11/22 10/11/22 Range/Units 15:48 15:48 15:48 RBC 3.23 L (4.30-5.90) m/uL Hgb 10.9 L (13.0-17.5) gm/dL Hct 32.3 L (39.0-53.0) % MCV 100.2 H (80.0-100.0) fL MCH (27.0-32.0) pg RDW (11.5-14.5) % Plt Count 133 L (150-450) k/uL APTT (22.0-30.0) sec Sodium 136 L (137-145) mmol/L Carbon Dioxide (20.0-27.5) mmol/L BUN/Creatinine Ratio (12.00-20.00) Ratio Calcium 7.9 L (8.4-10.2) mg/dL C-Reactive Protein 6.2 H (<1.0) mg/dL Procalcitonin 0.31 H (0.02-0.09) ng/mL 10/12/22 10/12/22 10/12/22 Range/Units 05:12 05:12 05:12 RBC 3.28 L (4.30-5.90) m/uL Hgb 10.8 L (13.0-17.5) gm/dL Hct 33.7 L (39.0-53.0) % MCV 102.7 H (80.0-100.0) fL MCH 32.9 H (27.0-32.0) pg RDW 14.6 H (11.5-14.5) % Plt Count (150-450) k/uL APTT 31.2 H (22.0-30.0) sec Sodium (137-145) mmol/L Carbon Dioxide 19.7 L (20.0-27.5) mmol/L BUN/Creatinine Ratio 11.66 L (12.00-20.00) Ratio Calcium 8.6 L (8.4-10.2) mg/dL C-Reactive Protein (<1.0) mg/dL Procalcitonin (0.02-0.09) ng/mL Microbiology - Last 24 Hours (Table) 10/10/22 22:29 Blood Culture - Preliminary Blood No Growth after 24 hours 10/10/22 22:29 Blood Culture - Preliminary Blood No Growth after 24 hours Assessment and Plan (1) Gangrene of right foot Current Visit: Yes Status: Acute Code(s): I96 - GANGRENE, NOT ELSEWHERE CLASSIFIED SNOMED Code(s): 85518197808922917 Plan: 1patient presented to hospital with sepsis in this patient who did have a fever elevated lactic acid source is right foot gangrene with evidence of soft tissue air in this patient who did have a history of bilateral transmetatarsal amputation because of gangrenous toe we will need to cover for the polymicrobial merrill usually associated with this type of infection. 2patient has been evaluated by vascular surgery apparently not recommending any drainage at this point the patient did have abnormality on the CT of the foot 3patient to continue with the vancomycin and Unasyn to cover for the gram- negative and anaerobes, prognosis guarded Time with Patient: Less than 30
[2022-10-12] MEDS: ALBUTEROL HFA INHALER INHALATION PRN (19:33)
[2022-10-12] MEDS: VANCOMYCIN 1,000 MG in SODIUM CHLORIDE 0.9% 250 ML IVPB SCH (23:25)
[2022-10-13] MEDS: SODIUM CHLORIDE 0.9% 1,000 ML IV SCH ×3 (04:59→21:02)
[2022-10-13] MEDS: AMPICILLIN-SULBACTAM 3 GM in SODIUM CHLORIDE 0.9% 100 ML IVPB SCH ×4 (05:08→23:43)
[2022-10-13] MEDS: HEPARIN SOD,PORK IN 0.45% NACL 25,000 UNIT in 0.45% NACL 1 250ML.BAG IV SCH ×2 (07:04→21:47)
[2022-10-13] MEDS: VANCOMYCIN 1,000 MG in SODIUM CHLORIDE 0.9% 250 ML IVPB SCH ×3 (08:55→23:43)
[2022-10-13 09:13] LABS: African American GFR (CKD) 111.9 (60.0-200.0); Anion Gap 11.4 mmol/L (10.00-18.00); BUN/Creat Ratio 7.64 Ratio (12.00-20.00); Carbon Dioxide 21.8 mmol/L (20.0-27.5); Non-African American GFR(CKD) 96.6 (60.0-200.0); Potassium 4.3 mmol/L (3.5-5.5)
[2022-10-13 09:21] LABS: Basophils # (A) 0.03 X 10*3/uL (0.00-0.10); Basophils % (A) 0.6 %; Eosinophils # (A) 0.26 X 10*3/uL (0.04-0.35); Eosinophils % (A) 5.2 %; HCT 33.6 % (39.6-50.0); HGB 10.8 g/dL (13.0-17.0); Immature Grans, Automated 0.2 %; Lymphocytes % (A) 29.9 %; MCH 33.3 pg (27.0-32.0); MCHC 32.1 g/dL (32.0-37.0); MCV 103.7 fL (80.0-97.0); Mean Platelet Volume 11.6 fL (9.5-12.2); Monocytes # (A) 0.33 X 10*3/uL (0.20-1.00); Monocytes % (A) 6.6 %; NRBC Per 100 WBC 0 /100 WBCS (0.0-0.0); Neutrophils # (A) 2.88 X 10*3/uL (1.80-7.70); Neutrophils % (A) 57.5 %; Platelet Count 146 X 10*3/uL (140-440); RBC 3.24 X 10*6/uL (4.40-5.60); RDW 14.4 % (11.5-14.5); WBC 5.01 X 10*3/uL (4.50-10.00)
[2022-10-13] MEDS: SYMBICORT 160-4.5 MCG INHALER INHALATION SCH ×2 (09:47→20:00)
--- NOTE | 2022-10-13 12:13 | P.PN ---
Subjective Progress Note Date: 10/12/22 52-year-old male with a past medical history significant for PE patient did have a history of gangrenous toes and is s/p bilateral transmetatarsal amputation of the feet that was completed back in July 2022 patient subsequently has recovered from and has healing of his wound patient now presenting to the [facility] ER last night for evaluation of right foot pain patient mentions symptom has been going on for the last few days and the patient denies having any history of any trauma he did mention the wound on the plantar aspect of the right foot opened up the day of presentation to hospital and did have some drainage patient be complaining of pain to the right foot to be sharp 7-8 out of 10 and no radiation with associated swelling and redness but denies foul-smelling drainage patient did have some chills but denies high-grade fever on presentation to the hospital patient did have a fever of 102 F did have a normal white count kidney function has been normal lactic acid was elevated patient did have x-ray of the foot soft tissue swelling and foreign bodies soft tissue is seen at the stump and also at the medial aspect of the hindfoot patient was admitted to hospital he was started on vancomycin Medical completing the ED reveals a WBC of 4.7, hemoglobin of 10.9 and platelet count of 133, sodium 136, potassium 4.2, BUN/creatinine of 14/0.7 Objective - Vital Signs Vital signs: Vital Signs Temp 97.4 F L 10/12/22 14:01 Pulse 76 10/12/22 14:01 Resp 19 10/12/22 14:01 BP 104/74 10/12/22 14:01 Pulse Ox 100 10/12/22 14:01 FiO2 Intake & Output 10/11/22 10/12/22 10/12/22 18:59 06:59 18:59 Intake Total 560 67.259 168.598 Output Total 500 1250 600 Balance 60 -1182.741 -431.402 Weight 68.492 kg Intake: Intake, IV Titration 350 67.259 168.598 Amount Ampicillin-Sulbactam 3 gm 100 In Sodium Chloride 0.9% 100 ml @ 200 mls/hr IVPB Q6HR [facility] Rx#:[id number] Heparin Sod,Pork in 0.45% 67.259 168.598 NaCl 25,000 unit In 0.45 % NaCl 1 250ml.bag @ 12 UNITS/KG/HR 8.219 mls/hr IV .Q24H [facility] Rx#: [id number] Vancomycin 1,250 mg In 250 Sodium Chloride 0.9% 250 ml @ 125 mls/hr IVPB Q12H [facility] Rx#:[id number] Oral 210 Output: Urine 500 1250 600 Other: Voiding Method Urinal Toilet # Voids 2 2 - Exam GENERAL: The patient is alert and oriented x3, not in any acute distress. Well developed, well nourished. HEENT: Pupils are round and equally reacting to light. EOMI. No scleral icterus. No conjunctival pallor. Normocephalic, atraumatic. No pharyngeal erythema. No thyromegaly. CARDIOVASCULAR: S1 and S2 present. No murmurs, rubs, or gallops. PULMONARY: Chest is clear to auscultation, no wheezing or crackles. ABDOMEN: Soft, nontender, nondistended, normoactive bowel sounds. No palpable organomegaly. MUSCULOSKELETAL: No joint swelling or deformity. EXTREMITIES: No cyanosis, clubbing, or pedal edema. NEUROLOGICAL: Gross neurological examination did not reveal any focal deficits. SKIN: No rashes. - Labs CBC & Chem 7: 10/13/22 05:15 10/13/22 05:15 Labs: Abnormal Lab Results - Last 24 Hours (Table) 10/11/22 10/11/22 10/11/22 Range/Units 15:48 15:48 15:48 RBC 3.23 L (4.30-5.90) m/uL Hgb 10.9 L (13.0-17.5) gm/dL Hct 32.3 L (39.0-53.0) % MCV 100.2 H (80.0-100.0) fL MCH (27.0-32.0) pg RDW (11.5-14.5) % Plt Count 133 L (150-450) k/uL APTT (22.0-30.0) sec Sodium 136 L (137-145) mmol/L Carbon Dioxide (20.0-27.5) mmol/L BUN/Creatinine Ratio (12.00-20.00) Ratio Calcium 7.9 L (8.4-10.2) mg/dL C-Reactive Protein 6.2 H (<1.0) mg/dL Procalcitonin 0.31 H (0.02-0.09) ng/mL 10/12/22 10/12/22 10/12/22 Range/Units 05:12 05:12 05:12 RBC 3.28 L (4.30-5.90) m/uL Hgb 10.8 L (13.0-17.5) gm/dL Hct 33.7 L (39.0-53.0) % MCV 102.7 H (80.0-100.0) fL MCH 32.9 H (27.0-32.0) pg RDW 14.6 H (11.5-14.5) % Plt Count (150-450) k/uL APTT 31.2 H (22.0-30.0) sec Sodium (137-145) mmol/L Carbon Dioxide 19.7 L (20.0-27.5) mmol/L BUN/Creatinine Ratio 11.66 L (12.00-20.00) Ratio Calcium 8.6 L (8.4-10.2) mg/dL C-Reactive Protein (<1.0) mg/dL Procalcitonin (0.02-0.09) ng/mL 10/12/22 Range/Units 14:05 RBC (4.30-5.90) m/uL Hgb (13.0-17.5) gm/dL Hct (39.0-53.0) % MCV (80.0-100.0) fL MCH (27.0-32.0) pg RDW (11.5-14.5) % Plt Count (150-450) k/uL APTT 34.4 H (22.0-30.0) sec Sodium (137-145) mmol/L Carbon Dioxide (20.0-27.5) mmol/L BUN/Creatinine Ratio (12.00-20.00) Ratio Calcium (8.4-10.2) mg/dL C-Reactive Protein (<1.0) mg/dL Procalcitonin (0.02-0.09) ng/mL Microbiology - Last 24 Hours (Table) 10/10/22 22:29 Blood Culture - Preliminary Blood No Growth after 24 hours 10/10/22 22:29 Blood Culture - Preliminary Blood No Growth after 24 hours Assessment and Plan Assessment: 1. Gangrene right foot/sepsis patient presented to hospital with sepsis in this patient who did have a fever elevated lactic acid source is right foot gangrene with evidence of soft tissue air in this patient who did have a history of bilateral transmetatarsal amputation because of gangrenous toe we will need to cover for the polymicrobial merrill usually associated with this type of infection. 2urgent consult to the vascular surgery has been requested as the patient is known to this service and the patient will likely need surgery drainage and deep culture. 3continue with the vancomycin we will add Unasyn to cover for the gram-negative and anaerobes We will follow on clinical condition and cultures to further adjust medication if needed Thank you for this consultation we will follow the patient along with you 2. Hypertension; losartan 25 mg daily 3. Asthma; patient uses Symbicort 1601.5 MCG daily along with albuterol inhaler to use when necessary 4. History of PE ; patient remains on Xarelto 10 mg daily DVT prophylaxis; SCDs/systemic anticoagulation CODE STATUS; full code
--- NOTE | 2022-10-13 15:49 | P.PN ---
Subjective Progress Note Date: 10/13/22 Principal diagnosis: Right foot gangrene Patient is a 52-year-old male with a past medical history significant for PE patient did have a history of gangrenous toes and is s/p bilateral transmetatarsal amputation of the feet that was completed back in July 2022 patient subsequently has recovered from and has healing of his wound patient now presenting to the [facility] for evaluation of right foot pain, as the patient did have a necrotic wound on the plantar aspect of the right foot, patient did have a foot CT per vascular surgeon we did show soft tissue air could relate to gangrene and mild subcutaneous edema. on today's evaluation that is 10/13/2022, the patient remains to be afebrile, the patient pain to the right foot has decreased in intensity, did have some drainage on the dressing, the patient denies chest pain shortness of breath or cough no nausea no vomiting no abdominal pain or diarrhea Objective - Vital Signs Vital signs: Vital Signs Temp 98.1 F 10/13/22 12:09 Pulse 70 10/13/22 12:09 Resp 14 10/13/22 12:09 BP 109/74 10/13/22 12:09 Pulse Ox 99 10/13/22 12:09 FiO2 Intake & Output 10/12/22 10/13/22 10/13/22 18:59 06:59 18:59 Intake Total 1261.303 107.873 124.711 Output Total 1200 3000 1850 Balance 61.303 -2892.127 -1725.289 Intake: Intake, IV Titration 181.303 107.873 124.711 Amount Heparin Sod,Pork in 0.45% 181.303 107.873 124.711 NaCl 25,000 unit In 0.45 % NaCl 1 250ml.bag @ 12 UNITS/KG/HR 8.219 mls/hr IV .Q24H DEBI Rx#: [id number] Oral 1080 Output: Urine 1200 3000 1850 Other: Voiding Method Toilet Urinal # Voids 2 - Exam GENERAL DESCRIPTION: Middle-age male lying in bed in no distress RESPIRATORY SYSTEM: Unlabored breathing , decreased breath sounds at bases HEART: S1 S2 regular rate and rhythm , ABDOMEN: Soft , no tenderness EXTREMITIES: Right foot plantar aspect with a necrotic wound minimal drainage on the dressing swelling redness has improved - Labs CBC & Chem 7: 10/13/22 05:15 10/13/22 05:15 Labs: Abnormal Lab Results - Last 24 Hours (Table) 10/12/22 10/13/22 10/13/22 Range/Units 22:30 05:15 05:15 RBC 3.24 L (4.40-5.60) X 10*6/uL Hgb 10.8 L (13.0-17.0) g/dL Hct 33.6 L (39.6-50.0) % MCV 103.7 H (80.0-97.0) fL MCH 33.3 H (27.0-32.0) pg APTT 41.3 H (22.0-30.0) sec BUN 7.0 L (9.0-27.0) mg/dL BUN/Creatinine Ratio 7.64 L (12.00-20.00) Ratio Calcium 8.0 L (8.7-10.3) mg/dL 10/13/22 Range/Units 05:15 RBC (4.40-5.60) X 10*6/uL Hgb (13.0-17.0) g/dL Hct (39.6-50.0) % MCV (80.0-97.0) fL MCH (27.0-32.0) pg APTT 53.1 H (22.0-30.0) sec BUN (9.0-27.0) mg/dL BUN/Creatinine Ratio (12.00-20.00) Ratio Calcium (8.7-10.3) mg/dL Microbiology - Last 24 Hours (Table) 10/10/22 22:29 Blood Culture - Preliminary Blood No Growth after 48 hours 10/10/22 22:29 Blood Culture - Preliminary Blood No Growth after 48 hours Assessment and Plan (1) Gangrene of right foot Current Visit: Yes Status: Acute Code(s): I96 - GANGRENE, NOT ELSEWHERE CLASSIFIED SNOMED Code(s): 48876748929079393 Plan: 1patient presented to hospital with sepsis in this patient who did have a fever elevated lactic acid source is right foot gangrene with evidence of soft tissue air in this patient who did have a history of bilateral transmetatarsal amputation because of gangrenous toe we will need to cover for the polymicrobial merrill usually associated with this type of infection. 2patient has been evaluated by vascular surgery apparently not recommending any drainage at this point the patient did have abnormality on the CT of the foot 3patient seemed to have some clinical improvement and will continue with the vancomycin and Unasyn and monitor clinical course closely Time with Patient: Less than 30
--- NOTE | 2022-10-13 17:05 | P.PN ---
Subjective Progress Note Date: 10/13/22 52-year-old male with a past medical history significant for PE patient did have a history of gangrenous toes and is s/p bilateral transmetatarsal amputation of the feet that was completed back in July 2022 patient subsequently has recovered from and has healing of his wound patient now presenting to the [facility] ER last night for evaluation of right foot pain patient mentions symptom has been going on for the last few days and the patient denies having any history of any trauma he did mention the wound on the plantar aspect of the right foot opened up the day of presentation to hospital and did have some drainage patient be complaining of pain to the right foot to be sharp 7-8 out of 10 and no radiation with associated swelling and redness but denies foul-smelling drainage patient did have some chills but denies high-grade fever on presentation to the hospital patient did have a fever of 102 F did have a normal white count kidney function has been normal lactic acid was elevated patient did have x-ray of the foot soft tissue swelling and foreign bodies soft tissue is seen at the stump and also at the medial aspect of the hindfoot patient was admitted to hospital he was started on vancomycin Medical completing the ED reveals a WBC of 4.7, hemoglobin of 10.9 and platelet count of 133, sodium 136, potassium 4.2, BUN/creatinine of 14/0.7 10/13/2022 the patient remains to be afebrile, the patient pain to the right foot has decreased in intensity, did have some drainage on the dressing, the patient denies chest pain shortness of breath or cough no nausea no vomiting no abdominal pain or diarrhea patient presented to hospital with sepsis in this patient who did have a fever elevated lactic acid source is right foot gangrene with evidence of soft tissue air in this patient who did have a history of bilateral transmetatarsal amput ation because of gangrenous toe we will need to cover for the polymicrobial merrill usually associated with this type of infection. patient has been evaluated by vascular surgery apparently not recommending any drainage at this point the patient did have abnormality on the CT of the foot patient seemed to have some clinical improvement and will continue with the vancomycin and Unasyn and monitor clinical course closely Objective - Vital Signs Vital signs: Vital Signs Temp 98.1 F 10/13/22 12:09 Pulse 70 10/13/22 12:09 Resp 14 10/13/22 12:09 BP 109/74 10/13/22 12:09 Pulse Ox 99 10/13/22 12:09 FiO2 Intake & Output 10/12/22 10/13/22 10/13/22 18:59 06:59 18:59 Intake Total 1261.303 107.873 124.711 Output Total 1200 3000 900 Balance 61.303 -2892.127 -775.289 Intake: Intake, IV Titration 181.303 107.873 124.711 Amount Heparin Sod,Pork in 0.45% 181.303 107.873 124.711 NaCl 25,000 unit In 0.45 % NaCl 1 250ml.bag @ 12 UNITS/KG/HR 8.219 mls/hr IV .Q24H DEBI Rx#: [id number] Oral 1080 Output: Urine 1200 3000 900 Other: Voiding Method Toilet Urinal # Voids 2 - Exam GENERAL: The patient is alert and oriented x3, not in any acute distress. Well developed, well nourished. HEENT: Pupils are round and equally reacting to light. EOMI. No scleral icterus. No conjunctival pallor. Normocephalic, atraumatic. No pharyngeal erythema. No thyromegaly. CARDIOVASCULAR: S1 and S2 present. No murmurs, rubs, or gallops. PULMONARY: Chest is clear to auscultation, no wheezing or crackles. ABDOMEN: Soft, nontender, nondistended, normoactive bowel sounds. No palpable organomegaly. MUSCULOSKELETAL: No joint swelling or deformity. EXTREMITIES: No cyanosis, clubbing, or pedal edema. NEUROLOGICAL: Gross neurological examination did not reveal any focal deficits. SKIN: No rashes. - Labs CBC & Chem 7: 10/13/22 05:15 10/13/22 05:15 Labs: Abnormal Lab Results - Last 24 Hours (Table) 10/12/22 10/12/22 10/13/22 Range/Units 14:05 22:30 05:15 RBC (4.40-5.60) X 10*6/uL Hgb (13.0-17.0) g/dL Hct (39.6-50.0) % MCV (80.0-97.0) fL MCH (27.0-32.0) pg APTT 34.4 H 41.3 H (22.0-30.0) sec BUN 7.0 L (9.0-27.0) mg/dL BUN/Creatinine Ratio 7.64 L (12.00-20.00) Ratio Calcium 8.0 L (8.7-10.3) mg/dL 10/13/22 10/13/22 Range/Units 05:15 05:15 RBC 3.24 L (4.40-5.60) X 10*6/uL Hgb 10.8 L (13.0-17.0) g/dL Hct 33.6 L (39.6-50.0) % MCV 103.7 H (80.0-97.0) fL MCH 33.3 H (27.0-32.0) pg APTT 53.1 H (22.0-30.0) sec BUN (9.0-27.0) mg/dL BUN/Creatinine Ratio (12.00-20.00) Ratio Calcium (8.7-10.3) mg/dL Microbiology - Last 24 Hours (Table) 10/10/22 22:29 Blood Culture - Preliminary Blood No Growth after 48 hours 10/10/22 22:29 Blood Culture - Preliminary Blood No Growth after 48 hours Assessment and Plan Assessment: 1. Gangrene right foot/sepsis patient presented to hospital with sepsis in this patient who did have a fever e levated lactic acid source is right foot gangrene with evidence of soft tissue air in this patient who did have a history of bilateral transmetatarsal amputation because of gangrenous toe we will need to cover for the polymicrobial merrill usually associated with this type of infection. 2urgent consult to the vascular surgery has been requested as the patient is known to this service and the patient will likely need surgery drainage and deep culture. 3continue with the vancomycin we will add Unasyn to cover for the gram-negative and anaerobes We will follow on clinical condition and cultures to further adjust medication if needed Thank you for this consultation we will follow the patient along with you 2. Hypertension; losartan 25 mg daily 3. Asthma; patient uses Symbicort 1601.5 MCG daily along with albuterol inhaler to use when necessary 4. History of PE ; patient remains on Xarelto 10 mg daily DVT prophylaxis; SCDs/systemic anticoagulation CODE STATUS; full code
[2022-10-13] MEDS: ALBUTEROL HFA INHALER INHALATION PRN (20:00)
[2022-10-14 00:44] VITALS: RESP 16
[2022-10-14] MEDS: AMPICILLIN-SULBACTAM 3 GM in SODIUM CHLORIDE 0.9% 100 ML IVPB SCH (05:21)
[2022-10-14] MEDS: SODIUM CHLORIDE 0.9% 1,000 ML IV SCH (05:22)
[2022-10-14] MEDS ORDERED: VANCOMYCIN TROUGH DUE 1 EACH MISC MISCELLANE ONE (07:00)
[2022-10-14 08:00] VITALS: BP 101/68; PULSE 49; TEMP 98.9
[2022-10-14] MEDS: VANCOMYCIN 1,000 MG in SODIUM CHLORIDE 0.9% 250 ML IVPB SCH (09:19)
[2022-10-14] MEDS: SYMBICORT 160-4.5 MCG INHALER INHALATION SCH (09:43)
[2022-10-14] MEDS: ALBUTEROL HFA INHALER INHALATION PRN (09:44)
--- NOTE | 2022-10-14 10:05 | P.PN ---
Subjective Progress Note Date: 10/14/22 Patient is seen and examined today as a follow-up for bacteremia suspected from of right foot wound and being followed by infectious disease. Patient is currently on IV antibiotics including vancomycin and Unasyn. States that the right foot pain has improved. There is some yellow drainage on dressing today. Wound on plantar aspect of the hindfoot with eschar, small 2 mm hole in the lateral aspect with undermining, serosanguineous drainage. Patient has been afebrile. He denies any fevers, chills, body aches, abdominal pain, nausea or vomiting. Blood cultures currently negative at 72 hours Objective - Vital Signs Vital signs: Vital Signs Temp 98.9 F 10/14/22 07:02 Pulse 49 L 10/14/22 07:02 Resp 16 10/14/22 07:02 BP 101/68 10/14/22 07:02 Pulse Ox 100 10/14/22 07:02 FiO2 Intake & Output 10/13/22 10/14/22 10/14/22 18:59 06:59 18:59 Intake Total 1514.711 231.832 169.87 Output Total 1850 1520 Balance -335.289 -1288.168 169.87 Intake: Intake, IV Titration 1514.711 231.832 169.87 Amount Ampicillin-Sulbactam 3 gm 100 In Sodium Chloride 0.9% 100 ml @ 200 mls/hr IVPB Q6HR [facility]BI Rx#:[id number] Heparin Sod,Pork in 0.45% 124.711 231.832 169.87 NaCl 25,000 unit In 0.45 % NaCl 1 250ml.bag @ 12 UNITS/KG/HR 8.219 mls/hr IV .Q24H [facility]BI Rx#: [id number] Sodium Chloride 0.9% 1, 1040 000 ml @ 130 mls/hr IV . Q7H42M [facility]BI Rx#:[id number] Vancomycin 1,000 mg In 250 Sodium Chloride 0.9% 250 ml @ 125 mls/hr IVPB Q8HR DEBI Rx#:[id number] Output: Urine 1850 1520 Other: Voiding Method Toilet Urinal # Voids 1 # Bowel Movements 1 - Exam General appearance: The patient is alert, oriented, appears in no acute distress. HET: Head is normocephalic and atraumatic. Neck: Supple. Heart: Regular. Lungs: Equal expansion, normal respiratory effort. Abdomen: Soft, nontender, nondistended. Extremities: There is some yellow drainage on dressing today. Wound on plantar aspect of the hindfoot with eschar, small 2 mm hole in the lateral aspect with undermining, serosanguineous drainage. Also wound to heal, without any drainage. Neurological: Alert and oriented 3. - Labs CBC & Chem 7: 10/13/22 05:15 10/13/22 05:15 Labs: Abnormal Lab Results - Last 24 Hours (Table) 10/14/22 Range/Units 06:13 APTT 53.9 H (22.0-30.0) sec Microbiology - Last 24 Hours (Table) 10/10/22 22:29 Blood Culture - Preliminary Blood No Growth after 72 hours 10/10/22 22:29 Blood Culture - Preliminary Blood No Growth after 72 hours Assessment and Plan Assessment: 1. Right foot wounds 2. Previous bilateral TMA, secondary to frostbite and burn Plan: Discussed patient's case with Dr. Barragan, plan for surgical debridement right foot with deep tissue cultures on Friday10/16/22. Continue IV heparin drip for now. Continue IV antibiotics per recommendations from infectious disease and local wound care. The plan for continued IV antibiotics and surgical debridement for Friday was discussed with the patient who states he is not staying in the hospital any longer. Patient requested nurse to remove his IV. I discussed with patient without treatment with IV antibiotics patient may become septic and could cause significant illness and . Also discussed wound on his right foot if untreated could result in further infection and further surgical intervention including below the knee amputation. Patient voiced understanding and states he does not want to stay in the hospital any longer. I again recommended patient to stay in the hospital for treatment. Patient refusing. Did discuss with patient to follow-up with Dr. Dietz in the office this on 10/17/2022 and attempted to get patient to the office phone number however he left before it was given to him. The impression and plan of care has been dictated as directed. I performed a history and examination of this patient, discussed the same with the dictator. I agree with the dictator's note ,documented as a scribe. Any additional findings or plans will be noted.
[2022-10-14 10:41] LABS: Basophils # (A) 0.03 X 10*3/uL (0.00-0.10); Basophils % (A) 0.6 %; Eosinophils # (A) 0.17 X 10*3/uL (0.04-0.35); Eosinophils % (A) 3.5 %; HCT 34.1 % (39.6-50.0); HGB 10.8 g/dL (13.0-17.0); Immature Grans, Automated 0.2 %; Lymphocytes # (A) 1.66 X 10*3/uL (0.90-5.00); Lymphocytes % (A) 33.9 %; MCH 33.1 pg (27.0-32.0); MCHC 31.7 g/dL (32.0-37.0); MCV 104.6 fL (80.0-97.0); Mean Platelet Volume 11.7 fL (9.5-12.2); Monocytes # (A) 0.27 X 10*3/uL (0.20-1.00); Monocytes % (A) 5.5 %; NRBC Per 100 WBC 0 /100 WBCS (0.0-0.0); Neutrophils # (A) 2.75 X 10*3/uL (1.80-7.70); Neutrophils % (A) 56.3 %; Platelet Count 131 X 10*3/uL (140-440); RBC 3.26 X 10*6/uL (4.40-5.60); WBC 4.89 X 10*3/uL (4.50-10.00)
[2022-10-14 11:00] LABS: African American GFR (CKD) 113.4 (60.0-200.0); Anion Gap 10.3 mmol/L (10.00-18.00); BUN/Creat Ratio 7.44 Ratio (12.00-20.00); Blood Urea Nitrogen 6.7 mg/dL (9.0-27.0); Carbon Dioxide 21.7 mmol/L (20.0-27.5); Non-African American GFR(CKD) 97.9 (60.0-200.0); Potassium 4.5 mmol/L (3.5-5.5)
--- NOTE | 2022-10-14 17:25 | P.DS ---
Providers Date of admission: 10/11/22 01:04 Attending physician: Bello Tyler Consults: 10/10/22 22:41 Consult Physician Routine Consulting Provider: Anahi Martell Consult Reason/Comments: right foot gangrene with sepsis Do you want consulting provider notified?: Yes 10/11/22 11:10 Consult Physician Urgent Consulting Provider: Mia Kramer Consult Reason/Comments: right foot gangrene, pt know to your service from previous amputation Do you want consulting provider notified?: Yes [facility]: This is a 52 year old male with multiple admissions for right foot wound. Patient was receiving IV antibiotics. ID and vascular services following. Patient was being treated for gangrene to the right foot with sepsis. He has a history of hypertension, asthma and pulmonary embolism. Anticoagulated with xarelto. Patient left against medical advice on 10/14/2022 at 0949. Medical record indicates patient angry having to wait until friday for vascular surgery. Patient not evaluated by admitting services on 10/14/2022 prior to leaving A, notified that patient had left after the fact. The impression and plan of care has been dictated by Aishwarya Cormier Nurse Practitioner as directed. Dr. Jose Cruz MD I have performed a history and physical examination and medical decision making of this patient, discussed the same with the dictator, and agree with the dictators assessment and plan as written, documented as a scribe. Based on total visit time, I have performed more than 50% of this visit. Patient Condition at Discharge: Undetermined Plan - Discharge Summary Discharge Rx Participant: Yes New Discharge Prescriptions: No Action Losartan [Cozaar] 25 mg PO DAILY Budesonide/Formoterol Fumarate [Symbicort 160-4.5 Mcg Inhaler] 2 puff INHALATION BID Rivaroxaban [Xarelto Starter Pack] 10 mg PO DAILY Albuterol Sulfate [Ventolin HFA] 2 puff INHALATION Q6H PRN PRN Reason: Shortness Of Breath Or Wheezing Discharge Medication List Albuterol Sulfate [Ventolin HFA] 2 puff INHALATION Q6H PRN 10/11/22 [History] Budesonide/Formoterol Fumarate [Symbicort 160-4.5 Mcg Inhaler] 2 puff INHALATION BID 10/11/22 [History] Losartan [Cozaar] 25 mg PO DAILY 10/11/22 [History] Rivaroxaban [Xarelto Starter Pack] 10 mg PO DAILY 10/11/22 [History] Follow up Appointment(s)/Referral(s): Nell Field MD [Primary Care Provider] - 1-2 days Patient Instructions/Handouts: Gangrene (DC) Discharge/Stand Alone Forms: [facility] Discharge Disposition: Left Against Medical Advice
[2022-10-14] MEDS ORDERED: VANCOMYCIN 1,250 MG in SODIUM CHLORIDE 0.9% 250 ML IVPB SCH (21:00)
--- NOTE | 2022-10-17 16:17 | CDI ---
Documentation Clarification Form Date: 10/17/2022 3:40:23 PM From: Ryanne Dillard Admit Date: 10/11/2022 1:04:00 AM Patient Name: Obed Parikh Visit Number: [id number] Discharge Date: 10/14/2022 10:03:00 AM ATTENTION: The Clinical Documentation Specialists (CDI) and [facility] Coding Staff appreciate your assistance in clarifying documentation. Please respond to the clarification below the line at the bottom and electronically sign. The CDI & [facility] Coding staff will review the response and follow-up if needed. Please note: Queries are made part of the Legal Health Record. If you have any questions, please contact the author of this message via ITS. Dr. Dontae Lewis There is documentation of sepsis and right foot gangrene with a previous transmetatarsal amputation in the H&P, Progress notes, and Discharge Summary. Additional clarification is requested. History/Risk Factors: patient is a 52 year old male, homeless, who has a history of a bilateral transmetatarsal amputation of the feet back in July 2022 due to thermal faria and frostbite. It is noted patient has recovered and his wounds have healed. Also has a history of Pulmonary Embolism on anticoagulation, HTN, asthma, and is a smoker. Clinical Indicators: patient presented with sepsis, fever, elevated lactic acid, and right foot gangrene with evidence of soft tissue air. This patient also has a history of bilateral trans-metatarsal amputation because of gangrenous toes. There is a wound on the plantar aspect of the hind foot with eschar, small 2 mm hole in the lateral aspect with serosanguinous drainage- opened up 10/11/22. Surgical consultation 10/12/22 mentions the reason for the consult is possible residual infection process of the right foot. However patient tolerated surgical px well and wounds have gone on to heal essentially completely. Physician saw patient approx. 3-4 weeks ago and didnt anticipate any further issues. Treatment: IV vanco and unasyn surgery consulted but patient left AMA Can you please clarify if this is a residual infection process of the right foot due to/involving the amputation stump? [ ] Plantar aspect hind foot wound with sepsis and gangrene not related to previous amputation [ ] Infection of amputation stump with sepsis and gangrene [ ] Other, please specify [ ] Unable to determine MTDD
== END 2022-10-14 10:03 | disposition left against medical advice (07) | DRG 349 ==
LOC: EC 20:57 → 4SSUR 10-11 01:04
PROVIDERS: ADMIT Hospitalist; ATTEND Hospitalist
DX: T87.43 Infection of amputation stump, right lower extremity (principal); A41.9 Sepsis, unspecified organism; I96 Gangrene, not elsewhere classified; I10 Essential (primary) hypertension; J45.909 Unspecified asthma, uncomplicated; S91.301A Unspecified open wound, right foot, initial encounter; E87.20 Acidosis, unspecified; F17.200 Nicotine dependence, unspecified, uncomplicated; Z86.711 Personal history of pulmonary embolism; Z79.01 Long term (current) use of anticoagulants; Z79.51 Long term (current) use of inhaled steroids; Z89.432 Acquired absence of left foot; Z89.431 Acquired absence of right foot; Z79.899 Other long term (current) drug therapy; Z59.00 Homelessness unspecified; Z28.310 Unvaccinated for COVID-19
CPT/HCPCS: 36415; 80048; 80053; 80202; 83605; 84145; 85025; 85610; 85730; 86140; 87040; 87070; 87075; 87077; 87186; 87205; 94640; 96361; 96365; 96366; 96367; 96368; 96372; 99284

== ENCOUNTER 2022-11-10 19:45 | Inpatient (IN) | payer OTHER ==
--- NOTE | 2022-11-10 20:08 | ED ---
General Adult HPI - General Chief complaint: Shortness of Breath Stated complaint: SOB Time Seen by Provider: 11/10/22 19:48 Source: patient, EMS Mode of arrival: EMS Limitations: no limitations - History of Present Illness Initial comments: Patient presents to the ED by ambulance for evaluation. Per EMS, they were called by the patient for dyspnea. Per EMS, the patient was initially in SVT with a heart rate in the 200s. Per EMS, the patient was given adenosine 6 mg IV, and he has cardioverted to a sinus arrhythmia. Patient states that he developed dyspnea about 30 minutes prior to calling EMS this evening. Patient states that his dyspnea has improved significantly with EMS management. Patient also states that he had bilateral toe amputations, and he states that he wishes for me to look at his feet wounds. Patient is homeless, and he states that he has not been taking any of his prescribed medications, and he has had no outpatient physician follow-up. Patient denies trauma or injury, fever or chills, headache, focal numbness/weakness/neuro deficit, chest pain or pressure, cough or cold symptoms, dizziness, syncope, abdominal pain, nausea/vomiting/diarrhea, bloody or melanotic stool, dysuria or urinary symptoms, leg/foot swelling or pain, or any other symptoms or complaints. - Related Data Home Medications Medication Instructions Recorded Confirmed Albuterol Sulfate [Ventolin HFA] 2 puff INHALATION Q6H PRN 10/11/22 10/11/22 Budesonide/Formoterol Fumarate 2 puff INHALATION BID 10/11/22 10/11/22 [Symbicort 160-4.5 Mcg Inhaler] Losartan [Cozaar] 25 mg PO DAILY 10/11/22 10/11/22 Rivaroxaban [Xarelto Starter Pack] 10 mg PO DAILY 10/11/22 10/11/22 Allergies Allergy/AdvReac Type Severity Reaction Status Date / Time No Known Allergies Allergy Verified 10/11/22 07:05 Review of Systems ROS Statement: Those systems with pertinent positive or pertinent negative responses have been documented in the HPI. ROS Other: All systems not noted in ROS Statement are negative. 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 Past Anesthesia/Blood Transfusion Reactions: No Reported Reaction Past Psychological History: No Psychological Hx Reported Smoking Status: Current some day smoker Past Alcohol Use History: None Reported Past Drug Use History: Marijuana - Past Family History Father Additional Family Medical History / Comment(s): Overdose General Exam Limitations: no limitations General appearance: alert, in no apparent distress Head exam: Present: atraumatic, normocephalic Eye exam: Present: normal appearance, EOMI ENT exam: Present: mucous membranes moist Neck exam: Present: other (Trachea is in midline) Respiratory exam: Present: normal lung sounds bilaterally. Absent: respiratory distress, wheezes, rales, rhonchi, stridor Cardiovascular Exam: Present: regular rate, normal rhythm, normal heart sounds, other (Normal radial pulses bilaterally) GI/Abdominal exam: Present: soft. Absent: distended, tenderness, guarding Extremities exam: Present: other (Patient is status post bilateral toe ampu tations; sole of the patient's right foot is noted to have eschars along the distal aspect (larger) and along the heel (small); no drainage, erythema, crepitation or tenderness is noted to the patient's feet). Absent: tenderness, pedal edema, calf tenderness Neurological exam: Present: alert, oriented X3. Absent: motor sensory deficit Psychiatric exam: Present: normal affect, normal mood Skin exam: Present: warm, dry, normal color Course Vital Signs 11/10/22 11/10/22 11/10/22 19:55 20:14 20:49 Temperature 98.3 F Pulse Rate 100 90 Pulse Rate [ 99 Shuttler Car ] Respiratory 16 16 Rate Blood Pressure 95/70 101/75 O2 Sat by Pulse 97 97 Oximetry 11/10/22 11/10/22 21:00 22:00 Temperature Pulse Rate 87 99 Pulse Rate [ Shuttler Car ] Respiratory 18 16 Rate Blood Pressure 90/62 97/71 O2 Sat by Pulse 96 96 Oximetry - Reevaluation(s) Reevaluation #1: 11/10/22 23:23 Case, H&P, test results and ED management thus far were discussed with Dr. Lewis. She accepts hospital admission. She requests consultation orders for infectious disease, vascular surgery and cardiology. She has no further recommendations at this time. 11/10/22 23:45 Patient denies development of any new symptoms while in the ED. 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 Patient is aware of his test results, and he agrees with hospital admission at this time. EKG Findings - EKG Comments: EKG Findings:: ED physician interpretation: Normal sinus rhythm, occasional premature supraventricular complexes, ventricular rate of 95 bpm, normal MA and QRS intervals, normal QT interval, normal axis, no ST or T-wave abnormality Medical Decision Making - Medical Decision Making Was pt. sent in by a medical professional or institution (, PA, ANALYTICAL CONSULTANT, urgent care, hospital, or correction...) When possible be specific @ -No Did you speak to anyone other than the patient for history (EMS, parent, family, police, friend...)? What history was obtained from this source @ -History was also provided by EMS. Did you review nursing and triage notes (agree or disagree)? Why? @ -I reviewed and agree with nursing and triage notes Were old charts reviewed (outside hosp., previous admission, EMS record, old EKG, old radiological studies, urgent care reports/EKG's, correction records)? Report findings @ -No old charts were reviewed Differential Diagnosis (chest pain, altered mental status, abdominal pain women, abdominal pain men, vaginal bleeding, weakness, fever, dyspnea, syncope, headache, dizziness, GI bleed, back pain, seizure, CVA, palpatations, mental health, musculoskeletal)? @ -Differential Dyspnea: Coronary syndrome, arrhythmia, SVT, tamponade, asthma, COPD, pulmonary embolism, pneumonia, pneumothorax, pulmonary effusion, anemia, neuromuscular, foot infection, wound infection, osteomyelitis, cellulitis, electrolyte abnormality, dehydration, this is not meant to be an all-inclusive list. EKG interpreted by me (3pts min.). @ -As above X-rays interpreted by me (1pt min.). @ -Chest x-ray and bilateral foot x-rays were reviewed myself, and I agree with the radiologist's interpretation as above. CT interpreted by me (1pt min.). @ -CT angiography chest with IV contrast was reviewed myself, and I agree with the radiologist's interpretation as above. U/S interpreted by me (1pt. min.). @ -None done What testing was considered but not performed or refused? (CT, X-rays, U/S, labs)? Why? @ -None What meds were considered but not given or refused? Why? @ -None Did you discuss the management of the patient with other professionals (professionals i.e. , PA, ANALYTICAL CONSULTANT, lab, RT, psych nurse, social work specialist, heavy repairer, teacher, forward air controller/air officer, sample case porter)? Give summary @ -No Was smoking cessation discussed for >3mins.? @ -No Was critical care preformed (if so, how long)? @ -Yes, 30 minutes. Were there social determinants of health that impacted care today? How? (Homelessness, low income, unemployed, alcoholism, drug addiction, transportation, low edu. Level, literacy, decrease access to med. care, [facility], rehab)? @ -Patient is homeless, which is contributing to poor outpatient follow-up and lack of medication compliance. Was there de-escalation of care discussed even if they declined (Discuss DNR or withdrawal of care, Hospice)? DNR status @ -No What co-morbidities impacted this encounter? (DM, HTN, Smoking, COPD, CAD, Cancer, CVA, ARF, Chemo, Hep., AIDS, mental health diagnosis, sleep apnea, morbid obesity)? @ -None Was patient admitted / discharged? Hospital course, mention meds given and route, prescriptions, significant lab abnormalities, going to OR and other pertinent info. @ -Patient's laboratory evaluation reveals hypocalcemia. Patient has been treated with IV calcium gluconate in the ED. Patient's CT angiography chest demonstrates bilateral pulmonary emboli. Patient has been started on a heparin IV drip. Patient's right foot x-rays demonstrate findings consistent with osteomyelitis. Patient has been treated with IV antibiotics in the ED. Case was discussed with Dr. Lewis, and she has accepted hospital admission. Undiagnosed new problem with uncertain prognosis? @ -No Drug Therapy requiring intensive monitoring for toxicity (Heparin, Nitro, Insulin, Cardizem)? @ -No Were any procedures done? @ -No Diagnosis/symptom? @ -Right foot osteomyelitis Acute, or Chronic, or Acute on Chronic? @ -default Uncomplicated (without systemic symptoms) or Complicated (systemic symptoms)? @ -default Side effects of treatment? @ -No Exacerbation, Progression, or Severe Exacerbation? @ -No Poses a threat to life or bodily function? How? (Chest pain, [place], [place], pneumonia, PE, COPD, DKA, ARF, appy, cholecystitis, CVA, Diverticulitis, Homicidal, Suicidal, threat to staff... and all critical care pts) @ -No Diagnosis/symptom? @ -SVT Acute, or Chronic, or Acute on Chronic? @ -Acute Uncomplicated (without systemic symptoms) or Complicated (systemic symptoms)? @ -default Side effects of treatment? @ -none Exacerbation, Progression, or Severe Exacerbation] @ -no Poses a threat to life or bodily function? @ -no Diagnosis/symptom? @ -Hypocalcemia Acute, or Chronic, or Acute on Chronic? @ -Acute on chronic Uncomplicated (without systemic symptoms) or Complicated (systemic symptoms)? @ -default Side effects of treatment? @ -none Exacerbation, Progression, or Severe Exacerbation] @ -no Poses a threat to life or bodily function? @ -There is a potential of threat to life. Diagnosis/symptom? @ -Bilateral pulmonary emboli Acute, or Chronic, or Acute on Chronic? @ -default Uncomplicated (without systemic symptoms) or Complicated (systemic symptoms)? @ -default Side effects of treatment? @ -none Exacerbation, Progression, or Severe Exacerbation] @ -no Poses a threat to life or bodily function? @ -There is potential for a threat to life with pulmonary emboli if they propagate/worsen. - Lab Data Result diagrams: 11/10/22 20:02 11/10/22 20:02 Lab Results 11/10/22 11/10/22 11/10/22 Range/Units 20:02 20:02 20:02 WBC 6.8 (3.8-10.6) k/uL RBC 3.19 L (4.30-5.90) m/uL Hgb 10.2 L (13.0-17.5) gm/dL Hct 31.1 L (39.0-53.0) % MCV 97.4 (80.0-100.0) fL MCH 32.1 (25.0-35.0) pg MCHC 32.9 (31.0-37.0) g/dL RDW 13.6 (11.5-15.5) % Plt Count 158 (150-450) k/uL MPV 8.8 Neutrophils % 82 % Lymphocytes % 14 % Monocytes % 3 % Eosinophils % 0 % Basophils % 0 % Neutrophils # 5.5 (1.3-7.7) k/uL Lymphocytes # 0.9 L (1.0-4.8) k/uL Monocytes # 0.2 (0-1.0) k/uL Eosinophils # 0.0 (0-0.7) k/uL Basophils # 0.0 (0-0.2) k/uL PT 12.9 H (9.0-12.0) sec INR 1.3 H (<1.2) APTT 22.0 (22.0-30.0) sec D-Dimer 19.42 H (<0.60) mg/L FEU Sodium 140 (137-145) mmol/L Potassium 3.4 L (3.5-5.1) mmol/L Chloride 111 H (98-107) mmol/L Carbon Dioxide 19 L (22-30) mmol/L Anion Gap 10 mmol/L BUN 20 (9-20) mg/dL Creatinine 0.97 (0.66-1.25) mg/dL Est GFR (CKD-EPI)AfAm >90 (>60 ml/min/1.73 sqM) Est GFR (CKD-EPI)NonAf >90 (>60 ml/min/1.73 sqM) Glucose 104 H (74-99) mg/dL Plasma Lactic Acid Jamal (0.7-2.0) mmol/L Calcium 6.4 L* (8.4-10.2) mg/dL Magnesium 1.5 L (1.6-2.3) mg/dL Total Bilirubin 0.5 (0.2-1.3) mg/dL AST 25 (17-59) U/L ALT 10 (4-49) U/L Alkaline Phosphatase 67 (38-126) U/L Troponin I (0.000-0.034) ng/mL NT-Pro-B Natriuret Pep pg/mL Total Protein 5.3 L (6.3-8.2) g/dL Albumin 2.5 L (3.5-5.0) g/dL 11/10/22 11/10/22 11/10/22 Range/Units 20:02 20:02 21:24 WBC (3.8-10.6) k/uL RBC (4.30-5.90) m/uL Hgb (13.0-17.5) gm/dL Hct (39.0-53.0) % MCV (80.0-100.0) fL MCH (25.0-35.0) pg MCHC (31.0-37.0) g/dL RDW (11.5-15.5) % Plt Count (150-450) k/uL MPV Neutrophils % % Lymphocytes % % Monocytes % % Eosinophils % % Basophils % % Neutrophils # (1.3-7.7) k/uL Lymphocytes # (1.0-4.8) k/uL Monocytes # (0-1.0) k/uL Eosinophils # (0-0.7) k/uL Basophils # (0-0.2) k/uL PT (9.0-12.0) sec INR (<1.2) APTT (22.0-30.0) sec D-Dimer (<0.60) mg/L FEU Sodium (137-145) mmol/L Potassium (3.5-5.1) mmol/L Chloride (98-107) mmol/L Carbon Dioxide (22-30) mmol/L Anion Gap mmol/L BUN (9-20) mg/dL Creatinine (0.66-1.25) mg/dL Est GFR (CKD-EPI)AfAm (>60 ml/min/1.73 sqM) Est GFR (CKD-EPI)NonAf (>60 ml/min/1.73 sqM) Glucose (74-99) mg/dL Plasma Lactic Acid Jamal 2.0 (0.7-2.0) mmol/L Calcium (8.4-10.2) mg/dL Magnesium (1.6-2.3) mg/dL Total Bilirubin (0.2-1.3) mg/dL AST (17-59) U/L ALT (4-49) U/L Alkaline Phosphatase (38-126) U/L Troponin I 0.021 (0.000-0.034) ng/mL NT-Pro-B Natriuret Pep 1410 pg/mL Total Protein (6.3-8.2) g/dL Albumin (3.5-5.0) g/dL - Radiology Data Bilateral foot x-rays: 1. Erosive changes involving the right distal fifth metatarsal concerning for osteomyelitis. Soft tissue lucencies overlying the lateral stump concerning for soft tissue gas. 2. Bilateral postsurgical changes from transmetatarsal amputation. Chest x-ray: No acute cardiopulmonary disease/process. CT angiography chest with IV contrast: 1. Bilateral pulmonary emboli are noted, right lung slightly worse than the left lung. 2. No central pulmonary emboli. 3. No evidence of right heart strain. 4. Pneumobilia. Critical Care Time Critical Care Time: Yes Total Critical Care Time: 30 Disposition Clinical Impression: SVT (supraventricular tachycardia), Dyspnea, Hypocalcemia, Bilateral pulmonary embolism, Foot osteomyelitis, right Disposition: ADMITTED IP TO THIS HOSP Condition: Stable Is patient prescribed a controlled substance at d/c from ED?: No Referrals: Nell Field MD [Primary Care Provider] - 1-2 days Time of Disposition: 23:50
[2022-11-10 21:38] LABS: Basophils % (A) 0 %; Eosinophils % (A) 0 %; HCT 31.1 % (39.0-53.0); HGB 10.2 gm/dL (13.0-17.5); Lymphocytes # (A) 0.9 k/uL (1.0-4.8); Lymphocytes % (A) 14 %; MCH 32.1 pg (25.0-35.0); MCHC 32.9 g/dL (31.0-37.0); MCV 97.4 fL (80.0-100.0); Mean Platelet Volume 8.8; Monocytes # (A) 0.2 k/uL (0-1.0); Monocytes % (A) 3 %; Neutrophils # (A) 5.5 k/uL (1.3-7.7); Neutrophils % (A) 82 %; Platelet Count 158 k/uL (150-450); RBC 3.19 m/uL (4.30-5.90); RDW 13.6 % (11.5-15.5); WBC 6.8 k/uL (3.8-10.6)
[2022-11-10 21:51] LABS: ALT 10 U/L (4-49); African American GFR (CKD) >90 (>60 ml/min/1.73 sqM); Anion Gap 10 mmol/L; Blood Urea Nitrogen 20 mg/dL (9-20); Carbon Dioxide 19 mmol/L (22-30); Chloride 111 mmol/L (98-107); Glucose 104 mg/dL (74-99); Non-African American GFR(CKD) >90 (>60 ml/min/1.73 sqM); Sodium 140 mmol/L (137-145); Total Bilirubin 0.5 mg/dL (0.2-1.3)
[2022-11-10 21:56] LABS: AST 25 U/L (17-59); Albumin 2.5 g/dL (3.5-5.0); Alkaline Phosphatase 67 U/L (38-126); Calcium 6.4 mg/dL (8.4-10.2); Magnesium 1.5 mg/dL (1.6-2.3); Potassium 3.4 mmol/L (3.5-5.1); Total Protein 5.3 g/dL (6.3-8.2)
[2022-11-10] MEDS ORDERED: CALCIUM GLUCONATE IN NACL 2 GM in SALINE 1 100ML.BAG IVPB ONE (22:00)
[2022-11-10 22:08] LABS: INR 1.3 (<1.2); Prothrombin Time 12.9 sec (9.0-12.0)
--- NOTE | 2022-11-10 22:12 | XR ---
EXAMINATION TYPE: XR foot limited bilateral DATE OF EXAM: 11/10/2022 9:56 PM INDICATION: Patient age:Male; 52 years old; Reason for study: bilateral foot s/p amputation; right foot wound; PHH. COMPARISON: Right foot radiographs 10/10/2022, left foot radiographs 10/10/2022, CT right foot 3 TECHNIQUE: The bilateral feet were examined in the AP and lateral projections. FINDINGS: Postsurgical changes from prior bilateral transmetatarsal amputation. Erosive changes are present dis darnell aspect of the fifth metatarsals. Soft tissue swelling of the right forefoot. Subcutaneous lucenci es along the right lateral margin of the surgical stump concerning for subcutaneous emphysema. No evidence for osteomyelitis of the left foot or acute left soft tissue abnormality. IMPRESSION: 1. Erosive changes involving the right distal fifth metatarsal concerning for osteomyelitis. Soft tis vamsi lucencies overlying the lateral stump concerning for soft tissue gas. 2. Bilateral postsurgical changes from transmetatarsal amputation.
--- NOTE | 2022-11-10 22:14 | XR ---
EXAMINATION TYPE: XR chest 1V portable DATE OF EXAM: 11/10/2022 9:55 PM COMPARISON: Chest x-ray 10/07/2022, CTA chest 10/07/2022 TECHNIQUE: XR chest 1V portable . CLINICAL INDICATION:Male, 52 years old with history of dyspnea; FINDINGS: Lungs/Pleura: There is no evidence of pleural effusion, focal consolidation, or pneumothorax. Pulmonary vascularity: Unremarkable. Heart/mediastinum: Cardiomediastinal silhouette is unremarkable. Musculoskeletal: No acute osseous pathology. IMPRESSION: No acute cardiopulmonary disease/process.
[2022-11-10] MEDS ORDERED: PIPERACILLIN-TAZOBACTAM 3.375 GM in SODIUM CHLORIDE 0.9% 100 ML IVPB STA (22:44)
[2022-11-10] MEDS ORDERED: VANCOMYCIN IV PER PHARMACY 1 EACH MISC MISCELLANE STA (22:45)
[2022-11-10] MEDS ORDERED: NICOTINE 14MG/24HR PATCH TRANSDERM STA (22:48)
--- NOTE | 2022-11-10 23:02 | CT ---
EXAM: CT Angiography Chest With Intravenous Contrast CLINICAL HISTORY: ITS.REASON CT Reason: Dyspnea, elevated d-dimer TECHNIQUE: Axial computed tomographic angiography images of the chest with intravenous contrast. CTDI is 14.27 mGy and DLP is 298.2 mGy-cm. This CT exam was performed using one or more of the following dose reduction techniques: automated exposure control, adjustment of the mA and/or kV according to patient size, and/or use of iterative reconstruction technique. MIP reconstructed images were created and reviewed. COMPARISON: Chest x-ray study of 11/10/2022. FINDINGS: Pulmonary arteries: There is extensive pulmonary emboli within the immediate branches of the right main pulmonary artery extending to the right mid lower lung zones. A few peripheral pulmonary emboli are also noted at the right upper lobe. Peripheral pulmonary emboli are noted posterior medially at the left lung base. Aorta: Atherosclerotic disease of the thoracic aorta. No thoracic aortic aneurysm. Lungs: Airway is normal. Evaluation of the pulmonary parenchyma reveals subsegmental atelectasis posteriorly in the mid lower lung zones. No mass. Pleural space: Unremarkable. No significant effusion. No pneumothorax. Heart: The RV to LV ratio is approximate 1. No significant pericardial effusion. No evidence of right heart strain. Thyroid: The visualized thyroid gland is unremarkable. Bones/joints: No acute fracture. No dislocation. Soft tissues: Unremarkable. Lymph nodes: Unremarkable. No enlarged lymph nodes. Liver: Fatty liver. Gallbladder and bile ducts: There is pneumobilia. 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 IMPRESSION: 1. Bilateral pulmonary emboli are noted, right lung slightly worse than the left lung. 2. No central pulmonary emboli. 3. No evidence of right heart strain. 4. Pneumobilia. <MYCVCSECTION> Communications: 11/10/22 23:07 Call Doctor Regarding Pulmonary Embolism, called praneeth
[2022-11-10] MEDS ORDERED: HEPARIN SODIUM 1,000 UN/ML (10ML VL) IV ONE (23:05)
[2022-11-10] MEDS ORDERED: HEPARIN SODIUM 1,000 UN/ML (10ML VL) IV PRN (23:05)
[2022-11-10] MEDS ORDERED: NALOXONE 0.4 MG/ML 1 ML VIAL IV PRN (23:39)
[2022-11-11] MEDS ORDERED: VANCOMYCIN 1,500 MG in SODIUM CHLORIDE 0.9% 500 ML 500 ML IVPB ONE ×2
[2022-11-11] MEDS: HEPARIN SOD,PORK IN 0.45% NACL 25,000 UNIT in 0.45% NACL 1 250ML.BAG IV SCH ×2 (00:01→19:05)
[2022-11-11 06:44] LABS: Basophils % (A) 0 %; Eosinophils # (A) 0.1 k/uL (0-0.7); Eosinophils % (A) 1 %; HCT 30.6 % (39.0-53.0); HGB 10.5 gm/dL (13.0-17.5); Lymphocytes # (A) 1.8 k/uL (1.0-4.8); Lymphocytes % (A) 31 %; MCH 32.7 pg (25.0-35.0); MCHC 34.2 g/dL (31.0-37.0); MCV 95.7 fL (80.0-100.0); Mean Platelet Volume 8.7; Monocytes # (A) 0.3 k/uL (0-1.0); Monocytes % (A) 4 %; Neutrophils # (A) 3.6 k/uL (1.3-7.7); Neutrophils % (A) 62 %; Platelet Count 157 k/uL (150-450); RDW 13.7 % (11.5-15.5); WBC 5.8 k/uL (3.8-10.6)
[2022-11-11 07:45] LABS: Albumin 2.8 g/dL (3.5-5.0); Total Bilirubin 0.2 mg/dL (0.2-1.3); Total Protein 5.7 g/dL (6.3-8.2)
[2022-11-11 07:58] LABS: Calcium 7.8 mg/dL (8.4-10.2)
[2022-11-11] MEDS ORDERED: VERAPAMIL 80 MG TAB PO SCH (09:16)
[2022-11-11] MEDS ORDERED: VANCOMYCIN 1,250 MG in SODIUM CHLORIDE 0.9% 250 ML IVPB SCH (10:00)
[2022-11-11] MEDS ORDERED: Magnesium Replacement Protocol 1 EACH MISC MISCELLANE PRN (10:11)
[2022-11-11] MEDS: METOPROLOL TARTRATE 25 MG TAB PO SCH ×3 (10:29→21:19)
[2022-11-11] MEDS ORDERED: VANCOMYCIN 1,500 MG in SODIUM CHLORIDE 0.9% 500 ML 500 ML IVPB SCH (11:00)
[2022-11-11] MEDS: MAGNESIUM SULFATE-D5W PMX 1 GM in DEXTROSE/WATER 1 100ML.BAG IVPB SCH ×2 (12:26→16:06)
--- NOTE | 2022-11-11 13:00 | P.CRDCN ---
History of Present Illness Consult date: 11/11/22 History of present illness: HISTORY OF PRESENT ILLNESS: This is a 52-year-old male with a past medical history significant for right metatarsal and limitation due to frostbite, hepatitis, cardiomyopathy, PE, DVT, and SVT. 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 We have been asked to see the patient in consultation for SVT. Patient examined at the bedside. Patient was admitted to the hospital in September 2022. Patient was found to have bilateral pulmonary embolism, right LE DVT, SVT, and cardiomyopathy of 35-40%. The patient presented back to the hospital via EMS secondary to shortness of breath. The patient was found to be in SVT with heart rate in the 200s. The patient was given 6 mg of adenosine in route to the hospital. The patient also reports that he is still homeless and has not been taking any of his medications. The p atient currently denies chest pain or pressure. He denies shortness of breath. Vital signs are stable. * EKG reveals sinus mechanism with no signs of acute ischemia * Chest xray negative for acute process * CTA: Bilateral pulmonary embolism with no evidence of right heart strain * Laboratory data: W BC 5.8. Hemoglobin 10.5. Platelet count 157. D-dimer 19.42. Sodium 136. Potassium 4.0. B UN 22. Creatinine 1.10. * Current home cardiac medications include none * Most recent echocardiogram obtained in September 2022 revealing severe global hypokinesis of the left ventricle with dilated left ventricle. Mild to moderate mitral and mild tricuspid regurgitation. Ejection fraction 30-35% REVIEW OF SYSTEMS: At the time of my exam: CONSTITUTIONAL: Denies fever or chills. HEENT: Denies blurred vision, vision changes, or eye pain. Denies hemoptysis CARDIOVASCULAR: Denies chest pain. Denies orthopnea. Denies PND. Denies palpitations RESPIRATORY: Denies shortness of breath. GASTROINTESTINAL: Denies abdominal pain. Denies nausea or vomiting. HEMATOLOGIC: Denies bleeding disorders. GENITOURINARY: Denies any blood in urine. SKIN: Denies pruitis. Denies rash. PHYSICAL EXAM: VITAL SIGNS: Reviewed. GENERAL: Well-developed in no acute distress. HEENT: Head is normocephalic. Pupils are equal, round. Sclerae anicteric. Mucous membranes of the mouth are moist. Neck supple. No JVD or thyromegaly LUNGS: Respirations even and unlabored. Lungs essentially clear to auscultation bilaterally. HEART: Regular rate and rhythm. S1 and S2 heard. ABDOMEN: Soft. Nondistended. Nontender. EXTREMITIES: Normal range of motion. No clubbing or cyanosis. Peripheral pulses intact. No lower extremity edema NEUROLOGIC: Awake and alert. Oriented x 3. ASSESSMENT: Shortness of breath Paroxysmal SVT, converted to sinus mechanism with adenosine History of SVT, September 2022 Bilateral pulmonary embolism, diagnosed September 2022 History of right lower extremity DVT Cardiomyopathy, ejection fraction 30-35%, etiology unclear Right foot osteomyelitis History of right metatarsal limitation secondary to frostbite and gangrene Occasional marijuana use Occasional tobacco use Medication noncompliance Homelessness PLAN: Continue IV heparin. Will transition to oral anticoagulation tomorrow. Add metoprolol tartrate 25 mg 3 times a day Medication compliance reinforced Continue telemetry monitoring Dr. Martell consulted for foot infection Further recommendations pending patient course Nurse practitioner note has been reviewed by physician. Signing provider agrees with the documented findings, assessment, and plan of care. Past Medical History Past Medical History: Pulmonary Embolus (PE) Additional Past Medical History / Comment(s): Left leg cellulitis, wound to left foot History of Any Multi-Drug Resistant Organisms: None Reported Past Surgical History: No Surgical Hx Reported Additional Past Surgical History / Comment(s): amputation of toes on both feet. Past Anesthesia/Blood Transfusion Reactions: No Reported Reaction Past Psychological History: No Psychological Hx Reported Smoking Status: Current some day smoker Past Alcohol Use History: None Reported Past Drug Use History: Marijuana - Past Family History Father Additional Family Medical History / Comment(s): Overdose Medications and Allergies Home Medications Medication Instructions Recorded Confirmed Type No Known Home Medications 11/11/22 11/11/22 History Allergies Allergy/AdvReac Type Severity Reaction Status Date / Time No Known Allergies Allergy Verified 11/11/22 06:40 Physical Exam Vitals: Vital Signs Temp Pulse Pulse Resp BP BP Pulse Ox 11/11/22 08:45 97.9 F 85 16 133/84 98 11/11/22 06:00 71 16 94/72 95 11/11/22 03:40 20 11/11/22 02:00 97.9 F 85 16 100/54 97 11/11/22 00:00 80 16 102/79 98 11/10/22 22:00 99 16 97/71 96 11/10/22 21:00 87 18 90/62 96 11/10/22 20:49 90 16 101/75 97 11/10/22 20:14 99 11/10/22 19:55 98.3 F 100 16 95/70 97 Intake and Output 11/10/22 11/11/22 11/11/22 22:59 06:59 14:59 Other: Voiding Method Urinal Weight 68.492 kg 68.492 kg Results 11/11/22 06:21 11/11/22 06:21 Cardiac Enzymes 11/10/22 11/10/22 11/11/22 Range/Units 20:02 20:02 06:21 AST 25 22 (17-59) U/L Troponin I 0.021 (0.000-0.034) ng/mL Coagulation 11/10/22 11/11/22 Range/Units 20:02 06:21 PT 12.9 H (9.0-12.0) sec APTT 22.0 77.8 H (22.0-30.0) sec CBC 11/10/22 11/11/22 Range/Units 20:02 06:21 WBC 6.8 5.8 (3.8-10.6) k/uL RBC 3.19 L 3.20 L (4.30-5.90) m/uL Hgb 10.2 L 10.5 L (13.0-17.5) gm/dL Hct 31.1 L 30.6 L (39.0-53.0) % Plt Count 158 157 (150-450) k/uL Comprehensive Metabolic Panel 11/10/22 11/11/22 Range/Units 20:02 06:21 Sodium 140 136 L (137-145) mmol/L Potassium 3.4 L 4.0 (3.5-5.1) mmol/L Chloride 111 H 106 (98-107) mmol/L Carbon Dioxide 19 L 25 (22-30) mmol/L BUN 20 22 H (9-20) mg/dL Creatinine 0.97 1.10 (0.66-1.25) mg/dL Glucose 104 H 89 (74-99) mg/dL Calcium 6.4 L* 7.8 L (8.4-10.2) mg/dL AST 25 22 (17-59) U/L ALT 10 10 (4-49) U/L Alkaline Phosphatase 67 100 (38-126) U/L Total Protein 5.3 L 5.7 L (6.3-8.2) g/dL Albumin 2.5 L 2.8 L (3.5-5.0) g/dL Current Medications Generic Name Dose Route Start Last Admin Trade Name Freq PRN Reason Stop Dose Admin Heparin Sodium (Porcine) 0 unit 11/10/22 23:05 Heparin Sodium 1,000 Un/Ml (10ml Vl) IV PER PROTOCOL PRN Low PTT Protocol Heparin Sodium/Sodium Chloride 250 mls @ 12.329 mls/hr 11/10/22 23:15 11/11/22 00:01 25,000 unit/ Sodium Chloride IV 18 units/kg/hr .[id number] DEBI 12.329 mls/hr Administration Protocol 18 UNITS/KG/HR Daptomycin 450 mg/ Sodium 50 mls @ 100 mls/hr 11/11/22 10:30 11/11/22 10:30 Chloride IVPB 100 mls/hr Q24HR DEBI Administration Metoprolol Tartrate 25 mg 11/11/22 09:30 11/11/22 10:29 Metoprolol Tartrate 25 Mg Tab PO 25 mg TID DEBI Administration Miscellaneous Information 1 each 11/11/22 10:11 Magnesium Replacement Protocol 1 Each Misc MISCELLANE DAILY PRN Per Protocol Protocol Naloxone HCl 0.2 mg 11/10/22 23:39 Naloxone 0.4 Mg/Ml 1 Ml Vial IV Q2M PRN Opioid Reversal Intake and Output 11/10/22 11/11/22 11/11/22 22:59 06:59 14:59 Other: Voiding Method Urinal Weight 68.492 kg 68.492 kg Patient Weight 11/12/22 06:59 Weight 68.492 kg 11/11/22 06:21 11/11/22 06:21
--- NOTE | 2022-11-11 14:14 | P.HPIM ---
History of Present Illness H&P Date: 11/11/22 This is a 52-year-old male who presented to the emergency department via EMS as patient was found to be in SVT and did receive a dose of IV adenosine and cardioverted. Patient also has significant wounds to lower extremities with concerns of possible osteomyelitis of the right foot and infectious disease was placed on consult. Patient was started on daptomycin in the ER. Patient reports he is homeless and has not been taking any of his medications and reports he follows with Dr. Field although reports does not follow-up and is extremely noncompliant with all medications and treatment plans. Patient was recently hospitalized multiple times found to have DVT as well as PE and started on Xarelto and again never followed up and continued with medications. Patient had an x-ray of the right foot in the ER showing erosive changes involving the right distal fifth metatarsal concerning for ostial with soft tissue lucencies overlying the lateral stump concerning for soft tissue gas with bilateral postsurgical changes from a transmetatarsal amputation. Another CTA of the chest was done showing bilateral pulmonary emboli with right lung slightly worse than left with no evidence of right heart strain. Chest x-ray showed no acute cardiopulmonary disease. Patient was admitted for cardiology evaluation along with infectious disease. Review Of Systems: Constitutional: No fever, no chills, no night sweats. No weight change. No weakness, fatigue or lethargy. No daytime sleepiness. EENT: No headache. No blurred vision or double vision, no loss of vision. No loss of Hearing, no ringing in the ears, no dizziness. No nasal drainage or congestion. No epistaxis. No sore throat. Lungs: No shortness of breath, cough, no sputum production. No wheezing. Cardiovascular: Reports chest pain with palpitations, no lower extremity edema. No paroxysmal nocturnal dyspnea. No orthopnea. No lightheadedness or dizziness. No syncopal episodes. Abdominal: No abdominal pain. No nausea, vomiting. No diarrhea. No constipation. No bloody or tarry stools.. No loss of appetite. Genitourinary: No dysuria, increased frequency, urgency. No urinary retention. Musculoskeletal: No myalgias. No muscle weakness, no gait dysfunction, no frequent falls. No back pain. No neck pain. Integumentary: Reports foot wounds. No rash or pruritus. No unusual bruising. No change in hair or nails. Neurologic: No aphasia. No facial droop. No change in mentation. No head injury. No headache. No paralysis. No paresthesia. Psychiatric: No depression. No anxiety. No mood swings. Endocrine: No abnormal blood sugars. No weight change. No excessive sweating or thirst. No cold intolerance. PHYSICAL EXAMINATION: GENERAL: The patient is alert and oriented x3, thin built, elderly appearing, emaciated, severely unkempt HEENT: Pupils are round and equally reacting to light. EOMI. no scleral icterus. No conjunctival pallor. Normocephalic, atraumatic. No pharyngeal erythema. No thyromegaly. CARDIOVASCULAR: S1 and S2 muffled PULMONARY: diminished breath sounds bilaterally with no wheezing or rhonchi noted. ABDOMEN: soft. Nontender on exam. non-distended, normoactive bowel sounds. No palpable organomegaly. MUSCULOSKELETAL: No joint swelling or deformity. EXTREMITIES: No cyanosis, clubbing, or pedal edema. Right foot with previous amputations noted enlarged wound noted with dressing currently dry and intact NEUROLOGICAL: Gross neurological examination did not reveal any focal deficits. Diffuse weakness SKIN: No rashes. Assessment: Supraventricular tachycardia status post adenosine given in route Right foot infection with concerns of osteomyelitis Hypomagnesemia previous history of amputations of all toes on the right foot History of pulmonary embolus continued ongoing nicotine dependence gait dysfunction Noncompliance with medications GI prophylaxis DVT prophylaxis Full code Plan: Recommend to continue with current medications and management with infectious disease and cardiology on consult Patient was started on IV daptomycin with blood cultures obtained and pending Patient was started on IV heparin and will transition back to Xarelto per card iology Will consult PT/OT therapy along with case management as patient is homeless and will need resources will follow-up with repeat labs and continue to monitor closely and await cardiology input recommendations. Recommend to replace electrolytes per protocol The impression and plan of care has been dictated by Jacqueline Teresa nurse practitioner as directed. Dr. Jose Cruz MD I have performed a history and examination and MDM of this patient, discussed the same with the dictator, and agree with the dictator's assessment and plan as written ,documented as a scribe. Based on total visit time, I have performed more than 50% of the visit. Any additional findings or plans will be noted. Past Medical History Past Medical History: Pulmonary Embolus (PE) Additional Past Medical History / Comment(s): Left leg cellulitis, wound to left foot History of Any Multi-Drug Resistant Organisms: None Reported Past Surgical History: No Surgical Hx Reported Additional Past Surgical History / Comment(s): amputation of toes on both feet. Past Anesthesia/Blood Transfusion Reactions: No Reported Reaction Past Psychological History: No Psychological Hx Reported Smoking Status: Current some day smoker Past Alcohol Use History: None Reported Past Drug Use History: Marijuana - Past Family History Father Additional Family Medical History / Comment(s): Overdose Medications and Allergies Home Medications Medication Instructions Recorded Confirmed Type No Known Home Medications 11/11/22 11/11/22 History Allergies Allergy/AdvReac Type Severity Reaction Status Date / Time No Known Allergies Allergy Verified 11/11/22 06:40 Physical Exam Vitals: Vital Signs Temp Pulse Pulse Resp BP BP Pulse Ox 11/11/22 08:45 99.5 F 50 L 16 133/84 98 11/11/22 06:00 71 16 94/72 95 11/11/22 03:40 20 11/11/22 02:00 97.9 F 85 16 100/54 97 11/11/22 00:00 80 16 102/79 98 11/10/22 22:00 99 16 97/71 96 11/10/22 21:00 87 18 90/62 96 11/10/22 20:49 90 16 101/75 97 11/10/22 20:14 99 11/10/22 19:55 98.3 F 100 16 95/70 97 Intake and Output 11/10/22 11/11/22 11/11/22 22:59 06:59 14:59 Other: Weight 68.492 kg 68.492 kg Results CBC & Chem 7: 11/11/22 06:21 11/11/22 06:21 Labs: Abnormal Lab Results - Last 24 Hours (Table) 11/10/22 11/10/22 11/10/22 Range/Units 20:02 20:02 20:02 RBC 3.19 L (4.30-5.90) m/uL Hgb 10.2 L (13.0-17.5) gm/dL Hct 31.1 L (39.0-53.0) % Lymphocytes # 0.9 L (1.0-4.8) k/uL PT 12.9 H (9.0-12.0) sec INR 1.3 H (<1.2) APTT (22.0-30.0) sec D-Dimer 19.42 H (<0.60) mg/L FEU Sodium (137-145) mmol/L Potassium 3.4 L (3.5-5.1) mmol/L Chloride 111 H (98-107) mmol/L Carbon Dioxide 19 L (22-30) mmol/L BUN (9-20) mg/dL Glucose 104 H (74-99) mg/dL Calcium 6.4 L* (8.4-10.2) mg/dL Magnesium 1.5 L (1.6-2.3) mg/dL Total Protein 5.3 L (6.3-8.2) g/dL Albumin 2.5 L (3.5-5.0) g/dL 11/11/22 11/11/22 11/11/22 Range/Units 06:21 06:21 06:21 RBC 3.20 L (4.30-5.90) m/uL Hgb 10.5 L (13.0-17.5) gm/dL Hct 30.6 L (39.0-53.0) % Lymphocytes # (1.0-4.8) k/uL PT (9.0-12.0) sec INR (<1.2) APTT 77.8 H (22.0-30.0) sec D-Dimer (<0.60) mg/L FEU Sodium 136 L (137-145) mmol/L Potassium (3.5-5.1) mmol/L Chloride (98-107) mmol/L Carbon Dioxide (22-30) mmol/L BUN 22 H (9-20) mg/dL Glucose (74-99) mg/dL Calcium 7.8 L (8.4-10.2) mg/dL Magnesium (1.6-2.3) mg/dL Total Protein 5.7 L (6.3-8.2) g/dL Albumin 2.8 L (3.5-5.0) g/dL Thrombosis Risk Factor Assmnt - DVT/VTE Prophylaxis DVT/VTE Prophylaxis: Pharmacologic Prophylaxis ordered - Choose All That Apply Each Factor Represents 1 point: Age 41-60 years Thrombosis Risk Factor Assessment Total Risk Factor Score: 1 Thrombosis Risk Factor Assessment Level: Low Risk Assessment and Plan Time with Patient: Greater than 30
[2022-11-11] MEDS: COLLAGENASE 250 UNIT/GM OINTMENT 30 GM TUBE TOPICAL SCH (22:14)
--- NOTE | 2022-11-11 22:29 | P.CONS ---
History of Present Illness - Reason for Consult Consult date: 11/11/22 Right foot osteomyelitis Requesting physician: Juan Diego Childress - Chief Complaint increasing shortness of breath x days - History of Present Illness Patient is a 52-year-old male with a past medical history significant for bilateral feet toes gangrene s/p transmetatarsal amputation of bilateral feet July 2022 patient was recently admitted to this facility about a month ago with right foot pain and did have a wound on the plantar aspect concerning for secondary infection however the patient left AGAINST MEDICAL ADVICE patient patient is now presenting back to [facility] ER last evening for evaluation of increasing shortness of breath patient was noticed to have SVT with heart rate in the 200s patient denies having any chest pain or cough some nausea no vomiting no abdominal pain patient did have wound on the plantar aspect of the right foot with the patient has been taking care of himself has been complaining of some dull aching pain 4-5 out of 10 no radiation denies any foul-smelling drainage patient on presentation to the hospital was afebrile and no fever have been called subsequently he did have a normal white count kidney function has been normal lactic acid was normal liver enzymes are normal patient was started on vancomycin however he did grew VRE from his right foot wound on his last admission antibiotic has been switched over to daptomycin pending evaluation this morning, patient did have a foot x-ray erosive changes involving the right distal fifth metatarsal concern for osteomyelitis soft tissue residency overlying the lateral stump concerning for soft tissue gas patient also have a CT angiogram of the chest bilateral pulm emboli noted right lung slightly worse than the left lung for the patient be started on heparin Review of Systems Positive point and negatives has been mentioned in the HPI, complete review of systems was performed and all other systems are negative Past Medical History Past Medical History: Pulmonary Embolus (PE) Additional Past Medical History / Comment(s): Left leg cellulitis, wound to left foot History of Any Multi-Drug Resistant Organisms: None Reported Past Surgical History: No Surgical Hx Reported Additional Past Surgical History / Comment(s): amputation of toes on both feet. Past Anesthesia/Blood Transfusion Reactions: No Reported Reaction Past Psychological History: No Psychological Hx Reported Smoking Status: Current some day smoker Past Alcohol Use History: None Reported Past Drug Use History: Marijuana - Past Family History Father Additional Family Medical History / Comment(s): Overdose Medications and Allergies Home Medications Medication Instructions Recorded Confirmed Type Piperacillin-Tazobactam [Zosyn] 4.5 gm IVPB Q8HR 40 Days #120 each 11/18/22 Rx Allergies Allergy/AdvReac Type Severity Reaction Status Date / Time No Known Allergies Allergy Verified 11/11/22 06:40 Physical Exam Vitals: Vital Signs Temp Pulse Pulse Resp BP BP Pulse Ox 11/11/22 08:45 99.5 F 50 L 16 133/84 98 11/11/22 06:00 71 16 94/72 95 11/11/22 03:40 20 11/11/22 02:00 97.9 F 85 16 100/54 97 11/11/22 00:00 80 16 102/79 98 11/10/22 22:00 99 16 97/71 96 11/10/22 21:00 87 18 90/62 96 11/10/22 20:49 90 16 101/75 97 11/10/22 20:14 99 11/10/22 19:55 98.3 F 100 16 95/70 97 Intake and Output 11/10/22 11/11/22 11/11/22 22:59 06:59 14:59 Other: Weight 68.492 kg 68.492 kg GENERAL DESCRIPTION: Middle-aged male lying in bed, no distress. No tachypnea or accessory muscle of respiration use. HEENT: Shows Pallor , no scleral icterus. Oral mucous membrane is dry. No pharyngeal erythema or thrush NECK: Trachea central, no thyromegaly. LUNGS: Unlabored breathing. Clear to auscultation anteriorly. No wheeze or crackle. HEART: S1, S2, regular rate and rhythm. No loud murmur ABDOMEN: Soft, no tenderness , guarding or rigidity, no organomegaly EXTREMITIES: Right foot plantar wound did have some necrotic tissue no significant redness or foul-smelling drainage SKIN: No rash, no masses palpable. NEUROLOGICAL: The patient is awake, alert, oriented x3, mood and affect normal. Results CBC & Chem 7: 11/17/22 05:37 11/17/22 05:37 Labs: Abnormal Lab Results - Last 24 Hours (Table) 11/10/22 11/10/22 11/10/22 Range/Units 20:02 20:02 20:02 RBC 3.19 L (4.30-5.90) m/uL Hgb 10.2 L (13.0-17.5) gm/dL Hct 31.1 L (39.0-53.0) % Lymphocytes # 0.9 L (1.0-4.8) k/uL PT 12.9 H (9.0-12.0) sec INR 1.3 H (<1.2) APTT (22.0-30.0) sec D-Dimer 19.42 H (<0.60) mg/L FEU Sodium (137-145) mmol/L Potassium 3.4 L (3.5-5.1) mmol/L Chloride 111 H (98-107) mmol/L Carbon Dioxide 19 L (22-30) mmol/L BUN (9-20) mg/dL Glucose 104 H (74-99) mg/dL Calcium 6.4 L* (8.4-10.2) mg/dL Magnesium 1.5 L (1.6-2.3) mg/dL Total Protein 5.3 L (6.3-8.2) g/dL Albumin 2.5 L (3.5-5.0) g/dL 11/11/22 11/11/22 11/11/22 Range/Units 06:21 06:21 06:21 RBC 3.20 L (4.30-5.90) m/uL Hgb 10.5 L (13.0-17.5) gm/dL Hct 30.6 L (39.0-53.0) % Lymphocytes # (1.0-4.8) k/uL PT (9.0-12.0) sec INR (<1.2) APTT 77.8 H (22.0-30.0) sec D-Dimer (<0.60) mg/L FEU Sodium 136 L (137-145) mmol/L Potassium (3.5-5.1) mmol/L Chloride (98-107) mmol/L Carbon Dioxide (22-30) mmol/L BUN 22 H (9-20) mg/dL Glucose (74-99) mg/dL Calcium 7.8 L (8.4-10.2) mg/dL Magnesium (1.6-2.3) mg/dL Total Protein 5.7 L (6.3-8.2) g/dL Albumin 2.8 L (3.5-5.0) g/dL Assessment and Plan (1) Foot osteomyelitis, right Current Visit: Yes Status: Acute Code(s): M86.9 - OSTEOMYELITIS, UNSPECIFIED SNOMED Code(s): 4168397827372578 (2) Wound of right foot Current Visit: Yes Status: Acute Code(s): S91.301A - UNSPECIFIED OPEN WOUND, RIGHT FOOT, INITIAL ENCOUNTER SNOMED Code(s): 780869642 Plan: 1patient with a history of bilateral feet toes gangrene status post transmetatarsal amputation and did have a nonhealing wound on the plantar aspect of the right foot culture done on 10/14/2022 was positive for VRE that however the patient left AGAINST MEDICAL ADVICE now presented to hospital with shortness of breath palpitation has been diagnosed with a PE started on heparin. 2patient with right foot plantar wound did have some necrotic changes and will benefit from surgical debridement for which vascular surgery will be consulted, will also do benefit from any deeper culture at the right fifth toe with abnormality and deep culture from that site 3-for now continue with the daptomycin we will add Santyl for local wound care We will follow on clinical condition and cultures to further adjust medication if needed Thank you for this consultation we will follow the patient along with you Time with Patient: Greater than 30
[2022-11-12] MEDS ORDERED: HYDROmorphone 0.5 MG/0.5 ML SYRINGE IVP STA (03:20)
[2022-11-12] MEDS: COLLAGENASE 250 UNIT/GM OINTMENT 30 GM TUBE TOPICAL SCH ×2 (09:00→11:56)
[2022-11-12] MEDS: METOPROLOL TARTRATE 25 MG TAB PO SCH ×3 (09:02→20:20)
--- NOTE | 2022-11-12 09:40 | P.GSCN ---
History of Present Illness Consult date: 11/12/22 Reason for Consult: Right foot debridement Requesting physician: Anahi Martell History of present illness: Patient is a 52-year-old male, well-known to vascular surgery from need for bilateral transmetatarsal amputation due to combination of thermal burn and frostbite. The patient has a complicated social history and was living outdoors at the time of his original injury. Patient tolerated surgical procedure well and the wounds had gone on to heal initially. He is still homeless. He has had multiple recent hospitalizations for pulmonary embolisma, right lower extremity DVT, nd right foot infection. Patient was recently hospitalized last month for bacteremia and was started on IV antibiotics. Patient's wound culture showed VRE. Patient has been noncompliant with care, he has not had any follow-up after discharge with any physicians or wound care center. He has not been taking his medications as prescribed including his Xarelto for PE. Patient presented to the emergency department with complaints of shortness of breath and concerns for infection of his right foot. He was noted to be in SVT when EMS picked up patient. He was given adenosine and cardioverted. He currently denies any shortness of breath or chest pain. States he does have pain in his right foot 5 out of 10. Infectious disease had seen patient for concerns for osteomyelitis, and started patient on daptomycin. X-ray of the right foot reported erosive changes involving the right distal fifth metatarsal concerning for osteomyelitis. Soft tissue lucencies overlying the lateral stump concerning for soft tissue gas. Bilateral postsurgical changes from TMA. Vascular surgery was consulted for surgical debridement. Patient is currently on a heparin drip, he has been afebrile. Review of Systems A 14 point review systems was completed all pertinent positives and negatives as stated in the HPI. Past Medical History Past Medical History: Pulmonary Embolus (PE) Additional Past Medical History / Comment(s): Left leg cellulitis, wound to left foot History of Any Multi-Drug Resistant Organisms: None Reported Past Surgical History: No Surgical Hx Reported Additional Past Surgical History / Comment(s): amputation of toes on both feet. Past Anesthesia/Blood Transfusion Reactions: No Reported Reaction Past Psychological History: No Psychological Hx Reported Smoking Status: Current some day smoker Past Alcohol Use History: None Reported Past Drug Use History: Marijuana - Past Family History Father Additional Family Medical History / Comment(s): Overdose Medications and Allergies Home Medications Medication Instructions Recorded Confirmed Type No Known Home Medications 11/11/22 11/11/22 History Allergies Allergy/AdvReac Type Severity Reaction Status Date / Time No Known Allergies Allergy Verified 11/11/22 06:40 Surgical - Exam Vital Signs Temp Pulse Resp BP Pulse Ox 98.3 F 100 16 95/70 97 11/10/22 19:55 11/10/22 19:55 11/10/22 19:55 11/10/22 19:55 11/10/22 19:55 General appearance: The patient is alert, oriented, appears in no acute distress. HET: Head is normocephalic and atraumatic. Pupils are equal and reactive. Neck: Supple. Trachea midline. Heart: Regular. Lungs: Equal expansion, normal respiratory effort. Abdomen: Soft, nontender, nondistended. Extremities: Bilateral TMA. Left TMA healed. Right plantar aspect with large wound with a clear exposure, this small area of necrotic tissue no redness. Neurological: Alert and oriented 3. Results - Labs 11/11/22 06:21 11/11/22 06:21 Abnormal Lab Results - Last 24 Hours (Table) 11/12/22 Range/Units 08:00 APTT 37.9 H (22.0-30.0) sec Assessment and Plan Assessment: 1. Right foot wound concerning for osteomyelitis 2. Previous history of bilateral TMA 3. Shortness of breath 4. SVT 5. History of bilateral pulmonary embolism 6. History of right lower extremity DVT 7. Noncompliance with medical care 8. Homelessness Plan: 1. Continue heparin drip for now, discontinue 6 hours prior to surgical debridement 2. Continue with recommendations from infectious disease 3. Discussed with patient importance of medication compliance, wound care and follow-up visits 4. Nothing by mouth after midnight 5. Patient tentatively scheduled for right foot wound debridement tomorrow Thank you for this consultation, we will continue to follow. The impression and plan of care has been dictated as directed. Dr. Barragan I performed a history and examination of this patient, discussed the same with the dictator. I agree with the dictator's note ,documented as a scribe. Any additional findings or plans will be noted.
[2022-11-12] MEDS ORDERED: LIDOCAINE 1% (10MG/ML) FOR IV START INTRADERMA PRN (10:38)
[2022-11-12] MEDS: traMADol 50 MG TAB PO PRN ×2 (11:56→22:37)
[2022-11-12 12:14] VITALS: BMI 20.5
--- NOTE | 2022-11-12 13:27 | P.PN ---
Subjective Progress Note Date: 11/12/22 HISTORY OF PRESENT ILLNESS: This is a 52-year-old male with a past medical history significant for right metatarsal and limitation due to frostbite, hepatitis, cardiomyopathy, PE, DVT, and SVT. 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 We have been asked to see the patient in consultation for SVT. Patient examined at the bedside. Patient was admitted to the hospital in September 2022. Patient was found to have bilateral pulmonary embolism, right LE DVT, SVT, and cardiomyopathy of 35-40%. The patient presented back to the hospital via EMS secondary to shortness of breath. The patient was found to be in SVT with heart rate in the 200s. The patient was given 6 mg of adenosine in route to the hospital. The patient also reports that he is still homeless and has not been taking any of his medications. The patient currently denies chest pain or pressure. He denies shortness of breath. Vital signs are stable. * EKG reveals sinus mechanism with no signs of acute ischemia * Chest xray negative for acute process * CTA: Bilateral pulmonary embolism with no evidence of right heart strain * Laboratory data: W BC 5.8. Hemoglobin 10.5. Platelet count 157. D-dimer 19.42. Sodium 136. Potassium 4.0. B UN 22. Creatinine 1.10. * Current home cardiac medications include none * Most recent echocardiogram obtained in September 2022 revealing severe global hypokinesis of the left ventricle with dilated left ventricle. Mild to moderate mitral and mild tricuspid regurgitation. Ejection fraction 30-35% 11/12/2022 Patient examined this morning at the bedside. Patient denies chest pain or pressure. Denies shortness of breath. Patient remains on IV heparin. Patient is scheduled for right foot debridement with deep tissue cultures tomorrow with vascular surgery. PHYSICAL EXAM: VITAL SIGNS: Reviewed. GENERAL: Well-developed in no acute distress. HEENT: Head is normocephalic. Pupils are equal, round. Sclerae anicteric. Mucous membranes of the mouth are moist. Neck supple. No JVD or thyromegaly LUNGS: Respirations even and unlabored. Lungs essentially clear to auscultation bilaterally. HEART: Regular rate and rhythm. S1 and S2 heard. ABDOMEN: Soft. Nondistended. Nontender. EXTREMITIES: Normal range of motion. No clubbing or cyanosis. Peripheral pulses intact. No lower extremity edema NEUROLOGIC: Awake and alert. Oriented x 3. ASSESSMENT: Shortness of breath Paroxysmal SVT, converted to sinus mechanism with adenosine History of SVT, September 2022 Bilateral pulmonary embolism, diagnosed September 2022 History of right lower extremity DVT Cardiomyopathy, ejection fraction 30-35%, etiology unclear Right foot osteomyelitis History of right metatarsal limitation secondary to frostbite and gangrene Occasional marijuana use Occasional tobacco use Medication noncompliance Homelessness PLAN: Continue IV heparin Medication compliance reinforced Continue telemetry monitoring Antibiotic management per Dr. Martell Vascular surgery has been consulted. Patient to undergo right foot debridement tomorrow with vascular surgery No further inpatient recommendations from a cardiac standpoint We will sign off. Please reconsult if needed Nurse practitioner note has been reviewed by physician. Signing provider agrees with the documented findings, assessment, and plan of care. Objective - Vital Signs Vital signs: Vital Signs Temp 98.6 F 11/12/22 08:00 Pulse 71 11/12/22 08:00 Resp 18 11/12/22 08:00 BP 109/67 11/12/22 08:00 Pulse Ox 100 11/12/22 08:00 FiO2 Intake & Output 11/11/22 11/12/22 11/12/22 18:59 06:59 18:59 Intake Total 235.073 651.99 Output Total 500 900 625 Balance -500 -664.927 26.99 Weight 68.492 kg Intake: Intake, IV Titration 235.073 171.99 Amount Heparin Sod,Pork in 0.45% 235.073 171.99 NaCl 25,000 unit In 0.45 % NaCl 1 250ml.bag @ 18 UNITS/KG/HR 12.329 mls/hr IV .[id number] [facility] Rx#: [id number] Oral 480 Output: Urine 500 900 625 Other: Voiding Method Urinal Urinal # Voids 3 1 - Labs CBC & Chem 7: 11/11/22 06:21 11/11/22 06:21 Labs: Abnormal Lab Results - Last 24 Hours (Table) 11/12/22 Range/Units 08:00 APTT 37.9 H (22.0-30.0) sec Microbiology - Last 24 Hours (Table) 11/10/22 23:03 Blood Culture Gram Stain - Preliminary Blood Blood Culture - Preliminary Staphylococcus epidermidis 11/10/22 23:18 Blood Culture - Preliminary Blood
[2022-11-12] MEDS: HEPARIN SOD,PORK IN 0.45% NACL 25,000 UNIT in 0.45% NACL 1 250ML.BAG IV SCH (15:31)
--- NOTE | 2022-11-12 16:04 | P.PN ---
Subjective Progress Note Date: 11/12/22 Principal diagnosis: Right foot wound infection and positive blood culture Patient is a 52-year-old male with a past medical history significant for bilateral feet toes gangrene s/p transmetatarsal amputation of bilateral feet July 2022 patient was recently admitted to this facility about a month ago with right foot pain and did have a wound on the plantar aspect concerning for secondary infection however the patient left AGAINST MEDICAL ADVICE patient now presents to the hospital with a nonhealing wound on the right foot and shortness of breath has been diagnosed with bilateral PE On today's evaluation that is 11/12/2022, the patient denies having any fever or any chills, the patient is breathing comfortably on room air and chest pain no shortness of breath or cough no abdominal pain or any worsening pain to the right foot wound area Objective - Vital Signs Vital signs: Vital Signs Temp 98.3 F 11/12/22 12:00 Pulse 61 11/12/22 12:00 Resp 16 11/12/22 12:00 BP 93/71 11/12/22 12:00 Pulse Ox 98 11/12/22 12:00 FiO2 Intake & Output 11/11/22 11/12/22 11/12/22 18:59 06:59 18:59 Intake Total 235.073 730.00 Output Total 500 900 825 Balance -500 -664.927 -95.00 Weight 68.492 kg 68.492 kg Intake: Intake, IV Titration 235.073 250.00 Amount Heparin Sod,Pork in 0.45% 235.073 250.00 NaCl 25,000 unit In 0.45 % NaCl 1 250ml.bag @ 18 UNITS/KG/HR 12.329 mls/hr IV .[id number] [facility] Rx#: [id number] Oral 480 Output: Urine 500 900 825 Other: Voiding Method Urinal Urinal # Voids 3 1 - Exam GENERAL DESCRIPTION: A middle-aged male lying in bed in no distress RESPIRATORY SYSTEM: Unlabored breathing , decreased breath sounds at bases HEART: S1 S2 regular rate and rhythm , ABDOMEN: Soft , no tenderness EXTREMITIES: Right foot wound is currently dressed no drainage on the dressing - Labs CBC & Chem 7: 11/11/22 06:21 11/11/22 06:21 Labs: Abnormal Lab Results - Last 24 Hours (Table) 11/12/22 Range/Units 08:00 APTT 37.9 H (22.0-30.0) sec Microbiology - Last 24 Hours (Table) 11/10/22 23:03 Blood Culture Gram Stain - Preliminary Blood Blood Culture - Preliminary Staphylococcus epidermidis 11/10/22 23:18 Blood Culture - Preliminary Blood Assessment and Plan (1) Wound of right foot Current Visit: Yes Status: Acute Code(s): S91.301A - UNSPECIFIED OPEN WOUND, RIGHT FOOT, INITIAL ENCOUNTER SNOMED Code(s): 956703306 (2) Bacteremia Current Visit: No Status: Acute Code(s): R78.81 - BACTEREMIA SNOMED Code(s): 9401086 Plan: 1patient with a history of bilateral feet toes gangrene status post transmetatarsal amputation and did have a nonhealing wound on the plantar aspect of the right foot culture done on 10/14/2022 was positive for VRE that however the patient left AGAINST MEDICAL ADVICE now presented to hospital with shortness of breath palpitation has been diagnosed with a PE started on heparin. 2patient with right foot plantar wound did have some necrotic changes and will benefit from surgical debridement for which vascular surgery has evaluated the patient and planning for debridement and culture tomorrow 3-patient also with a positive blood culture staph epi likely contamination blood cultures will be repeated 4-patient to continue with the daptomycin and local wound care Santyl , monitor clinical course closely Time with Patient: Less than 30
--- NOTE | 2022-11-12 18:30 | CA ---
Transthoracic Echo Report Name: Obed Parikh Age: 52 Gender: M : 1970 Exam Date: 11/11/2022 14:32 Exam Location: [facility] Ht (in): 70 Wt (lb): 150 Ordering Physician: Georgia Piña Attending/Referring Phys: [id number], Ayana [employer] Assembly Supervisor William Mcdaniels RDCS Procedure CPT: Indications: LV function, PE, r/o heart strain Cardiac Hx: CHF; SOB Technical Quality: Fair Contrast 1: Total Dose (mL): Contrast 2: Total Dose (mL): MEASUREMENTS (Male / Female) Normal Values 2D ECHO LV Diastolic Diameter PLAX 6.0 cm 4.2 - 5.9 / 3.9 - 5.3 cm LV Systolic Diameter PLAX 5.0 cm LV Fractional Shortening PLAX 16.1 % IVS Diastolic Thickness 0.9 cm 0.6 - 1.0 / 0.6 - 0.9 cm IVS Systolic Thickness 1.4 cm LVPW Diastolic Thickness 0.9 cm 0.6 - 1.0 / 0.6 - 0.9 cm LVPW Systolic Thickness 1.3 cm LV Relative Wall Thickness 0.3 RV Internal Dim ED PLAX 2.7 cm LVOT Diameter 2.0 cm LA Systolic Diameter LX 3.9 cm 3.0 - 4.0 / 2.7 - 3.8 cm LV Diastolic Volume MOD BP 130.2 cm??? 67 - 155 / 56 - 104 cm??? LV Systolic Volume MOD BP 81.9 cm??? 22 - 58 / 19 - 49 cm??? LV Ejection Fraction MOD BP 37.1 % >= 55 % LV Diastolic Volume MOD 4C 102.9 cm??? LV Systolic Volume MOD 4C 57.1 cm??? LV Ejection Fraction MOD 4C 44.5 % LV Stroke Volume MOD 4C 45.8 cm??? LV Diastolic Length 4C 7.6 cm LV Systolic Length 4C 6.6 cm LV Diastolic Volume MOD 2C 152.4 cm??? LV Systolic Volume MOD 2C 110.7 cm??? LV Ejection Fraction MOD 2C 27.3 % LV Stroke Volume MOD 2C 41.6 cm??? LV Diastolic Length 2C 8.2 cm LV Systolic Length 2C 7.1 cm M-MODE Aortic Root Diameter MM 3.3 cm LA Systolic Diameter MM 4.2 cm LA Ao Ratio MM 1.3 MV E Point Septal Separation 2.8 cm AV Cusp Separation MM 2.0 cm DOPPLER AV Peak Velocity 99.8 cm/s AV Peak Gradient 4.0 mmHg MV Deceleration Grainger 176.3 cm/s??? MR Peak Velocity 384.1 cm/s MR Peak Gradient 59.0 mmHg Mitral E Point Velocity 28.9 cm/s Mitral A Point Velocity 45.8 cm/s Mitral E to A Ratio 0.6 MV Deceleration Time 164.2 ms MV E' Velocity 9.4 cm/s Mitral E to MV E' Ratio 3.1 TR Peak Velocity 208.1 cm/s TR Peak Gradient 17.3 mmHg Right Ventricular Systolic Press 27.3 mmHg PV Peak Velocity 74.0 cm/s PV Peak Gradient 2.2 mmHg FINDINGS Left Ventricle Left ventricular ejection fraction is estimated at 30-35 %. Mild left ventricular dilatation. Grade 1 diastolic dysfunction. Severely reduced global left ventricular systolic function. Right Ventricle Normal right ventricular size and function. RVSP 27 mm Hg Right Atrium Mild right atrial dilatation. Left Atrium Mild left atrial dilatation. Mitral Valve Mitral valve thickened. No mitral stenosis. Mild to Moderate mitral regurgitation. Aortic Valve Trileaflet aortic valve. No aortic stenosis. No aortic regurgitation. Tricuspid Valve Mild tricuspid regurgitation.structurally normal tricuspid valve. Pulmonic Valve Mild pulmonic regurgitation. Pericardium Normal pericardium. No pericardial effusion. Aorta Mild aortic dilatation at the level of the sinuses of valsalva (root). CONCLUSIONS 1. Dilated left ventricle with severe impairment in the systolic function 2. Mild to moderate mitral was mild tricuspid regurgitation 3. Normal RV size with normal right-sided pressure. Previewed by: Dr. Kiersten Loaiza MD (Electronically Signed) Final Date: 12 Nov 2022 18:29
[2022-11-12] MEDS: HYDROcodone/APAP 5-325MG 1 EACH TAB PO PRN (20:19)
[2022-11-13] MEDS: HYDROcodone/APAP 5-325MG 1 EACH TAB PO PRN ×3 (02:49→20:50)
--- NOTE | 2022-11-13 05:54 | P.PN ---
Subjective Progress Note Date: 11/12/22 This is a 52-year-old male who presented to the emergency department via EMS as patient was found to be in SVT and did receive a dose of IV adenosine and cardioverted. Patient also has significant wounds to lower extremities with concerns of possible osteomyelitis of the right foot and infectious disease was placed on consult. Patient was started on daptomycin in the ER. Patient reports he is homeless and has not been taking any of his medications and reports he follows with Dr. Field although reports does not follow-up and is extremely noncompliant with all medications and treatment plans. Patient was recently hospitalized multiple times found to have DVT as well as PE and started on Xarelto and again never followed up and continued with medications. Patient had an x-ray of the right foot in the ER showing erosive changes involving the right distal fifth metatarsal concerning for ostial with soft tissue lucencies overlying the lateral stump concerning for soft tissue gas with bilateral postsurgical changes from a transmetatarsal amputation. Another CTA of the chest was done showing bilateral pulmonary emboli with right lung slightly worse than left with no evidence of right heart strain. Chest x-ray showed no acute cardiopulmonary disease. Patient was admitted for cardiology evaluation along with infectious disease. 11/12/2022 Patient is seen and evaluated in follow-up today currently being followed by infectious disease along with vascular surgery and cardiology. Patient is maintained on IV heparin as patient is scheduled for debridement of the right foot with Dr. Kramer in the a.m. Patient will be nothing by mouth at midnight. Patient is continued on IV daptomycin with infectious disease following and will continue. Patient is reporting some foot pain and will adjust medications appropriately. Patient is currently afebrile denies chest pain or palpitations. Patient denies shortness of breath and reports to tolerating diet with no reports of nausea or vomiting noted. Review of systems: Constitutional: No reports of fatigue, fever, or chills Cardiovascular: No reports of chest pain or palpitations Respiratory: No reports of shortness of breath or cough GI: No reports of nausea, vomiting, or diarrhea : No reports of dysuria or retention Neurovascular: No reports of weakness or numbness All medications have been reviewed PHYSICAL EXAMINATION: GENERAL: The patient is alert and oriented x3, thin built, elderly appearing, emaciated, severely unkempt HEENT: Pupils are round and equally reacting to light. EOMI. no scleral icterus. No conjunctival pallor. Normocephalic, atraumatic. No pharyngeal erythema. No thyromegaly. CARDIOVASCULAR: S1 and S2 muffled PULMONARY: diminished breath sounds bilaterally with no wheezing or rhonchi note d. ABDOMEN: soft. Nontender on exam. non-distended, normoactive bowel sounds. No palpable organomegaly. MUSCULOSKELETAL: No joint swelling or deformity. EXTREMITIES: No cyanosis, clubbing, or pedal edema. Right foot with previous amputations noted enlarged wound noted with dressing currently dry and intact NEUROLOGICAL: Gross neurological examination did not reveal any focal deficits. Diffuse weakness SKIN: No rashes. Assessment: Supraventricular tachycardia status post adenosine given enroute with conversion, currently normal sinus Right foot infection with concerns of osteomyelitis Hypomagnesemia, improved previous history of amputations of all toes of bilateral feet secondary to poorly managed diabetes as well as frostbite on the left foot digits History of pulmonary embolus continued ongoing nicotine dependence gait dysfunction Noncompliance with medications Homelessness GI prophylaxis DVT prophylaxis Full code Plan: Recommend to continue with current medications and management with infectious disease and cardiology following Vascular surgery consulted Dr. Kramer will be tentatively scheduled for debridement of the right foot with deep cultures Patient continued on IV daptomycin with infectious disease following Patient continued on IV heparin and will transition back to Xarelto after debridement once cleared by cardiology and vascular surgery Will consult PT/OT therapy along with case management as patient is homeless and will need resources will follow-up with repeat labs and await surgical report The impression and plan of care has been dictated by Jacqueline Teresa, nurse practitioner as directed. Dr. Jose Cruz MD I have performed a history and examination and MDM of this patient, discussed the same with the dictator, and agree with the dictator's assessment and plan as written ,documented as a scribe. Based on total visit time, I have performed more than 50% of the visit. Any additional findings or plans will be noted. Objective - Vital Signs Vital signs: Vital Signs Temp 98.3 F 11/12/22 12:00 Pulse 61 11/12/22 12:00 Resp 16 11/12/22 12:00 BP 93/71 11/12/22 12:00 Pulse Ox 98 11/12/22 12:00 FiO2 Intake & Output 11/11/22 11/12/22 11/12/22 18:59 06:59 18:59 Intake Total 235.073 730.00 Output Total 500 900 825 Balance -500 -664.927 -95.00 Weight 68.492 kg 68.492 kg Intake: Intake, IV Titration 235.073 250.00 Amount Heparin Sod,Pork in 0.45% 235.073 250.00 NaCl 25,000 unit In 0.45 % NaCl 1 250ml.bag @ 18 UNITS/KG/HR 12.329 mls/hr IV .[id number] [facility] Rx#: [id number] Oral 480 Output: Urine 500 900 825 Other: Voiding Method Urinal Urinal # Voids 3 1 - Labs CBC & Chem 7: 11/11/22 06:21 11/11/22 06:21 Labs: Abnormal Lab Results - Last 24 Hours (Table) 11/12/22 Range/Units 08:00 APTT 37.9 H (22.0-30.0) sec Microbiology - Last 24 Hours (Table) 11/10/22 23:03 Blood Culture Gram Stain - Preliminary Blood Blood Culture - Preliminary Staphylococcus epidermidis 11/10/22 23:18 Blood Culture - Preliminary Blood
[2022-11-13] MEDS: LACTATED RINGERS 1,000 ML IV SCH (06:10)
[2022-11-13] MEDS ORDERED: HYDROmorphone 0.5 MG/0.5 ML SYRINGE IVP PRN (07:00)
[2022-11-13] MEDS ORDERED: MIDAZOLAM 2 MG/2 ML VIAL IV PRN (07:00)
[2022-11-13] MEDS: COLLAGENASE 250 UNIT/GM OINTMENT 30 GM TUBE TOPICAL SCH (07:45)
[2022-11-13] MEDS: METOPROLOL TARTRATE 25 MG TAB PO SCH ×3 (07:59→20:50)
[2022-11-13] MEDS: HEPARIN SOD,PORK IN 0.45% NACL 25,000 UNIT in 0.45% NACL 1 250ML.BAG IV SCH ×2 (10:34→17:34)
[2022-11-13 10:58] LABS: Basophils % (A) 0 %; Eosinophils # (A) 0.1 k/uL (0-0.7); Eosinophils % (A) 2 %; HCT 31.9 % (39.0-53.0); HGB 10.3 gm/dL (13.0-17.5); Lymphocytes # (A) 1.7 k/uL (1.0-4.8); Lymphocytes % (A) 34 %; MCH 32.5 pg (25.0-35.0); MCHC 32.2 g/dL (31.0-37.0); Macrocytosis Slight; Mean Platelet Volume 9.2; Monocytes # (A) 0.2 k/uL (0-1.0); Monocytes % (A) 3 %; Neutrophils # (A) 2.9 k/uL (1.3-7.7); Neutrophils % (A) 59 %; Platelet Count 151 k/uL (150-450); RBC 3.16 m/uL (4.30-5.90); RDW 13.7 % (11.5-15.5)
[2022-11-13 11:06] LABS: African American GFR (CKD) >90 (>60 ml/min/1.73 sqM); Anion Gap 6 mmol/L; Blood Urea Nitrogen 20 mg/dL (9-20); Calcium 7.9 mg/dL (8.4-10.2); Carbon Dioxide 25 mmol/L (22-30); Chloride 104 mmol/L (98-107); Glucose 77 mg/dL (74-99); Magnesium 1.9 mg/dL (1.6-2.3); Non-African American GFR(CKD) 83 (>60 ml/min/1.73 sqM); Potassium 4.6 mmol/L (3.5-5.1); Sodium 135 mmol/L (137-145)
[2022-11-13 12:49] LABS: C Reactive Protein 2.1 mg/dL (<1.0)
[2022-11-13] MEDS ORDERED: ONDANSETRON 4 MG/2 ML VIAL ONE (14:15)
[2022-11-13] MEDS ORDERED: LACTATED RINGERS 1,000 ML IV ONE (14:22)
[2022-11-13] MEDS ORDERED: DEXAMETHASONE SOD PHOSPHATE 4 MG/ML 1 ML VIAL IV ONE (14:28)
[2022-11-13] MEDS ORDERED: ONDANSETRON 4 MG/2 ML VIAL IVP ONE (14:28)
[2022-11-13 14:34] LABS: Erythrocyte Sedimentation Rate 33 mm/hr (0-15)
--- NOTE | 2022-11-13 14:45 | P.PN ---
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 July 2022 patient was recently admitted to this facility about a month ago with right foot pain and did have a wound on the plantar aspect concerning for secondary infection however the patient left AGAINST MEDICAL ADVICE patient now presents to the hospital with a nonhealing wound on the right foot and shortness of breath has been diagnosed with bilateral PE On today's evaluation that is 11/13/2022, the patient remains to be afebrile, the patient is breathing comfortably on room air and chest pain no shortness of breath or cough, the patient denies having any nausea no vomiting no abdominal pain and pain to the right foot wound is controlled Objective - Vital Signs Vital signs: Vital Signs Temp 97.9 F 11/13/22 11:38 Pulse 67 11/13/22 11:38 Resp 16 11/13/22 11:38 BP 91/69 11/13/22 11:38 Pulse Ox 98 11/13/22 11:38 FiO2 Intake & Output 11/12/22 11/13/22 11/13/22 18:59 06:59 18:59 Intake Total 922.328 226.296 0 Output Total 825 250 200 Balance 97.328 -23.704 -200 Weight 68.492 kg Intake: Intake, IV Titration 262.328 226.296 Amount Heparin Sod,Pork in 0.45% 262.328 226.296 NaCl 25,000 unit In 0.45 % NaCl 1 250ml.bag @ 18 UNITS/KG/HR 12.329 mls/hr IV .[id number] [facility] Rx#: [id number] Oral 660 0 Output: Urine 825 250 200 Other: Voiding Method Urinal # Voids 1 1 - Exam GENERAL DESCRIPTION: A middle-aged male lying in bed in no distress RESPIRATORY SYSTEM: Unlabored breathing , decreased breath sounds at bases HEART: S1 S2 regular rate and rhythm , ABDOMEN: Soft , no tenderness EXTREMITIES: Right foot wound is currently dressed no drainage on the dressing - Labs CBC & Chem 7: 11/13/22 10:17 11/13/22 10:17 Labs: Abnormal Lab Results - Last 24 Hours (Table) 11/12/22 11/13/22 11/13/22 Range/Units 22:10 10:17 10:17 RBC 3.16 L (4.30-5.90) m/uL Hgb 10.3 L (13.0-17.5) gm/dL Hct 31.9 L (39.0-53.0) % MCV 101.0 H D (80.0-100.0) fL APTT 67.1 H (22.0-30.0) sec Sodium 135 L (137-145) mmol/L Calcium 7.9 L (8.4-10.2) mg/dL C-Reactive Protein 2.1 H (<1.0) mg/dL Microbiology - Last 24 Hours (Table) 11/10/22 23:03 Blood Culture Gram Stain - Preliminary Blood Blood Culture - Preliminary Staphylococcus epidermidis Coagulase Negative Staph 11/10/22 23:18 Blood Culture - Preliminary Blood Assessment and Plan (1) Wound of right foot Current Visit: Yes Status: Acute Code(s): S91.301A - UNSPECIFIED OPEN WOUND, RIGHT FOOT, INITIAL ENCOUNTER SNOMED Code(s): 060578869 (2) Bacteremia Current Visit: No Status: Acute Code(s): R78.81 - BACTEREMIA SNOMED Code( s): 9151609 Plan: 1patient with a history of bilateral feet toes gangrene status post transmetatarsal amputation and did have a nonhealing wound on the plantar aspect of the right foot culture done on 10/14/2022 was positive for VRE that however the patient left AGAINST MEDICAL ADVICE now presented to hospital with shortness of breath palpitation has been diagnosed with a PE started on heparin. 2patient with right foot plantar wound did have some necrotic changes and will benefit from surgical debridement for which vascular surgery has evaluated the patient is currently waiting for debridement and culture this afternoon 3-patient also with a positive blood culture staph epi likely contamination blood cultures has been repeated 4-patient to continue with the daptomycin and local wound care Santyl , monitor clinical course closely Time with Patient: Less than 30
[2022-11-13] MEDS ORDERED: WATER FOR INJECTION, STERILE 10 ML VIAL IV ONE (15:59)
[2022-11-13] MEDS ORDERED: fentaNYL (PF) 50 MCG/ML 2 ML AMP ONE (15:59)
[2022-11-13] MEDS ORDERED: PROPOFOL 10 MG/ML 20 ML VIAL IV ONE (15:59)
[2022-11-13] MEDS ORDERED: MIDAZOLAM 2 MG/2 ML VIAL ONE (15:59)
[2022-11-13] MEDS ORDERED: ePHEDrine 50 MG/ML 1 ML VIAL ONE (15:59)
[2022-11-13] MEDS ORDERED: KETAMINE 10 MG/ML 20 ML VIAL ONE (15:59)
--- NOTE | 2022-11-13 16:12 | P.PN ---
Subjective Progress Note Date: 11/13/22 This is a 52-year-old male who presented to the emergency department via EMS as patient was found to be in SVT and did receive a dose of IV adenosine and cardioverted. Patient also has significant wounds to lower extremities with concerns of possible osteomyelitis of the right foot and infectious disease was placed on consult. Patient was started on daptomycin in the ER. Patient reports he is homeless and has not been taking any of his medications and reports he follows with Dr. Field although reports does not follow-up and is extremely noncompliant with all medications and treatment plans. Patient was recently hospitalized multiple times found to have DVT as well as PE and started on Xarelto and again never followed up and continued with medications. Patient had an x-ray of the right foot in the ER showing erosive changes involving the right distal fifth metatarsal concerning for ostial with soft tissue lucencies overlying the lateral stump concerning for soft tissue gas with bilateral postsurgical changes from a transmetatarsal amputation. Another CTA of the chest was done showing bilateral pulmonary emboli with right lung slightly worse than left with no evidence of right heart strain. Chest x-ray showed no acute cardiopulmonary disease. Patient was admitted for cardiology evaluation along with infectious disease. 11/12/2022 Patient is seen and evaluated in follow-up today currently being followed by infectious disease along with vascular surgery and cardiology. Patient is maintained on IV heparin as patient is scheduled for debridement of the right foot with Dr. Kramer in the a.m. Patient will be nothing by mouth at midnight. Patient is continued on IV daptomycin with infectious disease following and will continue. Patient is reporting some foot pain and will adjust medications appropriately. Patient is currently afebrile denies chest pain or palpitations. Patient denies shortness of breath and reports to tolerating diet with no reports of nausea or vomiting noted. 11/13/2022 Patient is seen in follow-up today currently nothing by mouth and scheduled for debridement of the right foot wound with vascular surgery Dr. Kramer. Infectious disease following and patient is maintained on IV daptomycin and will be awaiting finalized cultures from the debridement to determine discharge antibiotics. Patient will likely need IV antibiotics and extensive wound care on discharge and most likely need ECF for these needs as patient is currently homeless. Patient is agreeable and expressed to case management he would like to stay within this area. Patient is currently afebrile continues to report pain in the lower extremities although reports is manageable and currently nothing by mouth as patient is scheduled for surgical intervention today. Will follow up with report and follow-up on repeat labs. Recommend to replace electrolytes per protocol. Review of systems: Constitutional: No reports of fatigue, fever, or chills Cardiovascular: No reports of chest pain or palpitations Respiratory: No reports of shortness of breath or cough GI: No reports of nausea, vomiting, or diarrhea : No reports of dysuria or retention Neurovascular: reports of generalized weakness and right foot pain All medications have been reviewed PHYSICAL EXAMINATION: GENERAL: The patient is alert and oriented x3, thin built, elderly appearing, emaciated, severely unkempt HEENT: Pupils are round and equally reacting to light. EOMI. no scleral icterus. No conjunctival pallor. Normocephalic, atraumatic. No pharyngeal erythema. No thyromegaly. CARDIOVASCULAR: S1 and S2 muffled PULMONARY: diminished breath sounds bilaterally with no wheezing or rhonchi noted. ABDOMEN: soft. Nontender on exam. non-distended, normoactive bowel sounds. No palpable organomegaly. MUSCULOSKELETAL: No joint swelling or deformity. EXTREMITIES: No cyanosis, clubbing, or pedal edema. Right foot with previous amputations noted enlarged wound noted with dressing currently dry and intact NEUROLOGICAL: Gross neurological examination did not reveal any focal deficits. Diffuse weakness SKIN: No rashes. Assessment: Supraventricular tachycardia status post adenosine given enroute with conversion, currently normal sinus Right foot infection with concerns of osteomyelitis Hypomagnesemia, improved previous history of amputations of all toes of bilateral feet secondary to poorly managed diabetes as well as frostbite on the left foot digits History of pulmonary embolus continued ongoing nicotine dependence gait dysfunction Noncompliance with medications Homelessness GI prophylaxis DVT prophylaxis Full code Plan: Recommend to continue with current medications and management with infectious disease and cardiology following Vascular surgery following and patient scheduled for debridement of the right foot today with Dr. Kramer Patient continued on IV daptomycin with infectious disease following and would like to wait for debridement cultures to determine appropriate discharge antibiotics. Patient will likely need IV antibiotics and extensive wound care that will require a prison facility and patient is agreeable although did mention to case management he would like to stay in this area of possible. Patient continued on IV heparin and will transition back to Xarelto after debridement once cleared by cardiology and vascular surgery Will consult PT/OT therapy along with case management as patient is homeless and will need resources will follow-up with repeat labs and await surgical report Case management is following and has placed referrals to prison facilities once stabilized and discharged The impression and plan of care has been dictated by Jacqueline Teresa, nurse practitioner as directed. Dr. Jose Cruz MD I have performed a history and examination and MDM of this patient, discussed the same with the dictator, and agree with the dictator's assessment and plan as written ,documented as a scribe. Based on total visit time, I have performed more than 50% of the visit. Any additional findings or plans will be noted. Objective - Vital Signs Vital signs: Vital Signs Temp 98.1 F 11/13/22 03:23 Pulse 69 11/13/22 03:23 Resp 16 11/13/22 03:23 BP 105/62 11/13/22 03:23 Pulse Ox 95 11/13/22 03:23 FiO2 Intake & Output 11/12/22 11/13/22 11/13/22 18:59 06:59 18:59 Intake Total 922.328 226.296 Output Total 825 250 Balance 97.328 -23.704 Weight 68.492 kg Intake: Intake, IV Titration 262.328 226.296 Amount Heparin Sod,Pork in 0.45% 262.328 226.296 NaCl 25,000 unit In 0.45 % NaCl 1 250ml.bag @ 18 UNITS/KG/HR 12.329 mls/hr IV .[id number] [facility] Rx#: [id number] Oral 660 Output: Urine 825 250 Other: Voiding Method Urinal # Voids 1 - Labs CBC & Chem 7: 11/13/22 10:17 11/13/22 10:17 Labs: Abnormal Lab Results - Last 24 Hours (Table) 11/12/22 Range/Units 22:10 APTT 67.1 H (22.0-30.0) sec Microbiology - Last 24 Hours (Table) 11/10/22 23:03 Blood Culture Gram Stain - Preliminary Blood Blood Culture - Preliminary Staphylococcus epidermidis Coagulase Negative Staph 11/10/22 23:18 Blood Culture - Preliminary Blood
--- NOTE | 2022-11-13 16:35 | P.OP ---
Date of Procedure: 11/13/22 Description of Procedure: Preoperative diagnosis: Nonhealing right lower extremity wound, purulent drainage Postoperative diagnosis: Same, clinical osteomyelitis Procedure: Sharp excisional debridement right lower extremity plantar wound measuring 4.6 x 5.5 x 2 cm to the level of the bone Surgeon: Mia Kramer D.O. EBL: 5 mL IV fluids: See records Urine output: Not measured Drains: None Complications: None immediately apparent Condition: Stable to recovery Operative indication and findings: Patient is a 52-year-old male with a previous transmetatarsal amputations who presents with a nonhealing wound of his right lower extremity with evidence of possible infection and therefore he has recommended undergo operative debridement with deep culture. Risks and benefits were discussed. He seemingly understood and was willing to proceed. Procedure in detail: Patient was taken the operative suite and placed in supine position. The right lower extremity is prepped and draped in usual sterile fashion. A preprocedure timeout was performed, all parties were in agreement. Using a scissors and curette, the wound was debrided. There was callus that was excised with scalpel. At the lateral portion of the wound, there is a about 2 cm in depth that does track to the bone. Bone was debrided through this level. The bone is exposed through this. The further area was debrided to the subcutaneous tissues. There did appear to be healthy-appearing granulation tissue. A deep culture was taken. Again clinically the patient does have osteomyelitis based upon the exposed bone at this area. The area was then copiously irrigated and wet-to-dry dressings were placed. The patient was allowed awaken from anesthesia and transferred to recovery in stable condition having tolerated the procedure well.
[2022-11-13] MEDS ORDERED: GABAPENTIN 100 MG CAP PO SCH (22:00)
[2022-11-14 07:59] LABS: Basophils % (A) 0 %; Eosinophils % (A) 1 %; HGB 10.3 gm/dL (13.0-17.5); Lymphocytes # (A) 1.6 k/uL (1.0-4.8); Lymphocytes % (A) 26 %; MCH 32.2 pg (25.0-35.0); MCHC 32.4 g/dL (31.0-37.0); MCV 99.5 fL (80.0-100.0); Monocytes # (A) 0.2 k/uL (0-1.0); Monocytes % (A) 4 %; Neutrophils # (A) 4.2 k/uL (1.3-7.7); Neutrophils % (A) 68 %; Platelet Count 172 k/uL (150-450); RBC 3.21 m/uL (4.30-5.90); RDW 13.6 % (11.5-15.5); WBC 6.1 k/uL (3.8-10.6)
[2022-11-14] MEDS: LACTATED RINGERS 1,000 ML IV SCH (08:07)
[2022-11-14 08:10] LABS: African American GFR (CKD) >90 (>60 ml/min/1.73 sqM); Anion Gap 6 mmol/L; Blood Urea Nitrogen 18 mg/dL (9-20); Calcium 8.5 mg/dL (8.4-10.2); Carbon Dioxide 26 mmol/L (22-30); Chloride 102 mmol/L (98-107); Glucose 103 mg/dL (74-99); Magnesium 1.9 mg/dL (1.6-2.3); Non-African American GFR(CKD) >90 (>60 ml/min/1.73 sqM); Potassium 4.9 mmol/L (3.5-5.1); Sodium 134 mmol/L (137-145)
[2022-11-14] MEDS: HEPARIN SOD,PORK IN 0.45% NACL 25,000 UNIT in 0.45% NACL 1 250ML.BAG IV SCH (08:45)
[2022-11-14] MEDS: HYDROcodone/APAP 5-325MG 1 EACH TAB PO PRN ×2 (08:46→20:00)
[2022-11-14] MEDS: COLLAGENASE 250 UNIT/GM OINTMENT 30 GM TUBE TOPICAL SCH (08:46)
[2022-11-14] MEDS: METOPROLOL TARTRATE 25 MG TAB PO SCH ×3 (08:46→22:16)
--- NOTE | 2022-11-14 09:04 | P.PN ---
Subjective Progress Note Date: 11/14/22 Principal diagnosis: Nonhealing wound, osteomyelitis Patient is seen and examined lying in bed. He states he does have some pain in his foot. He is postop day #1 for right foot surgical debridement down to the bone. He is afebrile. He remains on IV antibiotics per recommendations from infectious disease. Deep tissue wound cultures currently pending. Objective - Vital Signs Vital signs: Vital Signs Temp 97.7 F 11/14/22 04:00 Pulse 60 11/14/22 04:00 Resp 14 11/14/22 04:00 BP 99/62 11/14/22 04:00 Pulse Ox 96 11/14/22 04:00 FiO2 Intake & Output 11/13/22 11/14/22 11/14/22 18:59 06:59 18:59 Intake Total 1280 237 240 Output Total 405 1100 Balance 875 -863 240 Intake: IV 800 Intake, IV Titration 0 Amount Heparin Sod,Pork in 0.45% 0 NaCl 25,000 unit In 0.45 % NaCl 1 250ml.bag @ 18 UNITS/KG/HR 12.329 mls/hr IV .[id number] [facility] Rx#: [id number] Oral 480 237 240 Output: Urine 400 1100 Estimated Blood Loss 5 Other: Voiding Method Urinal # Voids 1 1 - Exam General appearance: The patient is alert, oriented, appears in no acute distress. Patient is weepy, seems depressed. HET: Head is normocephalic and atraumatic. Neck: Supple. Heart: Regular. Lungs: Equal expansion, normal respiratory effort. Abdomen: Soft, nontender, nondistended. Extremities: Right foot with dressing clean dry and intact. Left foot TMA well-healed. Palpable DP pulses. Neurological: No focal deficits. Alert and oriented 3. - Labs CBC & Chem 7: 11/14/22 07:09 11/14/22 07:09 Labs: Abnormal Lab Results - Last 24 Hours (Table) 11/13/22 11/13/22 11/14/22 Range/Units 10:17 10:17 00:24 RBC 3.16 L (4.30-5.90) m/uL Hgb 10.3 L (13.0-17.5) gm/dL Hct 31.9 L (39.0-53.0) % MCV 101.0 H D (80.0-100.0) fL ESR 33 H (0-15) mm/hr APTT 46.5 H (22.0-30.0) sec Sodium 135 L (137-145) mmol/L Glucose (74-99) mg/dL Calcium 7.9 L (8.4-10.2) mg/dL C-Reactive Protein 2.1 H (<1.0) mg/dL 11/14/22 11/14/22 11/14/22 Range/Units 07:09 07:09 07:09 RBC 3.21 L (4.30-5.90) m/uL Hgb 10.3 L (13.0-17.5) gm/dL Hct 32.0 L (39.0-53.0) % MCV (80.0-100.0) fL ESR (0-15) mm/hr APTT 46.9 H (22.0-30.0) sec Sodium 134 L (137-145) mmol/L Glucose 103 H (74-99) mg/dL Calcium (8.4-10.2) mg/dL C-Reactive Protein (<1.0) mg/dL Microbiology - Last 24 Hours (Table) 11/10/22 23:18 Blood Culture - Preliminary Blood 11/13/22 16:33 Wound Culture - Preliminary Foot - Right 11/10/22 23:03 Blood Culture Gram Stain - Preliminary Blood Blood Culture - Preliminary Staphylococcus epidermidis Coagulase Negative Staph Assessment and Plan Assessment: 1. Nonhealing right foot wound with concerns for osteomyelitis status post surgical debridement 2. Previous history of bilateral TMA 3. Shortness of breath 4. SVT 5. History of bilateral pulmonary embolism 6. History of right lower extremity DVT 7. Noncompliance with medical care 8. Homelessness Plan: 1. May transition back to oral anticoagulation, will defer to medical team 2. Continue IV antibiotics with recommendations from infectious disease 3. Daily wet-to-dry dressing 4. Discussed with patient importance of medication compliance, wound care and follow-up visits. Recommend outpatient subacute rehab for IV antibiotics and wound care, patient states he is willing to go. Thank you for this consultation, we'll continue to follow. The impression and plan of care has been dictated as directed. Dr. Kramer I performed a history and examination of this patient, discussed the same with the dictator. I agree with the dictator's note ,documented as a scribe. Any additional findings or plans will be noted.
[2022-11-14] MEDS: RIVAROXABAN 20 MG TAB PO SCH (16:07)
--- NOTE | 2022-11-15 06:13 | P.PN ---
Subjective Progress Note Date: 11/14/22 This is a 52-year-old male who presented to the emergency department via EMS as patient was found to be in SVT and did receive a dose of IV adenosine and cardioverted. Patient also has significant wounds to lower extremities with concerns of possible osteomyelitis of the right foot and infectious disease was placed on consult. Patient was started on daptomycin in the ER. Patient reports he is homeless and has not been taking any of his medications and reports he follows with Dr. Field although reports does not follow-up and is extremely noncompliant with all medications and treatment plans. Patient was recently hospitalized multiple times found to have DVT as well as PE and started on Xarelto and again never followed up and continued with medications. Patient had an x-ray of the right foot in the ER showing erosive changes involving the right distal fifth metatarsal concerning for ostial with soft tissue lucencies overlying the lateral stump concerning for soft tissue gas with bilateral postsurgical changes from a transmetatarsal amputation. Another CTA of the chest was done showing bilateral pulmonary emboli with right lung slightly worse than left with no evidence of right heart strain. Chest x-ray showed no acute cardiopulmonary disease. Patient was admitted for cardiology evaluation along with infectious disease. 11/12/2022 Patient is seen and evaluated in follow-up today currently being followed by infectious disease along with vascular surgery and cardiology. Patient is maintained on IV heparin as patient is scheduled for debridement of the right foot with Dr. Kramer in the a.m. Patient will be nothing by mouth at midnight. Patient is continued on IV daptomycin with infectious disease following and will continue. Patient is reporting some foot pain and will adjust medications appropriately. Patient is currently afebrile denies chest pain or palpitations. Patient denies shortness of breath and reports to tolerating diet with no reports of nausea or vomiting noted. 11/13/2022 Patient is seen in follow-up today currently nothing by mouth and scheduled for debridement of the right foot wound with vascular surgery Dr. Kramer. Infectious disease following and patient is maintained on IV daptomycin and will be awaiting finalized cultures from the debridement to determine discharge antibiotics. Patient will likely need IV antibiotics and extensive wound care on discharge and most likely need ECF for these needs as patient is currently homeless. Patient is agreeable and expressed to case management he would like to stay within this area. Patient is currently afebrile continues to report pain in the lower extremities although reports is manageable and currently nothing by mouth as patient is scheduled for surgical intervention today. Will follow up with report and follow-up on repeat labs. Recommend to replace electrolytes per protocol. 11/14/2022 Patient is seen in follow-up status post debridement of the right foot with vascular surgery. Patient has been cleared by vascular surgery for outpatient follow-up. Currently awaiting deep tissue cultures to determine discharge antibiotics. Infectious disease following and maintained on IV daptomycin. Patient was continued on IV heparin and will transition back to Xarelto. Case management following and has placed referrals to multiple ECF and all have declined currently looking more into the [place] area. Awaiting cultures this patient will most likely need IV antibiotics and will discuss further with infectious disease once cultures are finalized. Patient is currently afebrile denies chest pain reports shortness of breath on occasion. No reports of nausea vomiting and patient is tolerating diet. Review of systems: Constitutional: No reports of fatigue, fever, or chills Cardiovascular: No reports of chest pain or palpitations Respiratory: reports of occasional shortness of breath GI: No reports of nausea, vomiting, or diarrhea : No reports of dysuria or retention Neurovascular: reports of generalized weakness and right foot pain All medications have been reviewed PHYSICAL EXAMINATION: GENERAL: The patient is alert and oriented x3, thin built, elderly appearing, emaciated, severely unkempt HEENT: Pupils are round and equally reacting to light. EOMI. no scleral icterus. No conjunctival pallor. Normocephalic, atraumatic. No pharyngeal erythema. No thyromegaly. CARDIOVASCULAR: S1 and S2 muffled PULMONARY: diminished breath sounds bilaterally with no wheezing or rhonchi noted. ABDOMEN: soft. Nontender on exam. non-distended, normoactive bowel sounds. No palpable organomegaly. MUSCULOSKELETAL: No joint swelling or deformity. EXTREMITIES: No cyanosis, clubbing, or pedal edema. Right foot with previous amputations noted surgical dressing with Kerlix with an area of dried bloody drainage noted, right outer aspect of the foot NEUROLOGICAL: Gross neurological examination did not reveal any focal deficits. Diffuse weakness SKIN: No rashes. Assessment: Supraventricular tachycardia status post adenosine given enroute with conve rsion, currently normal sinus Right foot infection with concerns of osteomyelitis , status post surgical debridement Hypomagnesemia, improved previous history of amputations of all toes of bilateral feet secondary to poorly managed diabetes as well as frostbite on the left foot digits History of pulmonary embolus continued ongoing nicotine dependence gait dysfunction Noncompliance with medications Homelessness GI prophylaxis DVT prophylaxis Full code Plan: Recommend to continue with current medications and management with infectious disease and cardiology following Vascular surgery following and underwent debridement of the right foot with Dr. Kramer Patient continued on IV daptomycin with infectious disease following and awaiting from deep tissue cultures from debridement to determine appropriate discharge antibiotics. Patient will likely need IV antibiotics and extensive wound care that will require a detention facility and patient is agreeable although did mention to case management he would like to stay in this area of possible. No accepting facilities at this time and working more into the [place] area Patient was continued on IV heparin and will transition back to Xarelto today Await PT/OT therapy evaluation Case management is following and has placed referrals to detention facilities once stabilized and discharged The impression and plan of care has been dictated by Jacqueline Teresa, nurse practitioner as directed. Dr. Jose Cruz MD I have performed a history and examination and MDM of this patient, discussed the same with the dictator, and agree with the dictator's assessment and plan as written ,documented as a scribe. Based on total visit time, I have performed more than 50% of the visit. Any additional findings or plans will be noted. Objective - Vital Signs Vital signs: Vital Signs Temp 97.7 F 11/14/22 04:00 Pulse 60 11/14/22 04:00 Resp 14 11/14/22 04:00 BP 99/62 11/14/22 04:00 Pulse Ox 96 11/14/22 04:00 FiO2 Intake & Output 11/13/22 11/14/22 11/14/22 18:59 06:59 18:59 Intake Total 1280 237 489.584 Output Total 405 1100 Balance 875 -863 489.584 Intake: IV 800 Intake, IV Titration 0 249.584 Amount Heparin Sod,Pork in 0.45% 0 249.584 NaCl 25,000 unit In 0.45 % NaCl 1 250ml.bag @ 18 UNITS/KG/HR 12.329 mls/hr IV .[id number] [facility] Rx#: [id number] Oral 480 237 240 Output: Urine 400 1100 Estimated Blood Loss 5 Other: Voiding Method Urinal # Voids 1 1 - Labs CBC & Chem 7: 11/14/22 07:09 11/14/22 07:09 Labs: Abnormal Lab Results - Last 24 Hours (Table) 11/13/22 11/13/22 11/14/22 Range/Units 10:17 10:17 00:24 RBC 3.16 L (4.30-5.90) m/uL Hgb 10.3 L (13.0-17.5) gm/dL Hct 31.9 L (39.0-53.0) % MCV 101.0 H D (80.0-100.0) fL ESR 33 H (0-15) mm/hr APTT 46.5 H (22.0-30.0) sec Sodium 135 L (137-145) mmol/L Glucose (74-99) mg/dL Calcium 7.9 L (8.4-10.2) mg/dL C-Reactive Protein 2.1 H (<1.0) mg/dL 11/14/22 11/14/22 11/14/22 Range/Units 07:09 07:09 07:09 RBC 3.21 L (4.30-5.90) m/uL Hgb 10.3 L (13.0-17.5) gm/dL Hct 32.0 L (39.0-53.0) % MCV (80.0-100.0) fL ESR (0-15) mm/hr APTT 46.9 H (22.0-30.0) sec Sodium 134 L (137-145) mmol/L Glucose 103 H (74-99) mg/dL Calcium (8.4-10.2) mg/dL C-Reactive Protein (<1.0) mg/dL Microbiology - Last 24 Hours (Table) 11/10/22 23:18 Blood Culture - Preliminary Blood 11/13/22 16:33 Wound Culture - Preliminary Foot - Right 11/10/22 23:03 Blood Culture Gram Stain - Preliminary Blood Blood Culture - Preliminary Staphylococcus epidermidis Coagulase Negative Staph
[2022-11-15] MEDS: HYDROcodone/APAP 5-325MG 1 EACH TAB PO PRN ×2 (06:16→16:08)
--- NOTE | 2022-11-15 08:00 | P.PN ---
Subjective Progress Note Date: 11/14/22 Principal diagnosis: Right foot wound infection and positive blood culture Patient is a 52-year-old male with a past medical history significant for bilateral feet toes gangrene s/p transmetatarsal amputation of bilateral feet July 2022 patient was recently admitted to this facility about a month ago with right foot pain and did have a wound on the plantar aspect concerning for secondary infection however the patient left AGAINST MEDICAL ADVICE patient now presents to the hospital with a nonhealing wound on the right foot and shortness of breath has been diagnosed with bilateral PE, pt is s/p debridment of the right foot wound down to the bone and cultures on 11/13/22 On today's evaluation that is 11/14/2022, the patient is afebrile, the patient is breathing comfortably on room air , the pt denies chest pain no shortness of breath or cough, the patient denies having any nausea no vomiting no abdominal pain and pain to the right foot wound is controlled with current medications Objective - Vital Signs Vital signs: Vital Signs Temp 98.2 F 11/14/22 08:45 Pulse 60 11/14/22 08:45 Resp 18 11/14/22 08:45 BP 109/73 11/14/22 08:45 Pulse Ox 99 11/14/22 08:45 FiO2 Intake & Output 11/13/22 11/14/22 11/14/22 18:59 06:59 18:59 Intake Total 1280 237 489.584 Output Total 405 1100 Balance 875 -863 489.584 Intake: IV 800 Intake, IV Titration 0 249.584 Amount Heparin Sod,Pork in 0.45% 0 249.584 NaCl 25,000 unit In 0.45 % NaCl 1 250ml.bag @ 18 UNITS/KG/HR 12.329 mls/hr IV .[id number] ON LICENSE OF [facility] Rx#: [id number] Oral 480 237 240 Output: Urine 400 1100 Estimated Blood Loss 5 Other: Voiding Method Urinal Urinal # Voids 1 1 - Exam GENERAL DESCRIPTION: A middle-aged male lying in bed in no distress RESPIRATORY SYSTEM: Unlabored breathing , decreased breath sounds at bases HEART: S1 S2 regular rate and rhythm , ABDOMEN: Soft , no tenderness EXTREMITIES: Right foot wound is currently dressed with blood stained drainage on the dressing - Labs CBC & Chem 7: 11/14/22 07:09 11/14/22 07:09 Labs: Abnormal Lab Results - Last 24 Hours (Table) 11/13/22 11/13/22 11/14/22 Range/Units 10:17 10:17 00:24 RBC (4.30-5.90) m/uL Hgb (13.0-17.5) gm/dL Hct (39.0-53.0) % ESR 33 H (0-15) mm/hr APTT 46.5 H (22.0-30.0) sec Sodium 135 L (137-145) mmol/L Glucose (74-99) mg/dL Calcium 7.9 L (8.4-10.2) mg/dL C-Reactive Protein 2.1 H (<1.0) mg/dL 11/14/22 11/14/22 11/14/22 Range/Units 07:09 07:09 07:09 RBC 3.21 L (4.30-5.90) m/uL Hgb 10.3 L (13.0-17.5) gm/dL Hct 32.0 L (39.0-53.0) % ESR (0-15) mm/hr APTT 46.9 H (22.0-30.0) sec Sodium 134 L (137-145) mmol/L Glucose 103 H (74-99) mg/dL Calcium (8.4-10.2) mg/dL C-Reactive Protein (<1.0) mg/dL Microbiology - Last 24 Hours (Table) 11/10/22 23:18 Blood Culture - Preliminary Blood 11/13/22 16:33 Wound Culture - Preliminary Foot - Right 11/10/22 23:03 Blood Culture Gram Stain - Preliminary Blood Blood Culture - Preliminary Staphylococcus epidermidis Coagulase Negative Staph Assessment and Plan (1) Wound of right foot Current Visit: Yes Status: Acute Code(s): S91.301A - UNSPECIFIED OPEN WOUND, RIGHT FOOT, INITIAL ENCOUNTER SNOMED Code(s): 583742325 (2) Bacteremia Current Visit: No Status: Acute Code(s): R78.81 - BACTEREMIA SNOMED Code(s): 8206547 Plan: 1patient with a history of bilateral feet toes gangrene status post transmetatarsal amputation and did have a nonhealing wound on the plantar aspect of the right foot culture done on 10/14/2022 was positive for VRE that however the patient left AGAINST MEDICAL ADVICE now presented to hospital with shortness of breath palpitation has been diagnosed with a PE started on heparin. 2patient with right foot plantar wound did have some necrotic changes and will benefit from surgical debridement for which vascular surgery has evaluated the patient is s/p debridement and culture 11/13/22 which are pending 3-patient also with a positive blood culture staph epi likely contamination blood cultures has been repeated , so far pending 4-patient to continue with the daptomycin and local wound care Kristian , discharge antibiotics on basis of deep cultures Time with Patient: Less than 30
[2022-11-15] MEDS: LACTATED RINGERS 1,000 ML IV SCH (09:22)
[2022-11-15] MEDS: COLLAGENASE 250 UNIT/GM OINTMENT 30 GM TUBE TOPICAL SCH (09:23)
[2022-11-15] MEDS: METOPROLOL TARTRATE 25 MG TAB PO SCH ×3 (09:38→21:15)
--- NOTE | 2022-11-15 10:24 | P.PN ---
Subjective Progress Note Date: 11/15/22 Principal diagnosis: Nonhealing wound, osteomyelitis Patient is seen and examined today he has a follow-up for nonhealing wound to the right foot status post surgical debridement. Patient states pain is improving. He is without any other complaints. Wound cultures preliminary showing a few gram-negative bacilli rare gram-positive cocci. Repeat blood cultures currently pending. Currently on daptomycin. Patient is afebrile. He was transitioned back to [facility] yesterday. Patient states dressing was just changed on his right foot. Objective - Vital Signs Vital signs: Vital Signs Temp 97.6 F 11/15/22 04:00 Pulse 69 11/15/22 04:00 Resp 16 11/15/22 04:00 BP 92/68 11/15/22 04:00 Pulse Ox 98 11/15/22 04:00 FiO2 Intake & Output 11/14/22 11/15/22 11/15/22 18:59 06:59 18:59 Intake Total 969.584 240 Output Total 800 1825 Balance 169.584 -1825 240 Weight 68.492 kg Intake: Intake, IV Titration 249.584 Amount Heparin Sod,Pork in 0.45% 249.584 NaCl 25,000 unit In 0.45 % NaCl 1 250ml.bag @ 18 UNITS/KG/HR 12.329 mls/hr IV .[id number] [facility] Rx#: [id number] Oral 720 240 Output: Urine 800 1825 Other: Voiding Method Urinal Urinal # Bowel Movements 0 - Exam General appearance: The patient is alert, oriented, appears in no acute dist ress. Patient is weepy, seems depressed. HET: Head is normocephalic and atraumatic. Neck: Supple. Heart: Regular. Lungs: Equal expansion, normal respiratory effort. Abdomen: Soft, nontender, nondistended. Extremities: Right foot with dressing clean dry and intact. Left foot TMA well- healed. Palpable DP pulses. Neurological: No focal deficits. Alert and oriented 3. - Labs CBC & Chem 7: 11/14/22 07:09 11/14/22 07:09 Labs: Microbiology - Last 24 Hours (Table) 11/13/22 16:33 Gram Stain - Preliminary Foot - Right Wound Culture - Preliminary 11/10/22 23:03 Blood Culture Gram Stain - Final Blood Blood Culture - Final Staphylococcus epidermidis Coagulase Negative Staph 11/10/22 23:18 Blood Culture - Preliminary Blood Assessment and Plan Assessment: 1. Nonhealing right foot wound with concerns for osteomyelitis status post surgical debridement 2. Previous history of bilateral TMA 3. Shortness of breath 4. SVT 5. History of bilateral pulmonary embolism 6. History of right lower extremity DVT 7. Noncompliance with medical care 8. Homelessness Plan: 1. Continue IV antibiotics with recommendations from infectious disease 2. Daily wet-to-dry dressing, continue with recommendations for outpatient local wound care from infectious disease 3. Patient will need outpatient wound care, either with Dr. Martell or [facility] wound care center 4. Discussed with patient importance of medication compliance, wound care and follow-up visits. Recommend outpatient subacute rehab for IV antibiotics and wound care, patient states he is willing to go. Thank you for this consultation, we will sign off at this time. The impression and plan of care has been dictated as directed. Dr. Barragan I performed a history and examination of this patient, discussed the same with the dictator. I agree with the dictator's note ,documented as a scribe. Any additional findings or plans will be noted.
--- NOTE | 2022-11-15 15:01 | P.PN ---
Subjective Progress Note Date: 11/15/22 Principal diagnosis: Right foot wound infection and positive blood culture Patient is a 52-year-old male with a past medical history significant for bilateral feet toes gangrene s/p transmetatarsal amputation of bilateral feet July 2022 patient was recently admitted to this facility about a month ago with right foot pain and did have a wound on the plantar aspect concerning for secondary infection however the patient left AGAINST MEDICAL ADVICE patient now presents to the hospital with a nonhealing wound on the right foot and shortness of breath has been diagnosed with bilateral PE, pt is s/p debridment of the right foot wound down to the bone and cultures on 11/13/22 On today's evaluation that is 11/15/2022, the patient remains to be afebrile, the patient is breathing comfortably on room air, the patient denies chest pain no shortness of breath or cough, the patient denies having any nausea no vomiting no abdominal pain and pain to the right foot wound is controlled with current medications, no new symptoms Objective - Vital Signs Vital signs: Vital Signs Temp 97.7 F 11/15/22 08:00 Pulse 65 11/15/22 11:30 Resp 17 11/15/22 11:30 BP 90/67 11/15/22 11:30 Pulse Ox 96 11/15/22 09:14 FiO2 Intake & Output 11/14/22 11/15/22 11/15/22 18:59 06:59 18:59 Intake Total 969.584 240 Output Total 800 1825 550 Balance 169.584 -1825 -310 Weight 68.492 kg Intake: Intake, IV Titration 249.584 Amount Heparin Sod,Pork in 0.45% 249.584 NaCl 25,000 unit In 0.45 % NaCl 1 250ml.bag @ 18 UNITS/KG/HR 12.329 mls/hr IV .[id number] [facility] Rx#: [id number] Oral 720 240 Output: Urine 800 1825 550 Other: Voiding Method Urinal Urinal Urinal # Voids 1 # Bowel Movements 0 1 - Exam GENERAL DESCRIPTION: A middle-aged male lying in bed in no distress RESPIRATORY SYSTEM: Unlabored breathing , decreased breath sounds at bases HEART: S1 S2 regular rate and rhythm , ABDOMEN: Soft , no tenderness EXTREMITIES: Right foot wound is currently dressed with no drainage on the dressing - Labs CBC & Chem 7: 11/14/22 07:09 11/14/22 07:09 Labs: Microbiology - Last 24 Hours (Table) 11/13/22 10:17 Blood Culture - Preliminary Blood 11/10/22 23:18 Blood Culture - Preliminary Blood 11/13/22 16:33 Gram Stain - Preliminary Foot - Right Wound Culture - Preliminary 11/10/22 23:03 Blood Culture Gram Stain - Final Blood Blood Culture - Final Staphylococcus epidermidis Coagulase Negative Staph Assessment and Plan (1) Wound of right foot Current Visit: Yes Status: Acute Code(s): S91.301A - UNSPECIFIED OPEN WOUND, RIGHT FOOT, INITIAL ENCOUNTER SNOMED Code(s): 125511960 (2) Bacteremia Current Visit: No Status: Acute Code(s): R78.81 - BACTEREMIA SNOMED Code(s): 5689567 Plan: 1patient with a history of bilateral feet toes gangrene status post tra nsmetatarsal amputation and did have a nonhealing wound on the plantar aspect of the right foot culture done on 10/14/2022 was positive for VRE that however the patient left AGAINST MEDICAL ADVICE now presented to hospital with shortness of breath palpitation has been diagnosed with a PE started on heparin. 2patient with right foot plantar wound did have some necrotic changes and will benefit from surgical debridement for which vascular surgery has evaluated the patient is s/p debridement and culture 11/13/22 which are pending 3-patient also with a positive blood culture staph epi likely contamination blood cultures has been repeated , so far pending 4-patient to continue with the daptomycin while waiting for deep cultures finalized to determine discharge antibiotics, will need PICC line for outpatient IV antibiotic discussed the rn field case manager Time with Patient: Less than 30
[2022-11-15] MEDS: RIVAROXABAN 20 MG TAB PO SCH (16:08)
--- NOTE | 2022-11-15 20:29 | P.PN ---
Subjective Progress Note Date: 11/15/22 This is a 52-year-old male who presented to the emergency department via EMS as patient was found to be in SVT and did receive a dose of IV adenosine and cardioverted. Patient also has significant wounds to lower extremities with concerns of possible osteomyelitis of the right foot and infectious disease was placed on consult. Patient was started on daptomycin in the ER. Patient reports he is homeless and has not been taking any of his medications and reports he follows with Dr. Field although reports does not follow-up and is extremely noncompliant with all medications and treatment plans. Patient was recently hospitalized multiple times found to have DVT as well as PE and started on Xarelto and again never followed up and continued with medications. Patient had an x-ray of the right foot in the ER showing erosive changes involving the right distal fifth metatarsal concerning for ostial with soft tissue lucencies overlying the lateral stump concerning for soft tissue gas with bilateral postsurgical changes from a transmetatarsal amputation. Another CTA of the chest was done showing bilateral pulmonary emboli with right lung slightly worse than left with no evidence of right heart strain. Chest x-ray showed no acute cardiopulmonary disease. Patient was admitted for cardiology evaluation along with infectious disease. 11/12/2022 Patient is seen and evaluated in follow-up today currently being followed by infectious disease along with vascular surgery and cardiology. Patient is maintained on IV heparin as patient is scheduled for debridement of the right foot with Dr. Kramer in the a.m. Patient will be nothing by mouth at midnight. Patient is continued on IV daptomycin with infectious disease following and will continue. Patient is reporting some foot pain and will adjust medications appropriately. Patient is currently afebrile denies chest pain or palpitations. Patient denies shortness of breath and reports to tolerating diet with no reports of nausea or vomiting noted. 11/13/2022 Patient is seen in follow-up today currently nothing by mouth and scheduled for debridement of the right foot wound with vascular surgery Dr. Kramer. Infectious disease following and patient is maintained on IV daptomycin and will be awaiting finalized cultures from the debridement to determine discharge antibiotics. Patient will likely need IV antibiotics and extensive wound care on discharge and most likely need ECF for these needs as patient is currently homeless. Patient is agreeable and expressed to case management he would like to stay within this area. Patient is currently afebrile continues to report pain in the lower extremities although reports is manageable and currently nothing by mouth as patient is scheduled for surgical intervention today. Will follow up with report and follow-up on repeat labs. Recommend to replace electrolytes per protocol. 11/14/2022 Patient is seen in follow-up status post debridement of the right foot with vascular surgery. Patient has been cleared by vascular surgery for outpatient follow-up. Currently awaiting deep tissue cultures to determine discharge antibiotics. Infectious disease following and maintained on IV daptomycin. Patient was continued on IV heparin and will transition back to Xarelto. Case management following and has placed referrals to multiple ECF and all have declined currently looking more into the [place] area. Awaiting cultures this patient will most likely need IV antibiotics and will discuss further with infectious disease once cultures are finalized. Patient is currently afebrile denies chest pain reports shortness of breath on occasion. No reports of nausea vomiting and patient is tolerating diet. 11/15/2022 Patient is seen in follow-up today being followed by infectious disease. Patient status post reprint of the right foot and awaiting cultures. Patient will need IV antibiotics and extensive wound care and is agreeable to go to rehab. [facility] has accepted the patient and awaiting discharge antibiotic recommendations. Patient is currently afebrile denies chest pain or shortness of breath. Patient has been resumed on Xarelto and will continue. Patient has significant history of noncompliance as he is homeless and poor to follow-up. Patient denies chest pain or shortness of breath and is tolerating diet. Review of systems: Constitutional: No reports of fatigue, fever, or chills Cardiovascular: No reports of chest pain or palpitations Respiratory: reports of occasional shortness of breath GI: No reports of nausea, vomiting, or diarrhea : No reports of dysuria or retention Neurovascular: reports of generalized weakness and right foot pain All medications have been reviewed PHYSICAL EXAMINATION: GENERAL: The patient is alert and oriented x3, thin built, elderly appearing, emaciated, severely unkempt HEENT: Pupils are round and equally reacting to light. EOMI. no scleral icterus. No conjunctival pallor. Normocephalic, atraumatic. No pharyngeal erythema. No thyromegaly. CARDIOVASCULAR: S1 and S2 muffled PULMONARY: diminished breath sounds bilaterally with no wheezing or rhonchi noted. ABDOMEN: soft. Nontender on exam. non-distended, normoactive bowel sounds. No palpable organomegaly. MUSCULOSKELETAL: No joint swelling or deformity. EXTREMITIES: No cyanosis, clubbing, or pedal edema. Right foot with previous amputations noted surgical dressing with Kerlix that is dry and intact NEUROLOGICAL: Gross neurological examination did not reveal any focal deficits. Diffuse weakness SKIN: No rashes. Assessment: Supraventricular tachycardia status post adenosine given enroute with conve rsion, currently normal sinus Right foot infection with concerns of osteomyelitis , status post surgical debridement Hypomagnesemia, improved previous history of amputations of all toes of bilateral feet secondary to poorly managed diabetes as well as frostbite on the left foot digits History of pulmonary embolus as well as right lower extremity DVT continued ongoing nicotine dependence gait dysfunction Noncompliance with medications Homelessness GI prophylaxis DVT prophylaxis Full code Plan: Recommend to continue with current medications and management with infectious disease and cardiology following Vascular surgery performed underwent debridement of the right foot with Dr. Kramer Patient continued on IV daptomycin with infectious disease following and awaiting from deep tissue cultures from debridement to determine appropriate discharge antibiotics. Patient will need IV antibiotics and extensive wound care that will require a group home facility and patient is agreeable. [facility] currently has accepted the patient and awaiting discharge antibiotic recommendations Patient has been resumed on Xarelto Due to multiple complex medical issues, noncompliance to medications and follow- up and homelessness, prognosis is guarded Will discuss further with infectious disease along with case management about discharge planning with IV antibiotics with most likely discharge on Mond The impression and plan of care has been dictated by Jacqueline Teresa, nurse practitioner as directed. Dr. Jose Cruz MD I have performed a history and examination and MDM of this patient, discussed the same with the dictator, and agree with the dictator's assessment and plan as written ,documented as a scribe. Based on total visit time, I have performed more than 50% of the visit. Any additional findings or plans will be noted. Objective - Vital Signs Vital signs: Vital Signs Temp 97.7 F 11/15/22 08:00 Pulse 71 11/15/22 08:00 Resp 18 11/15/22 08:00 BP 92/57 11/15/22 08:00 Pulse Ox 96 11/15/22 09:14 FiO2 Intake & Output 11/14/22 11/15/22 11/15/22 18:59 06:59 18:59 Intake Total 969.584 240 Output Total 800 1825 Balance 169.584 -1825 240 Weight 68.492 kg Intake: Intake, IV Titration 249.584 Amount Heparin Sod,Pork in 0.45% 249.584 NaCl 25,000 unit In 0.45 % NaCl 1 250ml.bag @ 18 UNITS/KG/HR 12.329 mls/hr IV .[id number] [facility] Rx#: [id number] Oral 720 240 Output: Urine 800 1825 Other: Voiding Method Urinal Urinal # Bowel Movements 0 - Labs CBC & Chem 7: 11/14/22 07:09 11/14/22 07:09 Labs: Microbiology - Last 24 Hours (Table) 11/10/22 23:18 Blood Culture - Preliminary Blood 11/13/22 16:33 Gram Stain - Preliminary Foot - Right Wound Culture - Preliminary 11/10/22 23:03 Blood Culture Gram Stain - Final Blood Blood Culture - Final Staphylococcus epidermidis Coagulase Negative Staph
[2022-11-16 08:53] LABS: Basophils % (A) 1 %; Eosinophils # (A) 0.2 k/uL (0-0.7); Eosinophils % (A) 3 %; HCT 36.3 % (39.0-53.0); HGB 11.2 gm/dL (13.0-17.5); Hypochromasia Slight; Lymphocytes # (A) 1.6 k/uL (1.0-4.8); Lymphocytes % (A) 28 %; MCH 32.2 pg (25.0-35.0); MCV 103.9 fL (80.0-100.0); Macrocytosis Slight; Mean Platelet Volume 9.3; Monocytes # (A) 0.3 k/uL (0-1.0); Monocytes % (A) 5 %; Neutrophils # (A) 3.8 k/uL (1.3-7.7); Neutrophils % (A) 63 %; Platelet Count 197 k/uL (150-450); RBC 3.49 m/uL (4.30-5.90); RDW 13.8 % (11.5-15.5)
[2022-11-16] MEDS: METOPROLOL TARTRATE 25 MG TAB PO SCH ×2 (08:53→17:08)
[2022-11-16] MEDS: COLLAGENASE 250 UNIT/GM OINTMENT 30 GM TUBE TOPICAL SCH (08:53)
[2022-11-16 09:05] LABS: African American GFR (CKD) >90 (>60 ml/min/1.73 sqM); Anion Gap 8 mmol/L; Blood Urea Nitrogen 21 mg/dL (9-20); Calcium 8.7 mg/dL (8.4-10.2); Carbon Dioxide 28 mmol/L (22-30); Chloride 100 mmol/L (98-107); Glucose 99 mg/dL (74-99); Magnesium 1.9 mg/dL (1.6-2.3); Non-African American GFR(CKD) 81 (>60 ml/min/1.73 sqM); Potassium 4.8 mmol/L (3.5-5.1); Sodium 136 mmol/L (137-145)
--- NOTE | 2022-11-16 10:42 | P.PN ---
Subjective Progress Note Date: 11/16/22 Principal diagnosis: Right foot wound infection and positive blood culture Patient is a 52-year-old male with a past medical history significant for bilateral feet toes gangrene s/p transmetatarsal amputation of bilateral feet July 2022 patient was recently admitted to this facility about a month ago with right foot pain and did have a wound on the plantar aspect concerning for secondary infection however the patient left AGAINST MEDICAL ADVICE patient now presents to the hospital with a nonhealing wound on the right foot and shortness of breath has been diagnosed with bilateral PE, pt is s/p debridment of the right foot wound down to the bone and cultures on 11/13/22 On today's evaluation that is 11/16/2022, the patient continues to be afebrile, the patient is breathing comfortably on room air, the patient denies chest pain no shortness of breath or cough, the patient denies nausea no vomiting no abdominal pain , the patient pain to the right foot wound has decreased in intensity Objective - Vital Signs Vital signs: Vital Signs Temp 98.5 F 11/16/22 08:00 Pulse 65 11/16/22 08:00 Resp 18 11/16/22 08:00 BP 103/68 11/16/22 08:00 Pulse Ox 100 11/16/22 08:00 FiO2 Intake & Output 11/15/22 11/16/22 11/16/22 18:59 06:59 18:59 Intake Total 2256 Output Total 2125 2400 Balance 131 -2400 Intake: Oral 2256 Output: Urine 2125 2400 Other: Voiding Method Urinal Urinal # Voids 4 1 # Bowel Movements 1 - Exam GENERAL DESCRIPTION: A middle-aged male lying in bed in no distress RESPIRATORY SYSTEM: Unlabored breathing , decreased breath sounds at bases HEART: S1 S2 regular rate and rhythm , ABDOMEN: Soft , no tenderness EXTREMITIES: Right foot wound is currently dressed with no drainage on the dressing - Labs CBC & Chem 7: 11/16/22 07:55 11/16/22 07:55 Labs: Abnormal Lab Results - Last 24 Hours (Table) 11/16/22 11/16/22 Range/Units 07:55 07:55 RBC 3.49 L (4.30-5.90) m/uL Hgb 11.2 L (13.0-17.5) gm/dL Hct 36.3 L (39.0-53.0) % MCV 103.9 H (80.0-100.0) fL Sodium 136 L (137-145) mmol/L BUN 21 H (9-20) mg/dL Microbiology - Last 24 Hours (Table) 11/13/22 16:33 Gram Stain - Final Foot - Right Wound Culture - Final 11/13/22 10:17 Blood Culture - Preliminary Blood 11/10/22 23:18 Blood Culture - Preliminary Blood Assessment and Plan (1) Wound of right foot Current Visit: Yes Status: Acute Code(s): S91.301A - UNSPECIFIED OPEN WOUND, RIGHT FOOT, INITIAL ENCOUNTER SNOMED Code(s): 238475512 (2) Bacteremia Current Visit: No Status: Acute Code(s): R78.81 - BACTEREMIA SNOMED Code(s): 0308158 Plan: 1patient with a history of bilateral feet toes gangrene status post transmetatarsal amputation and did have a nonhealing wound on the plantar aspect of the right foot culture done on 10/14/2022 was positive for VRE that however the patient left AGAINST MEDICAL ADVICE now presented to hospital with shortness of breath palpitation has been diagnosed with a PE started on heparin. 2patient with right foot plantar wound did have some necrotic changes and will benefit from surgical debridement for which vascular surgery has evaluated the patient is s/p debridement and culture 11/13/22 which are pending 3-patient also with a positive blood culture staph epi likely contamination blood cultures has been repeated , so far pending 4-patient local cultures currently growing gram-negative as well as staph aureus discussed with the lab and they need to work those bacteria, as these were deep surgical specimen 5-we will continue patient on daptomycin however will add Zosyn to cover for the gram-negative while waiting for sensitivity to finalize Time with Patient: Less than 30
[2022-11-16] MEDS ORDERED: PIPERACILLIN-TAZOBACTAM 3.375 GM in SODIUM CHLORIDE 0.9% 100 ML IVPB SCH (11:00)
[2022-11-16] MEDS: LACTATED RINGERS 1,000 ML IV SCH (11:07)
[2022-11-16] MEDS: PIPERACILLIN-TAZOBACTAM 3.375 GM in SODIUM CHLORIDE 0.9% 100 ML IVPB SCH ×2 (11:30→21:02)
--- NOTE | 2022-11-16 14:02 | P.PN ---
Subjective Progress Note Date: 11/16/22 This is a 52-year-old male who presented to the emergency department via EMS as patient was found to be in SVT and did receive a dose of IV adenosine and cardioverted. Patient also has significant wounds to lower extremities with concerns of possible osteomyelitis of the right foot and infectious disease was placed on consult. Patient was started on daptomycin in the ER. Patient reports he is homeless and has not been taking any of his medications and reports he follows with Dr. Field although reports does not follow-up and is extremely noncompliant with all medications and treatment plans. Patient was recently hospitalized multiple times found to have DVT as well as PE and started on Xarelto and again never followed up and continued with medications. Patient had an x-ray of the right foot in the ER showing erosive changes involving the right distal fifth metatarsal concerning for ostial with soft tissue lucencies overlying the lateral stump concerning for soft tissue gas with bilateral p ostsurgical changes from a transmetatarsal amputation. Another CTA of the chest was done showing bilateral pulmonary emboli with right lung slightly worse than left with no evidence of right heart strain. Chest x-ray showed no acute cardiopulmonary disease. Patient was admitted for cardiology evaluation along with infectious disease. 11/12/2022 Patient is seen and evaluated in follow-up today currently being followed by infectious disease along with vascular surgery and cardiology. Patient is maintained on IV heparin as patient is scheduled for debridement of the right foot with Dr. Kramer in the a.m. Patient will be nothing by mouth at midnight. Patient is continued on IV daptomycin with infectious disease following and will continue. Patient is reporting some foot pain and will adjust medications appropriately. Patient is currently afebrile denies chest pain or palpitations. Patient denies shortness of breath and reports to tolerating diet with no reports of nausea or vomiting noted. 11/13/2022 Patient is seen in follow-up today currently nothing by mouth and scheduled for debridement of the right foot wound with vascular surgery Dr. Kramer. Infectious disease following and patient is maintained on IV daptomycin and will be awaiting finalized cultures from the debridement to determine discharge antibiotics. Patient will likely need IV antibiotics and extensive wound care on discharge and most likely need ECF for these needs as patient is currently homeless. Patient is agreeable and expressed to case management he would like to stay within this area. Patient is currently afebrile continues to report pain in the lower extremities although reports is manageable and currently nothing by mouth as patient is scheduled for surgical intervention today. Will follow up with report and follow-up on repeat labs. Recommend to replace electrolytes per protocol. 11/14/2022 Patient is seen in follow-up status post debridement of the right foot with vascular surgery. Patient has been cleared by vascular surgery for outpatient follow-up. Currently awaiting deep tissue cultures to determine discharge antibiotics. Infectious disease following and maintained on IV daptomycin. Patient was continued on IV heparin and will transition back to Xarelto. Case management following and has placed referrals to multiple ECF and all have declined currently looking more into the [place] area. Awaiting cultures this patient will most likely need IV antibiotics and will discuss further with infectious disease once cultures are finalized. Patient is currently afebrile denies chest pain reports shortness of breath on occasion. No reports of nausea vomiting and patient is tolerating diet. 11/15/2022 Patient is seen in follow-up today being followed by infectious disease. Patient status debridement of the right foot and awaiting cultures. Patient will need IV antibiotics and extensive wound care and is agreeable to go to rehab. [facility] accepted the patient and awaiting discharge antibiotic recommendations. Patient is currently afebrile denies chest pain or shortness of breath. Patient has been resumed on Xarelto and will continue. Patient has significant history of noncompliance as he is homeless and poor to follow-up. Patient denies chest pain or shortness of breath and is tolerating diet. 5/6. Patient seen and examined. WBC this morning is 6, hemoglobin 11.2, sodium 136, potassium 4.8, BUN21, creatinine 1.06 REVIEW OF SYSTEMS: CONSTITUTIONAL: No fever, no malaise,. CARDIOVASCULAR: No chest pain, no palpitations, no syncope. PULMONARY: No shortness of breath, no cough, GASTROINTESTINAL: No diarrhea, no nausea, no vomiting, no abdominal pain. NEUROLOGICAL: No headaches, no weakness, PHYSICAL EXAMINATION: GENERAL: The patient is alert and oriented x3, not in any acute distress. Well developed, well nourished. HEENT: Pupils are round and equally reacting to light. EOMI. No scleral icterus. No conjunctival pallor. Normocephalic, atraumatic. No pharyngeal erythema. No thyromegaly. CARDIOVASCULAR: S1 and S2 present. No murmurs, rubs, or gallops. PULMONARY: Chest is clear to auscultation, no wheezing or crackles. ABDOMEN: Soft, nontender, nondistended, normoactive bowel sounds. No palpable organomegaly. MUSCULOSKELETAL: Right foot bandaged seen NEUROLOGICAL: Gross neurological examination did not reveal any focal deficits. SKIN: No rashes. Assessment and plan Supraventricular tachycardia status post adenosine given enroute with conversion, currently normal sinus Right foot infection with concerns of osteomyelitis , status post surgical oswald ridement Hypomagnesemia, improved previous history of amputations of all toes of bilateral feet secondary to poorly managed diabetes as well as frostbite on the left foot digits History of pulmonary embolus as well as right lower extremity DVT continued ongoing nicotine dependence gait dysfunction Noncompliance with medications Homelessness plan Monitor vital signs Monitor CBC Monitor CMP Continue telemetry monitoring Continue wound care Continue with daptomycin Follow-up on wound cultures Continue Xarelto Continue pain management Vascular surgery following Follow-up in ID recs DVT prophylaxis: Objective - Vital Signs Vital signs: Vital Signs Temp 98.5 F 11/16/22 08:00 Pulse 65 11/16/22 08:00 Resp 18 11/16/22 08:00 BP 103/68 11/16/22 08:00 Pulse Ox 100 11/16/22 08:00 FiO2 Intake & Output 11/15/22 11/16/22 11/16/22 18:59 06:59 18:59 Intake Total 2256 Output Total 2125 2400 Balance 131 -2400 Intake: Oral 2256 Output: Urine 2125 2400 Other: Voiding Method Urinal Urinal # Voids 4 1 # Bowel Movements 1 - Labs CBC & Chem 7: 11/16/22 07:55 11/16/22 07:55 Labs: Abnormal Lab Results - Last 24 Hours (Table) 11/16/22 11/16/22 Range/Units 07:55 07:55 RBC 3.49 L (4.30-5.90) m/uL Hgb 11.2 L (13.0-17.5) gm/dL Hct 36.3 L (39.0-53.0) % MCV 103.9 H (80.0-100.0) fL Sodium 136 L (137-145) mmol/L BUN 21 H (9-20) mg/dL Microbiology - Last 24 Hours (Table) 11/13/22 16:33 Gram Stain - Final Foot - Right Wound Culture - Preliminary Gram Neg Bacilli Presumptive Staph aureus 11/13/22 10:17 Blood Culture - Preliminary Blood 11/10/22 23:18 Blood Culture - Preliminary Blood
[2022-11-16] MEDS: HYDROcodone/APAP 5-325MG 1 EACH TAB PO PRN (17:08)
[2022-11-16] MEDS: RIVAROXABAN 20 MG TAB PO SCH (17:08)
[2022-11-17 06:16] LABS: Basophils % (A) 1 %; Eosinophils # (A) 0.2 k/uL (0-0.7); Eosinophils % (A) 3 %; HCT 37.3 % (39.0-53.0); HGB 11.7 gm/dL (13.0-17.5); Lymphocytes # (A) 1.9 k/uL (1.0-4.8); Lymphocytes % (A) 32 %; MCH 31.9 pg (25.0-35.0); MCHC 31.4 g/dL (31.0-37.0); MCV 101.5 fL (80.0-100.0); Macrocytosis Slight; Mean Platelet Volume 9.1; Monocytes # (A) 0.3 k/uL (0-1.0); Monocytes % (A) 5 %; Neutrophils # (A) 3.4 k/uL (1.3-7.7); Neutrophils % (A) 57 %; Platelet Count 204 k/uL (150-450); RBC 3.67 m/uL (4.30-5.90); RDW 13.8 % (11.5-15.5); WBC 5.9 k/uL (3.8-10.6)
[2022-11-17] MEDS: METOPROLOL TARTRATE 25 MG TAB PO SCH ×4 (06:16→20:43)
[2022-11-17 06:17] LABS: ALT 14 U/L (4-49); AST 22 U/L (17-59); African American GFR (CKD) >90 (>60 ml/min/1.73 sqM); Albumin 3.6 g/dL (3.5-5.0); Alkaline Phosphatase 77 U/L (38-126); Anion Gap 9 mmol/L; Blood Urea Nitrogen 29 mg/dL (9-20); Calcium 8.7 mg/dL (8.4-10.2); Carbon Dioxide 26 mmol/L (22-30); Chloride 100 mmol/L (98-107); Glucose 80 mg/dL (74-99); Non-African American GFR(CKD) 78 (>60 ml/min/1.73 sqM); Potassium 4.8 mmol/L (3.5-5.1); Sodium 135 mmol/L (137-145); Total Bilirubin 0.3 mg/dL (0.2-1.3); Total Protein 6.8 g/dL (6.3-8.2)
[2022-11-17] MEDS: PIPERACILLIN-TAZOBACTAM 3.375 GM in SODIUM CHLORIDE 0.9% 100 ML IVPB SCH ×3 (06:25→20:50)
[2022-11-17] MEDS: COLLAGENASE 250 UNIT/GM OINTMENT 30 GM TUBE TOPICAL SCH (09:23)
[2022-11-17] MEDS: LACTATED RINGERS 1,000 ML IV SCH (09:56)
[2022-11-17] MEDS: HYDROcodone/APAP 5-325MG 1 EACH TAB PO PRN (12:09)
--- NOTE | 2022-11-17 13:00 | P.PN ---
Subjective Progress Note Date: 11/17/22 This is a 52-year-old male who presented to the emergency department via EMS as patient was found to be in SVT and did receive a dose of IV adenosine and cardioverted. Patient also has significant wounds to lower extremities with concerns of possible osteomyelitis of the right foot and infectious disease was placed on consult. Patient was started on daptomycin in the ER. Patient reports he is homeless and has not been taking any of his medications and reports he follows with Dr. Field although reports does not follow-up and is extremely noncompliant with all medications and treatment plans. Patient was recently hospitalized multiple times found to have DVT as well as PE and started on Xarelto and again never followed up and continued with medications. Patient had an x-ray of the right foot in the ER showing erosive changes involving the right distal fifth metatarsal concerning for ostial with soft tissue lucencies overlying the lateral stump concerning for soft tissue gas with bilateral p ostsurgical changes from a transmetatarsal amputation. Another CTA of the chest was done showing bilateral pulmonary emboli with right lung slightly worse than left with no evidence of right heart strain. Chest x-ray showed no acute cardiopulmonary disease. Patient was admitted for cardiology evaluation along with infectious disease. 11/12/2022 Patient is seen and evaluated in follow-up today currently being followed by infectious disease along with vascular surgery and cardiology. Patient is maintained on IV heparin as patient is scheduled for debridement of the right foot with Dr. Kramer in the a.m. Patient will be nothing by mouth at midnight. Patient is continued on IV daptomycin with infectious disease following and will continue. Patient is reporting some foot pain and will adjust medications appropriately. Patient is currently afebrile denies chest pain or palpitations. Patient denies shortness of breath and reports to tolerating diet with no reports of nausea or vomiting noted. 11/13/2022 Patient is seen in follow-up today currently nothing by mouth and scheduled for debridement of the right foot wound with vascular surgery Dr. Kramer. Infectious disease following and patient is maintained on IV daptomycin and will be awaiting finalized cultures from the debridement to determine discharge antibiotics. Patient will likely need IV antibiotics and extensive wound care on discharge and most likely need ECF for these needs as patient is currently homeless. Patient is agreeable and expressed to case management he would like to stay within this area. Patient is currently afebrile continues to report pain in the lower extremities although reports is manageable and currently nothing by mouth as patient is scheduled for surgical intervention today. Will follow up with report and follow-up on repeat labs. Recommend to replace electrolytes per protocol. 11/14/2022 Patient is seen in follow-up status post debridement of the right foot with vascular surgery. Patient has been cleared by vascular surgery for outpatient follow-up. Currently awaiting deep tissue cultures to determine discharge antibiotics. Infectious disease following and maintained on IV daptomycin. Patient was continued on IV heparin and will transition back to Xarelto. Case management following and has placed referrals to multiple ECF and all have declined currently looking more into the [place] area. Awaiting cultures this patient will most likely need IV antibiotics and will discuss further with infectious disease once cultures are finalized. Patient is currently afebrile denies chest pain reports shortness of breath on occasion. No reports of nausea vomiting and patient is tolerating diet. 11/15/2022 Patient is seen in follow-up today being followed by infectious disease. Patient status debridement of the right foot and awaiting cultures. Patient will need IV antibiotics and extensive wound care and is agreeable to go to rehab. [facility] [place] has accepted the patient and awaiting discharge antibiotic recommendations. Patient is currently afebrile denies chest pain or shortness of breath. Patient has been resumed on Xarelto and will continue. Patient has significant history of noncompliance as he is homeless and poor to follow-up. Patient denies chest pain or shortness of breath and is tolerating diet. 5/6. Patient seen and examined. WBC this morning is 6, hemoglobin 11.2, sodium 136, potassium 4.8, BUN21, creatinine 1.06 5/7. Patient seen and examined. WBC 5.9, hemoglobin 11.7, sodium 35, potassium 4.8, BUN 29, creatinine 1.08. Denies any right foot pain. States he feels better REVIEW OF SYSTEMS: CONSTITUTIONAL: No fever, no malaise,. CARDIOVASCULAR: No chest pain, no palpitations, no syncope. PULMONARY: No shortness of breath, no cough, GASTROINTESTINAL: No diarrhea, no nausea, no vomiting, no abdominal pain. NEUROLOGICAL: No headaches, no weakness, PHYSICAL EXAMINATION: GENERAL: The patient is alert and oriented x3, not in any acute distress. Well developed, well nourished. HEENT: Pupils are round and equally reacting to light. EOMI. No scleral icterus. No conjunctival pallor. Normocephalic, atraumatic. No pharyngeal erythema. No thyromegaly. CARDIOVASCULAR: S1 and S2 present. No murmurs, rubs, or gallops. PULMONARY: Chest is clear to auscultation, no wheezing or crackles. ABDOMEN: Soft, nontender, nondistended, normoactive bowel sounds. No palpable organomegaly. MUSCULOSKELETAL: Right foot bandaged seen NEUROLOGICAL: Gross neurological examination did not reveal any focal deficits. SKIN: No rashes. Assessment and plan Supraventricular tachycardia status post adenosine given enroute with conversion, currently normal sinus Right foot infection with concerns of osteomyelitis , status post surgical debridement Hypomagnesemia, improved previous history of amputations of all toes of bilateral feet secondary to poorly managed diabetes as well as frostbite on the left foot digits History of pulmonary embolus as well as right lower extremity DVT continued ongoing nicotine dependence gait dysfunction Noncompliance with medications Homelessness plan Monitor vital signs Monitor CBC Monitor CMP Continue telemetry monitoring Continue wound care Continue with daptomycin Follow-up on wound cultures Continue Xarelto Continue pain management Vascular surgery following Follow-up in ID recs possible discharge to rehab Objective - Vital Signs Vital signs: Vital Signs Temp 98.2 F 11/17/22 08:00 Pulse 50 L 11/17/22 08:00 Resp 18 11/17/22 08:00 BP 110/65 11/17/22 08:00 Pulse Ox 100 11/17/22 08:00 FiO2 Intake & Output 11/16/22 11/17/22 11/17/22 18:59 06:59 18:59 Intake Total 666 360 Output Total 1700 2750 600 Balance -1034 -2750 -240 Weight 68.492 kg Intake: Oral 666 360 Output: Urine 1700 2750 600 Other: Voiding Method Urinal # Voids 2 2 # Bowel Movements 1 - Labs CBC & Chem 7: 11/17/22 05:37 11/17/22 05:37 Labs: Abnormal Lab Results - Last 24 Hours (Table) 11/17/22 11/17/22 Range/Units 05:37 05:37 RBC 3.67 L (4.30-5.90) m/uL Hgb 11.7 L (13.0-17.5) gm/dL Hct 37.3 L (39.0-53.0) % MCV 101.5 H (80.0-100.0) fL Sodium 135 L (137-145) mmol/L BUN 29 H (9-20) mg/dL Microbiology - Last 24 Hours (Table) 11/13/22 16:33 Gram Stain - Final Foot - Right Wound Culture - Final Citrobacter braakii Morganella morganii Proteus vulgaris Staphylococcus aureus 11/13/22 10:17 Blood Culture - Preliminary Blood 11/10/22 23:18 Blood Culture - Final Blood
--- NOTE | 2022-11-17 16:20 | P.PN ---
Subjective Progress Note Date: 11/17/22 Principal diagnosis: Right foot wound infection and positive blood culture Patient is a 52-year-old male with a past medical history significant for bilateral feet toes gangrene s/p transmetatarsal amputation of bilateral feet July 2022 patient was recently admitted to this facility about a month ago with right foot pain and did have a wound on the plantar aspect concerning for secondary infection however the patient left AGAINST MEDICAL ADVICE patient now presents to the hospital with a nonhealing wound on the right foot and shortness of breath has been diagnosed with bilateral PE, pt is s/p debridment of the right foot wound down to the bone and cultures on 11/13/22 On today's evaluation that is 11/17/2022, the patient denies any fever or any chills, the patient is breathing comfortably on room air, the patient denies chest pain no shortness of breath or cough, the patient denies nausea no vomiting no abdominal pain , the patient pain to the right foot wound is controlled with the current pain medication Objective - Vital Signs Vital signs: Vital Signs Temp 97.9 F 11/17/22 13:24 Pulse 59 L 11/17/22 13:24 Resp 18 11/17/22 13:24 BP 105/69 11/17/22 13:24 Pulse Ox 99 11/17/22 13:24 FiO2 Intake & Output 11/16/22 11/17/22 11/17/22 18:59 06:59 18:59 Intake Total 666 360 Output Total 1700 2750 600 Balance -1034 -2750 -240 Weight 68.492 kg Intake: Oral 666 360 Output: Urine 1700 2750 600 Other: Voiding Method Urinal # Voids 2 2 # Bowel Movements 1 - Exam GENERAL DESCRIPTION: A middle-aged male lying in bed in no distress RESPIRATORY SYSTEM: Unlabored breathing , decreased breath sounds at bases HEART: S1 S2 regular rate and rhythm , ABDOMEN: Soft , no tenderness EXTREMITIES: Right foot wound is currently dressed with no drainage on the dressing - Labs CBC & Chem 7: 11/17/22 05:37 11/17/22 05:37 Labs: Abnormal Lab Results - Last 24 Hours (Table) 11/17/22 11/17/22 Range/Units 05:37 05:37 RBC 3.67 L (4.30-5.90) m/uL Hgb 11.7 L (13.0-17.5) gm/dL Hct 37.3 L (39.0-53.0) % MCV 101.5 H (80.0-100.0) fL Sodium 135 L (137-145) mmol/L BUN 29 H (9-20) mg/dL Microbiology - Last 24 Hours (Table) 11/13/22 16:33 Gram Stain - Final Foot - Right Wound Culture - Final Citrobacter braakii Morganella morganii Proteus vulgaris Staphylococcus aureus 11/13/22 10:17 Blood Culture - Preliminary Blood 11/10/22 23:18 Blood Culture - Final Blood Assessment and Plan (1) Wound of right foot Current Visit: Yes Status: Acute Code(s): S91.301A - UNSPECIFIED OPEN WOUND, RIGHT FOOT, INITIAL ENCOUNTER SNOMED Code(s): 522430117 (2) Bacteremia Current Visit: No Status: Acute Code(s): R78.81 - BACTEREMIA SNOMED Code(s): 5306398 Plan: 1patient with a history of bilateral feet toes gangrene status post transmetatarsal amputation and did have a nonhealing wound on the plantar aspect of the right foot culture done on 10/14/2022 was positive for VRE that however the patient left AGAINST MEDICAL ADVICE now presented to hospital with shortness of breath palpitation has been diagnosed with a PE started on heparin. 2patient with right foot plantar wound did have some necrotic changes and will benefit from surgical debridement for which vascular surgery has evaluated the patient is s/p debridement and culture 11/13/22 which are pending 3-patient also with a positive blood culture staph epi likely contamination blood cultures has been repeated , so far pending 4-patient local cultures currently to MSSA Citrobacter Morganella and Proteus all of them are sensitive to Zosyn 5-patient to continue with Zosyn however discontinue daptomycin order PICC line for outpatient IV antibiotics Time with Patient: Less than 30
[2022-11-17] MEDS: RIVAROXABAN 20 MG TAB PO SCH (16:45)
[2022-11-18] MEDS: PIPERACILLIN-TAZOBACTAM 3.375 GM in SODIUM CHLORIDE 0.9% 100 ML IVPB SCH ×3 (04:14→20:52)
[2022-11-18] MEDS: LACTATED RINGERS 1,000 ML IV SCH (06:16)
[2022-11-18] MEDS: COLLAGENASE 250 UNIT/GM OINTMENT 30 GM TUBE TOPICAL SCH (08:38)
[2022-11-18] MEDS: METOPROLOL TARTRATE 25 MG TAB PO SCH ×3 (08:38→20:51)
[2022-11-18] MEDS ORDERED: LIDOCAINE 1% INJ 10MG/ML (5 ML VIAL-PF) SQ ONE ×2 (09:34→09:55)
--- NOTE | 2022-11-18 11:01 | IR ---
PICC LINE PLACEMENT: HISTORY: Infection requiring long-term antibiotic therapy PROCEDURE: Ultrasound and fluoroscopic guidance of PICC line placement. COMPLICATIONS: None ANESTHESIA: 1. 1% Lidocaine locally. FINDINGS/TECHNIQUE: The procedure was explained to the patient. The risks, complications, benefits and alternatives were discussed and any questions were answered. Informed consent was obtained. The patient was placed supine on the fluoroscopic table and prepped and draped in the usual sterile fash ion. Utilizing a 21 gauge needle and sonographic and fluoroscopic guidance, access in the left basi lic vein was achieved and there is placement of a 0.018 guidewire. The vein is patent. A 4-F sheath was placed over the guidewire. The guidewire and dilator were removed and a 4-F. PICC line was plac ed through the sheath with the tip at the level of the SVC. The sheath was removed, the catheter was flushed and sutured into position. The patient was stable throughout the procedure and remained sta ble upon discharge from the Department of Radiology. The vein puncture was patent under ultrasound. A rogers scale image was obtained to document patency of the vein punctured. All elements of the maximal barrier technique were utilized. FLUOROSCOPY TIME: DAP 0.1614Gy cm2 IMPRESSION: Successful PICC line placement under ultrasound and fluoroscopic guidance.
--- NOTE | 2022-11-18 11:30 | P.PN ---
Subjective Progress Note Date: 11/18/22 Principal diagnosis: Right foot wound infection and positive blood culture Patient is a 52-year-old male with a past medical history significant for bilateral feet toes gangrene s/p transmetatarsal amputation of bilateral feet July 2022 patient was recently admitted to this facility about a month ago with right foot pain and did have a wound on the plantar aspect concerning for secondary infection however the patient left AGAINST MEDICAL ADVICE patient now presents to the hospital with a nonhealing wound on the right foot and shortness of breath has been diagnosed with bilateral PE, pt is s/p debridment of the right foot wound down to the bone and cultures on 11/13/22 On today's evaluation that is 11/18/2022, the patient remains to be afebrile, the patient is breathing comfortably on room air, the patient denies chest pain no shortness of breath or cough, the patient denies nausea no vomiting no abdominal pain , the patient pain to the right foot wound is controlled, no new symptoms patient did get a PICC line Objective - Vital Signs Vital signs: Vital Signs Temp 97.6 F 11/18/22 07:18 Pulse 59 L 11/18/22 07:18 Resp 14 11/18/22 07:18 BP 113/74 11/18/22 07:18 Pulse Ox 99 11/18/22 07:18 FiO2 Intake & Output 11/17/22 11/18/22 11/18/22 18:59 06:59 18:59 Intake Total 360 Output Total 600 900 Balance -240 -900 Intake: Oral 360 Output: Urine 600 900 Other: Voiding Method Urinal # Voids 2 - Exam GENERAL DESCRIPTION: A middle-aged male lying in bed in no distress RESPIRATORY SYSTEM: Unlabored breathing , decreased breath sounds at bases HEART: S1 S2 regular rate and rhythm , ABDOMEN: Soft , no tenderness EXTREMITIES: Right foot wound is currently dressed with no drainage on the dressing - Labs CBC & Chem 7: 11/17/22 05:37 11/17/22 05:37 Labs: Microbiology - Last 24 Hours (Table) 11/13/22 10:17 Blood Culture - Preliminary Blood 11/13/22 16:33 Gram Stain - Final Foot - Right Wound Culture - Final Citrobacter braakii Morganella morganii Proteus vulgaris Staphylococcus aureus 11/10/22 23:18 Blood Culture - Final Blood Assessment and Plan (1) Wound of right foot Current Visit: Yes Status: Acute Code(s): S91.301A - UNSPECIFIED OPEN WOUND, RIGHT FOOT, INITIAL ENCOUNTER SNOMED Code(s): 494244473 (2) Bacteremia Current Visit: No Status: Acute Code(s): R78.81 - BACTEREMIA SNOMED Code(s): 5198982 Plan: 1patient with a history of bilateral feet toes gangrene status post transmetatarsal amputation and did have a nonhealing wound on the plantar aspect of the right foot culture done on 10/14/2022 was positive for VRE that however the patient left AGAINST MEDICAL ADVICE now presented to hospital with shortness of breath palpitation has been diagnosed with a PE started on heparin. 2patient with right foot plantar wound did have some necrotic changes and will benefit from surgical debridement for which vascular surgery has evaluated the patient is s/p debridement and culture 11/13/22 which are pending 3-patient also with a positive blood culture staph epi likely contamination blood cultures has been repeated , so far pending 4-patient local cultures currently to MSSA Citrobacter Morganella and Proteus all of them are sensitive to Zosyn 5-patient did get a PICC line plan is to continue with Zosyn 6 weeks and close outpatient follow-up Time with Patient: Less than 30
--- NOTE | 2022-11-18 13:29 | P.PN ---
Subjective Progress Note Date: 11/18/22 This is a 52-year-old male who presented to the emergency department via EMS as patient was found to be in SVT and did receive a dose of IV adenosine and cardioverted. Patient also has significant wounds to lower extremities with concerns of possible osteomyelitis of the right foot and infectious disease was placed on consult. Patient was started on daptomycin in the ER. Patient reports he is homeless and has not been taking any of his medications and reports he follows with Dr. Field although reports does not follow-up and is extremely noncompliant with all medications and treatment plans. Patient was recently hospitalized multiple times found to have DVT as well as PE and started on Xarelto and again never followed up and continued with medications. Patient had an x-ray of the right foot in the ER showing erosive changes involving the right distal fifth metatarsal concerning for ostial with soft tissue lucencies overlying the lateral stump concerning for soft tissue gas with bilateral p ostsurgical changes from a transmetatarsal amputation. Another CTA of the chest was done showing bilateral pulmonary emboli with right lung slightly worse than left with no evidence of right heart strain. Chest x-ray showed no acute cardiopulmonary disease. Patient was admitted for cardiology evaluation along with infectious disease. 11/12/2022 Patient is seen and evaluated in follow-up today currently being followed by infectious disease along with vascular surgery and cardiology. Patient is maintained on IV heparin as patient is scheduled for debridement of the right foot with Dr. Kramer in the a.m. Patient will be nothing by mouth at midnight. Patient is continued on IV daptomycin with infectious disease following and will continue. Patient is reporting some foot pain and will adjust medications appropriately. Patient is currently afebrile denies chest pain or palpitations. Patient denies shortness of breath and reports to tolerating diet with no reports of nausea or vomiting noted. 11/13/2022 Patient is seen in follow-up today currently nothing by mouth and scheduled for debridement of the right foot wound with vascular surgery Dr. Kramer. Infectious disease following and patient is maintained on IV daptomycin and will be awaiting finalized cultures from the debridement to determine discharge antibiotics. Patient will likely need IV antibiotics and extensive wound care on discharge and most likely need ECF for these needs as patient is currently homeless. Patient is agreeable and expressed to case management he would like to stay within this area. Patient is currently afebrile continues to report pain in the lower extremities although reports is manageable and currently nothing by mouth as patient is scheduled for surgical intervention today. Will follow up with report and follow-up on repeat labs. Recommend to replace electrolytes per protocol. 11/14/2022 Patient is seen in follow-up status post debridement of the right foot with vascular surgery. Patient has been cleared by vascular surgery for outpatient follow-up. Currently awaiting deep tissue cultures to determine discharge antibiotics. Infectious disease following and maintained on IV daptomycin. Patient was continued on IV heparin and will transition back to Xarelto. Case management following and has placed referrals to multiple ECF and all have declined currently looking more into the [place] area. Awaiting cultures this patient will most likely need IV antibiotics and will discuss further with infectious disease once cultures are finalized. Patient is currently afebrile denies chest pain reports shortness of breath on occasion. No reports of nausea vomiting and patient is tolerating diet. 11/15/2022 Patient is seen in follow-up today being followed by infectious disease. Patient status debridement of the right foot and awaiting cultures. Patient will need IV antibiotics and extensive wound care and is agreeable to go to rehab. [facility] [place] has accepted the patient and awaiting discharge antibiotic recommendations. Patient is currently afebrile denies chest pain or shortness of breath. Patient has been resumed on Xarelto and will continue. Patient has significant history of noncompliance as he is homeless and poor to follow-up. Patient denies chest pain or shortness of breath and is tolerating diet. 5/6. Patient seen and examined. WBC this morning is 6, hemoglobin 11.2, sodium 136, potassium 4.8, BUN21, creatinine 1.06 5/7. Patient seen and examined. WBC 5.9, hemoglobin 11.7, sodium 35, potassium 4.8, BUN 29, creatinine 1.08. Denies any right foot pain. States he feels better 5/8. Patient seen and examined. States he feels better. No acute issues overnight REVIEW OF SYSTEMS: CONSTITUTIONAL: No fever, no malaise,. CARDIOVASCULAR: No chest pain, no palpitations, no syncope. PULMONARY: No shortness of breath, no cough, GASTROINTESTINAL: No diarrhea, no nausea, no vomiting, no abdominal pain. NEUROLOGICAL: No headaches, no weakness, PHYSICAL EXAMINATION: GENERAL: The patient is alert and oriented x3, not in any acute distress. Well developed, well nourished. HEENT: Pupils are round and equally reacting to light. EOMI. No scleral icterus. No conjunctival pallor. Normocephalic, atraumatic. No pharyngeal erythema. No thyromegaly. CARDIOVASCULAR: S1 and S2 present. No murmurs, rubs, or gallops. PULMONARY: Chest is clear to auscultation, no wheezing or crackles. ABDOMEN: Soft, nontender, nondistended, normoactive bowel sounds. No palpable organomegaly. MUSCULOSKELETAL: Right foot bandaged seen NEUROLOGICAL: Gross neurological examination did not reveal any focal deficits. SKIN: No rashes. Assessment and plan Supraventricular tachycardia status post adenosine given enroute with conversion, currently normal sinus Right foot infection with concerns of osteomyelitis , status post surgical debridement Hypomagnesemia, improved previous history of amputations of all toes of bilateral feet secondary to poorly managed diabetes as well as frostbite on the left foot digits History of pulmonary embolus as well as right lower extremity DVT continued ongoing nicotine dependence gait dysfunction Noncompliance with medications Homelessness plan Monitor vital signs Monitor CBC Monitor CMP Continue telemetry monitoring Continue wound care Follow-up on wound cultures Continue Xarelto Continue pain management Vascular surgery following Follow-up in ID recs, recommend placing PICC line and changing antibiotics to Zosyn for 6 weeks possible discharge to rehab Objective - Vital Signs Vital signs: Vital Signs Temp 97.6 F 11/18/22 07:18 Pulse 59 L 11/18/22 07:18 Resp 14 11/18/22 07:18 BP 113/74 11/18/22 07:18 Pulse Ox 99 11/18/22 07:18 FiO2 Intake & Output 11/17/22 11/18/22 11/18/22 18:59 06:59 18:59 Intake Total 360 Output Total 600 900 Balance -240 -900 Intake: Oral 360 Output: Urine 600 900 Other: Voiding Method Urinal # Voids 2 - Labs CBC & Chem 7: 11/17/22 05:37 11/17/22 05:37 Labs: Microbiology - Last 24 Hours (Table) 11/13/22 10:17 Blood Culture - Preliminary Blood 11/13/22 16:33 Gram Stain - Final Foot - Right Wound Culture - Final Citrobacter braakii Morganella morganii Proteus vulgaris Staphylococcus aureus
[2022-11-18] MEDS: HYDROcodone/APAP 5-325MG 1 EACH TAB PO PRN (16:31)
[2022-11-18] MEDS: RIVAROXABAN 20 MG TAB PO SCH (16:31)
[2022-11-19] MEDS: PIPERACILLIN-TAZOBACTAM 3.375 GM in SODIUM CHLORIDE 0.9% 100 ML IVPB SCH ×2 (04:21→12:22)
[2022-11-19] MEDS: LACTATED RINGERS 1,000 ML IV SCH (06:45)
[2022-11-19 08:03] VITALS: RESP 18
[2022-11-19] MEDS: COLLAGENASE 250 UNIT/GM OINTMENT 30 GM TUBE TOPICAL SCH (08:43)
[2022-11-19] MEDS: METOPROLOL TARTRATE 25 MG TAB PO SCH ×2 (08:44→16:41)
--- NOTE | 2022-11-19 12:24 | P.PN ---
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 July 2022 patient was recently admitted to this facility about a month ago with right foot pain and did have a wound on the plantar aspect concerning for secondary infection however the patient left AGAINST MEDICAL ADVICE patient now presents to the hospital with a nonhealing wound on the right foot and shortness of breath has been diagnosed with bilateral PE, pt is s/p debridment of the right foot wound down to the bone and cultures on 11/13/22 On today's evaluation that is 11/19/2022, the patient continues to be afebrile, the patient is breathing comfortably on room air, the patient denies chest pain, shortness of breath or cough, the patient denies nausea no vomiting no abdominal pain , the patient pain to the right foot wound is controlled, waiting for placement Objective - Vital Signs Vital signs: Vital Signs Temp 97.8 F 11/19/22 07:20 Pulse 66 11/19/22 07:20 Resp 18 11/19/22 07:20 BP 101/64 11/19/22 07:20 Pulse Ox 99 11/19/22 07:20 FiO2 Intake & Output 11/18/22 11/19/22 11/19/22 18:59 06:59 18:59 Output Total 3000 1000 560 Balance -3000 -1000 -560 Output: Urine 3000 1000 560 Other: Voiding Method Urinal - Exam GENERAL DESCRIPTION: A middle-aged male lying in bed in no distress RESPIRATORY SYSTEM: Unlabored breathing , decreased breath sounds at bases HEART: S1 S2 regular rate and rhythm , ABDOMEN: Soft , no tenderness EXTREMITIES: Right foot wound is currently dressed with no drainage on the dressing - Labs CBC & Chem 7: 11/17/22 05:37 11/17/22 05:37 Labs: Microbiology - Last 24 Hours (Table) 11/13/22 10:17 Blood Culture - Final Blood 11/13/22 16:33 Gram Stain - Final Foot - Right Wound Culture - Final Citrobacter braakii Morganella morganii Proteus vulgaris Staphylococcus aureus Assessment and Plan (1) Foot osteomyelitis, right Current Visit: Yes Status: Acute Code(s): M86.9 - OSTEOMYELITIS, UNSPECIFIED SNOMED Code(s): 6898337701993447 (2) Wound of right foot Current Visit: Yes Status: Acute Code(s): S91.301A - UNSPECIFIED OPEN WOUND, RIGHT FOOT, INITIAL ENCOUNTER SNOMED Code(s): 146391543 Plan: 1patient with a history of bilateral feet toes gangrene status post transmetatarsal amputation and did have a nonhealing wound on the plantar aspect of the right foot culture done on 10/14/2022 was positive for VRE that however the patient left AGAINST MEDICAL ADVICE now presented to hospital with shortness of breath palpitation has been diagnosed with a PE started on heparin. 2patient with right foot plantar wound did have some necrotic changes and patient is status post surgical debridement which was extended down to the bone,local cultures currently to MSSA Citrobacter Morganella and Proteus all of them are sensitive to Zosyn 3-patient also with a positive blood culture staph epi likely contamination blood cultures has been repeated , so far pending 4--patient to continue with Zosyn 6 weeks with weekly monitoring of his CRP and a sed rate along with CBC BMP and close patient follow-up Time with Patient: Less than 30
[2022-11-19] MEDS: HYDROcodone/APAP 5-325MG 1 EACH TAB PO PRN (12:26)
--- NOTE | 2022-11-19 13:26 | P.DS ---
Providers Date of admission: 11/10/22 23:39 Expected date of discharge: 11/19/22 Attending physician: Dontae Lewis MD Consults: 11/10/22 23:39 Consult Physician Urgent Consulting Provider: Anahi Martell Consult Reason/Comments: right foot osteomyelitis Do you want consulting provider notified?: Yes Primary care physician: Emir Camejo Hospital Course: Discharge diagnoses; Supraventricular tachycardia status post adenosine given enroute with conversion, currently normal sinus Right foot infection with concerns of osteomyelitis , status post surgical debridement Hypomagnesemia, improved previous history of amputations of all toes of bilateral feet secondary to poorly managed diabetes as well as frostbite on the left foot digits History of pulmonary embolus as well as right lower extremity DVT continued ongoing nicotine dependence gait dysfunction Noncompliance with medications Homelessness Hospital course; This is a 52-year-old male who presented to the emergency department via EMS as patient was found to be in SVT and did receive a dose of IV adenosine and cardioverted. Patient also has significant wounds to lower extremities with concerns of possible osteomyelitis of the right foot and infectious disease was placed on consult. Patient was started on daptomycin in the ER. Patient reports he is homeless and has not been taking any of his medications and reports he follows with Dr. Field although reports does not follow-up and is extremely noncompliant with all medications and treatment plans. Patient was recently hospitalized multiple times found to have DVT as well as PE and started on Xarelto and again never followed up and continued with medications. Patient had an x-ray of the right foot in the ER showing erosive changes involving the r ight distal fifth metatarsal concerning for ostial with soft tissue lucencies overlying the lateral stump concerning for soft tissue gas with bilateral postsurgical changes from a transmetatarsal amputation. Another CTA of the chest was done showing bilateral pulmonary emboli with right lung slightly worse than left with no evidence of right heart strain. Chest x-ray showed no acute cardiopulmonary disease. Patient was admitted for cardiology evaluation along with infectious disease. 11/12/2022 Patient is seen and evaluated in follow-up today currently being followed by infectious disease along with vascular surgery and cardiology. Patient is maintained on IV heparin as patient is scheduled for debridement of the right foot with Dr. Kramer in the a.m. Patient will be nothing by mouth at midnight. Patient is continued on IV daptomycin with infectious disease following and will continue. Patient is reporting some foot pain and will adjust medications appropriately. Patient is currently afebrile denies chest pain or palpitations. Patient denies shortness of breath and reports to tolerating diet with no reports of nausea or vomiting noted. 11/13/2022 Patient is seen in follow-up today currently nothing by mouth and scheduled for debridement of the right foot wound with vascular surgery Dr. Kramer. Infectious disease following and patient is maintained on IV daptomycin and will be awaiting finalized cultures from the debridement to determine discharge antibiotics. Patient will likely need IV antibiotics and extensive wound care on discharge and most likely need ECF for these needs as patient is currently homeless. Patient is agreeable and expressed to case management he would like to stay within this area. Patient is currently afebrile continues to report pain in the lower extremities although reports is manageable and currently nothing by mouth as patient is scheduled for surgical intervention today. Will follow up with report and follow-up on repeat labs. Recommend to replace electrolytes per protocol. 11/14/2022 Patient is seen in follow-up status post debridement of the right foot with vascular surgery. Patient has been cleared by vascular surgery for outpatient follow-up. Currently awaiting deep tissue cultures to determine discharge antibiotics. Infectious disease following and maintained on IV daptomycin. Patient was continued on IV heparin and will transition back to Xarelto. Case management following and has placed referrals to multiple ECF and all have declined currently looking more into the [place] area. Awaiting cultures this patient will most likely need IV antibiotics and will discuss further with infectious disease once cultures are finalized. Patient is currently afebrile denies chest pain reports shortness of breath on occasion. No reports of nausea vomiting and patient is tolerating diet. 11/15/2022 Patient is seen in follow-up today being followed by infectious disease. Patient status debridement of the right foot and awaiting cultures. Patient will need IV antibiotics and extensive wound care and is agreeable to go to rehab. Counts include 234 beds at the [facility] has accepted the patient and awaiting discharge antibiotic recommendations. Patient is currently afebrile denies chest pain or shortness of breath. Patient has been resumed on Xarelto and will continue. Patient has significant history of noncompliance as he is homeless and poor to follow-up. Patient denies chest pain or shortness of breath and is tolerating diet. 11/16. Patient seen and examined. WBC this morning is 6, hemoglobin 11.2, sodium 136, potassium 4.8, BUN21, creatinine 1.06 11/17. Patient seen and examined. WBC 5.9, hemoglobin 11.7, sodium 35, potassium 4.8, BUN 29, creatinine 1.08. Denies any right foot pain. States he feels better 11/18. Patient seen and examined. States he feels better. No acute issues overnight 11/19. Patient seen and examined. Patient being discharged to correction facility. Continue IV Zosyn per ID recommendations PHYSICAL EXAMINATION: GENERAL: The patient is alert and oriented x3, not in any acute distress. Well developed, well nourished. HEENT: Pupils are round and equally reacting to light. EOMI. No scleral icterus. No conjunctival pallor. Normocephalic, atraumatic. No pharyngeal erythema. No thyromegaly. CARDIOVASCULAR: S1 and S2 present. No murmurs, rubs, or gallops. PULMONARY: Chest is clear to auscultation, no wheezing or crackles. ABDOMEN: Soft, nontender, nondistended, normoactive bowel sounds. No palpable organomegaly. MUSCULOSKELETAL: No joint swelling or deformity. EXTREMITIES: No cyanosis, clubbing, or pedal edema. right foot bandaged seen NEUROLOGICAL: Gross neurological examination did not reveal any focal deficits. SKIN: No rashes. Patient Condition at Discharge: Stable Plan - Discharge Summary Discharge Rx Participant: Yes New Discharge Prescriptions: New Piperacillin-Tazobactam [Zosyn] 4.5 gm IVPB Q8HR 40 Days #120 each Metoprolol Tartrate [Lopressor] 25 mg PO TID #30 tab HYDROcodone/APAP 5-325MG [Matthews 5-325] 1 each PO Q6HR PRN #12 tab PRN Reason: Pain Rivaroxaban [Xarelto] 20 mg PO W/SUPPER #30 tab Discharge Medication List Piperacillin-Tazobactam [Zosyn] 4.5 gm IVPB Q8HR 40 Days #120 each 11/18/22 [Rx] HYDROcodone/APAP 5-325MG [Matthews 5-325] 1 each PO Q6HR PRN #12 tab 11/19/22 [Rx] Metoprolol Tartrate [Lopressor] 25 mg PO TID #30 tab 11/19/22 [Rx] Rivaroxaban [Xarelto] 20 mg PO W/SUPPER #30 tab 11/19/22 [Rx] Follow up Appointment(s)/Referral(s): Nell Field MD [Primary Care Provider] - 1-2 days Tejas Dietz DO [Doctor of Osteopathic Medicine] - 2 Weeks Anahi Martell MD [STAFF PHYSICIAN] - 2 Weeks Ambulatory/Diagnostic Orders: Basic Metabolic Panel [LAB.AMB] Location: None Selected C Reactive Protein [LAB.AMB] Location: None Selected Complete Blood Count w/diff [LAB.AMB] Location: None Selected Erythrocyte Sedimentation Rate [LAB.AMB] Location: None Selected Discharge/Stand Alone Forms: Community Resources Discharge Disposition: TRANSFER TO SNF/ECF
[2022-11-19 13:52] VITALS: BP 112/82; PULSE 62; TEMP 97.2
== END 2022-11-19 16:39 | DRG 314 ==
LOC: EC 19:45 → 3SCARD 23:39 → 4SSUR 11-17 12:46
PROVIDERS: ADMIT Internal Medicine; ATTEND Internal Medicine
PROC: 0QBN0ZZ Excision of Right Metatarsal, Open Approach (ICD-10-PCS; principal; 2022-11-13 14:30)
PROC: 02HV33Z Insertion of Infusion Device into Superior Vena Cava, Percutaneous Approach (ICD-10-PCS; 2022-11-18)
DX: M86.8X7 Other osteomyelitis, ankle and foot (principal); I26.99 Other pulmonary embolism without acute cor pulmonale; I42.9 Cardiomyopathy, unspecified; I47.1 Supraventricular tachycardia; E83.51 Hypocalcemia; E11.69 Type 2 diabetes mellitus with other specified complication; I08.1 Rheumatic disorders of both mitral and tricuspid valves; I49.3 Ventricular premature depolarization; F17.210 Nicotine dependence, cigarettes, uncomplicated; B96.4 Proteus (mirabilis) (morganii) as the cause of diseases classified elsewhere; B95.61 Methicillin susceptible Staphylococcus aureus infection as the cause of diseases classified elsewhere; B96.89 Other specified bacterial agents as the cause of diseases classified elsewhere; T50.996A Underdosing of other drugs, medicaments and biological substances, initial encounter; E83.42 Hypomagnesemia; R26.9 Unspecified abnormalities of gait and mobility; Z28.310 Unvaccinated for COVID-19; Z86.19 Personal history of other infectious and parasitic diseases; Z59.00 Homelessness unspecified; Z89.422 Acquired absence of other left toe(s); Z89.421 Acquired absence of other right toe(s); Z86.711 Personal history of pulmonary embolism; Z86.718 Personal history of other venous thrombosis and embolism; Z91.148 Patient's other noncompliance with medication regimen for other reason
CPT/HCPCS: 36415; 36573; 71045; 71275; 80048; 80053; 83605; 83735; 83880; 84484; 85025; 85379; 85610; 85652; 85730; 86140; 87070; 87077; 87186; 87205; 93005; 93306; 94760; 96365; 96366; 96367; 96368; 96375; 99291

== ENCOUNTER 2024-10-18 02:31 | Inpatient (IN) | payer OTHER ==
--- NOTE | 2024-10-18 03:06 | ED ---
General Adult HPI - General Chief complaint: Shortness of Breath Stated complaint: Difficulty Breathing Time Seen by Provider: 10/18/24 02:39 Source: patient, EMS Mode of arrival: EMS Limitations: no limitations - History of Present Illness Initial comments: Patient is a 54-year-old gentleman past medical history of prior PE, presenting today for shortness of breath. States that he was "in that room" at the [facility] where people were smoking crack and marijuana and he became short of breath. Shortness of breath did reportedly improve upon being removed from the room. Patient is a current smoker. Endorses history prior blood clot is not on blood thinners. He denies any recent travel surgeries or hospitalizations. Denies history of cancer. Denies hemoptysis. Endorses cough nonproductive of sputum. No recent fevers, no chest pain, no difficulty in breathing currently. No abdominal pain, nausea, vomiting or diarrhea. No black or bloody stools. - Related Data Previous Rx's Medication Instructions Recorded Apixaban [Eliquis] 5 mg PO BID #60 tab 10/19/24 Dapagliflozin Propanediol [Farxiga] 10 mg PO DAILY #30 tab 10/19/24 Famotidine [Pepcid] 20 mg PO BID #60 tab 10/19/24 Losartan [Cozaar] 12.5 mg PO DAILY #30 tab 10/19/24 Metoprolol Succinate (ER) [Toprol 25 mg PO DAILY #30 tab 10/19/24 XL] Spironolactone [Aldactone] 12.5 mg PO DAILY #30 tab 10/19/24 Allergies Allergy/AdvReac Type Severity Reaction Status Date / Time No Known Allergies Allergy Verified 10/18/24 06:40 Review of Systems ROS Statement: Those systems with pertinent positive or pertinent negative responses have been documented in the HPI. ROS Other: All systems not noted in ROS Statement are negative. Past Medical History Past Medical History: Pulmonary Embolus (PE) Additional Past Medical History / Comment(s): Left leg cellulitis, wound to left foot History of Any Multi-Drug Resistant Organisms: VRE Date of last positivie culture/infection: 10/14/22 MDRO Source:: Right Foot Past Surgical History: No Surgical Hx Reported Additional Past Surgical History / Comment(s): amputation of toes on both feet. Past Anesthesia/Blood Transfusion Reactions: No Reported Reaction Past Psychological History: No Psychological Hx Reported Smoking Status: Current some day smoker Past Alcohol Use History: None Reported Past Drug Use History: Marijuana - Past Family History Father Additional Family Medical History / Comment(s): Overdose General Exam - General Exam Comments Initial Comments: PE: CONSTITUTIONAL: No apparent distress, well appearing SKIN: Warm, dry, no jaundice, hives or petechiae EYES: Pupils are equally round, extraocular movements intact without nystagmus, clear conjunctiva, non-icteric sclera HENT: Normocephalic, atraumatic, moist mucus membranes, oropharynx clear without exudates NECK: , Full range of motion, normal appearance PULMONARY: Scant wheezes in the bilateral lung bases, no rales or rhonchi normal excursion, no accessory muscle use and no stridor CARDIOVASCULAR: Regular rate, rhythm, normal S1 and S2. No appreciated murmurs, rubs or gallops. Strong radial pulses with intact distal perfusion. No lower extremity edema GASTROINTESTINAL: Soft, active bowel sounds throughout, non-tender, non- distended, no palpable masses, no rebound or guarding. No hepatosplenomegaly GENITOURINARY: MUSCULOSKELETAL: Extremities have no gross deformity, no edema, redness, or swelling. NEUROLOGIC:_a/o x 3, GCS 15, normal mentation and speech. Moves all extremities x 4 without motor or sensory deficit PSYCHIATRIC:_normal mood and affect, thought process is clear and linear Limitations: no limitations Course Vital Signs 10/18/24 10/18/24 10/18/24 02:33 03:43 03:52 Temperature 99.1 F Pulse Rate 89 73 75 Pulse Rate [ Right Pulse Oximetery] Respiratory 18 Rate Blood Pressure 127/91 Blood Pressure [Left Arm] O2 Sat by Pulse 98 Oximetry 10/18/24 10/18/24 10/18/24 05:20 07:28 09:05 Temperature 97.8 F 98.0 F Pulse Rate 70 70 71 Pulse Rate [ Right Pulse Oximetery] Respiratory 16 18 18 Rate Blood Pressure 107/88 107/80 107/87 Blood Pressure [Left Arm] O2 Sat by Pulse 97 97 97 Oximetry 10/18/24 09:45 Temperature 96.3 F L Pulse Rate Pulse Rate [ 79 Right Pulse Oximetery] Respiratory 18 Rate Blood Pressure Blood Pressure 111/82 [Left Arm] O2 Sat by Pulse 98 Oximetry EKG Findings - EKG Comments: EKG Findings:: Sinus rhythm, rate 87 bpm intervals within normal limits, normal axis, no ST elevations or depressions, no arrhythmia Medical Decision Making - Medical Decision Making Was pt. sent in by a medical professional or institution (KOBI Wynn, TOP LIFT SCOURER, urgent care, hospital, or halfway...) When possible be specific @ -No Did you speak to anyone other than the patient for history (EMS, parent, family, police, friend...)? What history was obtained from this source @ -No Did you review nursing and triage notes (agree or disagree)? Why? @ -I reviewed and agree with nursing and triage notes Were old charts reviewed (outside hosp., previous admission, EMS record, old EKG, old radiological studies, urgent care reports/EKG's, halfway records)? Report findings @ -Medical records reviewed-medical record review shows that patient has a history of prior PE Differential Diagnosis (chest pain, altered mental status, abdominal pain women, abdominal pain men, vaginal bleeding, weakness, fever, dyspnea, syncope, headache, dizziness, GI bleed, back pain, seizure, CVA, palpatations, mental health, musculoskeletal)? @Differential Dyspnea: Coronary syndrome, arrhythmia, tamponade, asthma, COPD, pulmonary embolism, pneumonia, pneumothorax, pulmonary effusion, anaphylaxis, diabetic ketoacidosis, flailed chest, pulmonary contusion, diaphragmatic rupture, anemia, neuromuscular, this is not meant to be an all-inclusive list. EKG interpreted by me (3pts min.). @ -As above X-rays interpreted by me (1pt min.). @ -None done CT interpreted by me (1pt min.). @I personally reviewed CT PE study, shows bilateral pulmonary emboli, no saddle PE I agree with radiologist interpretation U/S interpreted by me (1pt. min.). @ -None done What testing was considered but not performed or refused? (CT, X-rays, U/S, labs)? Why? @ -None What meds were considered but not given or refused? Why? @ -None Did you discuss the management of the patient with other professionals (professionals i.e. KOBI Wynn, TOP LIFT SCOURER, lab, RT, psych nurse, aids social worker, square shear operator, teacher, recreation officer, major case detective)? Give summary Case was discussed with Dr. Painter, critical care, given patient's stable vital signs, lab and imaging results, at this point does not feel patient requires ICU admission Was smoking cessation discussed for >3mins.? @ -No Was critical care preformed (if so, how long)? @Yes, 35 minutes Were there social determinants of health that impacted care today? How? (Homelessness, low income, unemployed, alcoholism, drug addiction, transportation, low edu. Level, literacy, decrease access to med. care, penitentiary, rehab)? @ -No Was there de-escalation of care discussed even if they declined (Discuss DNR or withdrawal of care, Hospice)? @ -No What co-morbidities impacted this encounter? (DM, HTN, Smoking, COPD, CAD, Cancer, CVA, ARF, Chemo, Hep., AIDS, mental health diagnosis, sleep apnea, mor bid obesity)? @ -Cigarette smoker Was patient admitted / discharged? Hospital course, mention meds given and route, prescriptions, significant lab abnormalities, going to OR and other pertinent info. @ -Admission -Patient is a pleasant 54-year-old gentleman past medical history of prior PE, current smoker presenting today for shortness of breath onset while others were smoking crack and marijuana around him. I suspect wheezing is secondary to exposure to smoke, will obtain dyspnea workup including D-dimer, troponin, comprehensive labs. Chest imaging will be decided upon D-dimer result if elevated will obtain CT PE study if negative will obtain chest x-ray. DuoNebs and steroids were ordered. CTA shows bilateral PEs with concern for right heart strain, per radiologist interpretation. Of note troponin is undetectable. Added BNP. Patient is currently in stable condition, will admit on heparin infusion. Case discussed with Dr. Howard, requests ICU consult. Case discussed with Dr. Painter, ICU, does not feel patient requires ICU admission at this point, I agree as patient has stable vital sign and no troponin elevation, or additional signs of right heart strain. EKOS consulted. Patient admitted in stable condition. Undiagnosed new problem with uncertain prognosis? @ -No Drug Therapy requiring intensive monitoring for toxicity (Heparin, Nitro, Insulin, Cardizem)? Heparin gtt Were any procedures done? @ -No Diagnosis/symptom? Bilateral Pulmonary Emboli Acute, or Chronic, or Acute on Chronic? acute Uncomplicated (without systemic symptoms) or Complicated (systemic symptoms)? @ -complicated Side effects of treatment? @ -No Exacerbation, Progression, or Severe Exacerbation? @ -No Poses a threat to life or bodily function? How? (Chest pain, [place], [place], pneumonia, PE, COPD, DKA, ARF, appy, cholecystitis, CVA, Diverticulitis, Homicidal, Suicidal, threat to staff... and all critical care pts) @ yes - Lab Data Result diagrams: 10/19/24 06:00 10/18/24 03:13 Lab Results 10/18/24 10/18/24 10/18/24 Range/Units 03:13 03:13 03:13 WBC 7.4 (3.8-10.6) k/uL RBC 4.84 (4.30-5.90) m/uL Hgb 15.2 (13.0-17.5) gm/dL Hct 46.1 (39.0-53.0) % MCV 95.3 (80.0-100.0) fL MCH 31.4 (25.0-35.0) pg MCHC 33.0 (31.0-37.0) g/dL RDW 13.7 (11.5-15.5) % Plt Count 189 (150-450) k/uL MPV 8.9 Neutrophils % 57 % Lymphocytes % 33 % Monocytes % 4 % Eosinophils % 3 % Basophils % 1 % Neutrophils # 4.2 (1.3-7.7) k/uL Lymphocytes # 2.5 (1.0-4.8) k/uL Monocytes # 0.3 (0-1.0) k/uL Eosinophils # 0.2 (0-0.7) k/uL Basophils # 0.0 (0-0.2) k/uL PT 11.0 (10.0-12.5) sec INR 1.0 (<1.2) APTT 21.6 L (22.0-30.0) sec D-Dimer 6.85 H (<0.60) mg/L FEU Sodium 138 (137-145) mmol/L Potassium 4.0 (3.5-5.1) mmol/L Chloride 109 H (98-107) mmol/L Carbon Dioxide 19 L (22-30) mmol/L Anion Gap 10 mmol/L BUN 20 (9-20) mg/dL Creatinine 0.95 (0.66-1.25) mg/dL Est GFR (CKD-EPI)AfAm >90 (>60 ml/min/1.73 sqM) Est GFR (CKD-EPI)NonAf >90 (>60 ml/min/1.73 sqM) Glucose 99 (74-99) mg/dL Calcium 8.9 (8.4-10.2) mg/dL Total Bilirubin 0.7 (0.2-1.3) mg/dL AST 30 (17-59) U/L ALT 13 (4-49) U/L Alkaline Phosphatase 98 (38-126) U/L Troponin I (0.000-0.034) ng/mL NT-Pro-B Natriuret Pep pg/mL Total Protein 7.2 (6.3-8.2) g/dL Albumin 3.8 (3.5-5.0) g/dL Influenza Type A (PCR) (Not Detectd) Influenza Type B (PCR) (Not Detectd) RSV (PCR) (Not Detectd) SARS-CoV-2 (PCR) (Not Detectd) 10/18/24 10/18/24 10/18/24 Range/Units 03:13 03:13 03:13 WBC (3.8-10.6) k/uL RBC (4.30-5.90) m/uL Hgb (13.0-17.5) gm/dL Hct (39.0-53.0) % MCV (80.0-100.0) fL MCH (25.0-35.0) pg MCHC (31.0-37.0) g/dL RDW (11.5-15.5) % Plt Count (150-450) k/uL MPV Neutrophils % % Lymphocytes % % Monocytes % % Eosinophils % % Basophils % % Neutrophils # (1.3-7.7) k/uL Lymphocytes # (1.0-4.8) k/uL Monocytes # (0-1.0) k/uL Eosinophils # (0-0.7) k/uL Basophils # (0-0.2) k/uL PT (10.0-12.5) sec INR (<1.2) APTT (22.0-30.0) sec D-Dimer (<0.60) mg/L FEU Sodium (137-145) mmol/L Potassium (3.5-5.1) mmol/L Chloride (98-107) mmol/L Carbon Dioxide (22-30) mmol/L Anion Gap mmol/L BUN (9-20) mg/dL Creatinine (0.66-1.25) mg/dL Est GFR (CKD-EPI)AfAm (>60 ml/min/1.73 sqM) Est GFR (CKD-EPI)NonAf (>60 ml/min/1.73 sqM) Glucose (74-99) mg/dL Calcium (8.4-10.2) mg/dL Total Bilirubin (0.2-1.3) mg/dL AST (17-59) U/L ALT (4-49) U/L Alkaline Phosphatase (38-126) U/L Troponin I <0.012 (0.000-0.034) ng/mL NT-Pro-B Natriuret Pep 321 pg/mL Total Protein (6.3-8.2) g/dL Albumin (3.5-5.0) g/dL Influenza Type A (PCR) Not Detected (Not Detectd) Influenza Type B (PCR) Not Detected (Not Detectd) RSV (PCR) Not Detected (Not Detectd) SARS-CoV-2 (PCR) Not Detected (Not Detectd) Disposition Clinical Impression: Bilateral pulmonary embolism Disposition: ADMITTED IP TO THIS HOSP Condition: Stable
[2024-10-18] MEDS: predniSONE 20 MG TAB PO STA (03:17)
[2024-10-18 03:37] LABS: Basophils % (A) 1 %; Eosinophils # (A) 0.2 k/uL (0-0.7); Eosinophils % (A) 3 %; HCT 46.1 % (39.0-53.0); HGB 15.2 gm/dL (13.0-17.5); Lymphocytes # (A) 2.5 k/uL (1.0-4.8); Lymphocytes % (A) 33 %; MCH 31.4 pg (25.0-35.0); MCV 95.3 fL (80.0-100.0); Mean Platelet Volume 8.9; Monocytes # (A) 0.3 k/uL (0-1.0); Monocytes % (A) 4 %; Neutrophils # (A) 4.2 k/uL (1.3-7.7); Neutrophils % (A) 57 %; Platelet Count 189 k/uL (150-450); RBC 4.84 m/uL (4.30-5.90); RDW 13.7 % (11.5-15.5); WBC 7.4 k/uL (3.8-10.6)
[2024-10-18] MEDS: IPRATROPIUM-ALBUTEROL 3 ML NEB INHALATION STA (03:43)
[2024-10-18 03:49] LABS: ALT 13 U/L (4-49); African American GFR (CKD) >90 (>60 ml/min/1.73 sqM); Albumin 3.8 g/dL (3.5-5.0); Anion Gap 10 mmol/L; Blood Urea Nitrogen 20 mg/dL (9-20); Calcium 8.9 mg/dL (8.4-10.2); Carbon Dioxide 19 mmol/L (22-30); Chloride 109 mmol/L (98-107); Glucose 99 mg/dL (74-99); Non-African American GFR(CKD) >90 (>60 ml/min/1.73 sqM); Sodium 138 mmol/L (137-145); Total Bilirubin 0.7 mg/dL (0.2-1.3); Total Protein 7.2 g/dL (6.3-8.2)
[2024-10-18 03:53] LABS: AST 30 U/L (17-59); Alkaline Phosphatase 98 U/L (38-126)
[2024-10-18 04:13] LABS: Influenza A Not Detected (Not Detectd); Influenza B Not Detected (Not Detectd); RSV Not Detected (Not Detectd)
[2024-10-18 04:19] LABS: Partial Thromboplastin Time 21.6 sec (22.0-30.0)
--- NOTE | 2024-10-18 05:48 | CT ---
EXAM: CT Angiography Chest With Intravenous Contrast CLINICAL HISTORY: ITS.REASON CT Reason: OCTAVIO, dimer 7 TECHNIQUE: Axial computed tomographic angiography images of the chest with intravenous contrast. CTDI is 22.3 mGy and DLP is 255.9 mGy-cm. This CT exam was performed using one or more of the following dose reduction techniques: automated exposure control, adjustment of the mA and/or kV according to patient size, and/or use of iterative reconstruction technique. MIP reconstructed images were created and reviewed. COMPARISON: CT dated 11/10/2022. FINDINGS: Pulmonary arteries: Multifocal bilateral first order and subsegmental pulmonary emboli. Endoluminal filling defect is seen within the distal right main pulmonary artery. Aorta: Calcifications are seen within a nondilated aorta. Lungs: Peripheral opacity is seen within the posterior lateral right middle lobe and lateral left lower lobe. Pleural space: Trace left-sided pleural effusion. No pneumothorax. Heart: Bowing of the intraventricular septum towards the left atrium. Coronary artery calcifications. Moderate cardiac enlargement. No significant pericardial effusion. Bones/joints: Degenerative changes are seen within the spine and shoulders. No acute fracture. No dislocation. Soft tissues: Unremarkable. Lymph nodes: Unremarkable. No enlarged lymph nodes. Liver: Hepatomegaly and hepatic steatosis. Gallbladder and bile ducts: Pneumobilia. IMPRESSION: 1. Bilateral pulmonary artery emboli with associated likely right heart strain. 2. Peripheral opacity seen within the right middle lobe and left lower lobe, unclear if this represents pulmonary infarct versus infectious process or pulmonary nodule. Recommend follow-up CT in 3-6 months time. <MYCVCSECTION> Communications: 10/18/24 05:49 Call Doctor Regarding Pulmonary Embolism, called Dr. Reilly on 10/18 05:48 (-04:00)
[2024-10-18] MEDS ORDERED: HEPARIN SODIUM 1,000 UN/ML (10ML VL) IV PRN (05:53)
[2024-10-18] MEDS: HEPARIN SODIUM 1,000 UN/ML (10ML VL) IV ONE (06:17)
[2024-10-18] MEDS: HEPARIN SOD,PORK IN 0.45% NACL 25,000 UNIT in 0.45% NACL 1 250ML.BAG IV SCH (06:18)
[2024-10-18] MEDS ORDERED: NALOXONE 0.4 MG/ML 1 ML VIAL IV PRN (06:53)
[2024-10-18] MEDS ORDERED: HYDROmorphone 1 MG/ML 1 ML SYRINGE IVP PRN (06:53)
[2024-10-18] MEDS ORDERED: ALPRAZolam 0.25 MG TAB PO PRN (06:53)
--- NOTE | 2024-10-18 11:12 | P.CRDCN ---
History of Present Illness Consult date: 10/18/24 Reason for Consult (text): EKOS History of present illness: This is a 54-year-old male with past medical history of bilateral transmetatarsal amputations due to thermal burn and frostbite, tobacco use and dependence, marijuana use, multiple hospitalizations for pulmonary embolisms and right lower extremity DVT. Patient has been prescribed Xarelto in the past for PE but appears to be noncompliant. Patient is currently homeless. We have been asked to evaluate the patient for EKOS. Patient states that he came into the hospital due to increasing shortness of breath. He states he was in a hotel with his mom, sister, and her boyfriend and they were smoking crack and weed with a foul odor and was making him short of breath. Patient denies chest pain or palpitations. He states he feels a tightness in his legs. Right now his shortness of breath is at his baseline and not any worse. His breathing is better since he came into the hospital. Patient has been started on heparin drip. Blood pressure 107/80, heart rate 70, pulse ox 97% on room air, afebrile. Patient is seen today in the emergency center waiting for a bed on the cardiac stepdown unit. Patient is an active smoker 1 pack/day. He states he drinks alcohol only occasionally. He denies any drug use. He denies caffeine use. He states he does not take any home medications. He denies history of diabetes, hypertension, PE. -EKG: Sinus rhythm with no acute ST-T wave changes. -CTA of the chest: Bilateral pulmonary artery emboli with associated likely right heart strain. Peripheral opacity seen within the right middle lobe and left lower lobe. Unclear if this represents pulmonary infarct versus infectious process or pulmonary nodule. Recommend CT in 3 to 6 months. -Laboratory studies: CBC within normal limits, D-dimer 6.85, CO2 19, creatinine 0.95. Troponin negative x 1. proBNP 321. Cepheid viral panel not detected. -Home cardiac medications: -Echocardiogram performed 11/11/2022 revealed dilated left ventricle with severe impairment of the systolic function, mild to moderate mitral, mild tricuspid regurgitation, normal RV size and normal right-sided pressure. EF 30 to 35%. Review Of Systems: At the time of my exam: CONSTITUTIONAL: Denies fever or chills. HEENT: Denies blurred vision, vision changes, or eye pain. Denies hemoptysis CARDIOVASCULAR: Denies chest pain. Denies orthopnea. Denies PND. Denies palpitations RESPIRATORY: Denies shortness of breath. GASTROINTESTINAL: Denies abdominal pain. Denies nausea or vomiting. HEMATOLOGIC: Denies bleeding disorders. GENITOURINARY: Denies any blood in urine. SKIN: Denies puritis. Denies rash. Physical examination: Gen: This is a 54-year-old male in no acute respiratory distress. VS: reviewed HEENT: Head is atraumatic, normocephalic. Pupils equal, round. Sclerae is anicteric. NECK: Supple. No JVD. LUNGS: Decreased air exchange bilaterally. No intercostal retractions. HEART: Regular rate and rhythm. No murmur. ABDOMEN: Soft No tenderness. EXTREMITIES: No pedal edema. Transmetatarsal amputation bilaterally NEUROLOGICAL: Patient is awake, alert and oriented x3. Assessment: Pulmonary embolism appears to be chronic, doubt acute status History of transmetatarsal amputation bilaterally due to thermal burn and frostbite Tobacco use and dependence Marijuana use Multiple hospitalizations for pulmonary embolisms and right lower extremity DVT Noncompliance Homelessness Plan: Resume patient's home cardiac medications Continue heparin drip Obtain 2-D echocardiogram and Doppler study to assess cardiac structure and function No plan for EKOS intervention Social work consult regarding homelessness and noncompliance Further recommendations to follow based upon clinical course Thank you kindly for this consultation. Nurse practitioner note has been reviewed, I agree with documented findings and plan of care. Patient was seen and examined. Past Medical History Past Medical History: Pulmonary Embolus (PE) Additional Past Medical History / Comment(s): Left leg cellulitis, wound to left foot History of Any Multi-Drug Resistant Organisms: VRE Date of last positivie culture/infection: 10/14/22 MDRO Source:: Right Foot Past Surgical History: No Surgical Hx Reported Additional Past Surgical History / Comment(s): amputation of toes on both feet. Past Anesthesia/Blood Transfusion Reactions: No Reported Reaction Past Psychological History: No Psychological Hx Reported Smoking Status: Current some day smoker Past Alcohol Use History: None Reported Past Drug Use History: Marijuana - Past Family History Father Additional Family Medical History / Comment(s): Overdose Medications and Allergies Home Medications Medication Instructions Recorded Confirmed Type No Known Home Medications 10/18/24 10/18/24 History Allergies Allergy/AdvReac Type Severity Reaction Status Date / Time No Known Allergies Allergy Verified 10/18/24 06:40 Physical Exam Vitals: Vital Signs Temp Pulse Resp BP Pulse Ox 10/18/24 07:28 97.8 F 70 18 107/80 97 10/18/24 05:20 70 16 107/88 97 10/18/24 03:52 75 10/18/24 03:43 73 10/18/24 02:33 99.1 F 89 18 127/91 98 Intake and Output 10/17/24 10/18/24 10/18/24 22:59 06:59 14:59 Other: Weight 63.503 kg Results 10/18/24 03:13 10/18/24 03:13 Cardiac Enzymes 10/18/24 10/18/24 Range/Units 03:13 03:13 AST 30 (17-59) U/L Troponin I <0.012 (0.000-0.034) ng/mL Coagulation 10/18/24 Range/Units 03:13 PT 11.0 (10.0-12.5) sec APTT 21.6 L (22.0-30.0) sec CBC 10/18/24 Range/Units 03:13 WBC 7.4 (3.8-10.6) k/uL RBC 4.84 (4.30-5.90) m/uL Hgb 15.2 (13.0-17.5) gm/dL Hct 46.1 (39.0-53.0) % Plt Count 189 (150-450) k/uL Comprehensive Metabolic Panel 10/18/24 Range/Units 03:13 Sodium 138 (137-145) mmol/L Potassium 4.0 (3.5-5.1) mmol/L Chloride 109 H (98-107) mmol/L Carbon Dioxide 19 L (22-30) mmol/L BUN 20 (9-20) mg/dL Creatinine 0.95 (0.66-1.25) mg/dL Glucose 99 (74-99) mg/dL Calcium 8.9 (8.4-10.2) mg/dL AST 30 (17-59) U/L ALT 13 (4-49) U/L Alkaline Phosphatase 98 (38-126) U/L Total Protein 7.2 (6.3-8.2) g/dL Albumin 3.8 (3.5-5.0) g/dL Current Medications Generic Name Dose Route Start Last Admin Trade Name Loren PRN Reason Stop Dose Admin Acetaminophen 650 mg 10/18/24 06:53 Acetaminophen Tab 325 Mg Tab PO Q6HR PRN Mild Pain or Fever > 100.5 Alprazolam 0.25 mg 10/18/24 06:53 Alprazolam 0.25 Mg Tab PO Q6HR PRN Anxiety Famotidine 20 mg 10/18/24 09:00 Famotidine 20 Mg Tab PO BID [facility] Heparin Sodium (Porcine) 0 unit 10/18/24 05:53 Heparin Sodium 1,000 Un/Ml (10ml Vl) IV PER PROTOCOL PRN Low PTT Protocol Hydromorphone HCl 0.5 mg 10/18/24 06:53 Hydromorphone 0.5 Mg/0.5 Ml Syringe IVP Q3HR PRN Moderate Pain (Scale 4 to 6) Hydromorphone HCl 1 mg 10/18/24 06:53 Hydromorphone 1 Mg/Ml 1 Ml Syringe IVP Q3HR PRN Severe Pain (Scale 7 to 10) Heparin Sodium/Sodium Chloride 250 mls @ 11.431 mls/hr 10/18/24 06:00 10/18/24 06:18 25,000 unit/ Sodium Chloride IV 18 units/kg/hr .[id number] DEBI 11.431 mls/hr Administration Protocol 18 UNITS/KG/HR Naloxone HCl 0.2 mg 10/18/24 06:53 Naloxone 0.4 Mg/Ml 1 Ml Vial IV Q2M PRN Opioid Reversal Intake and Output 10/17/24 10/18/24 10/18/24 22:59 06:59 14:59 Other: Weight 63.503 kg 10/18/24 03:13 10/18/24 03:13
[2024-10-18] MEDS: HYDROmorphone 0.5 MG/0.5 ML SYRINGE IVP PRN (11:20)
--- NOTE | 2024-10-18 12:07 | P.HPIM ---
History of Present Illness H&P Date: 10/18/24 Patient is a 54-year-old male with past medical history of PE and RLE DVT September 2022,, cardiomyopathy EF 35 to 40%, history of medications noncompliance, history of right foot infection, osteomyelitis, history of bilateral TMA, current smoker, who presented to the ER on 10/18/2024 for SOB.. He states that he was staying at the motel with his family, his sister and her boyfriend were smoking crack in bed weed that made him short of breath. He did have some associated palpitations that are currently resolved, denies lower extremity swelling or pain. On arrival patient afebrile, heart rate in 80s to 70s, BP stable 127/91, satting well on room air. Blood work significant for unremarkable CBC, elevated D-dimer 6.85, normal sodium, potassium, creatinine, bicarb 19, AST, ALT, troponin, BNP normal, viral panel negative. EKG showed sinus rhythm, QTc 409, no acute ST elevation. CTA chest performed and showed bilateral PE with associated likely right heart strain, peripheral opacity seen within the right middle lobe and left lower lobe representing pulmonary infarct versus infectious process versus pulmonary nodule, repeat CT in 3 to 6 months recommended. Patient was started on heparin drip, cardiology consulted, TTE ordered, admitted for further management of bilateral PE in the settings of medications noncompliance. No plans for EKOS from cardiology standpoint Pertinent positives and negatives as discussed in HPI, a complete review of systems was performed and all other systems are negative. Patient seen and examined at bedside. SOB at baseline now Vital signs reviewed General: nontoxic, no distress, appears at stated age Derm: warm, dry Head: atraumatic, normocephalic, symmetric Eyes: EOMI, no lid lag, anicteric sclera, pupils equal round reactive to light ENT: Nose and ears atraumatic Neck: No thyromegaly, supple Mouth: no lip lesion, mucus membranes moist Cardiovascular: S1S2 reg, no murmur, no edema Lungs: clear to auscultation bilateral, no rhonchi, no rales, no wheeze, no accessory muscle use Abdominal: soft, nontender to palpation, no guarding, no appreciable organomegaly Ext: no gross muscle atrophy, muscle strength muscle strength 5 out of 5 in all 4 extremities, no contractures Neuro: CN II-XII grossly intact Psych: Alert, oriented, appropriate affect Assessment/Plan: Bilateral PE with possible right heart strain History of bilateral PE and right lower extremity DVT September 2022, medications noncompliance Homelessness tobacco use Occasional marijuana use -Cardiology consulted, appreciate recommendations -Continue heparin drip -Social work consult -TTE ordered and pending -Continue telemetry History of SVT Cardiomyopathy with ejection fraction 30 to 35%, etiology unclear The patient is admitted with an anticipated [greater] than 2 midnight stay as [inpatient/] status for evaluation of bilateral PE with right heart strain CODE STATUS:[Full code DVT prophylaxis: Heparin drip Anticipated discharge date: Pending clinical course Anticipated discharge place: Pending clinical course A total of 40 minutes was spent on the care of this complex patient more than 50% of the time was spent in counseling and care coordination. Past Medical History Past Medical History: Pulmonary Embolus (PE) Additional Past Medical History / Comment(s): Left leg cellulitis, wound to left foot History of Any Multi-Drug Resistant Organisms: VRE Date of last positivie culture/infection: 10/14/22 MDRO Source:: Right Foot Past Surgical History: No Surgical Hx Reported Additional Past Surgical History / Comment(s): amputation of toes on both feet. Past Anesthesia/Blood Transfusion Reactions: No Reported Reaction Past Psychological History: No Psychological Hx Reported Smoking Status: Current some day smoker Past Alcohol Use History: None Reported Past Drug Use History: Marijuana - Past Family History Father Additional Family Medical History / Comment(s): Overdose Medications and Allergies Home Medications Medication Instructions Recorded Confirmed Type No Known Home Medications 10/18/24 10/18/24 History Allergies Allergy/AdvReac Type Severity Reaction Status Date / Time No Known Allergies Allergy Verified 10/18/24 06:40 Physical Exam Vitals: Vital Signs Temp Pulse Resp BP Pulse Ox 10/18/24 07:28 97.8 F 70 18 107/80 97 10/18/24 05:20 70 16 107/88 97 10/18/24 03:52 75 10/18/24 03:43 73 10/18/24 02:33 99.1 F 89 18 127/91 98 Intake and Output 10/17/24 10/18/24 10/18/24 22:59 06:59 14:59 Other: Weight 63.503 kg Results CBC & Chem 7: 10/18/24 03:13 10/18/24 03:13 Labs: Abnormal Lab Results - Last 24 Hours (Table) 10/18/24 10/18/24 Range/Units 03:13 03:13 APTT 21.6 L (22.0-30.0) sec D-Dimer 6.85 H (<0.60) mg/L FEU Chloride 109 H (98-107) mmol/L Carbon Dioxide 19 L (22-30) mmol/L
[2024-10-18] MEDS: FAMOTIDINE 20 MG TAB PO SCH (12:38)
[2024-10-18] MEDS: ACETAMINOPHEN TAB 325 MG TAB PO PRN (20:00)
[2024-10-19 06:43] LABS: Basophils # (A) 0.03 10*3/uL (0.00-0.10); Basophils % (A) 0.4 %; Eosinophils # (A) 0.07 10*3/uL (0.04-0.35); Eosinophils % (A) 0.9 %; HCT 38.4 % (39.6-50.0); HGB 13.2 g/dL (13.0-17.0); Lymphocytes # (A) 2.88 10*3/uL (0.90-5.00); Lymphocytes % (A) 36.2 %; MCH 32.6 pg (27.0-32.0); MCHC 34.4 g/dL (32.0-37.0); MCV 94.8 fL (80.0-97.0); Monocytes # (A) 0.41 10*3/uL (0.20-1.00); Monocytes % (A) 5.2 %; Neutrophils # (A) 4.55 10*3/uL (1.80-7.70); Platelet Count 175 10*3/uL (140-440); RBC 4.05 10*6/uL (4.40-5.60); RDW 13.5 % (11.5-14.5); WBC 7.96 10*3/uL (4.50-10.00)
--- NOTE | 2024-10-19 07:31 | CA ---
Transthoracic Echo Report Name: Obed Parikh Age: 54 Gender: M : 1970 Exam Date: 10/18/2024 13:42 Exam Location: [facility] Ht (in): 73 Wt (lb): 140 Ordering Physician: Kelly Witt Attending/Referring Phys: [id number], [employer] Vanessa Padron, ADINA Procedure CPT: Indications: PE, right heart strain Cardiac Hx: Technical Quality: Fair Contrast 1: Definity Total Dose (mL): 2 Contrast 2: Total Dose (mL): MEASUREMENTS (Male / Female) Normal Values 2D ECHO LV Diastolic Diameter PLAX 6.0 cm 4.2 - 5.9 / 3.9 - 5.3 cm LV Systolic Diameter PLAX 5.3 cm IVS Diastolic Thickness 1.1 cm 0.6 - 1.0 / 0.6 - 0.9 cm LVPW Diastolic Thickness 0.9 cm 0.6 - 1.0 / 0.6 - 0.9 cm LV Relative Wall Thickness 0.3 RV Internal Dim ED PLAX 2.7 cm LA Systolic Diameter LX 3.2 cm 3.0 - 4.0 / 2.7 - 3.8 cm LA Volume 35.4 cm??? 18 - 58 / 22 - 52 cm??? LA Volume Index 19.7 cm???/m??? 16 - 28 cm???/m??? M-MODE Aortic Root Diameter MM 3.4 cm LA Systolic Diameter MM 3.4 cm LA Ao Ratio MM 1.0 AV Cusp Separation MM 2.3 cm DOPPLER MV Area PHT 3.3 cm??? Mitral E Point Velocity 27.5 cm/s Mitral A Point Velocity 44.3 cm/s Mitral E to A Ratio 0.6 MV Deceleration Time 233.2 ms TR Peak Velocity 189.6 cm/s TR Peak Gradient 14.4 mmHg FINDINGS Left Ventricle Left ventricular ejection fraction is estimated at 20-25 %. Mild left ventricular dilatation. Left ventricular wall thickness normal. Severely reduced global left ventricular systolic function. Right Ventricle Normal right ventricular size. Reduced right ventricular global systolic function. Right ventricular systolic pressure within normal limits. Right Atrium Mild right atrial dilatation. Left Atrium Mild left atrial dilatation. Mitral Valve Myxomatous (redundant) mitral valve. Trace to mild mitral regurgitation. No mitral stenosis. Aortic Valve Trileaflet aortic valve. Trace aortic regurgitation. No aortic stenosis. Tricuspid Valve Structurally normal tricuspid valve. Trace tricuspid regurgitation. No tricuspid stenosis. Pulmonic Valve Structurally normal pulmonic valve. Trace pulmonic regurgitation. No pulmonic stenosis. Pericardium No pericardial or pleural effusion. Aorta Normal size aortic root and proximal ascending aorta. CONCLUSIONS Impaired LV function with EF between 20 to 25% Previewed by: Dr. Neymar Nieves MD (Electronically Signed) Final Date: 19 October 2024 07:30
[2024-10-19] MEDS: NICOTINE 21MG/24HR PATCH TRANSDERM SCH (08:11)
[2024-10-19] MEDS: SPIRONOLACTONE 25 MG TAB PO SCH (10:41)
[2024-10-19] MEDS: DAPAGLIFLOZIN PROPANEDIOL 10 MG TABLET PO SCH (10:41)
[2024-10-19] MEDS: LOSARTAN 25 MG TAB PO SCH (10:41)
[2024-10-19] MEDS: APIXABAN 5 MG TAB PO SCH (10:55)
[2024-10-19] MEDS: LORATADINE 10 MG TAB PO SCH (12:21)
[2024-10-19 13:56] VITALS: BMI 18.4
--- NOTE | 2024-10-19 13:56 | P.PN ---
Subjective Progress Note Date: 10/19/24 Hospital Course: Patient is a 54-year-old male with past medical history of PE and RLE DVT September 2022,, cardiomyopathy EF 35 to 40%, history of medications noncompliance, history of right foot infection, osteomyelitis, history of bilateral TMA, current smoker, who presented to the ER on 10/18/2024 for SOB.. He states that he was staying at the motel with his family, his sister and her boyfriend were smo kiana crack in bed weed that made him short of breath. He did have some associated palpitations that are currently resolved, denies lower extremity swelling or pain. On arrival patient afebrile, heart rate in 80s to 70s, BP stable 127/91, satting well on room air. Blood work significant for unremarkable CBC, elevated D-dimer 6.85, normal sodium, potassium, creatinine, bicarb 19, AST, ALT, troponin, BNP normal, viral panel negative. EKG showed sinus rhythm, QTc 409, no acute ST elevation. CTA chest performed and showed bilateral PE with associated likely right heart strain, peripheral opacity seen within the right middle lobe and left lower lobe representing pulmonary infarct versus infectious process versus pulmonary nodule, repeat CT in 3 to 6 months recommended. Patient was started on heparin drip, cardiology consulted, TTE ordered, admitted for further management of bilateral PE in the settings of medications noncompliance. No plans for EKOS from cardiology standpoint TTE showed EF of 20 to 25%, patient was started on GDMT with Aldactone 12.5 daily, Toprol-XL 25 daily, Cozaar 12.5 daily, Farxiga 10 daily, heparin stopped, switched to Eliquis 5 mg twice daily. Pertinent Imaging: Echo as above Subjective: States that he does not feel well, mostly worried because he is not eligible to go to long-term facility/shelter, noted some neck itching, on neck exam some possible old bites were noted with excoriations Pertinent positives and negatives as discussed above, a complete review of systems was performed and all other systems are negative. Vitals Signs Reviewed. General: [nontoxic], [no distress], [appears at stated age] Derm: [warm], [dry] Head: [atraumatic], [normocephalic], [symmetric] Eyes: [EOMI], [no lid lag], [anicteric sclera] Mouth: [no lip lesion], [mucus membranes moist] Cardiovascular: [S1S2 reg], [no murmur] Lungs: [CTA bilateral], [no rhonchi, no rales] , [no accessory muscle use] Abdominal: [soft], [ nontender to palpation], [no guarding], [no appreciable organomegaly] Ext: [no gross muscle atrophy], [no edema], [no contractures], bilateral transmetatarsal amputation Neuro: [ CN II-XI grossly intact], [no focal neuro deficits] Psych: [Alert], [oriented], [appropriate affect] Data Reviewed Today: Pertinent Labs: Normal WBC, hemoglobin, platelet count Assessment and Plan: Bilateral PE , chronic, no right heart strain History of bilateral PE and right lower extremity DVT September 2022, medications noncompliance Homelessness tobacco use Occasional marijuana use -Cardiology consulted, appreciate recommendations - heparin stopped, switched to Eliquis 5 mg twice daily -Social work consult, will be discharged to correction -Continue telemetry History of SVT Cardiomyopathy with ejection fraction 30 to 35%, etiology unclear, now worsening EF 20 to 25% as of 10/18/2024 -Cardiology following -GDMT with Aldactone 12.5 daily, Toprol-XL 25 daily, Cozaar 12.5 daily, Farxiga 10 daily,. CODE STATUS:[Full code DVT prophylaxis: Eliquis Anticipated discharge date: 10/[address]: Long-Term Objective - Vital Signs Vital signs: Vital Signs Temp 97.7 F 10/19/24 11:45 Pulse 68 10/19/24 12:00 Resp 18 10/19/24 11:45 BP 101/68 10/19/24 12:13 Pulse Ox 98 10/19/24 11:45 FiO2 Intake & Output 10/18/24 10/19/24 10/19/24 18:59 06:59 18:59 Intake Total 582 194.708 114.501 Output Total 225 Balance 582 -30.292 114.501 Weight 63.503 kg Intake: Intake, IV Titration 194.708 114.501 Amount Heparin Sod,Pork in 0.45% 194.708 114.501 NaCl 25,000 unit In 0.45 % NaCl 1 250ml.bag @ 18 UNITS/KG/HR 11.431 mls/hr IV .[id number] [facility] Rx#: [id number] Oral 582 Output: Urine 225 - Labs CBC & Chem 7: 10/19/24 06:00 10/18/24 03:13 Labs: Abnormal Lab Results - Last 24 Hours (Table) 10/19/24 10/19/24 Range/Units 06:00 06:00 RBC 4.05 L (4.40-5.60) 10*6/uL Hct 38.4 L (39.6-50.0) % MCH 32.6 H (27.0-32.0) pg APTT 36.0 H (22.0-30.0) sec
[2024-10-19] MEDS: METOPROLOL SUCCINATE (ER) 25 MG TAB.ER.24H PO SCH (17:16)
--- NOTE | 2024-10-20 06:53 | P.PN ---
Subjective Progress Note Date: 10/19/24 Reason for Consult (text): EKOS History of present illness: This is a 54-year-old male with past medical history of bilateral transmetatarsal amputations due to thermal burn and frostbite, tobacco use and dependence, marijuana use, multiple hospitalizations for pulmonary embolisms and right lower extremity DVT. Patient has been prescribed Xarelto in the past for PE but appears to be noncompliant. Patient is currently homeless. We have been asked to evaluate the patient for EKOS. Patient states that he came into the hospital due to increasing shortness of breath. He states he was in a hotel with his mom, sister, and her boyfriend and they were smoking crack and weed with a foul odor and was making him short of breath. Patient denies chest pain or palpitations. He states he feels a tightness in his legs. Right now his shortness of breath is at his baseline and not any worse. His breathing is better since he came into the hospital. Patient has been started on heparin drip. Blood pressure 107/80, heart rate 70, pulse ox 97% on room air, afebrile. Patient is seen today in the emergency center waiting for a bed on the cardiac stepdown unit. Patient is an active smoker 1 pack/day. He states he drinks alcohol only occasionally. He denies any drug use. He denies caffeine use. He states he does not take any home medications. He denies history of diabetes, hypertension, PE. -EKG: Sinus rhythm with no acute ST-T wave changes. -CTA of the chest: Bilateral pulmonary artery emboli with associated likely right heart strain. Peripheral opacity seen within the right middle lobe and left lower lobe. Unclear if this represents pulmonary infarct versus infectious process or pulmonary nodule. Recommend CT in 3 to 6 months. -Laboratory studies: CBC within normal limits, D-dimer 6.85, CO2 19, creatinine 0.95. Troponin negative x 1. proBNP 321. Cepheid viral panel not detected. -Home cardiac medications: -Echocardiogram performed 11/11/2022 revealed dilated left ventricle with severe impairment of the systolic function, mild to moderate mitral, mild tricuspid regurgitation, normal RV size and normal right-sided pressure. EF 30 to 35%. 10/19 Patient seen and examined on the cardiac stepdown unit. Patient states that he is feeling better today. He denies shortness of breath no chest pain or chest pressure. He remains on a heparin drip. Blood pressure 102/76, heart rate 78, pulse ox 96% on room air. Repeat blood work reveals hemoglobin 13.2. All troponins negative x 3. Echocardiogram reveals impaired LV function with EF of 20 to 25%. Physical examination: Gen: This is a 54-year-old male in no acute respiratory distress. VS: reviewed HEENT: Head is atraumatic, normocephalic. Pupils equal, round. Sclerae is anicteric. NECK: Supple. No JVD. LUNGS: Decreased air exchange bilaterally. No intercostal retractions. HEART: Regular rate and rhythm. No murmur. ABDOMEN: Soft No tenderness. EXTREMITIES: No pedal edema. Transmetatarsal amputation bilaterally NEUROLOGICAL: Patient is awake, alert and oriented x3. Assessment: Pulmonary embolism appears to be chronic, doubt acute status History of transmetatarsal amputation bilaterally due to thermal burn and frostbite Tobacco use and dependence Marijuana use Multiple hospitalizations for pulmonary embolisms and right lower extremity DVT Noncompliance Homelessness Cardiomyopathy, ischemic versus nonischemic Plan: Continue patient's home cardiac medications Discontinue heparin drip and start patient on Eliquis 5 mg twice daily for chronic PE Continue other new medications including Farxiga, losartan, Toprol XL, Aldactone Social work consult regarding homelessness and noncompliance Further recommendations to follow based upon clinical course Nurse practitioner note has been reviewed, I agree with documented findings and plan of care. Patient was seen and examined. Objective - Vital Signs Vital signs: Vital Signs Temp 98.4 F 10/19/24 08:09 Pulse 78 10/19/24 08:09 Resp 16 10/19/24 08:09 BP 102/76 10/19/24 08:09 Pulse Ox 96 10/19/24 03:25 FiO2 Intake & Output 10/18/24 10/19/24 10/19/24 18:59 06:59 18:59 Intake Total 582 194.708 114.501 Output Total 225 Balance 582 -30.292 114.501 Weight 63.503 kg Intake: Intake, IV Titration 194.708 114.501 Amount Heparin Sod,Pork in 0.45% 194.708 114.501 NaCl 25,000 unit In 0.45 % NaCl 1 250ml.bag @ 18 UNITS/KG/HR 11.431 mls/hr IV .[id number] [facility] Rx#: [id number] Oral 582 Output: Urine 225 - Labs CBC & Chem 7: 10/19/24 06:00 10/18/24 03:13 Labs: Abnormal Lab Results - Last 24 Hours (Table) 10/18/24 10/19/24 10/19/24 Range/Units 11:35 06:00 06:00 RBC 4.05 L (4.40-5.60) 10*6/uL Hct 38.4 L (39.6-50.0) % MCH 32.6 H (27.0-32.0) pg APTT 40.3 H 36.0 H (22.0-30.0) sec
[2024-10-20 07:45] VITALS: TEMP 98
[2024-10-20 11:48] VITALS: BP 96/65; PULSE 74; RESP 16
--- NOTE | 2024-10-20 12:19 | P.DS ---
Providers Date of admission: 10/18/24 06:53 Attending physician: Tabby Howard MD Consults: 10/18/24 06:53 Consult Physician Urgent Consulting Provider: Neymar Nieves Consult Reason/Comments: EKOS Do you want consulting provider notified?: Yes, Notify in am Primary care physician: Stated None Hospital Course: Discharge Diagnosis: Bilateral PE, chronic, no right heart strain History of bilateral PE and right lower extremity DVT September 2022, medications noncompliance due to social issues Homelessness Tobacco use Occasional marijuana use History of SVT Hospital Course: Patient is a 54-year-old male with past medical history of PE and RLE DVT September 2022,, cardiomyopathy EF 35 to 40%, history of medications noncompliance, history of right foot infection, osteomyelitis, history of bilateral TMA, current smoker, who presented to the ER on 10/18/2024 for SOB.. He states that he was staying at the motel with his family, his sister and her boyfriend were smoking crack in bed weed that made him short of breath. He did have some associated palpitations that are currently resolved, denies lower extremity swelling or pain. On arrival patient afebrile, heart rate in 80s to 70s, BP stable 127/91, satting well on room air. Blood work significant for unremarkable CBC, elevated D-dimer 6.85, normal sodium, potassium, creatinine, bicarb 19, AST, ALT, troponin, BNP normal, viral panel negative. EKG showed sinus rhythm, QTc 409, no acute ST elevation. CTA chest performed and showed bilateral PE with associated likely right heart strain, peripheral opacity seen within the right middle lobe and left lower lobe representing pulmonary infarct versus infectious process versus pulmonary nodule, repeat CT in 3 to 6 months recommended. Patient was started on heparin drip, cardiology consulted, TTE ordered, admitted for further management of bilateral PE in the settings of medications noncompliance. No plans for EKOS from cardiology standpoint TTE showed EF of 20 to 25%, patient was started on GDMT with Aldactone 12.5 daily, Toprol-XL 25 daily, Cozaar 12.5 daily, Farxiga 10 daily, heparin stopped, switched to Eliquis 5 mg twice daily. 10/20 patient's blood pressure is on the lower side but stable, no associated dizziness or lightheadedness, discharged on the above medications, discussed with cardiology and was cleared. We discussed smoking cessation Jail information provided by case management Patient seen and examined at bedside.[] Vital signs reviewed and stable. General: [nontoxic], [no distress], [appears at stated age] Derm: [warm], [dry] Head: [atraumatic], [normocephalic], [symmetric] Eyes: [EOMI], [no lid lag], [anicteric sclera] Mouth: [no lip lesion], [mucus membranes moist] Cardiovascular: [S1S2 reg], [no murmur] Lungs: [CTA bilateral], [no rhonchi, no rales] , [no accessory muscle use] Abdominal: [soft], [ nontender to palpation], [no guarding], [no appreciable organomegaly] Ext: [no gross muscle atrophy], [no edema], [no contractures], bilateral transmetatarsal amputation Neuro: [ CN II-XI grossly intact], [no focal neuro deficits] Psych: [Alert], [oriented], [appropriate affect] A total of 41 minutes of time were spent preparing this complex discharge summary. Patient was discharged on10/20/24. Patient Condition at Discharge: Stable Plan - Discharge Summary Discharge Rx Participant: Yes New Discharge Prescriptions: New Spironolactone [Aldactone] 12.5 mg PO DAILY #30 tab Dapagliflozin Propanediol [Farxiga] 10 mg PO DAILY #30 tab Famotidine [Pepcid] 20 mg PO BID #60 tab Losartan [Cozaar] 12.5 mg PO DAILY #30 tab Apixaban [Eliquis] 5 mg PO BID #60 tab Metoprolol Succinate (ER) [Toprol XL] 25 mg PO DAILY #30 tab Discharge Medication List Apixaban [Eliquis] 5 mg PO BID #60 tab 10/19/24 [Rx] Dapagliflozin Propanediol [Farxiga] 10 mg PO DAILY #30 tab 10/19/24 [Rx] Famotidine [Pepcid] 20 mg PO BID #60 tab 10/19/24 [Rx] Losartan [Cozaar] 12.5 mg PO DAILY #30 tab 10/19/24 [Rx] Metoprolol Succinate (ER) [Toprol XL] 25 mg PO DAILY #30 tab 10/19/24 [Rx] Spironolactone [Aldactone] 12.5 mg PO DAILY #30 tab 10/19/24 [Rx] Follow up Appointment(s)/Referral(s): None,Stated [Primary Care Provider] - 1-2 days [facility] [NON-STAFF] -
--- NOTE | 2024-10-20 13:20 | P.PN ---
Subjective Progress Note Date: 10/20/24 Reason for Consult (text): EKOS History of present illness: This is a 54-year-old male with past medical history of bilateral transmetatarsal amputations due to thermal burn and frostbite, tobacco use and dependence, marijuana use, multiple hospitalizations for pulmonary embolisms and right lower extremity DVT. Patient has been prescribed Xarelto in the past for PE but appears to be noncompliant. Patient is currently homeless. We have been asked to evaluate the patient for EKOS. Patient states that he came into the hospital due to increasing shortness of breath. He states he was in a hotel with his mom, sister, and her boyfriend and they were smoking crack and weed with a foul odor and was making him short of breath. Patient denies chest pain or palpitations. He states he feels a tightness in his legs. Right now his shortness of breath is at his baseline and not any worse. His breathing is better since he came into the hospital. Patient has been started on heparin drip. Blood pressure 107/80, heart rate 70, pulse ox 97% on room air, afebrile. Patient is seen today in the emergency center waiting for a bed on the cardiac stepdown unit. Patient is an active smoker 1 pack/day. He states he drinks alcohol only occasionally. He denies any drug use. He denies caffeine use. He states he does not take any home medications. He denies history of diabetes, hypertension, PE. -EKG: Sinus rhythm with no acute ST-T wave changes. -CTA of the chest: Bilateral pulmonary artery emboli with associated likely right heart strain. Peripheral opacity seen within the right middle lobe and left lower lobe. Unclear if this represents pulmonary infarct versus infectious process or pulmonary nodule. Recommend CT in 3 to 6 months. -Laboratory studies: CBC within normal limits, D-dimer 6.85, CO2 19, creatinine 0.95. Troponin negative x 1. proBNP 321. Cepheid viral panel not detected. -Home cardiac medications: -Echocardiogram performed 11/11/2022 revealed dilated left ventricle with severe impairment of the systolic function, mild to moderate mitral, mild tricuspid regurgitation, normal RV size and normal right-sided pressure. EF 30 to 35%. 10/19 Patient seen and examined on the cardiac stepdown unit. Patient states that he is feeling better today. He denies shortness of breath no chest pain or chest pressure. He remains on a heparin drip. Blood pressure 102/76, heart rate 78, pulse ox 96% on room air. Repeat blood work reveals hemoglobin 13.2. All troponins negative x 3. Echocardiogram reveals impaired LV function with EF of 20 to 25%. 10/20 Patient seen and examined. No new concerns from the patient. Yesterday, heparin was transitioned to Eliquis. Patient has been ambulatory in the hallway. No shortness of breath. No chest pain. Blood pressure 96/65, heart rate 74, pulse ox 95% on room air. No repeat blood work today. Physical examination: Gen: This is a 54-year-old male in no acute respiratory distress. VS: reviewed HEENT: Head is atraumatic, normocephalic. Pupils equal, round. Sclerae is an icteric. NECK: Supple. No JVD. LUNGS: Decreased air exchange bilaterally. No intercostal retractions. HEART: Regular rate and rhythm. No murmur. ABDOMEN: Soft No tenderness. EXTREMITIES: No pedal edema. Transmetatarsal amputation bilaterally NEUROLOGICAL: Patient is awake, alert and oriented x3. Assessment: Pulmonary embolism appears to be chronic, doubt acute status History of transmetatarsal amputation bilaterally due to thermal burn and frostbite Tobacco use and dependence Marijuana use Multiple hospitalizations for pulmonary embolisms and right lower extremity DVT Noncompliance Homelessness Cardiomyopathy, ischemic versus nonischemic Plan: Continue Eliquis 5 mg twice daily for chronic PE Continue other new medications including Farxiga, losartan, Toprol XL, Aldactone Social work consult regarding homelessness and noncompliance Patient is cleared for discharge once all arrangements are completed. Patient to follow-up in 1 to 2 weeks. Nurse practitioner note has been reviewed, I agree with documented findings and plan of care. Patient was seen and examined. Objective - Vital Signs Vital signs: Vital Signs Temp 98.0 F 10/20/24 07:44 Pulse 96 10/20/24 10:24 Resp 19 10/20/24 07:44 BP 93/57 10/20/24 10:24 Pulse Ox 98 10/20/24 07:44 FiO2 Intake & Output 10/19/24 10/20/24 10/20/24 18:59 06:59 18:59 Intake Total 354.501 244 Output Total 300 525 Balance 54.501 -281 Weight 63.503 kg 63.7 kg Intake: Intake, IV Titration 114.501 Amount Heparin Sod,Pork in 0.45% 114.501 NaCl 25,000 unit In 0.45 % NaCl 1 250ml.bag @ 18 UNITS/KG/HR 11.431 mls/hr IV .[id number] [facility] Rx#: [id number] Oral 240 244 Output: Urine 300 525 Other: Voiding Method Urinal - Labs CBC & Chem 7: 10/19/24 06:00 10/18/24 03:13
== END 2024-10-20 15:38 | disposition home or self-care (01) | DRG 134 ==
LOC: EC 02:31 → 3SCARD 06:53
PROVIDERS: ADMIT Internal Medicine; ATTEND Internal Medicine
DX: I27.82 Chronic pulmonary embolism (principal); I25.5 Ischemic cardiomyopathy; F17.210 Nicotine dependence, cigarettes, uncomplicated; I08.1 Rheumatic disorders of both mitral and tricuspid valves; I42.8 Other cardiomyopathies; Z11.52 Encounter for screening for COVID-19; Z91.199 Patient's noncompliance with other medical treatment and regimen due to unspecified reason; Z91.148 Patient's other noncompliance with medication regimen for other reason; Z59.00 Homelessness unspecified; Z71.6 Tobacco abuse counseling; Z79.01 Long term (current) use of anticoagulants; Z79.84 Long term (current) use of oral hypoglycemic drugs; Z86.718 Personal history of other venous thrombosis and embolism; Z89.422 Acquired absence of other left toe(s); Z89.421 Acquired absence of other right toe(s); Z87.828 Personal history of other (healed) physical injury and trauma
CPT/HCPCS: 36415; 71275; 80053; 83880; 84484; 85025; 85379; 85610; 85730; 87636; 93005; 93306; 94640; 96365; 96366; 99291